=== PATIENT | male | born 1950 | race Two or more races ===

== ENCOUNTER 2021-02-03 07:42 | Outpatient (REF) | payer MEDICARE, SELFPAY ==
[2021-02-03 09:10] LABS: Prostate Specific Antigen 18.29 ng/mL (<0.05-4.0)
== END 2021-02-03 07:43 | disposition home or self-care (01) ==
LOC: HO.LAB 07:42
PROVIDERS: Visit Provider Urology
DX: Z12.5 Encounter for screening for malignant neoplasm of prostate (principal); N40.1 Benign prostatic hyperplasia with lower urinary tract symptoms; N13.8 Other obstructive and reflux uropathy
CPT/HCPCS: 36415; 84153

== ENCOUNTER → 2021-02-05 08:42 | Outpatient (BNVA) | payer MEDICARE, SELFPAY | PROVIDERS: Visit Provider Urology | DX: R97.20 Elevated prostate specific antigen [PSA] (principal); N40.0 Benign prostatic hyperplasia without lower urinary tract symptoms | CPT/HCPCS: 51798; 99212 ==

== ENCOUNTER → 2021-06-08 08:09 | Outpatient (BNVA) | payer MEDICARE, SELFPAY | PROVIDERS: Visit Provider Urology | CPT/HCPCS: Q3014 ==

== ENCOUNTER 2021-11-26 07:53 | Outpatient (REF) | payer MEDICARE, SELFPAY ==
[2021-11-26 09:25] LABS: PSA,Total (Free>4and<10) 5.31 ng/mL (0.00-4.00)
[2021-11-29 11:47] LABS: Free Prostate Spec Ag 1.1 ng/mL; Percent Free Prostate Spec Ag 19 % (calc) (>25); Prostate Specific Ag Total 5.9 ng/mL (< OR = 4.0)
== END 2021-11-26 07:54 | disposition home or self-care (01) ==
LOC: HO.LAB 07:53
PROVIDERS: PCP Internal Medicine; Visit Provider Urology
DX: Z12.5 Encounter for screening for malignant neoplasm of prostate (principal); N40.0 Benign prostatic hyperplasia without lower urinary tract symptoms; N40.1 Benign prostatic hyperplasia with lower urinary tract symptoms; N13.8 Other obstructive and reflux uropathy
CPT/HCPCS: 36415; 84153; 84154

== ENCOUNTER → 2021-12-14 08:19 | Outpatient (BNVA) | payer MEDICARE, SELFPAY | PROVIDERS: PCP Internal Medicine; Visit Provider Urology | DX: R97.20 Elevated prostate specific antigen [PSA] (principal); N40.1 Benign prostatic hyperplasia with lower urinary tract symptoms; R33.9 Retention of urine, unspecified | CPT/HCPCS: Q3014 ==

== ENCOUNTER 2022-06-13 07:54 | Outpatient (REF) | payer OTHER, SELFPAY ==
[2022-06-13 09:23] LABS: PSA,Total (Free>4and<10) 4.72 ng/mL (0.00-4.00)
[2022-06-14 12:07] LABS: Percent Free Prostate Spec Ag 20 % (calc) (>25); Prostate Specific Ag Total 4.9 ng/mL (< OR = 4.0)
== END 2022-06-13 07:55 | disposition home or self-care (01) ==
LOC: HO.LAB 07:54
PROVIDERS: PCP Internal Medicine; Visit Provider Urology
DX: Z12.5 Encounter for screening for malignant neoplasm of prostate (principal); N13.8 Other obstructive and reflux uropathy; N40.1 Benign prostatic hyperplasia with lower urinary tract symptoms
CPT/HCPCS: 36415; 84153; 84154

== ENCOUNTER → 2022-06-16 11:16 | Outpatient (BNVA) | payer OTHER, SELFPAY | PROVIDERS: PCP Internal Medicine; Visit Provider Urology | DX: R97.20 Elevated prostate specific antigen [PSA] (principal); N40.1 Benign prostatic hyperplasia with lower urinary tract symptoms; N13.8 Other obstructive and reflux uropathy; Z79.899 Other long term (current) drug therapy | CPT/HCPCS: 51798; 99212 ==

== ENCOUNTER 2022-12-12 08:29 | Outpatient (REF) | payer OTHER, SELFPAY ==
[2022-12-12 09:52] LABS: PSA,Total (Free>4and<10) 4.09 ng/mL (0.00-4.00)
[2022-12-13 10:43] LABS: Free Prostate Spec Ag 0.9 ng/mL; Percent Free Prostate Spec Ag 23 % (calc) (>25)
== END 2022-12-12 08:30 | disposition home or self-care (01) ==
LOC: HO.LAB 08:29
PROVIDERS: Visit Provider Urology
DX: Z12.5 Encounter for screening for malignant neoplasm of prostate (principal); N13.8 Other obstructive and reflux uropathy; N40.1 Benign prostatic hyperplasia with lower urinary tract symptoms; R97.20 Elevated prostate specific antigen [PSA]
CPT/HCPCS: 36415; 84153; 84154

== ENCOUNTER → 2022-12-16 15:30 | Outpatient (BNVA) | payer OTHER, SELFPAY | PROVIDERS: PCP Internal Medicine; Visit Provider Urology | DX: R97.20 Elevated prostate specific antigen [PSA] (principal); N40.0 Benign prostatic hyperplasia without lower urinary tract symptoms | CPT/HCPCS: Q3014 ==

== ENCOUNTER 2023-06-06 07:28 | Outpatient (REF) | payer OTHER, SELFPAY ==
[2023-06-06 09:57] LABS: Prostate Specific Antigen 5.02 ng/mL (<0.05-4.0)
== END 2023-06-06 07:29 | disposition home or self-care (01) ==
LOC: HO.LAB 07:28
PROVIDERS: Visit Provider Urology
DX: Z12.5 Encounter for screening for malignant neoplasm of prostate (principal); R97.20 Elevated prostate specific antigen [PSA]
CPT/HCPCS: 36415; 84153

== ENCOUNTER 2023-06-21 11:16 | Outpatient (AMB) | payer OTHER, SELFPAY ==
--- NOTE | 2023-06-21 11:43 | MHC.OFFVIS ---
Intake Intake Visit Reasons: 6m/PSA(set) Intake Note: Patient is present for Follow Up PSA Urology Med: Finasteride, Tamsulosin Antibiotic Allergy: None Blood Thinner: None [facility]acy: [facility] Allergies No Known Allergies Allergy (Verified 06/21/23 11:45) Medication List - Last Reconciled 06/21/23 by Newton Brewer MD acetaminophen-codeine 300-60 mg 1 tab PO Q8H PRN amlodipine 5 mg PO DAILY aspirin 1 tab PO DAILY atorvastatin 1 tab PO BEDTIME blood sugar diagnostic (FreeStyle Lite Strips) As directed cholecalciferol (vitamin D3) (Vitamin D3) 1 cap PO DAILY cyanocobalamin (vitamin B-12) 1 tab PO BEDTIME docusate sodium 100 mg PO BID duloxetine 1 cap PO DAILY famotidine 20 mg PO DAILY ferrous sulfate 325 mg PO DAILY finasteride 5 mg PO DAILY 90 days glipizide ER 10 mg PO DAILY lisinopril 1 tab PO DAILY loratadine 1 tab PO DAILY memantine 1 tab PO BID metformin 1 tab PO BID pregabalin 1 cap PO TID psyllium husk (Reguloid (psyllium husk)) 0.4 grams PO DAILY repaglinide 1 tab PO TID sennosides (senna) 2 tabs PO DAILY PRN sertraline 1 tab PO DAILY tamsulosin 0.4 mg PO DAILY triamcinolone acetonide 0.1% 0.1 appl topical BID HPI HPI Comments History of Present Illness Details oRd is a pleasant male. He is a patient of Dr. Chowdhury. 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 10/10 PSA - 05/11 10 - 02/10 18 - 05/12 6.6, 12/14 5.9 F 19%, 06/13 4.7 20%, 12/15 4.1, 06/14 5.0 PFSH Medical History BPH (benign prostatic hyperplasia) Depression Diabetes Diabetic nephropathy History of hepatitis as a child HTN (hypertension) Hypercholesteremia Normocytic anemia Obstructive sleep apnea Osteoarthritis Surgical History History of prostate biopsy Family History Father Diabetes Social History Household Members: Spouse and Significant Other Housing: House Are you a primary career services director to a significant other at home: No Do you presently have visiting nurse or other home services: No Alcohol intake: former Patient Tobacco Use Status: Never used Tobacco service: Yes Current occupational status: retired Review of Systems Const Denies chills and Denies fever(s) Card Reports no additional complaints and Denies syncope Resp Denies cough GI Denies abdominal pain and Denies heartburn Reports as per HPI and Denies change in libido Neuro Denies syncope Psych Denies change in libido Endo Denies change in libido Physical Exam Const General: cooperative, healthy appearing, comfortable and no acute distress Orientation/consciousness: patient oriented x3 HEENT Face and sinus: Yes normal facial exam Mouth: moist mucous membranes Neck Neck: Yes normal visual inspection, Yes full ROM and Yes trachea midline Chest Chest palpation & inspection: normal inspection of the chest Resp Effort & Inspection: normal respiratory effort, able to speak in complete sentences and no respiratory distress GI Inspection: Yes normal to inspection Back/Spine/Pelvis Cervical Spine: normal cervical lordosis Thoracic/Lumbar Spine: thoracic and lumbar spine normal to inspection Skin General skin exam: no rashes or lesions noted Neuro General: patient oriented x3, gait normal, tone normal and moves all extremities Extrem General: Yes normal to inspection and Yes capillary refill normal Assessment & Plan Assessment & Plan (1) Elevated PSA: Code(s): R97.20 - Elevated prostate specific antigen [PSA] (2) BPH (benign prostatic hyperplasia): Code(s): N40.0 - Benign prostatic hyperplasia without lower urinary tract symptoms Plan Six month follow-up PSA Orders: Orders PSA,Total (Free>4and<10) 6 Months R97.20 - Elevated prostate specific antigen [PSA] Patient Instructions: Imaging studies, laboratory and physical exam results were discussed and reviewed in detail. No major barriers to patient understanding were identified. An opportunity to ask questions regarding the treatment plan was provided. All questions were answered. The patient expressed understanding and agreement with the above treatment plan. The patient is aware they should contact our office by phone for worsening of their current condition or the appearance of new urologic symptoms. Compliance is encouraged with any medications and followup testing that is ordered. It is a privilege to participate in the urologic care of your patient. If you have any questions or concerns regarding treatment for the above conditions, or other urologic issues, please do not hesitate to contact me. The office telephone contact is [phone]. This note is constructed using voice recognition software. While every effort has been made to ensure accuracy automatic embroidery machine tender errors may have been included. Yours sincerely, Dr Newton Brewer MD, [facility] - Urology Providers of Expert, Compassionate Care for the Genitourinary System Coding Level of Care Code Est Pt Level 3 (45004) Diagnoses Elevated PSA R97.20 BPH (benign prostatic hyperplasia) N40.0
== END 2023-06-21 12:07 | disposition home or self-care (01) ==
PROVIDERS: PCP Internal Medicine; Visit Provider Urology
DX: R97.20 Elevated prostate specific antigen [PSA] (principal); N40.0 Benign prostatic hyperplasia without lower urinary tract symptoms
CPT/HCPCS: 99213

== ENCOUNTER → 2023-06-21 11:16 | Outpatient (BNVA) | payer OTHER, SELFPAY | PROVIDERS: PCP Internal Medicine; Visit Provider Urology | DX: R97.20 Elevated prostate specific antigen [PSA] (principal); N40.0 Benign prostatic hyperplasia without lower urinary tract symptoms; E11.21 Type 2 diabetes mellitus with diabetic nephropathy; Z79.84 Long term (current) use of oral hypoglycemic drugs; Z79.899 Other long term (current) drug therapy | CPT/HCPCS: 99212 ==

== ENCOUNTER 2023-11-28 16:14 | Outpatient (REF) | payer OTHER, SELFPAY ==
[2023-11-28 17:43] LABS: Appearance Urine Cloudy; Color Urine Yellow; Glucose Urine UA 250 mg/dL (Negative); Leukocyte Esterase Urine Large (3+) (Negative); Nitrite Urine Negative (Negative); PH 6.5 (5.0-9.0); UMIC TRIGGER UA YES; Urine Blood Trace (Negative); Urine Ketones Negative (Negative); Urine Protein 30 (1+) mg/dL (Neg-Trace)
[2023-11-28 17:48] LABS: Bacteria Urine Trace (None Seen); Hyaline Casts Urine 0-2 /LPF (0-2); RBC Urine 0-2 /HPF (0-2); Squamous Epithelial Cell Urine 0-2 /HPF (0-2); WBC Urine >50 /HPF (0-5)
== END 2023-11-28 16:15 | disposition home or self-care (01) ==
LOC: HO.LAB 16:14
PROVIDERS: Visit Provider Urology
DX: N40.0 Benign prostatic hyperplasia without lower urinary tract symptoms (principal)
CPT/HCPCS: 81001; 87086; 87088; 87186

== ENCOUNTER 2023-12-08 08:00 | Outpatient (REF) | payer OTHER, SELFPAY ==
[2023-12-08 09:51] LABS: PSA,Total (Free>4and<10) 3.95 ng/mL (0.00-4.00)
== END 2023-12-08 08:01 | disposition home or self-care (01) ==
LOC: HO.LAB 08:00
PROVIDERS: Visit Provider Urology
DX: R97.20 Elevated prostate specific antigen [PSA] (principal); Z12.5 Encounter for screening for malignant neoplasm of prostate
CPT/HCPCS: 36415; 84153

== ENCOUNTER 2023-12-19 11:35 | Outpatient (AMB) | payer OTHER, SELFPAY ==
--- NOTE | 2023-12-19 11:36 | MHC.OFFVIS ---
Intake Intake Visit Reasons: 6M PSA(set)VM to confirm Intake Note: Patient is Present for Telephone Follow Up PSA Urology Med: Finasteride, Tamsulosin Antibiotic Allergy: None Blood Thinner: Aspirin Allergies No Known Allergies Allergy (Verified 12/19/23 11:37) Medication List - Last Reconciled 12/19/23 by Newton Brewer MD acetaminophen-codeine 300-60 mg 1 tab PO Q8H PRN amlodipine 5 mg PO DAILY aspirin 1 tab PO DAILY atorvastatin 1 tab PO BEDTIME blood sugar diagnostic (FreeStyle Lite Strips) As directed cholecalciferol (vitamin D3) (Vitamin D3) 1 cap PO DAILY cyanocobalamin (vitamin B-12) 1 tab PO BEDTIME docusate sodium 100 mg PO BID duloxetine 1 cap PO DAILY famotidine 20 mg PO DAILY ferrous sulfate 325 mg PO DAILY finasteride 5 mg PO DAILY 90 days glipizide ER 10 mg PO DAILY lisinopril 1 tab PO DAILY loratadine 1 tab PO DAILY memantine 1 tab PO BID metformin 1 tab PO BID nitrofurantoin monohyd/m-cryst 100 mg (Macrobid) 100 mg PO BID 2 weeks pregabalin 1 cap PO TID psyllium husk (Reguloid (psyllium husk)) 0.4 grams PO DAILY repaglinide 1 tab PO TID sennosides (senna) 2 tabs PO DAILY PRN sertraline 1 tab PO DAILY tamsulosin 0.4 mg PO DAILY 90 days triamcinolone acetonide 0.1% 0.1 appl topical BID HPI HPI Comments History of Present Illness Details Rod is a pleasant male. He is a patient of Dr. Chowdhury. 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 10/10 PSA - 05/11 10 - 02/10 18 - 05/12 6.6, 12/14 5.9 F 19%, 06/13 4.7 20%, 12/15 4.1, 06/14 5.0, 12/16 3.9 PFSH Medical History BPH (benign prostatic hyperplasia) Depression Diabetes Diabetic nephropathy History of hepatitis as a child HTN (hypertension) Hypercholesteremia Normocytic anemia Obstructive sleep apnea Osteoarthritis Surgical History History of prostate biopsy Family History Father Diabetes Social History Household Members: Spouse and Significant Other Housing: House Are you a primary social worker palliative care to a significant other at home: No Do you presently have visiting nurse or other home services: No Alcohol intake: former Patient Tobacco Use Status: Never used Tobacco service: Yes Current occupational status: retired Review of Systems Const All systems reviewed & are unremarkable except as noted in HPI and below Reports no additional complaints Resp Reports no additional complaints GI Reports no additional complaints Reports as per HPI Musc Reports no additional complaints Physical Exam Telemedicine evaluation Appropriate responses Regular breathing rate and rhythm HEENT Head: Yes normal to inspection Ears: hearing grossly normal bilaterally Eyes General: appearance normal, both eyes and all related structures Neck Neck: Yes normal visual inspection Chest Chest palpation & inspection: normal inspection of the chest Resp Effort & Inspection: normal respiratory effort and able to speak in complete sentences Assessment & Plan Assessment & Plan (1) Elevated PSA: Code(s): R97.20 - Elevated prostate specific antigen [PSA] (2) BPH (benign prostatic hyperplasia): Code(s): N40.0 - Benign prostatic hyperplasia without lower urinary tract symptoms Plan Six-month follow-up repeat PSA Remain on finasteride Orders: Orders Prostate Specific Antigen 6 Months N40.0 - Benign prostatic hyperplasia without lower urinary tract symptoms Medications: Refilled finasteride 5 mg PO DAILY 90 tabs 1RF 90 days N40.0 - Benign prostatic hyperplasia without lower urinary tract symptoms, R97.20 - Elevated prostate specific antigen [PSA] Patient Instructions: Imaging studies, laboratory and physical exam results were discussed and reviewed in detail. No major barriers to patient understanding were identified. An opportunity to ask questions regarding the treatment plan was provided. All questions were answered. The patient expressed understanding and agreement with the above treatment plan. The patient is aware they should contact our office by phone for worsening of their current condition or the appearance of new urologic symptoms. Compliance is encouraged with any medications and followup testing that is ordered. It is a privilege to participate in the urologic care of your patient. If you have any questions or concerns regarding treatment for the above conditions, or other urologic issues, please do not hesitate to contact me. The office telephone contact is [phone]. This note is constructed using voice recognition software. While every effort has been made to ensure accuracy information technology professor errors may have been included. Yours sincerely, Dr Newton Brewre MD, [facility] - Urology Providers of Expert, Compassionate Care for the Genitourinary System Telehealth Telehealth Location of provider rendering services: practice address Location of patient: address on file Patient Identification confirmed using: Name, : Yes Telehealth method: video Patient verbally consented to treatment: Yes Patient verbally consented to billing insurance company: Yes Patient informed of any privacy concerns related to visit: Yes Coding Level of Care Code Tele Est Pt Level 3 (63370) Diagnoses Elevated PSA R97.20 BPH (benign prostatic hyperplasia) N40.0
== END 2023-12-19 12:12 | disposition home or self-care (01) ==
LOC: HO.HUSH 11:35
PROVIDERS: PCP Internal Medicine; Visit Provider Urology
DX: R97.20 Elevated prostate specific antigen [PSA] (principal); N40.0 Benign prostatic hyperplasia without lower urinary tract symptoms
CPT/HCPCS: 99213

== ENCOUNTER → 2023-12-19 11:35 | Outpatient (BNVA) | payer OTHER, SELFPAY | PROVIDERS: PCP Internal Medicine; Visit Provider Urology ==

== ENCOUNTER 2024-06-12 07:11 | Outpatient (REF) | payer OTHER, SELFPAY ==
[2024-06-12 07:32] LABS: MANUAL DIFF FLAG NO
[2024-06-12 07:46] LABS: Basophils Percent Auto 0.5 % (0-2); Eosinophils Absolute Auto 0.1 X10*3/uL (0.0-0.4); Eosinophils Percent Auto 2.3 % (0-4); Hematocrit 38.8 % (42.0-52.0); Hemoglobin 13.2 g/dl (14.0-18.0); Imm Gran Abs Auto 0.02 X10*3/uL (0.00-0.03); Imm Gran Pct Auto 0.3 % (0.0-0.4); Lymphocytes Absolute Auto 1.3 X10*3/uL (1.2-4.9); Lymphocytes Percent Auto 22.2 % (20-40); Mean Corpuscular Hemoglobin 29.2 pg (27.0-33.0); Mean Corpuscular Volume 85.8 fL (80.0-98.0); Mean Platelet Volume 10.1 fL (9.4-12.4); Monocytes Absolute Auto 0.5 X10*3/uL (0.1-1.2); Neutrophils Absolute Auto 3.9 x10*3/uL (2.0-8.3); Neutrophils Percent Auto 65.7 % (45-73); Platelet Count 236 X10*3/uL (160-400); Red Blood Count 4.52 X10*6/uL (4.60-5.80); Red Cell Distribution Width 16.3 % (11.0-16.0)
[2024-06-12 08:21] LABS: Alanine Aminotransferase 31 U/L (0-40); Albumin Level 4.3 g/dL (3.5-5.0); Alkaline Phosphatase 74 U/L (39-117); Anion Gap 13 (12-20); Aspartate Amino Transferase 20 U/L (5-37); Bilirubin Direct 0.1 mg/dL (0.0-0.5); Bilirubin Total 0.4 mg/dL (0.0-1.0); Blood Urea Nitrogen 20 mg/dL (9-16); Calcium 9.9 mg/dL (8.4-10.2); Carbon Dioxide 28 mmol/L (22-29); Chloride 102 mmol/L (96-108); Cholesterol 162 mg/dL (<200); Estimated Glomerular Filt Rate 47; Glucose Random 199 mg/dL (60-115); HDL Cholesterol 55 mg/dL (>40); LDL Cholesterol Calculated 81 mg/dL (<100); Potassium 4.3 mmol/L (3.3-5.1); Sodium 139 mmol/L (135-145); Total Protein 7.7 g/dL (6.5-8.0); Triglycerides 131 mg/dL (<150)
[2024-06-12 08:31] LABS: Prostate Specific Antigen 6.17 ng/mL (<0.05-4.0)
== END 2024-06-12 07:12 | disposition home or self-care (01) ==
LOC: HO.LAB 07:11
PROVIDERS: PCP Internal Medicine; Visit Provider Urology
DX: Z00.00 Encounter for general adult medical examination without abnormal findings (principal); Z13.6 Encounter for screening for cardiovascular disorders; Z12.5 Encounter for screening for malignant neoplasm of prostate; N40.0 Benign prostatic hyperplasia without lower urinary tract symptoms
CPT/HCPCS: 36415; 80048; 80061; 80076; 84153; 85025

== ENCOUNTER 2024-06-18 11:25 | Outpatient (AMB) | payer OTHER, SELFPAY ==
--- NOTE | 2024-06-18 11:27 | MHC.OFFVIS ---
Intake Visit Reasons: 6m/PSA(set) Intake Note: Patient presents today for follow up on: Elevated PSA and BPH PSA: 6.17 Urology Med: Finasteride, Tamsulosin Antibiotic Allergy: None Blood Thinner: Aspirin PVR: 21ml's Investment Recovery Technician Required: No Accompanied by: Self / Same As Patient Allergies No Known Allergies Allergy (Verified 06/18/24 21:05) Medication List - Last Reconciled 06/18/24 by ALBERTO Naik acetaminophen-codeine 300-60 mg 1 tab PO Q8H PRN amlodipine 5 mg PO DAILY aspirin 1 tab PO DAILY atorvastatin 1 tab PO BEDTIME blood sugar diagnostic (FreeStyle Lite Strips) As directed cholecalciferol (vitamin D3) (Vitamin D3) 1 cap PO DAILY cyanocobalamin (vitamin B-12) 1 tab PO BEDTIME docusate sodium 100 mg PO BID duloxetine 1 cap PO DAILY famotidine 20 mg PO DAILY ferrous sulfate 325 mg PO DAILY finasteride 5 mg PO DAILY 90 days glipizide ER 10 mg PO DAILY lisinopril 1 tab PO DAILY loratadine 1 tab PO DAILY memantine 1 tab PO BID metformin 1 tab PO BID pregabalin 1 cap PO TID psyllium husk (Reguloid (psyllium husk)) 0.4 grams PO DAILY repaglinide 1 tab PO TID sennosides (senna) 2 tabs PO DAILY PRN sertraline 1 tab PO DAILY sulfamethoxazole-trimethoprim 800-160 mg (Bactrim DS) 1 tab PO BID 14 days tamsulosin 0.4 mg PO DAILY 90 days triamcinolone acetonide 0.1% 0.1 appl topical BID HPI Comments Details: Rod is a pleasant 73-year-old male patient of Dr. Luis Carlos Lim. He has a past medical history of hepatitis as a child, diabetic neuropathy, osteoarthritis, obstructive sleep apnea, depression, BPH, diabetes, hypercholesteremia, and normocytic anemia. He presents to the office today for follow-up of his elevated PSA and BPH. In discussion with the patient today he reports to be doing and feeling well. He reports compliance with finasteride and Flomax as prescribed. Recent PSA results reviewed with the patient today. As noted and trended below. We discussed increase in PSA and potential causes of elevated PSA. Patient with a previous prostate biopsy with Dr. Osman Loera of 2019 that noted granulomatous prostatitis has since been on finasteride and undergoing surveillance monitoring of PSAs. RALPH offered however deferred. He does report intermittent episodes of dysuria at the end of urination. Discussed possible prostatitis however patient declines RALPH. Discussed redraw of PSA verses treatment of prostatitis verses prostate biopsy. Risks and benefits of these interventions were discussed. He denies incontinence, nocturia, hematuria, foul smelling urine, changes to urinary stream, flank pain, fever, and or chills. In office urinalysis results reviewed with the patient today. PVR 21 mL. He otherwise offers no other issues or concerns at this time. 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 10/10 PSA - 05/11 10 - 02/10 18 - 05/12 6.6, 12/14 5.9 F 19%, 06/13 4.7 20%, 12/15 4.1, 06/14 5.0, 12/16 3.9, 06/15 6.2 [facility] Medical History History of hepatitis as a child Diabetic nephropathy Osteoarthritis Obstructive sleep apnea BPH (benign prostatic hyperplasia) Depression Diabetes Hypercholesteremia HTN (hypertension) Normocytic anemia Surgical History History of prostate biopsy Family History Father Diabetes Social History Household Members: Spouse and Significant Other Housing: House Are you a primary resident care coordinator to a significant other at home: No Do you presently have visiting nurse or other home services: No Alcohol intake: former Patient Tobacco Use Status: Never used Tobacco service: Yes Current occupational status: retired Review of Systems Const All systems reviewed & are unremarkable except as noted in HPI and below Physical Exam Const General: cooperative, healthy appearing, comfortable, no acute distress, well developed, alert and awake Orientation/consciousness: patient oriented x3 Limitations: no limitations HEENT Head: Yes normal to inspection, Yes normocephalic and Yes atraumatic Ears: hearing grossly normal bilaterally Eyes General: appearance normal, both eyes and all related structures Neck Neck: Yes normal visual inspection and Yes trachea midline Chest Chest palpation & inspection: normal inspection of the chest Resp Effort & Inspection: normal respiratory effort and able to speak in complete sentences Cardio Rate: regular rate GI Inspection: Yes normal to inspection General: Yes no CVA tenderness Back/Spine/Pelvis Back: no CVA tenderness Skin General skin exam: no rashes or lesions noted Neuro General: patient oriented x3 Extrem General: Yes normal to inspection Psych Appearance: grossly normal and well kempt Mental Status: mental status grossly normal Speech and movement: Normal speech and movement present and Clear speech present Affect: normal affect Attitude: cooperative Thought process: Normal thought process present Thought content: Normal thought content present Insight: Fair insight present (Psych) Judgement: Fair judgement present (Psych) Office Procedures Post Void Residual Post Residual Void Post Void Residual (PVR): [id number] Void Residual by ultrasound Results AMB Urinalysis, Automated UA Leukoctes 0 Jose A/uL Last Edit by HangIt on 06/18/24 11:46 UA Nitrite Last Edit by HangIt on 06/18/24 11:46 UA Urobilinogen 0.2 mg/dL Last Edit by HangIt on 06/18/24 11:46 UA Protein 15 mg/dL Last Edit by HangIt on 06/18/24 11:46 UA pH 6.0 Last Edit by HangIt on 06/18/24 11:46 UA Blood 0 Ace/uL Last Edit by HangIt on 06/18/24 11:46 UA Specific [place] 1.010 Last Edit by HangIt on 06/18/24 11:46 UA Ketone Negative Last Edit by HangIt on 06/18/24 11:46 UA Bilirubin 0 mg/dL Last Edit by HangIt on 06/18/24 11:46 UA Glucose 500 mg/dL Last Edit by HangIt on 06/18/24 11:46 Results Reviewed Results Reviewed: Laboratory Last Values Urine pH (Auto) 6.0 06/18/24 11:44 Specific [place] (Auto) 1.010 06/18/24 11:44 Urine Protein (Auto) 15 mg/dL 06/18/24 11:44 Glucose (UA)(Auto) 500 mg/dL 06/18/24 11:44 Urine Ketones (Auto) Negative 06/18/24 11:44 Urine Blood (Auto) 0 Ace/uL 06/18/24 11:44 Urine Bilirubin (Auto) 0 mg/dL 06/18/24 11:44 Urine Urobilinogen (Auto) 0.2 mg/dL 06/18/24 11:44 Leukocyte Esterase (Auto) 0 Jose A/uL 06/18/24 11:44 Assessment & Plan Assessment & Plan (1) Elevated PSA: Code(s): R97.20 - Elevated prostate specific antigen [PSA] Category: Medical (2) BPH (benign prostatic hyperplasia): Code(s): N40.0 - Benign prostatic hyperplasia without lower urinary tract symptoms Category: Medical (3) Prostatitis: Code(s): N41.9 - Inflammatory disease of prostate, unspecified Category: Medical Plan In office urinalysis results reviewed with the patient today; as noted above. PVR 21 mL. Recent PSA results reviewed with the patient today; as noted above. RALPH offered however deferred. Discussed at length potential causes of elevated PSA; discussed further treatment options to include redraw of PSA/prostate MRI/prostate biopsy; risks and benefits of these interventions were discussed. Start Bactrim as discussed and prescribed. Continue finasteride and Flomax as prescribed. Discussed redraw of PSA in 6 weeks status post completion of antibiotic therapy. Will obtain PSA in 6 weeks Follow-up in 6 weeks with PSA to be completed prior; or sooner with any issues, concerns, and or questions. Orders: Orders AMB Urinalysis Automated Today Z13.9 - Encounter for screening, unspecified AMB Post Void Residual by ultrasound Today N40.0 - Benign prostatic hyperplasia without lower urinary tract symptoms PSA,Total (Free>4and<10) 6 Weeks R97.20 - Elevated prostate specific antigen [PSA] Medications: New sulfamethoxazole-trimethoprim 800-160 mg (Bactrim DS) 1 tab PO BID 28 tabs 0RF 14 days N39.0 - Urinary tract infection, site not specified Patient Instructions: The patient had an opportunity to ask questions regarding the treatment plan. All questions were answered. Physical exam, labs, and imaging were discussed and reviewed in detail. As well as risks, benefits, and discussion of treatment choices. No major barriers to understanding were identified. The patient expressed understanding and agreement with the above treatment plan. The patient was made aware they should contact our office by phone for worsening of their current condition, the appearance of new symptoms, or with any questions or concerns. Compliance is encouraged with any medications and follow up testing that is ordered. It is a privilege to be allowed the opportunity to participate in? your urological care.? Again, if you have any questions or concerns If you have any questions or concerns please do not hesitate to contact me. The office is [phone]. This note is constructed using voice recognition software. While every effort has been made to ensure accuracy filling layer up errors may have been included. Yours sincerely, ALBERTO Naik Coding Level of Care Code Est Pt Level 4 (83390) Complex EM visit Add On G2211 Diagnoses Elevated PSA R97.20 BPH (benign prostatic hyperplasia) N40.0 Prostatitis N41.9 CPT Codes Post Residual Void - PVR CPT Code: 30251-Dyti Void Residual by ultrasound ([id number])
== END 2024-06-18 11:57 | disposition home or self-care (01) ==
LOC: HO.HUSH 11:25
PROVIDERS: PCP Internal Medicine; Visit Provider Nurse Practitioner Family
DX: R97.20 Elevated prostate specific antigen [PSA] (principal); N40.0 Benign prostatic hyperplasia without lower urinary tract symptoms; N41.9 Inflammatory disease of prostate, unspecified; Z13.9 Encounter for screening, unspecified
CPT/HCPCS: 99214; G2211

== ENCOUNTER → 2024-06-18 11:25 | Outpatient (BNVA) | payer OTHER, SELFPAY | PROVIDERS: PCP Internal Medicine; Visit Provider Nurse Practitioner Family | DX: R97.20 Elevated prostate specific antigen [PSA] (principal); N40.0 Benign prostatic hyperplasia without lower urinary tract symptoms; N41.9 Inflammatory disease of prostate, unspecified | CPT/HCPCS: 51798; 81003; 99212 ==

== ENCOUNTER 2024-07-10 14:37 | Outpatient (AMB) | payer OTHER, SELFPAY ==
[2024-07-10 14:42] VITALS: BP 112/60; PULSE 88; O2SAT 97; BMI 23.9
--- NOTE | 2024-07-10 14:42 | HO.NEPHOV ---
Vital Signs 07/10/24 14:42 Height 5 ft 6 in Weight 148 lb BMI 23.9 BP 112/60 Blood Pressure Location Rt brachial Position Sitting Pulse 88 Pulse Source Pulse Oximeter Pulse Oximetry (%) 97 Oxygen Delivery Method Room Air Intake Visit Reasons: CKD STG3/ Conf Acid Conditioning Worker Required: No Accompanied by: Other Relationship Allergies No Known Allergies Allergy (Verified 07/10/24 14:44) Medication List - Last Reconciled 07/10/24 by Rinku Groves MD acetaminophen-codeine 300-60 mg 1 tab PO Q8H PRN amlodipine 5 mg PO DAILY aspirin 1 tab PO DAILY atorvastatin 1 tab PO BEDTIME blood sugar diagnostic (FreeStyle Lite Strips) As directed cholecalciferol (vitamin D3) (Vitamin D3) 1 cap PO DAILY cyanocobalamin (vitamin B-12) 1 tab PO BEDTIME docusate sodium 100 mg PO BID duloxetine 1 cap PO DAILY empagliflozin (Jardiance) 10 mg PO DAILY famotidine 20 mg PO DAILY ferrous sulfate 325 mg PO DAILY finasteride 5 mg PO DAILY 90 days glipizide ER 5 mg PO DAILY hydroxyzine HCl mg PO BID loratadine 1 tab PO DAILY memantine 1 tab PO BID metformin 1,000 mg PO BID pregabalin 150 mg PO BID repaglinide 0.5 mg PO TID sennosides (senna) 2 tabs PO DAILY PRN sertraline 1 tab PO DAILY sitagliptin phosphate (Januvia) 25 mg PO DAILY tamsulosin 0.4 mg PO DAILY 90 days triamcinolone acetonide 0.1% 0.1 appl topical BID HPI Comments Details: 73-year-old man with a history of longstanding diabetes mellitus for more than 30 years along with hypertension has been referred for chronic kidney disease. Recent serum creatinine was 1.4 mg/dL. He was accompanied by his family. Today he has no specific complaints today. Overall blood sugar has been suboptimal. Recent hemoglobin A1c was 10.4. Blood pressure has been well controlled. He is compliant with all his medications he is on RAAS inhibition as well as SGLT2 inhibitors. History of obstructive sleep apnea but he does not use CPAP [facility] Medical History History of hepatitis as a child Diabetic nephropathy Osteoarthritis Obstructive sleep apnea BPH (benign prostatic hyperplasia) Depression Diabetes Hypercholesteremia HTN (hypertension) Normocytic anemia Surgical History History of prostate biopsy Family History Father Diabetes Social History Household Members: Spouse and Significant Other Housing: House Are you a primary child caregiver private home to a significant other at home: No Do you presently have visiting nurse or other home services: No Alcohol intake: former Patient Tobacco Use Status: Never used Tobacco service: Yes Current occupational status: retired Physical Exam Vital Signs: Last Vital Signs Pulse 88 07/10/24 14:42 BP 112/60 07/10/24 14:42 Pulse Ox 97 07/10/24 14:42 Oxygen Delivery Method Room Air 07/10/24 14:42 BMI result Body Mass Index 23.9 Const General: comfortable; No acute distress Orientation/consciousness: patient oriented x3 Eyes General: appearance normal, both eyes and all related structures Visual Vicente: normal visual vicente by confrontation Neck Neck: Yes supple and Yes no JVD Resp Effort & Inspection: normal respiratory effort and respiratory effort not decreased Auscultation: rhonchi Cardio Palpation: no palpable S3 and no palpable S4 Heart sounds: no rubs GI Inspection: Yes normal to inspection Palpation (GI): Soft to palpation Percussion: Yes normal to percussion Auscultation: normal bowel sounds General: Yes no CVA tenderness Back/Spine/Pelvis Back: no CVA tenderness Skin General skin exam: no petechiae and no purpura Neuro General: patient oriented x3 and no focal motor deficits Extrem General: No clubbing and No edema Results Reviewed Nephrology Results: Hgb 13.2 g/dl (14.0-18.0) L 06/12/24 WBC 6.0 X10*3/uL (4.8-10.8) 06/12/24 Plt Count 236 X10*3/uL (160-400) 06/12/24 Sodium 139 mmol/L (135-145) 06/12/24 Potassium 4.3 mmol/L (3.3-5.1) 06/12/24 Chloride 102 mmol/L (96-108) 06/12/24 Carbon Dioxide 28 mmol/L (22-29) 06/12/24 BUN 20 mg/dL (9-16) H 06/12/24 Creatinine 1.48 mg/dL (0.5-1.4) H 06/12/24 Calcium 9.9 mg/dL (8.4-10.2) 06/12/24 Urine Protein 30 (1+) mg/dL (Neg-Trace) H 11/28/23 Assessment & Plan Assessment & Plan (1) CKD (chronic kidney disease): Code(s): N18.9 - Chronic kidney disease, unspecified Category: Medical Plan 73 man stage 3 chronic kidney disease most likely due to underlying diabetic hypertensive kidney disease. Obstructive uropathy is less likely but nevertheless she would be ruled out. No evidence of any active glomerular nephritis or interstitial disease at this time. Goal is to slow the portion disease. In Recommendations maintain blood pressure less than 130/80. Maintain A1c less than 7%. Continue to avoid nephrotoxic agents including NSAIDs. Agree with maximizing RAAS inhibition SGLT2 inhibitors. Encouraged him to increase p.o. fluid intake. Obtain renal ultrasonogram to assess echogenicity and rule out hydronephrosis. Further workup will be based on the outcome of the baseline investigations in now keep you updated. Orders: Orders Total Protein Urine Random Today N18.9 - Chronic kidney disease, unspecified US renal BI Today N18.9 - Chronic kidney disease, unspecified Basic Metabolic Panel Today N18.9 - Chronic kidney disease, unspecified Creatinine Urine Today N18.9 - Chronic kidney disease, unspecified Coding Level of Care Code New Pt Level 5 (73288) Diagnoses CKD (chronic kidney disease) N18.9
== END 2024-07-10 15:03 | disposition home or self-care (01) ==
PROVIDERS: PCP Student in an Organized Health Care Education/Training Program; Referring Provider Internal Medicine; Visit Provider Internal Medicine Hypertension Specialist
DX: I12.9 Hypertensive chronic kidney disease with stage 1 through stage 4 chronic kidney disease, or unspecified chronic kidney disease (principal); E11.22 Type 2 diabetes mellitus with diabetic chronic kidney disease; N18.30 Chronic kidney disease, stage 3 unspecified
CPT/HCPCS: 99204

== ENCOUNTER → 2024-07-10 14:37 | Outpatient (BNVA) | payer OTHER, SELFPAY | PROVIDERS: PCP Internal Medicine; Referring Provider Internal Medicine; Visit Provider Internal Medicine Hypertension Specialist | DX: E11.22 Type 2 diabetes mellitus with diabetic chronic kidney disease (principal); I12.9 Hypertensive chronic kidney disease with stage 1 through stage 4 chronic kidney disease, or unspecified chronic kidney disease; N18.30 Chronic kidney disease, stage 3 unspecified | CPT/HCPCS: 99202 ==

== ENCOUNTER 2024-07-17 15:56 | Outpatient (REF) | payer OTHER, SELFPAY ==
--- NOTE | ~2024-07-17 | US_ITS ---
EXAMINATION: US RETROPERITONEAL LIMITED (RENAL ONLY) CLINICAL INFORMATION: Chronic kidney disease, unspecified. COMPARISON: None available. TECHNIQUE: Real-time imaging of the kidneys. FINDINGS: RIGHT KIDNEY: 9.2 x 4.6 x 5.1 cm (SAG x AP x TRV). The kidney is normal in size, contour, and echogenicity. Renal cortical thickness is normal. No renal calculi or hydronephrosis. A benign mid renal lateral 1.8 cm Bosniak class I renal cyst is noted which requires no additional imaging or follow up. No solid renal masses are seen. LEFT KIDNEY: 9.8 x 4.6 x 4.9 cm (SAG x AP x TRV). The kidney is normal in size, contour, and echogenicity. Renal cortical thickness is normal. No calculi or focal parenchymal lesions. No hydronephrosis. There is a question of a duplicated collecting system. Incidental note made of an echogenic liver consistent with hepatic steatosis. US/US renal BI IMPRESSION: No significant abnormality is seen. Incidentally noted hepatic steatosis. Electronically signed by: Elbert River MD 07/26/2024 12:45 AM EDT
== END 2024-07-17 15:57 | disposition home or self-care (01) ==
LOC: HO.US 15:56
PROVIDERS: PCP Student in an Organized Health Care Education/Training Program; Visit Provider Internal Medicine Hypertension Specialist
DX: N18.9 Chronic kidney disease, unspecified (principal)
CPT/HCPCS: 76775

== ENCOUNTER 2024-08-13 07:26 | Outpatient (REF) | payer OTHER, SELFPAY ==
[2024-08-13 09:08] LABS: Creatinine Urine 37.05 mg/dL; Total Protein Urine Random 18 mg/dL (<12)
[2024-08-13 09:13] LABS: Anion Gap 13 (12-20); Blood Urea Nitrogen 17 mg/dL (9-16); Carbon Dioxide 29 mmol/L (22-29); Chloride 105 mmol/L (96-108); Estimated Glomerular Filt Rate 49; Glucose Random 219 mg/dL (60-115); Potassium 4.5 mmol/L (3.3-5.1); Sodium 142 mmol/L (135-145)
[2024-08-13 09:30] LABS: PSA,Total (Free>4and<10) 4.53 ng/mL (0.00-4.00)
[2024-08-15 10:23] LABS: Free Prostate Spec Ag 0.9 ng/mL; Percent Free Prostate Spec Ag 20 % (calc) (>25); Prostate Specific Ag Total 4.5 ng/mL (< OR = 4.0)
== END 2024-08-13 07:27 | disposition home or self-care (01) ==
LOC: HO.LAB 07:26
PROVIDERS: Internal Medicine Hypertension Specialist; PCP Student in an Organized Health Care Education/Training Program; Visit Provider Nurse Practitioner Family
DX: N18.9 Chronic kidney disease, unspecified (principal); R97.20 Elevated prostate specific antigen [PSA]; Z12.5 Encounter for screening for malignant neoplasm of prostate
CPT/HCPCS: 36415; 80048; 82570; 84153; 84154; 84156

== ENCOUNTER 2024-08-19 10:21 | Outpatient (AMB) | payer OTHER, SELFPAY ==
--- NOTE | 2024-08-19 10:33 | A.OFFVIS_ITS ---
Intake Visit Reasons: 2m/PSA(set) Intake Note: Patient presents today for follow up on: Elevated PSA and prostatitis PSA: 4.5 Urology Med: Finasteride, Tamsulosin Antibiotic Allergy: None Blood Thinner: Aspirin Automation Tender Required: No Accompanied by: Unknown Allergies No Known Allergies Allergy (Verified 08/19/24 10:50) Medication List - Last Reconciled 08/19/24 by ALBERTO Naik acetaminophen-codeine 300-60 mg 1 tab PO Q8H PRN amlodipine 5 mg PO DAILY aspirin 1 tab PO DAILY atorvastatin 1 tab PO BEDTIME blood sugar diagnostic (FreeStyle Lite Strips) As directed cholecalciferol (vitamin D3) (Vitamin D3) 1 cap PO DAILY cyanocobalamin (vitamin B-12) 1 tab PO BEDTIME docusate sodium 100 mg PO BID duloxetine 1 cap PO DAILY empagliflozin (Jardiance) 10 mg PO DAILY famotidine 20 mg PO DAILY ferrous sulfate 325 mg PO DAILY finasteride 5 mg PO DAILY 90 days glipizide ER 5 mg PO DAILY hydroxyzine HCl mg PO BID loratadine 1 tab PO DAILY memantine 1 tab PO BID metformin 1,000 mg PO BID pregabalin 150 mg PO BID repaglinide 0.5 mg PO TID sennosides (senna) 2 tabs PO DAILY PRN sertraline 1 tab PO DAILY sitagliptin phosphate (Januvia) 25 mg PO DAILY tamsulosin 0.4 mg PO DAILY 90 days triamcinolone acetonide 0.1% 0.1 appl topical BID HPI Comments Details: Rod is a pleasant 74-year-old male patient of Dr. Luis Carlos Lim was accompanied by his SOLAR PROCESS ENGINEER at today's office visit. He has a past medical history of hepatitis as a child, diabetic neuropathy, osteoarthritis, obstructive sleep apnea, depression, BPH, diabetes, hypercholesteremia, and normocytic anemia. He presents to the office today for follow-up of his elevated PSA, BPH, and prostatitis. Of note, patient was seen approximately 2 months ago at which time he was treated for prostatitis. In discussion with the patient today he reports having completed antibiotic therapy as prescribed. He reports lower urinary tract symptoms he had been experiencing of intermittent episodes of dysuria at the end of urination have subsided. Recent PSA results reviewed with the patient today as noted and trended below. We discussed decrease in PSA and potential for previous prostatitis given these results. When asked he reports compliance with finasteride and Flomax as prescribed. 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 He currently denies any bothersome urinary issues or concerns. He denies urinary urgency, urinary frequency, incontinence, nocturia, hematuria, dysuria, foul smelling urine, changes to urinary stream, flank pain, fever, and or chills. He is happy with his current voiding parameters on Flomax and finasteride. In office urinalysis results reviewed with the patient today. He otherwise offers no other issues or concerns at this time. 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 [facility] Medical History History of hepatitis as a child Diabetic nephropathy Osteoarthritis Obstructive sleep apnea BPH (benign prostatic hyperplasia) Depression Diabetes Hypercholesteremia HTN (hypertension) Normocytic anemia Surgical History History of prostate biopsy Family History Father Diabetes Social History Household Members: Spouse and Significant Other Housing: House Are you a primary intensive care unit registered nurse to a significant other at home: No Do you presently have visiting nurse or other home services: No Alcohol intake: former Patient Tobacco Use Status: Never used Tobacco service: Yes Current occupational status: retired Review of Systems Const All systems reviewed & are unremarkable except as noted in HPI and below Physical Exam Const General: cooperative, healthy appearing, comfortable, no acute distress, well developed, alert and awake Orientation/consciousness: patient oriented x3 Limitations: no limitations HEENT Head: Yes normal to inspection, Yes normocephalic and Yes atraumatic Ears: hearing grossly normal bilaterally Eyes General: appearance normal, both eyes and all related structures Neck Neck: Yes normal visual inspection and Yes trachea midline Chest Chest palpation & inspection: normal inspection of the chest Resp Effort & Inspection: normal respiratory effort and able to speak in complete sentences Cardio Rate: regular rate GI Inspection: Yes normal to inspection General: Yes no CVA tenderness Back/Spine/Pelvis Back: no CVA tenderness Skin General skin exam: no rashes or lesions noted Neuro General: patient oriented x3 Extrem General: Yes normal to inspection Psych Appearance: grossly normal and well kempt Mental Status: mental status grossly normal Speech and movement: Normal speech and movement present and Clear speech present Affect: normal affect Attitude: cooperative Thought process: Normal thought process present Thought content: Normal thought content present Insight: Fair insight present (Psych) Judgement: Fair judgement present (Psych) Results AMB Urinalysis, Automated UA Leukoctes 0 Jose A/uL Last Edit by [employer] on 08/19/24 10:45 UA Nitrite Last Edit by [employer] on 08/19/24 10:45 UA Urobilinogen 0.2 mg/dL Last Edit by [employer] on 08/19/24 10:45 UA Protein 0 mg/dL Last Edit by [employer] on 08/19/24 10:45 UA pH 6.0 Last Edit by [employer] on 08/19/24 10:45 UA Blood 0 Ace/uL Last Edit by [employer] on 08/19/24 10:45 UA Specific [place] 1.010 Last Edit by [employer] on 08/19/24 10:45 UA Ketone Negative Last Edit by [employer] on 08/19/24 10:45 UA Bilirubin 0.2 mg/dL Last Edit by [employer] on 08/19/24 10:45 UA Glucose 1000 mg/dL Last Edit by Bambi Madera on 08/19/24 10:45 Results Reviewed Results Reviewed: Laboratory Last Values Urine pH (Auto) 6.0 08/19/24 10:38 Specific [place] (Auto) 1.010 08/19/24 10:38 Urine Protein (Auto) 0 mg/dL 08/19/24 10:38 Glucose (UA)(Auto) 1000 mg/dL 08/19/24 10:38 Urine Ketones (Auto) Negative 08/19/24 10:38 Urine Blood (Auto) 0 Ace/uL 08/19/24 10:38 Urine Bilirubin (Auto) 0.2 mg/dL 08/19/24 10:38 Urine Urobilinogen (Auto) 0.2 mg/dL 08/19/24 10:38 Leukocyte Esterase (Auto) 0 Jose A/uL 08/19/24 10:38 Assessment & Plan Assessment & Plan (1) Elevated PSA: Code(s): R97.20 - Elevated prostate specific antigen [PSA] Category: Medical (2) Prostatitis: Code(s): N41.9 - Inflammatory disease of prostate, unspecified Category: Medical Plan In office urinalysis results reviewed with the patient today; as noted above. Recent PSA results reviewed with the patient today; as noted above. Continue finasteride and Flomax as discussed and prescribed. Discussed bladder triggers/irritants. Discussed at length potential causes for elevated PSA; discussed likelihood of prostatitis given decrease in PSA status post completion of antibiotic therapy. Will continue with surveillance monitoring of PSAs. Patient currently denies any bothersome urinary issues or concerns. Reports be happy with current voiding parameters. Will obtain PSA in 4 months. Follow-up in 4 months with PSA and PVR; or sooner with any issues, concerns, and or questions. Orders: Orders AMB Urinalysis Automated Today Z13.9 - Encounter for screening, unspecified PSA,Total (Free>4and<10) 4 Months N41.9 - Inflammatory disease of prostate, unspecified, R97.20 - Elevated prostate specific antigen [PSA] Patient Instructions: The patient had an opportunity to ask questions regarding the treatment plan. All questions were answered. Physical exam, labs, and imaging were discussed and reviewed in detail. As well as risks, benefits, and discussion of treatment choices. No major barriers to understanding were identified. The patient expressed understanding and agreement with the above treatment plan. The patient was made aware they should contact our office by phone for worsening of their current condition, the appearance of new symptoms, or with any questions or concerns. Compliance is encouraged with any medications and follow up testing that is ordered. It is a privilege to be allowed the opportunity to participate in? your urological care.? Again, if you have any questions or concerns If you have any questions or concerns please do not hesitate to contact me. The office is [phone]. This note is constructed using voice recognition software. While every effort has been made to ensure accuracy manufacturing worker errors may have been included. Yours sincerely, ALBERTO Naik Coding Level of Care Code Est Pt Level 3 (01953) Complex EM visit Add On G2211 Diagnoses Elevated PSA R97.20 Prostatitis N41.9
== END 2024-08-19 10:56 | disposition home or self-care (01) ==
PROVIDERS: PCP Internal Medicine; Visit Provider Nurse Practitioner Family
DX: R97.20 Elevated prostate specific antigen [PSA] (principal); N41.9 Inflammatory disease of prostate, unspecified; Z13.9 Encounter for screening, unspecified
CPT/HCPCS: 99213; G2211

== ENCOUNTER → 2024-08-19 10:21 | Outpatient (BNVA) | payer OTHER, SELFPAY | PROVIDERS: PCP Internal Medicine; Visit Provider Nurse Practitioner Family | DX: R97.20 Elevated prostate specific antigen [PSA] (principal); N41.9 Inflammatory disease of prostate, unspecified | CPT/HCPCS: 81003; 99212 ==

== ENCOUNTER 2024-09-04 07:59 | Outpatient (REF) | payer OTHER, SELFPAY ==
[2024-09-04 11:44] LABS: PSA,Total (Free>4and<10) 5.06 ng/mL (0.00-4.00)
[2024-09-05 10:53] LABS: Free Prostate Spec Ag 1.1 ng/mL; Percent Free Prostate Spec Ag 20 % (calc) (>25); Prostate Specific Ag Total 5.5 ng/mL (< OR = 4.0)
== END 2024-09-04 08:00 | disposition home or self-care (01) ==
LOC: HO.HHCL 07:59
PROVIDERS: Visit Provider Nurse Practitioner Family
DX: N41.9 Inflammatory disease of prostate, unspecified (principal); R97.20 Elevated prostate specific antigen [PSA]; Z12.5 Encounter for screening for malignant neoplasm of prostate
CPT/HCPCS: 36415; 84153; 84154

== ENCOUNTER 2024-09-11 15:12 | Outpatient (AMB) | payer OTHER, SELFPAY ==
--- NOTE | 2024-09-11 15:16 | HO.NEPHOV ---
Vital Signs 09/11/24 15:17 Height 5 ft 6 in Weight 159 lb BMI 25.7 BP 134/66 Blood Pressure Location Lt brachial Position Sitting Pulse 83 Pulse Source Pulse Oximeter Pulse Oximetry (%) 97 Oxygen Delivery Method Room Air Intake Visit Reasons: Nov follow up/ LVM [employer] Required: No [employer] Services: [employer] Offered & Declined [employer] Name: Mary Jo patients friend Accompanied by: Friend Allergies No Known Allergies Allergy (Verified 09/11/24 15:19) Medication List - Last Reconciled 09/11/24 by Rinku Groves MD acetaminophen-codeine 300-60 mg 1 tab PO Q8H PRN amlodipine 5 mg PO DAILY aspirin 1 tab PO DAILY atorvastatin 1 tab PO BEDTIME blood sugar diagnostic (FreeStyle Lite Strips) As directed cholecalciferol (vitamin D3) (Vitamin D3) 1 cap PO DAILY cyanocobalamin (vitamin B-12) 1 tab PO BEDTIME docusate sodium 100 mg PO BID duloxetine 1 cap PO DAILY empagliflozin (Jardiance) 10 mg PO DAILY famotidine 20 mg PO DAILY ferrous sulfate 325 mg PO DAILY finasteride 5 mg PO DAILY 90 days glipizide ER 5 mg PO DAILY hydroxyzine HCl mg PO BID loratadine 1 tab PO DAILY memantine 1 tab PO BID metformin 1,000 mg PO BID pregabalin 150 mg PO BID repaglinide 0.5 mg PO TID sennosides (senna) 2 tabs PO DAILY PRN sertraline 1 tab PO DAILY sitagliptin phosphate (Januvia) 25 mg PO DAILY tamsulosin 0.4 mg PO DAILY 90 days triamcinolone acetonide 0.1% 0.1 appl topical BID HPI Comments Details: 73-year-old man with a history of longstanding diabetes mellitus for more than 30 years along with hypertension has been referred for chronic kidney disease. Recent serum creatinine was 1.4 mg/dL. He was accompanied by his family. Today he has no specific complaints today. Overall blood sugar has been suboptimal. Recent hemoglobin A1c was 10.4. Blood pressure has been well controlled. He is compliant with all his medications he is on RAAS inhibition as well as SGLT2 inhibitors. History of obstructive sleep apnea but he does not use CPAP [facility] Medical History History of hepatitis as a child Diabetic nephropathy Osteoarthritis Obstructive sleep apnea BPH (benign prostatic hyperplasia) Depression Diabetes Hypercholesteremia HTN (hypertension) Normocytic anemia Surgical History History of prostate biopsy Family History Father Diabetes Social History Household Members: Spouse and Significant Other Housing: House Are you a primary career technology teacher to a significant other at home: No Do you presently have visiting nurse or other home services: No Alcohol intake: former Patient Tobacco Use Status: Never used Tobacco service: Yes Current occupational status: retired Physical Exam Vital Signs: Last Vital Signs Pulse 83 09/11/24 15:17 BP 134/66 09/11/24 15:17 Pulse Ox 97 09/11/24 15:17 Oxygen Delivery Method Room Air 09/11/24 15:17 BMI result Body Mass Index 25.7 Results Reviewed Results Reviewed: June 2024 US/US renal BI IMPRESSION: No significant abnormality is seen. Incidentally noted hepatic steatosis. Nephrology Results: Hgb 13.2 g/dl (14.0-18.0) L 06/12/24 WBC 6.0 X10*3/uL (4.8-10.8) 06/12/24 Plt Count 236 X10*3/uL (160-400) 06/12/24 Sodium 142 mmol/L (135-145) 08/13/24 Potassium 4.5 mmol/L (3.3-5.1) 08/13/24 Chloride 105 mmol/L (96-108) 08/13/24 Carbon Dioxide 29 mmol/L (22-29) 08/13/24 BUN 17 mg/dL (9-16) H 08/13/24 Creatinine 1.42 mg/dL (0.5-1.4) H 08/13/24 Calcium 10.0 mg/dL (8.4-10.2) 08/13/24 Urine Creatinine 37.05 mg/dL 08/13/24 Renal US 07/17/24 Assessment & Plan Assessment & Plan (1) CKD (chronic kidney disease): Code(s): N18.9 - Chronic kidney disease, unspecified Category: Medical Plan 74-year-old man with stage 3 chronic kidney disease most likely due to underlying diabetic hypertensive kidney disease. No evidence of obstruction based on renal ultrasonogram No evidence of any active glomerular nephritis or interstitial disease at this time. All serologies has been essentially negative. Marginal improvement in EGFR Goal is to slow the progression of renal disease. maintain blood pressure less than 130/80. Maintain A1c less than 7%. Continue to avoid nephrotoxic agents including NSAIDs. Agree with maximizing RAAS inhibition and SGLT2 inhibitors. Encouraged him to increase p.o. fluid intake. Orders: Orders Basic Metabolic Panel 4 Months N18.9 - Chronic kidney disease, unspecified Coding Level of Care Code Est Pt Level 4 (00291) Diagnoses CKD (chronic kidney disease) N18.9
[2024-09-11 15:17] VITALS: BP 134/66; PULSE 83; O2SAT 97; BMI 25.7
== END 2024-09-11 15:34 | disposition home or self-care (01) ==
LOC: HO.HKAM 15:12
PROVIDERS: PCP Internal Medicine; Visit Provider Internal Medicine Hypertension Specialist
DX: I12.9 Hypertensive chronic kidney disease with stage 1 through stage 4 chronic kidney disease, or unspecified chronic kidney disease (principal); E11.22 Type 2 diabetes mellitus with diabetic chronic kidney disease; N18.30 Chronic kidney disease, stage 3 unspecified
CPT/HCPCS: 99214

== ENCOUNTER → 2024-09-11 15:12 | Outpatient (BNVA) | payer OTHER, SELFPAY | PROVIDERS: PCP Internal Medicine; Visit Provider Internal Medicine Hypertension Specialist | DX: I12.9 Hypertensive chronic kidney disease with stage 1 through stage 4 chronic kidney disease, or unspecified chronic kidney disease (principal); E11.22 Type 2 diabetes mellitus with diabetic chronic kidney disease; N18.9 Chronic kidney disease, unspecified | CPT/HCPCS: 99212 ==

== ENCOUNTER 2024-10-09 07:58 | Outpatient (REF) | payer OTHER, SELFPAY ==
[2024-10-09 12:03] LABS: Hematocrit 38.7 % (42.0-52.0); Hemoglobin 13.1 g/dl (14.0-18.0); Mean Corpuscular HGB Conc 33.9 g/dl (31.0-36.0); Mean Corpuscular Volume 85.8 fL (80.0-98.0); Mean Platelet Volume 10.2 fL (9.4-12.4); Platelet Count 225 X10*3/uL (160-400); Red Blood Count 4.51 X10*6/uL (4.60-5.80); Red Cell Distribution Width 15.3 % (11.0-16.0); White Blood Count 5.9 X10*3/uL (4.8-10.8)
[2024-10-09 12:14] LABS: Estimated Average Glucose 206 mg/dL; Hemoglobin A1C 251.4919 umol/L; Hemoglobin A1c % 8.8 % (<6.0); Total Hemoglobin (HGBA1C) 3455.3643 umol/L
[2024-10-09 12:23] LABS: Alanine Aminotransferase 28 U/L (0-40); Albumin Level 4.5 g/dL (3.5-5.0); Alkaline Phosphatase 67 U/L (39-117); Anion Gap 12 (12-20); Aspartate Amino Transferase 29 U/L (5-37); Bilirubin Total 0.3 mg/dL (0.0-1.0); Blood Urea Nitrogen 17 mg/dL (9-16); Calcium 9.6 mg/dL (8.4-10.2); Carbon Dioxide 32 mmol/L (22-29); Chloride 103 mmol/L (96-108); Cholesterol 157 mg/dL (<200); Estimated Glomerular Filt Rate 58; Glucose Random 131 mg/dL (60-115); HDL Cholesterol 55 mg/dL (>40); LDL Cholesterol Calculated 79 mg/dL (<100); Potassium 4.3 mmol/L (3.3-5.1); Sodium 143 mmol/L (135-145); Total Protein 8.1 g/dL (6.5-8.0); Triglycerides 115 mg/dL (<150)
[2024-10-09 12:35] LABS: Syphilis Screen Nonreactive (Nonreactive); TSH reflex Free T4 2.33 uIU/mL (0.32-4.0); Vitamin D 25-OH Total 59.3 ng/mL (>30)
[2024-10-09 12:44] LABS: Creatinine Urine 52.33 mg/dL; Microalbum/Creatinine Ratio Ur 196.8 ug/mg cr (<30)
[2024-10-09 12:46] LABS: Folate 9.4 ng/mL (> or = 4.0); Vitamin B12 1270 pg/mL (200-900)
[2024-10-09 12:47] LABS: HBS Num1 0.23 mIU/mL (0-7.99); HBc Num1 0.14 S/CO (0.00-0.79); HBsAGNum1 0.45 S/CO (0.00-0.99); HIV AB/AG Nonreactive (Nonreactive); HIV Num 1 0.07 S/CO (0.00-0.99); Hepatitis B Core Antibody Nonreactive (Nonreactive); Hepatitis B Surface Antigen Negative (Negative); ~HepC Num1 0.12 S/CO (0.00-0.79); ~Hepatitis B Surface Antibody NONREACTIVE (Nonreactive); ~Hepatitis C Antibody Nonreactive (Nonreactive)
[2024-10-09 15:00] LABS: CT PCR NOT DETECTED (Not Detect.); NG PCR NOT DETECTED (Not Detect.)
== END 2024-10-09 07:59 | disposition home or self-care (01) ==
LOC: HO.HHCL 07:58
PROVIDERS: Internal Medicine Hypertension Specialist; Visit Provider Student in an Organized Health Care Education/Training Program
DX: Z00.00 Encounter for general adult medical examination without abnormal findings (principal); Z13.1 Encounter for screening for diabetes mellitus
CPT/HCPCS: 36415; 80053; 80061; 82043; 82306; 82570; 82607; 82746; 83036; 84443; 85027; 86704; 86706; 86780; 86803; 87340; 87389; 87491; 87591

== ENCOUNTER 2024-12-03 07:26 | Outpatient (REF) | payer OTHER, SELFPAY ==
--- OUTSIDE RECORDS SUMMARY | 2024-12-03 07:29 | XMS_ITS | Encounter Summary ---
Author Organization [employer] Address [address] [place] [address] [address] [place] [address] Care Team Providers Care Director Radio Name Role Phone Mary Jo Chau MD Primary Care Pro vider Adore Iraheta PharmD Unavailable [phone] Encounter Details Date Type Department Care Team (Late st Contact Info) Description 04/01/[address] [facility] MED[facility] [address] [place] [address] Mary Jo Chau MD [address] [place] [address] Social History Tobacco Use Types Packs/Day Years Used Date Smoking Tobacco: Never Passive Smoke Exposure: Never Smokeless Tobacco: Never Alcohol Use Standard Drinks/Week Comments Not Currently 0 (1 standard drink = 0.6 oz pur e alcohol) Quit years ago Depression Answer Date Recorded Patient Health Questionnaire-9 Score 9 01/08/2024 Patient Health Questionnaire-9 Score 9 01/08/2024 Last PHQ-9: Questionnaire Data Not on file 0 01/08/2024 Depression Answer Date Recorded Patient Health Questionnaire-2 Score 3 01/08/2024 Sex and Gender Information Value Date Recorded Sex Assigned at Male 08/22/2022 10:14 AM EDT Legal Sex Male 10:14 AM EDT Gender Identity Male 08/22/2022 10:14 AM EDT Sexual Orientation Straight 08/22/2022 10 :14 AM EDT documented as of this encounter Plan of Treatment Upcoming Encounters Date Type Department Care Team (Late st Contact Info) Description 12/10/2024 10:30 AM EST Clinical Support [facility] P[facility]S [address] [place] [address] Torie Mccormack, RN [address] [place], [place] [phone] 01/06/2025 3:30 PM EDT Medication Management [facility] [address] [place] [address] Adore Iraheta PharmD [address] [place] [phone] documented as of this encounter Visit Diagnoses Not on filedocumented in this encounter Additional Health Concerns Assessment Noted Time PHQ-9 Depression Total Score: 9 01/08/20 24 3:15 PM EDT documented as of this encounter Care Teams Director Radio Relationship Specialty Start Date End Date Mary Jo Chau MD [address] [place] [id number] PCP - General Internal Medicine 08/01/23 Adore Iraheta PharmD [address] [place] [address] [phone] Pharmacist Internal Medicine 11/04/24 documented as of this encounter
--- OUTSIDE RECORDS SUMMARY | 2024-12-03 07:29 | XMS_ITS | Encounter Summary ---
Author Organization [employer] Address [address] [facility] [address] [place] [address] Care Team Providers Care Rn Occupational Health Name Role Phone Mary Jo Chau MD Primary Care Pro vider Adore Iraheta PharmD Unavailable [phone] Encounter Details Date Type Department Care Team (Late st Contact Info) Description 06/12/2024 Orders Only [facility] [address] [place] [id number] Mary Jo Warren MD [address] [place] [address] Social History Tobacco Use Types Packs/Day Years [...] Description 12/10/2024 10:30 AM EST Clinical Support [facility] [address] [place] [address] Torie Mccormack, RN [address] [place] [address] 01/06/2025 3:30 PM EDT Medication Management [facility] MED[facility] [address] [place] [address] Adore Iraheta PharmD [address] [place] [phone] documented as of this encounter Visit Diagnoses Not on filedocumented in this encounter Additional Health Concerns Assessment Noted Time PHQ-9 Depression Total Score: 9 01/08/20 24 3:15 PM EDT documented as of this encounter Care Teams Rn Occupational Health Relationship Specialty Start Date End Date Mary Jo Chau MD [address] [place] [id number] PCP - General Internal Medicine 08/01/23 Adore Iraheta PharmD [address] [place] [phone] Pharmacist Internal Medicine 11/04/24 documented as of this encounter
--- OUTSIDE RECORDS SUMMARY | 2024-12-03 07:29 | XMS_ITS | Encounter Summary ---
Author Organization [employer] [facility] Address [address] [place] [address] [place] [address] Care Team Providers Care Scuba Instructor Name Role Phone Leah Alvarenga Primary Care Provider [phone] Mary Jo Chau MD Primary Care Pro vider Adore Iraheta PharmD Unavailable [phone] Reason for Visit * Reason Comments Med Refill Encounter Details Date Type Department Care Team (Late st Contact Info) Description 03/23/2023 Refill [facility] MEDICINE [address] [place] [address] Leah Alvarenga FNP [address] [place] [address] Dept [place] [address] Vitamin D deficiency; Peripheral neuropathic pain; Depression, unspecified depression type; Depressive disorder Social History Tobacco Use Types Packs/Day Years Used Date Smoking Tobacco: Never Smokeless Tobacco: Never Alcohol Use Standard Drinks/Week Comments Not Currently 0 (1 standard drink = 0.6 oz pur e alcohol) Quit years ago Depression Answer Date Recorded Patient Health Questionnaire-9 Score 14 12/02/2022 Depression Answer Date Recorded Patient Health Questionnaire-2 Score 3 12/02/2022 Sex and Gender Information Value Date Recorded Sex Assigned at Male 08/22/2022 10:14 AM EDT Legal Sex Male 10:14 AM EDT Gender Identity Male 08/22/2022 10:14 AM EDT Sexual Orientation Straight 08/22/2022 10 :14 AM EDT documented as of this encounter Plan of Treatment Upcoming Encounters Date Type Department Care Team (Late st Contact Info) Description 12/10/2024 10:30 AM EST Clinical Support [facility] MED & PEDS [address] [place] [address] Torie Mccormack, RN [address] [place] [address] 01/06/2025 3:30 PM EDT Medication Management [facility] MEDICINE [address] [place] [address] Adore Iraheta PharmD [address] [place] [address] documented as of this encounter Visit Diagnoses Diagnosis Vitamin D deficiency Peripheral neuropathic pain Depression, unspecified depression type documented in this encounter Additional Health Concerns Assessment Noted Time PHQ-9 Depression Total Score: 14 023 4:05 PM EST documented as of this encounter Care Teams Scuba Instructor Relationship Specialty Start Date End Date Leah Alvarenga FNP PCP - General Family Medicine 09/12/22 07/31/23 Mary Jo Chau MD [address] [place] [id number] PCP - General Internal Medicine 08/01/23 Adore Iraheta PharmD [address] [place] [phone] Pharmacist Internal Medicine 11/04/24 documented as of this encounter
--- OUTSIDE RECORDS SUMMARY | 2024-12-03 07:29 | XMS_ITS | Encounter Summary ---
Author Organization [facility] Address [address] [facility] 7 [place] [address] Care Team Providers Care Rn Family Practice Name Role Phone Leah Alvarenga Primary Care Provider [phone] Mary Jo Chau MD Primary Care Pro vider Adore Iraheta PharmD Unavailable [phone] Reason for Visit * Reason Comments Med Refill Encounter Details Date Type Department Care Team (Late st Contact Info) Description 07/04/2023 Refill [facility] MEDICINE [address] [place] [address] Leah Alvarenga FNP [address] [place] [address] Dept [place] [address] Depression, unspecified depression type Social History Tobacco Use Types Packs/Day Years [...] Support [facility] MED [facility] PEDS [address] [place] [address] Torie Mccormack, RN [address] [place], [place] [phone] 01/06/2025 3:30 PM EDT Medication Management [facility] MEDICINE [address] [place] [address] Adore Irhaeta PharmD [address] [place] [address] documented as of this encounter Visit Diagnoses Diagnosis Depression, unspecified depression type documented in this encounter Additional Health Concerns Assessment Noted Time PHQ-9 Depression Total Score: 14 023 4:05 PM EST documented as of this encounter Care Teams Rn Family Practice Relationship Specialty Start Date End Date Leah Alvarenga FNP PCP - General Family Medicine 09/12/22 07/31/23 Mary Jo Chau MD [address] [place] [id number] PCP - General Internal Medicine 08/01/23 Adore Iraheta PharmD [address] [place] [address] [phone] Pharmacist Internal Medicine 11/04/24 documented as of this encounter
--- OUTSIDE RECORDS SUMMARY | 2024-12-03 07:29 | XMS_ITS | Encounter Summary ---
Author Organization [employer] [facility] Address [address] [place] [address] 7 [place] [address] Care Team Providers Care Corporate Aircraft Mechanic Name Role Phone Leah Alvarenga Primary Care Provider [phone] Mary Jo Chau MD Primary Care Pro vider Adore Iraheta PharmD Unavailable [phone] Reason for Visit * Reason Onset Date Comments BPI score changes 03/24/2023 Encounter Details Date Type Department Care Team (Late st Contact Info) Description 03/24/2023 Refill [facility] MEDICINE [address] [place] [address] Leah Alvarenga FNP [address] [place] [address] Dept [place] [address] Constipation, unspecified constipation type Social History Tobacco Use Types Packs/Day [...] AM EDT documented as of this encounter Miscellaneous Notes * Telephone Encounter - Tyesha Vann RN - 03/31/2023 10:10 AM EDT FYI, 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 Pain severity score of 4.8, activity interference score of 8.6. Previous BPI completed 11/04/22 with pain severity score of 7.8, activity interference score of 5.3. documented in this encounter Plan of Treatment Upcoming Encounters Date Type Department Care Team (Late st Contact Info) Description 12/10/2024 10:30 AM EST Clinical Support [facility] MED & PEDS [address] [place] [address] Torie Mccormack RN [address] [place] [address] 01/06/2025 3:30 PM EDT Medication Management [facility] MEDICINE [address] [place] [address] Adore Iraheta PharmD [address] [place] [id number] documented as of this encounter Visit Diagnoses Diagnosis Constipation, unspecified constipation type documented in this encounter Additional Health Concerns Assessment Noted Time PHQ-9 Depression Total Score: 14 023 4:05 PM EST documented as of this encounter Care Teams Corporate Aircraft Mechanic Relationship Specialty Start Date End Date Leah Alvarenga FNP PCP - General Family Medicine 09/12/22 07/31/23 Mary Jo Chau MD [address] [place] [id number] PCP - General Internal Medicine 08/01/23 Adore Iraheta PharmD [address] [place] [address] [phone] Pharmacist Internal Medicine 11/04/24 documented as of this encounter
--- OUTSIDE RECORDS SUMMARY | 2024-12-03 07:29 | XMS_ITS | Encounter Summary ---
Author Organization [employer] Address [address] [facility] 7 [place] [address] Care Team Providers Care Software Engineer Developer Name Role Phone Mary Jo Chau MD Primary Care Pro vider Adore Iraheta PharmD Unavailable [phone] Reason for Visit * Reason Onset Date Comments new appointment 09/25/2024 Encounter Details Date Type Department Care Team ([facility] st Contact Info) Description 09/25/[address] [facility] MEDICINE [address] [place] [address] Mary Jo Chau MD [address] [place] [address] new appointment Social History Tobacco Use Types Packs/Day Years Used Date Smoking Tobacco: Never Passive Smoke Exposure: Never Smokeless Tobacco: Never Alcohol Use Standard Drinks/Week Comments Not Currently 0 (1 standard drink = 0.6 oz pure alcohol) Quit years ago,used to drink heavy for > 10 y ,heavy liquor ,stopped 2-3 y Depression Answer Date Recorded Patient Health Questionnaire-9 Score 10 09/11/2024 Patient Health Questionnaire-9 Score 10 09/11/2024 Last PHQ-9: Questionnaire Data Not on file 1 11/11/2023 Housing Stability Answer Date Recorded What is your housing situation today? I have rufus gillis 09/04/[address] you li ve. Do you have problems with any of the following? None of the above 09/04/2024 Food Insecurity Answer Date Recorded Within the past 12 months, y ou worried that your food would run out before you got money to buy more: Never True 09/04/2024 Within the past 12 months,th e food you bought just didn't last and you didn't have enough money to get more: Never True Transportation Answer Date Recorded In the past 12 months, has l ack of transportation kept you from medical appts, meetings, work or from getting things needed for daily living? No 09/04/2024 Utilities Answer Date Recorded In the past 12 months, has t he electric, gas, oil or water company threatened to shut off services in your home? No 09/04/2024 Depression Answer Date Recorded Patient Health Questionnaire-2 Score 2 09/11/2024 Internet Access Answer Date Recorded Internet Access Q1 Yes 09/04/2024 Internet Access Q2 Not on file 09/04/2024 Sex and Gender Information Value Date Recorded Sex Assigned at Male 08/22/2022 10:14 AM EDT Legal Sex Male 10:14 AM EDT Gender Identity Male 08/22/2022 10:14 AM EDT Sexual Orientation Straight 08/22/2022 10 :14 AM EDT documented as of this encounter Miscellaneous Notes * Telephone Encounter - Mark Larios - 09/25/2024 2:30 PM EST Tc from pt requesting a new appointment as her pass one was canceled. documented in this encounter Plan of Treatment Upcoming Encounters Date Type Department Care Team (Late st Contact Info) Description 12/10/2024 10:30 AM EST Clinical Support [facility] MED & PEDS [address] [place] [address] Torie Mccormack, RN [address] [place] [address] 01/06/2025 3:30 PM EDT Medication Management [facility] MEDICINE [address] [place] [address] Adore Iraheta, PharmD [address] [place] [address] documented as of this encounter Visit Diagnoses Not on filedocumented in this encounter Additional Health Concerns Assessment Noted Time PHQ-9 Depression Total Score: 10 024 2:12 PM EST documented as of this encounter Care Teams Software Engineer Developer Relationship Specialty Start Date End Date Mary Jo Chau MD [address] [place], [place] [phone] PCP - General Internal Medicine 08/01/23 Adore Iraheta PharmD [address] [place] [address] [phone] Pharmacist Internal Medicine 11/04/24 documented as of this encounter
--- OUTSIDE RECORDS SUMMARY | 2024-12-03 07:29 | XMS_ITS | Clinical Summary ---
Author Organization [employer] Address [address] [place] [address] 7 [place] [address] Care Team Providers Care Clinical Nursing Instructor Name Role Phone Mary Jo Chau MD Primary Care Pro vider Adore Iraheta PharmD Unavailable [phone] Allergies Active Allergy Reactions Criticality Noted Date Comments Lisinopril 06/08/2020 Other reaction(s): Hyperkalemia Medications pregabalin (Lyrica) 150 MG capsule TOME MARYA C PSULA DOS VECES AL D A FOR 30 DAYS 023 Active ferrous sulfate 325 (65 Fe) MG tablet TOME MARYA TABLETA TODO LOS D FOR ANEMIA 022 Active glucose blood (FREESTYLE LITE) test strip USE 1 STRIP TO SKIN ROUTE EVERY DAY 50 strip 11 024 Active hydrOXYzine HCl (Atarax) 10 MG tabletIndications :Depression, unspecified depression type TAKE 1 TO 2 TABLETS BY MOUTH EVERY 12 HOURS IF NEEDED FOR ANXIETY 60 tablet 2 024 Active DULoxetine (Cymbalta) [address] capsuleIndication s:Depression, unspecified depression type TAKE 1 CAPSULE BY MOUTH EVERY DAY 90 capsule 1 024 Active cholecalciferol VITAMIN D (Vitamin D-3) 50 MCG (1999) capsuleIndication s:Vitamin D deficiency TOME 1 CAPSULA POR VIA ORAL TODOS LOS [place]ITCH[place]OCK 90 capsule 024 Active aspirin (Aspirin Low Dose) 81 MG chewable tabletIndications :Type 2 diabetes mellitus with other specified complication, without long-term current use of insulin ([facility]) CHEW 1 TABLET BY MOUTH EVERY DAY 90 tablet 1 Active cyanocobalamin (Vitamin B-12) 1000 MCG tablet Take 1 tablet (1,000 mcg) by mouth Once per day. BUTCH MARYA TABLETA TODOS LOS D AL ACOSTARSE 90 tablet 024 2024 Active finasteride (Proscar) 5 MG tablet Take 1 tablet (5 mg) by mouth Once per day. Do not crush, chew, or split.BUTCH MARYA TABLETA POR V A ORAL TODOS LOS D FOR 90 DAYS 90 tablet 024 2024 Active glipiZIDE XL (Glucotrol XL) 5 MG 24 hr tabletIndications :Type 2 diabetes mellitus with other specified complication, without long-term current use of insulin ([facility]) TAKE 1 TABLET BY MOUTH EVERY DAY WITH BREAKFAST 90 tablet Active lidocaine (Lidoderm) 5 % patchIndications: Diabetic polyneuropathy associated with type 2 diabetes mellitus ([facility]) APPLY 1 PATCH EVERY MORNING REMOVE AND DISARD PATCH WITHIN 12 HOURS OR as INSTRUCTED BY MD 30 patch 2 Active loratadine (Claritin) 10 MG tablet Take 1 tablet (10 mg) by mouth Once per day. Take 1 tablet by mouth everyday 90 tablet 2024 Active memantine (Namenda) 10 MG tabletIndications :Depression, unspecified depression type TAKE 1 TABLET BY MOUTH TWICE A DAY 180 tablet Active polyethylene glycol, PEG, 3350 (MiraLax) 17 GM/SCOOP powder Take 17 g by mouth if needed each day (constipation). take (17G) by oral route every day mixed with 8 oz. water, juice, soda, coffee or tea 510 g 1 2024 Active Reguloid 0.52 g capsuleIndication s:Constipation, unspecified constipation type TAKE 2-3 C PSULA POR V A ORAL TODOS D CUANDO SEA NECESARIO 270 capsule 1 Active sertraline (Zoloft) 100 MG tabletIndications :Depressive disorder TAKE 1 TABLET BY MOUTH EVERY DAY 90 tablet Active tamsulosin (Flomax) 0.4 MG 24 hr capsule Take 1 capsule (0.4 mg) by mouth Once per day. TAKE 1 CAPSULE BY MOUTH EVERYDAY 90 capsule 024 2024 Active famotidine (Pepcid) 20 MG tablet TAKE 1 TABLET BY MOUTH EVERY DAY 90 tablet Active amLODIPine (Norvasc) 5 MG tablet TAKE 1 TABLET BY MOUTH BY MOUTH EVERYDAY 90 tablet Active atorvastatin (Lipitor) 80 MG tablet TAKE 1 TABLET BY MOUTH BY MOUTH AT BEDTIME 90 tablet Active empagliflozin-qiana aGLIPtin-metFORMI N ER (Trijardy XR) 12.5-2.5-1000 MG per 24 hr tablet Take 2 tablets by mouth in the morning 30 tablet 11 Active Blood Glucose Monitoring Suppl (FreeStyle Lite) w/Device kit 1 each Use as directed. 1 kit Active TRUEplus Lancets 33G misc Use to test blood sugar 1 time(s) daily 100 each 3 Active triamcinolone (Kenalog) 0.1 % ointmentIndicatio ns:Other atopic dermatitis APPLY A THIN LAYER TO THE AFFECTED AREA(S) TWICE A DAY 45 g Active senna-docusate (SB Docusate Sodium/Senna) 8.6-50 MG tabletIndications :Constipation, unspecified constipation type Take 1 tablet by mouth Once per day. (FOR MED BOX); discontinue individual Colace and Senna Rx. 30 tablet 11 025 2025 Active acetaminophen-cod eine (Tylenol w/ Codeine #4) 300-60 MG tabletIndications :Other chronic pain TAKE 1 TABLET BY MOUTH EVERY 8 HOURS NEEDED FOR MODERATE PAIN 56 tablet Active triamcinolone (Kenalog) 0.1 % ointmentIndicatio ns:Other atopic dermatitis APPLY A THIN LAYER TO THE AFFECTED AREA(S) TWICE A DAY 45 g 024 2024 Discontinued(R eorder (will not trigger notification to Pharmacy)) docusate sodium (Colace) 100 MG capsuleIndication s:Constipation, unspecified constipation type TAKE 1 CAPSULE BY MOUTH TWICE A DAY 180 capsule 024 2024 Discontinued repaglinide (Prandin) 0.5 MG tabletIndications :Type 2 diabetes mellitus with other specified complication, without long-term current use of insulin ([facility]) Take 1 tablet by mouth three times every day 15-30 minutes before a meal 270 tablet 024 2024 Discontinued(A lternate therapy) sennosides (Senna-Time) 8.6 MG tablet TOME DOS TABLETAS POR VIA ORAL TODOS LOS [place] CUANDO SEA NECESARIO FOR CONSTIPATION 180 tablet 1 024 2024 Discontinued acetaminophen-cod eine (Tylenol w/ Codeine #4) 300-60 MG tabletIndications :Other chronic pain TAKE 1 TABLET BY MOUTH EVERY 8 HOURS NEEDED FOR MODERATE PAIN 56 tablet 024 2024 Discontinued empagliflozin (Jardiance) 25 MGIndications:Typ e 2 diabetes mellitus with diabetic polyneuropathy, without long-term current use of insulin ([facility]),Stage 3a chronic kidney disease ([facility]) Take 1 tablet (25 mg) by mouth Once per day. 30 tablet 11 024 2024 Discontinued(M ed list cleanup (will not trigger notification to Pharmacy)) SITagliptin (Januvia) 25 MG tablet TOME 1 TABLETA POR VIA ORAL TODOS LOS [place] 90 tablet 025 2024 Discontinued(M ed list cleanup (will not trigger notification to Pharmacy)) metFORMIN (Glucophage) 1000 MG tabletIndications :Peripheral neuropathic pain TAKE 1 TABLET BY MOUTH BY MOUTH TWICE A DAY 180 tablet 025 2024 Discontinued Active Problems Problem Noted Date Diagnosed Date Urinary incontinence 09/11/2024 Stage 3 chronic kidney disease 06/12/2024 Encounter for preventive health examination 12/21 Assessment & Plan (01/08/2024 3:29 PM EDT): See HPI 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/05/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 05/05/2023 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 Mild cognitive impairment 12/02/2022 Overview (12/02/2022): Treating with Namenda 10mg Type 2 diabetes mellitus wit h diabetic polyneuropathy, without long-term current use of insulin 12/02/2022 Assessment & Plan (01/08/2024 3:28 PM EDT): Diabetes is: not controlled - Lab Results Component Value Date HGBA1C 10.6 (A) 12/27/2023 HGBA1C 8.9 (H) 05/24/2022 HGBA1C 8.9 (H) 05/03/2021 - Lab Results Component Value Date MICROALBUR 0.9 05/06/2020 MICROALBUR 0.9 05/06/2020 MICROALBUR 0.9 05/06/2020 -Changes: extensive counseling for diabetic diet done today, I added jardiance 10mg daily I advise to f/u with PCP - Diabetic eye exam:up to date - Diabetic foot exam:declines - Continue lifestyle modifications - Follow up: 3 months Blindness of left eye 12/02/2022 Overview (12/02/2022): 12/01/22: appt with OPH Hypertension 09/24/2012 Assessment & Plan (01/08/2024 3:29 PM EDT): Maintenance: BMP: ordered today Lipid Panel: ordered today ASCVD Risk: Calculate pending updated labs - Aerobic exercise to reduce BP. Initial goal of 30 min walk 3-5x/week. Increase as tolerated. - low-sodium diet (goal: <2g/day) and heart healthy diet such as DASH to reduce BP and prevent ASCVD. - Home BP monitoring 1-2 x day with goal of <140/90. - Seek immediate medical attention for chest pain, palpitations, SOB, syncope, or sudden changes in mental status. 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 12/02/2022 12/02/2022 Obstructive sleep apnea syndrome 07/26/2017 12/02/2022 Diabetes mellitus type 2, uncomplicated 05/01/2012 12/02/2022 Encounters Date Type Department Care Team Description 12/02/2024 Travel 12/02/2024 Telephone [facility] [address] [place] [address] Torie Mccormack RN 11/27/2024 Telephone [facility] [address] [place] [address] Torie Mccormack, WAYLON Appointment Request 11/12/2024 Refill [facility] [address] [place] [address] Tressa Hoskins MD Other chronic pain 11/06/2024 Telephone [facility] [address] [place] [address] Azael Diallo MD 11/06/2024 Telephone [facility] [address] [place] [address] Azael Diallo MD 11/06/2024 Refill [facility] [address] [place] [address] Mary Jo Chau MD Depressive disorder 11/05/2024 Refill [facility] [address] [place] [address] Mary Jo Chau MD Other atopic dermatitis 11/03/2024 Refill [facility] [address] [place] [address] Mary Jo Chau MD Diabetic polyneuropathy associated with type 2 diabetes mellitus ([facility]); Other atopic dermatitis 10/30/2024 Refill [facility] [address] [place] [address] Tressa Hoskins MD Peripheral neuropathic pain 10/18/2024 Telephone [facility] [address] [place] [address] Carole Mccann RN [employer] Changes 10/10/2024 Refill [facility] [address] [place] [address] Mary Jo Chau MD Other chronic pain 10/10/2024 Telephone [facility] [address] [place] [address] Reina Fritz, ANP Results 10/03/2024 Refill [facility] [address] [place] [address] Mary Jo Chau MD Type 2 diabetes mellitus with other specified complication, without long-term current use of insulin ([facility]); Constipation, unspecified constipation type; Diabetic polyneuropathy associated with type 2 diabetes mellitus ([facility]); Depression, unspecified depression type; Peripheral neuropathic pain; Depressive disorder; Type 2 diabetes mellitus with diabetic polyneuropathy, without long-term current use of insulin ([facility]) 10/02/2024 2:45 PM EST Telemedicine [facility] [address] [place] [address] Torie Mccormack RN Other chronic pain 10/02/2024 Travel 09/30/[address] [address] Sonal Quinn [place] Lab Orders 09/27/2024 Refill [facility] [address] [place] [address] Mary Jo Chau MD Depression, unspecified depression type; Type 2 diabetes mellitus with other specified complication, without long-term current use of insulin ([facility]) 09/25/[address] [address] Mary Jo Chau MD new appointment 09/18/2024 Refill [facility] [address] [place] [address] Mary Jo Chau MD Vitamin D deficiency 09/12/2024 Refill [facility] [address] [place] [address] Mary Jo Chau MD Depression, unspecified depression type 09/11/2024 2:15 PM EST Office Visit [address] [address] Mary Jo Chau MD Type 2 diabetes mellitus with diabetic polyneuropathy, without long-term current use of insulin ([facility]) (Primary Dx); Chronic alcoholism in remission ([facility]); Stage 3a chronic kidney disease ([facility]); Dietary counseling; Exercise counseling; Annual physical exam; Encounter for immunization; Urinary incontinence, unspecified type 09/11/2024 Travel 09/09/2024 Refill [facility] [address] [place] [address] Mary Jo Chau MD Other chronic pain 09/04/2024 Patient Outreach [facility] [address] [place] [address] Mary Jo Chau MD Pre-visit Planning (SDOH Screening negative and Tobacco screening negative) from Last 3 Months Immunizations Name Administration Dates Next Due Hep B, adult 11/04/2024 Influenza High-dose Quadriva lent Preservative Free 12/27/2023,08/20/2022,07/30/2021 Influenza Quadrivalent Adjuvanted 07/11/2020 Influenza injectable quadriv alent IIV4 with preservative 08/14/2015 Influenza injectable quadriv alent preservative free 12/11/2018,07/26/2017 Influenza, High Dose Seasona l, Preservative Free 09/11/2024,09/06/2016 Influenza, IIV3, injectable 07/23/2014,1 ,09/03/2010,07/19 Influenza, Split (incl. johnna fied surface antigen) 07/22/2013 Influenza, trivalent, adjuvanted 07/17/2019 Moderna Covid-19 Vaccine 6+ Bivalent 11/04/2022 Pfizer Covid-19 Vaccine 12+ 09/11/2024 Pneumococcal Conjugate PCV 13 05/07/2018 Pneumococcal Conjugate PCV 20 09/11/2024 Pneumococcal Polysaccharide PPSV23 07/30/2021,,07/12/2000 RSV Bivalent 09/20/2024 TD (adult), 2 Lf tetanus tox oid, preservative free, adsorbed 03/05/1996 Td (adult), 5 Lf tetanus tox oid, preservative free, adsorbed 03/26/2014 Tdap 10/02/2024,11/25/2010 Zoster, live 05/17/2018 Family History Medical History Relation Name Comments DM2 Father Relation Name Status Comments Father Social History Tobacco Use Types Packs/Day Years Used Date Smoking Tobacco: Never Passive Smoke Exposure: Never Smokeless Tobacco: Never Tobacco Cessation:Counseling Given: Not Answered Alcohol Use Standard Drinks/Week Comments Not Currently [...] your housing situation today? I have rufus carlin 09/04/[address] you li [...] Orientation Straight 08/22/2022 10 :14 AM EDT Last Filed Vital Signs Vital Sign Reading Time Taken Comments Blood Pressure 130/64 10/02/2024 11:00 AM EST Pulse 85 09/11/2024 2:16 PM EST Temperature 36.5 ??C (97.7 ??F) 09/11/2024 2:16 PM ES T Respiratory Rate 20 09/11/2024 2:16 PM EST Oxygen Saturation 99% 09/11/2024 2:16 PM EST Inhaled Oxygen Concentration - - Weight 72.1 kg (159 lb) 09/11/2024 2:16 PM EST Height 167.6 cm (5' 6 ) 09/11/2024 2:16 PM EST Body Mass Index 25.66 09/11/2024 2:16 PM EST Plan of Treatment Upcoming Encounters Date Type Department Care Team (Late st Contact Info) Description 12/10/2024 10:30 AM EST Clinical Support [facility] [address] [place] [address] Torie Mccormack, RN [address] [place] [address] 01/06/2025 3:30 PM EDT Medication Management [facility] [address] [place] [address] Adore Iraheta, PharmD [address] [place] [address] Health Maintenance Due Date Last Done Comments CT Colonography 1951 Colonoscopy 1951 FIT 1951 FOBT 1950 Sigmoidoscopy 1951 Diabetes: Foot Exam 1961 Eye Exam 1961 Dental Oral Exam 12/16/2021 06/14/2021, 03/2019, 02/19/2018, Additional history exists Dental Prophylaxis 12/16/2021 06/14/2021, 1 11/03/2018, 02/12/2019, Additional history exists Dental X-Ray: Bitewings 06/15/2022 06/14/2021, 11/25 Dental X-Ray: Full Mouth 06/15/2024 06/14/2021, 12/2016 Hepatitis B Vaccines (2 of 3 - 19+ 3-dose series) 12/02/2024 11/04/2024 Zoster Vaccines (3 of 3) 12/30/2024 11/04/2024, 04/23 Diabetes: Hemoglobin A1C 01/07/2025 024, 10/02/2024, 12/27/2023, Additional history exists Depression Monitoring (PHQ-9) 03/11/2025 09/11/2024, 09/11/2024 SDOH Screening 09/04/2025 09/04/2024 Alcohol/Substance Use Screening 09/11/2025 09/11/2024 Depression Screening 09/11/2025 09/11/2024, 09/11/20 24 Diabetes: Urine Protein Screening 10/09/2025 10/09/2024, 05/06/2020 Lipid Panel 10/09/2025 10/09/2024, 05/24, 05/24/2022, Additional history exists Tobacco Screening 10/17/2025 10/17/2024 Colorectal Cancer Screening 01/16/2027 FIT DNA/Cologuard 01/16/2027 01/17/2024 DTaP/Tdap/Td Vaccines (4 - Td or Tdap) 10/02/2034 10/02/2024, 03/26/2014, 11/25/2010, Additional history exists COVID-19 Vaccine Completed 09/11/2024, , 05/24/2022, Additional history exists Influenza Vaccine Completed 09/11/2024, , 08/20/2022, Additional history exists Pneumococcal Vaccine: 50+ Years Completed 09/11/2024, 07/30/2021, 05/07/2018, Additional history exists RSV Patients and Patients Aged 60 years or older Completed 09/20/2024 Hepatitis C Screening Completed 10/09/2024 HIB Vaccines Aged Out No longer eligi ble based on patient's age to complete this topic HPV Vaccines Aged Out No longer eligi ble based on patient's age to complete this topic Hepatitis A Vaccines Aged Out No long er eligible based on patient's age to complete this topic IPV Vaccines Aged Out No longer eligi ble based on patient's age to complete this topic Meningococcal Vaccine Aged Out No dameon randi eligible based on patient's age to complete this topic RSV under 20 months Aged Out No longe r eligible based on patient's age to complete this topic Rotavirus Vaccines Aged Out No longer eligible based on patient's age to complete this topic Procedures Procedure Name Priority Date/Time Associated Diagnosis Comments VITAMIN D,25-OH,TOTAL,IA Routine 10/09/2024 8:01 AM EST Annual physical exam VITAMIN B12/FOLATE, SERUM PANEL Routine 10/09/2024 8:01 AM EST Annual physical exam TSH W/REFLEX TO FT4 Routine 10/09/2024 8 :01 AM EST Annual physical exam SYPHILIS SCREEN Routine 10/09/2024 8:01 AM EST Annual physical exam LIPID PANEL, STANDARD Routine 10/09/2024 8:01 AM EST Annual physical exam HIV 1/2 ANTIGEN/ANTIBODY, FOURTH GENERATION W/RFL Routine 10/09/2024 8:01 AM EST Annual physical exam HEPATITIS C AB W/REFL TO HCV RNA, QN, PCR Routine 10/09/2024 8:01 AM EST Annual physical exam HEPATITIS B SURFACE ANTIGEN, EIA Routine 10/09/2024 8:01 AM EST Annual physical exam HEPATITIS B SURFACE ANTIBODY, QUALITATIVE Routine 10/09/2024 8:01 AM EST Annual physical exam HEPATITIS B CORE AB TOTAL Routine 10/09/2024 8:01 AM EST Annual physical exam HEMOGLOBIN A1C Routine 10/09/2024 8:01 AM EST Annual physical exam COMPREHENSIVE METABOLIC PANEL Routine 10/09/2024 8:01 AM EST Annual physical exam CBC Routine 10/09/2024 8:01 AM EST Annual physical exam ALBUMIN, RANDOM URINE W/CREATININE Routine 10/09/2024 8:01 AM EST Annual physical exam CHLAMYDIA/N. GONORRHOEAE RNA, TMA, UROGENITAL Routine 10/09/2024 8:01 AM EST Annual physical exam POCT GLYCATED HEMOGLOBIN, TOTAL Routine 10/02/2024 11:15 AM EST Type 2 diabetes mellitus with diabetic polyneuropathy, without long-term current use of insulin ([facility]) LAB COLOGUARD?? COLON CANCER SCREEN Routine 01/17/2024 6:32 AM EDT Colon cancer screening PROPHYLAXIS - ADULT Routine 06/14/2021 1 2:00 AM EDT DIAGNOSTIC - DIAGNOSTIC IMAGING - INTRAORAL - COMPREHENSIVE SERIES OF RADIOGRAPHIC IMAGES Routine 06/14/2021 12:00 AM EDT PERIODIC ORAL EVALUATION - ESTABLISHED PATIENT Routine 06/14/2021 12:00 AM EDT from Last 3 Months or Most Recently Relevant to Health Maintenance Results * Syphilis Screen (10/09/2024 8:01 AM EST) Syphilis Screen Nonreactive Nonreactive [facility] Blood 10/09/2024 8:01 AM EST 10/09/2024 11:51 AM EST us Mary Jo Richards MD LAB BLOOD ORDERAB LES Final Result [facility] [address] [place] [phone] * Vitamin D, 25-Hydroxy, Total, Immunoassay (10/09/2024 8:01 AM EST) Vitamin D 25-OH Total 59.3 >30 ng/mL [facility] Comment:Health Based Referen ce Values*< 20 ng/mL [id number] ng/mL Insufficient> 30 ng/mL Sufficient*Zulema KAM. N Engl J Med. 2007;357:266-280Care must be taken in interpreting Vitamin D results fromdifferent laboratories and methodologies. Published datademonstrated that results from patients undergoinghemodialysis may show a negative bias when tested withvarious automated 25-OH vitamin D assays when compared toLC-MS/MS.When testing samples from patients whose predominant form ofVitamin D is Vitamin D2, such as patients receiving VitaminD2 supplementation, results that are subtherapeutic shouldbe confirmed with another method such as LC-MS/MS. Blood Venous blood specimen / Unknown 10/09/2024 8:01 AM EST 10/09/2024 11:51 AM EST Mary Jo Richards MD LAB BLOOD ORDERAB LES Final Result Performing Organization Address [facility]/ZIP Co de Phone Number [facility] [address] [place] [phone] * (ABNORMAL) Vitamin B12 (Cobalamin) and Folate Panel, Serum (10/09/2024 8:01 AM EST) Vitamin B12 1,270(H) 200 - 900 pg/mL [facility] Comment:NORMAL 200-900 PG/ML INDETERMINATE 160-199 PG/ML DEFICIENT < 160 PG/ML Folate 9.4 > or = 4.0 ng/mL [facility] Comment:Reference Values:> o r = 4.0 ng/mL< 4.0 ng/mL suggests folate deficiency Methotrexate, aminopterin and folinic acid(leucovorin) are chemotherapeutic agents whose molecularstructures are similar to folate; therefore, the Architectfolate assay cannot be used for patients using these drugs. Blood 10/09/2024 8:01 AM EST 10/09/2024 11:51 AM EST us Mary Jo Richards MD LAB BLOOD ORDERAB LES Final Result Performing Organization Address City/[facility]/ZIP Co de Phone Number [facility] [address] [place] [phone] * TSH with Reflex to Free T4 (10/09/2024 8:01 AM EST) TSH reflex Free T4 2.33 0.32 - 4.0 uIU/mL [facility] Blood 10/09/2024 8:01 AM EST 10/09/2024 11:51 AM EST us Mary Jo Richards MD LAB BLOOD ORDERAB LES Final Result Performing Organization Address City/[facility]/ZIP Co de Phone Number [facility] [address] [place] [phone] * (ABNORMAL) Albumin, Random Urine W/Creatinine (10/09/2024 8:01 AM EST) Creatinine, Urine 52.33 mg/dL [facility] Microalbumin Urine 103.0 mg/L H [facility] Microalbum Creatinine Ratio Ur 196.8(H) <30 ug/mg cr [facility] Comment:Albumin/Creatinine R atio Reference Ranges: Normal: < 30 ug/mg creatinine Microalbuminuria: 30 - 300 ug/mg creatinineClinical Albuminuria: > 300 ug/mg creatinine Urine (Urine, Random) 10/09/2024 8:01 AM EST 10/09/2024 11:40 AM EST us Mary Jo Richards MD LAB URINE ORDERAB LES Final Result Performing Organization Address [facility] Co de Phone Number [facility] [address] [place] [phone] * Hepatitis C Antibody with Reflex to HCV, RNA, Quantitative, Real-Time PCR (10/09/2024 8:01 AM EST) Hepatitis C Antibody Nonreactive Nonreactive [facility] Comment:Antibodies to HCV no t detected; does not exclude early acuteHCV infection. Blood Venous blood specimen / Unknown 10/09/2024 8:01 AM EST 10/09/2024 11:51 AM EST Mary Jo Richards MD LAB BLOOD ORDERAB LES Final Result Performing Organization Address City/[facility]/ZIP Co de Phone Number [facility] [address] [place] [phone] * Chlamydia/N. Gonorrhoeae RNA, TMA, Urogenitial (10/09/2024 8:01 AM EST) CT PCR NOT DETECTED Not Detect. [facility] Comment:A not detected test result does not exclude the possibilityof infection because test results can be affected byimproper specimen collection, concurrent antibiotic therapy,or the number of organisms in the specimen which may bebelow the sensitivity of the test. As with many diagnostictests, results from the Xpert CT/NG assay should beinterpreted in conjunction with other laboratory andclinical data available to the clinician.Xpert CT/NG performance has not been evaluated in patientsless than 14 years of age. The assay should not be used forthe evaluationof suspected sexual abuse or for other medico-legalindications. Additional testing is recommended in anycircumstance when false positive or false negative resultscould lead to adverse medical, social or psychologicalconsequences. NG PCR NOT DETECTED Not Detect. [facility] Comment:A not detected test result does not exclude the possibilityof infection because test results can be affected byimproper specimen collection, concurrent antibiotic therapy,or the number of organisms in the specimen which may bebelow the sensitivity of the test. As with many diagnostictests, results from the Xpert CT/NG assay should beinterpreted in conjunction with other laboratory andclinical data available to the clinician.Xpert CT/NG performance has not been evaluated in patientsless than 14 years of age. The assay should not be used forthe evaluationof suspected sexual abuse or for other medico-legalindications. Additional testing is recommended in anycircumstance when false positive or false negative resultscould lead to adverse medical, social or psychologicalconsequences. Urine Urethral structure / Unknown 10/09/2024 8:01 AM EST 10/09/2024 11:40 AM EST Narrative [facility] - 10/09/2024 3:00 PM EST Urine us Mary Jo Richards MD LAB MICROBIOLOGY - GENERAL ORDERABLES Final Result [facility] [address] [place] [phone] * Hepatitis B surface antigen, EIA (10/09/2024 8:01 AM EST) Hepatitis B Surface Ag Negative Negative [facility] Blood Venous blood specimen / Unknown 10/09/2024 8:01 AM EST 10/09/2024 11:51 AM EST Mary Jo Richards MD LAB BLOOD ORDERAB LES Final Result Performing Organization Address City/[facility]/ZIP Co de Phone Number [facility] [address] [place] [phone] * Hepatitis B Core Antibody, Total (10/09/2024 8:01 AM EST) Pathologist [facility] Hepatitis B Core Antibody Nonreactive Nonreactive [facility] Blood Venous blood specimen / Unknown 10/09/2024 8:01 AM EST 10/09/2024 11:51 AM EST Mary Jo Richards MD LAB BLOOD ORDERAB LES Final Result Performing Organization Address City/[facility] Co de Phone Number [facility] [address] [place] [phone] * HIV-1/2 Antigen and Antibodies, Fourth Generation, with Reflexes (10/09/2024 8:01 AM EST) Pathologist [facility] HIV AB/AG Nonreactive Nonreactive [facility] Comment:HIV-1 p24 Ag and/or HIV-1/HIV-2 Ab not detected.A test result that is nonreactive does not exclude thepossibility of exposure to or infection with HIV-1 and/orHIV-2. Nonreactive results in this assay for individualswith prior exposure to HIV-1 and/or HIV-2 may be due toantigen and antibody levels that are below the limit ofdetection of this assay.The [employer] HIV Ag/Ab Combo assay result andsupplemental assay results should be interpreted inconjunction with the patient's clinical presentation,history and other laboratory results. If the results areinconsistent with clinical evidence, additional testing issuggested to confirm the result. Blood Venous blood specimen / Unknown 10/09/2024 8:01 AM EST 10/09/2024 11:51 AM EST Mary Jo Richards MD LAB BLOOD ORDERAB LES Final Result Performing Organization Address [facility]/ZIP Co de Phone Number [facility] [address] [place] [address] [phone] * Hepatitis B Surface Antibody, Qualitative (10/09/2024 8:01 AM EST) Pathologist [facility] ~Hepatitis B Surface Antibody NONREACTIVE Nonreactive [facility] Comment:Nonreactive: < 8.00 mIU/mL Blood Venous blood specimen / Unknown 10/09/2024 8:01 AM EST 10/09/2024 11:51 AM EST us Mary Jo Richards MD LAB BLOOD ORDERAB LES Final Result Performing Organization Address [facility] Co de Phone Number [facility] [address] [place] [address] [phone] * (ABNORMAL) CBC (10/09/2024 8:01 AM EST) Pathologist [facility] White Blood Count 5.9 4.8 - 10.8 X10*3/uL [facility] Red Blood Count 4.51(L) 4.60 - 5.80 X10*6/uL [facility] Hemoglobin 13.1(L) 14.0 - 18.0 g/dl [facility] Hematocrit 38.7(L) 42.0 - 52.0 % [facility] Mean Corpuscular Volume 85.8 80.0 - 98.0 fL [facility] Mean Corpuscular Hemoglobin 29.0 27.0 - 33.0 pg [facility] Mean Corpuscular HGB Conc 33.9 31.0 - 36.0 g/dl [facility] Red Cell Distribution Width 15.3 11.0 - 16.0 % [facility] Platelet Count 225 160 - 400 X10*3/uL [facility] Mean Platelet Volume 10.2 9.4 - 12.4 fL [facility] NRBC Pct Auto 0.0 0.0 - 0.2 /100WBC [facility] NRBC Abs Auto 0.000 0.0 - 0.012 X10*3/uL [facility] Blood Venous blood specimen / Unknown 10/09/2024 8:01 AM EST 10/09/2024 11:51 AM EST Mary Jo Richards MD LAB BLOOD ORDERAB LES Final Result Performing Organization Address City/[facility]/ZIP Co de Phone Number [facility] [address] [place] [phone] * (ABNORMAL) Hemoglobin A1c (10/09/2024 8:01 AM EST) Hemoglobin A1c 8.8(H) <6.0 % [facility] Comment:Hemoglobin A1C Refer ence Range Adults: 4.8 - 6.0 % Non diabetic: < 6.0 % Goal: < 7.0 %Additional Action Suggested: > 8.0 %Note: Hemoglobin A1c results are invalid for patients with abnormal amounts of HbF. Blood transfusions may impact the HbA1c concentration in the patient sample. Estimated Average Glucose 206 mg/dL [facility] Comment:eAG = Estimated ave rage glucose which is %A1C expressed asaverage glucose, using the formula of the A2H-MsiddinFhrwxli Glucose study (ADAG), Diabetes Care, Vol.31,#8,May. 2007 Blood Venous blood specimen / Unknown 10/09/2024 8:01 AM EST 10/09/2024 11:51 AM EST us Mary Jo Richards MD LAB BLOOD ORDERAB LES Final Result Performing Organization Address City/[facility]/ZIP Co de Phone Number [facility] [address] [place] [phone] Lipid Panel, Standard (10/09/2024 8:01 AM EST) Triglycerides 115 <150 mg/dL [facility] Comment:Desirable Triglyceri de: less than 150 mg/dLBorderline High Triglyceride 150-199 mg/dLHigh Triglyceride: 200-499 mg/dLVery High Triglyceride: greater than or equal to 5OO mg/dL Cholesterol 157 <200 mg/dL [facility] Comment:Desirable Cholestero l: less than 200 mg/dLBorderline High Cholesterol: 200-239 mg/dLHigh Cholesterol: greater than 239 mg/dL LDL Cholesterol Calculated 79 <100 mg/dL [facility] Comment:Desirable LDL: less than 100 mg/dLNear Optimal/Above Optimal LDL: 110- 129 mg/dLBorderline High LDL: 130-159 mg/dLHigh LDL: 160-189 mg/dLVery High LDL: greater than or equal to 190 mg/dL HDL Cholesterol 55 >40 mg/dL [facility] Comment:Desirable HDL: great er than 40 mg/dL Note: This HDL assay may give artificially low results in patients with liver disease. Blood Venous blood specimen / Unknown 10/09/2024 8:01 AM EST 10/09/2024 11:51 AM EST us Mary Jo Richards MD LAB BLOOD ORDERAB LES Final Result [facility] [address] [place], [place] [phone] * (ABNORMAL) Comprehensive Metabolic Panel (10/09/2024 8:01 AM EST) Sodium 143 135 - 145 mmol/L [facility] Potassium 4.3 3.3 - 5.1 mmol/L [facility] Chloride 103 96 - 108 mmol/L [facility] Carbon Dioxide 32(H) 22 - 29 mmol/L [facility] Anion Gap 12 12 - 20 [facility] Urea Nitrogen (BUN) 17(H) 9 - 16 mg/dL [facility] Creatinine, Serum 1.23 0.5 - 1.4 mg/dL [facility] Estimated Glomerular Filt Rate 58 [facility] Comment:Chronic Kidney Disea se: Estimated GFR < 60 mL/min/1.12i3Iqpmzg Kidney Disease: Estimated GFR < 15 mL/min/1.73m2 Glucose 131(H) 60 - 115 mg/dL [facility] Calcium 9.6 8.4 - 10.2 mg/dL [facility] Bilirubin, Total 0.3 0.0 - 1.0 mg/dL [facility] Aspartate Amino Transferase 29 5 - 37 U/L [facility] Alanine Aminotransferase 28 0 - 40 U/L [facility] Total Protein 8.1(H) 6.5 - 8.0 g/dL [facility] Albumin Level 4.5 3.5 - 5.0 g/dL [facility] Alkaline Phosphatase 67 39 - 117 U/L [facility] Blood Venous blood specimen / Unknown 10/09/2024 8:01 AM EST 10/09/2024 11:51 AM EST us Mary Jo Richards MD LAB BLOOD ORDERAB LES Final Result Performing Organization Address City/State/[facility] Co de Phone Number [facility] [address] [place] [phone] * (ABNORMAL) POCT HGB A1C (10/02/2024 11:15 AM EST) Hemoglobin A1C 8.9(A) 4.0 - 6.0 % Blood 10/02/2024 11:1 5 AM EST us Blanquita Stewart MD POINT OF CARE TEST ENTER/ED IT ORDERABLES Final Result * Cologuard?? colon cancer screening (01/17/2024 6:32 AM EDT) Cologuard Result Negative Negative 01/24/20 9:47 AM EDT [facility] (CLIA #:[id number]) Comment: NEGATIVE TEST RESULT. A negative Cologuard result indicates a low likelihood that a colorectal cancer (CRC) or advanced adenoma (adenomatous polyps with more advanced pre-malignant features) ??is present. The chance that a person with a negative Cologuard test has a colorectal cancer is less than 1 in 1500 (negative predictive value >99.9%) or has an ??advanced adenoma is less than ??5.3% (negative predictive value 94.7%). These data are based on a prospective cross-sectional study of 10,000 individuals at average risk for colorectal cancer who were screened with both Cologuard and colonoscopy. (Angie Dumont et al, N Engl J Med 2014;370(14):1286- 1297) The normal value (reference range) for this assay is negative. COLOGUARD RE-SCREENING RECOMMENDATION: Periodic colorectal cancer screening is an important part of preventive healthcare for asymptomatic individuals at average risk for colorectal cancer. ??Following a negative Cologuard result, the [place] Cancer Society and U.S. Multi-Society Task Force screening guidelines recommend a Cologuard re-screening interval of 3 years. References: [place] Cancer Society Guideline for Colorectal Cancer Screening: https://www.cancer.org/cancer/fglsl-xoqgka-fqwlfu/jixipnkei-rswssiwxe-igxcnph/ac s-rec ommendations.html.; Randy DK, Timothy SILVA, Stephon SadlerK, Colorectal Cancer Screening: Recommendations for Physicians and Patients from the U.S. Multi-Society Task Force on Colorectal Cancer Screening , Am J Gastroenterology 2017; 112:2014-1759. TEST DESCRIPTION: Composite algorithmic analysis of stool DNA-biomarkers with hemoglobin immunoassay. ?? Quantitative values of individual biomarkers are not reportable and are not associated with individual biomarker result reference ranges. Cologuard is intended for colorectal cancer screening of adults of either sex, 45 years or older, who are at average-risk for colorectal cancer (CRC). Cologuard has been approved for use by the U.S. FDA. The performance of Cologuard was established in a cross sectional study of average-risk adults aged 50-84. Cologuard performance in patients ages 45 to 49 years was estimated by sub-group analysis of near-age groups. Colonoscopies performed for a positive result may find as the most clinically significant lesion: colorectal cancer [4.0%], advanced adenoma (including sessile serrated polyps greater than or equal to 1cm diameter) [20%] or non- advanced adenoma [31%]; or no colorectal neoplasia [45%]. These estimates are derived from a prospective cross-sectional screening study of 10,000 individuals at average risk for colorectal cancer who were screened with both Cologuard and colonoscopy. (Angie Navarro al, N Engl J Med 2014;370(14):0521-1739.) Cologuard may produce a false negative or false positive result (no colorectal cancer or precancerous polyp present at colonoscopy follow up). A negative Cologuard test result does not guarantee the absence of CRC or advanced adenoma (pre-cancer). The current Cologuard screening interval is every 3 years. ([place] Cancer Society and U.S. Multi-Society Task Force). Cologuard performance data in a 10,000 patient pivotal study using colonoscopy as the reference method can be accessed at the following location: www.[employer]/results. Additional description of the Cologuard test process, warnings and precautions can be found at www.[employer].com. Stool specimen (specimen) 01/17/2024 6:32 AM EDT 01/19/2024 2:11 PM EDT Mary Jo Lim MD LAB MOLECULAR DIAGNOS TICS ORDERABLES Final Result [facility] (CLIA #:[id number]) [place] [address], from Last 3 Months or Most Recently Relevant to Health Maintenance Insurance [facility] Care Teams Clinical Nursing Instructor Relationship Specialty Start Date End Date Mary Jo Chau MD [address] [place] [address] PCP - General Internal Medicine 08/01/23 Adore Iraheta PharmD [address] [place], [place] Pharmacist Internal Medicine 11/04/24
--- OUTSIDE RECORDS SUMMARY | 2024-12-03 07:29 | XMS_ITS | Encounter Summary ---
Author Organization [employer] Address [address] [facility] 7t [place] [address] Care Team Providers Care Pharmacy Technician Inpatient Name Role Phone Mary Jo Chau MD Primary Care Pro vider Adore Iraheta PharmD Unavailable [phone] Encounter Details Date Type Department Care Team (Late st Contact Info) Description 11/06/[address] [facility] [address] [place] [address] Azael Diallo MD [address] [place] [address] Social History Tobacco Use Types Packs/Day Years [...] encounter Miscellaneous Notes * Telephone Encounter - Azael Diallo MD - 11/06/2024 9:11 AM EST Requested by the patient (and pharmacy team) to change Rx to include in the med box. Will change toDocusate-Senna combo to take once a day (per patient report). documented in this encounter Plan of Treatment Upcoming Encounters Date Type Department Care Team (Late st Contact Info) Description 12/10/2024 10:30 AM EST Clinical Support [facility] [address] [place] [address] Torie Mccormack, RN [address] [place] [address] 01/06/2025 3:30 PM EDT Medication Management [facility] [address] [place] [address] Adore Iraheta, NegritaD [address] [place] [address] documented as of this encounter Visit Diagnoses Diagnosis Constipation, unspecified constipation type- Primary documented in this encounter Additional Health Concerns Assessment Noted Time PHQ-9 Depression Total Score: 10 09/11/ 024 2:12 PM EST documented as of this encounter Care Teams Pharmacy Technician Inpatient Relationship Specialty Start Date End Date Mary Jo Chau MD [address] [place] [address] PCP - General Internal Medicine 08/01/23 Adore Iraheta PharmD [address] [place] [phone] Pharmacist Internal Medicine 11/04/24 documented as of this encounter
--- OUTSIDE RECORDS SUMMARY | 2024-12-03 07:29 | XMS_ITS | Encounter Summary ---
Author Organization [facility] Address [address] [place] [address] 7 [place] [address] Care Team Providers Care Lead Furnace Operator Name Role Phone Leah Alvarenga Primary Care Provider [phone] Mary Jo Chau MD Primary Care Pro vider Adore Iraheta PharmD Unavailable [phone] Reason for Visit * Reason Comments Med Refill Encounter Details Date Type Department Care Team (Late st Contact Info) Description 05/12/2023 Refill [facility] [address] [place] [address] Leah Alvarenga FNP [address] [place] [address] Dept [place] [address] Depression, unspecified depression type Social History Tobacco [...] Orientation Straight 08/22/2022 10 :14 AM EDT COVID-19 Exposure Response Date Recorded In the last 10 days, have yo u been in contact with someone who was confirmed or suspected to have Coronavirus/COVID-19? No / Unsure 04/27/2023 10:37 AM EDT documented as of this encounter Plan of Treatment Upcoming Encounters Date Type Department Care Team (Late st Contact Info) Description 12/10/2024 10:30 AM EST Clinical Support [facility] [address] [place] [address] Torie Mccormack, RN [address] [place] [address] 01/06/2025 3:30 PM EDT Medication Management [facility] [address] [place] [address] Adore Iraheta PharmD [address] [place] [address] documented as of this encounter Visit Diagnoses Diagnosis Depression, unspecified depression type documented in this encounter Additional Health Concerns Assessment Noted Time PHQ-9 Depression Total Score: 14 023 4:05 PM EST documented as of this encounter Care Teams Lead Furnace Operator Relationship Specialty Start Date End Date Leah Alvarenga FNP PCP - General Family Medicine 09/12/22 07/31/23 Mary Jo Cahu MD [address] [place] [address] PCP - General Internal Medicine 08/01/23 Adore Iraheta PharmD [address] [place] [phone] Pharmacist Internal Medicine 11/04/24 documented as of this encounter
--- OUTSIDE RECORDS SUMMARY | 2024-12-03 07:30 | XMS_ITS | Encounter Summary ---
Author Organization [employer] Address [address] [facility] 7t [place] [address] Care Team Providers Care Landscaper Helper Name Role Phone Mary Jo Chau MD Primary Care Pro vider Adore Iraheta PharmD Unavailable [phone] Encounter Details Date Type Department Care Team ([facility] Contact Info) Description 12/02/2024 Telephone [facility] [address] [place], [place] [phone] Torie Mccormack, WAYLON [address] [place] [address] Social History Tobacco Use Types Packs/Day Years [...] encounter Miscellaneous Notes * Telephone Encounter - Torie Mccormack RN - 12/02/2024 2:14 PM EST TC back to pt, MILLING MACHINE 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 documented in this encounter Plan of Treatment Upcoming Encounters Date Type Department Care Team (Late st Contact Info) Description 12/10/2024 10:30 AM EST Clinical Support [facility] [address] [place] [address] Torie Mccormack RN [address] [place] [address] 01/06/2025 3:30 PM EDT Medication Management [facility] [address] [place] [address] Adore Iraheta, PharmD [address] [place] [address] documented as of this encounter Visit Diagnoses Not on filedocumented in this encounter Additional Health Concerns Assessment Noted Time PHQ-9 Depression Total Score: 10 024 2:12 PM EST documented as of this encounter Care Teams Landscaper Helper Relationship Specialty Start Date End Date Mary Jo Chau MD [address] [place], [place] [phone] PCP - General Internal Medicine 08/01/23 Adore Iraheta PharmD [address] [place], [place] [phone] Pharmacist Internal Medicine 11/04/24 documented as of this encounter
--- OUTSIDE RECORDS SUMMARY | 2024-12-03 07:30 | XMS_ITS | Encounter Summary ---
Author Organization [employer] Address [address] [facility] 7t [place] [address] Care Team Providers Care Bore Miner Operator Name Role Phone Mary Jo Chau MD Primary Care Pro vider Adore Iraheta PharmD Unavailable [phone] Encounter Details Date Type Department Care Team (Late st Contact Info) Description 11/06/2024 Telephone [facility] [address] [place] [address] Azael Diallo MD [address] [place] [address] Social History Tobacco Use Types Packs/Day Years [...] Encounter - Azael Diallo MD - 11/06/2024 9:12 AM EST Rx Colace-Senna. documented in this encounter Plan of Treatment Upcoming Encounters Date Type Department Care Team (Late st Contact Info) Description 12/10/2024 10:30 AM EST Clinical Support [facility] [address] [place] [address] Torie Mccormack, RN [address] [place] [address] 01/06/2025 3:30 PM EDT Medication Management [facility] [address] [place] [address] Adore Iraheta, NegritaD [address] [place] [address] documented as of this encounter Visit Diagnoses Diagnosis Constipation, unspecified constipation type- Primary documented in this encounter Additional Health Concerns Assessment Noted Time PHQ-9 Depression Total Score: 10 024 2:12 PM EST documented as of this encounter Care Teams Bore Miner Operator Relationship Specialty Start Date End Date Mary Jo Chau MD [address] [place], [place] [phone] PCP - General Internal Medicine 08/01/23 Adore Iraheta PharmD [address] [place], [place] [phone] Pharmacist Internal Medicine 11/04/24 documented as of this encounter
--- OUTSIDE RECORDS SUMMARY | 2024-12-03 07:30 | XMS_ITS | Encounter Summary ---
Author Organization [employer] Address [address] [facility] 7 [place] [address] Care Team Providers Care Mirror Painter Name Role Phone Mary Jo Chau MD Primary Care Pro vider Adore Iraheta PharmD Unavailable [phone] Reason for Visit * Reason Comments Med Refill Encounter Details Date Type Department Care Team ([facility] st Contact Info) Description 11/03/2024 Refill [facility] [address] [place] [address] Mary Jo Chau MD [address] [place], [place] [phone] Diabetic polyneuropathy associated with type 2 diabetes mellitus (CMS/HCC); Other atopic dermatitis Social History Tobacco Use Types Packs/Day Years [...] Description 12/10/2024 10:30 AM EST Clinical Support [facility] [address] [place] [address] Torie Mccormack, RN [address] [place] [address] 01/06/2025 3:30 PM EDT Medication Management [facility] [address] [place] [address] Adore Iraheta, PharmD [address] [place] [address] documented as of this encounter Visit Diagnoses Diagnosis Diabetic polyneuropathy associated with type 2 diabetes mellitus (CMS/HCC) Other atopic dermatitis documented in this encounter Additional Health Concerns Assessment Noted Time PHQ-9 Depression Total Score: 10 024 2:12 PM EST documented as of this encounter Care Teams Mirror Painter Relationship Specialty Start Date End Date Mary Jo Chau MD [address] [place] [address] PCP - General Internal Medicine 08/01/23 Adore Iraheta, Lorenzo [address] [place] [address] [place] [address] Pharmacist Internal Medicine 11/04/24 documented as of this encounter
--- OUTSIDE RECORDS SUMMARY | 2024-12-03 07:30 | XMS_ITS | Encounter Summary ---
Author Organization [employer] Address [address] [place] [address] 7 [place] [address] Care Team Providers Care Elevator Repairer Helper Name Role Phone Mary Jo Chau MD Primary Care Pro vider Adore Iraheta PharmD Unavailable [phone] Reason for Visit * Reason Comments Med Refill Encounter Details Date Type Department Care Team (Late st Contact Info) Description 09/07/2023 Refill [facility] MEDICINE 230 [place] [address] [facility] 230 [place] [address] Other atopic dermatitis Social History Tobacco Use [...] Description 12/10/2024 10:30 AM EST Clinical Support [facility] MED & PEDS 505 [place] [address] Torie Mccormack WAYLON 505 [place] [address] 01/06/2025 3:30 PM EDT Medication Management [facility] MEDICINE [address] [place] [address] Adore Iraheta PharmD [address] [place] [address] documented as of this encounter Visit Diagnoses Diagnosis Other atopic dermatitis documented in this encounter Additional Health Concerns Assessment Noted Time PHQ-9 Depression Total Score: 14 023 4:05 PM EST documented as of this encounter Care Teams Elevator Repairer Helper Relationship Specialty Start Date End Date Mary Jo Chau MD [address] [place] [address] PCP - General Internal Medicine 08/01/23 Adore Iraheta PharmD [address] [place] [address] Pharmacist Internal Medicine 11/04/24 documented as of this encounter
--- OUTSIDE RECORDS SUMMARY | 2024-12-03 07:30 | XMS_ITS | Encounter Summary ---
Author Organization [employer] Address 75 [facility] 7 [place] [address] Care Team Providers Care Organisation And Methods Analyst Name Role Phone Mary Jo Chau MD Primary Care Pro vider Adore Iraheta PharmD Unavailable [phone] Reason for Visit * Reason Comments Med Refill Encounter Details Date Type Department Care Team ([facility] Contact Info) Description 11/09/2023 Refill [facility] MEDICINE 230 [place] [address] Mary Jo Chau MD 230 [place], [place] [phone] Seasonal allergic rhinitis, unspecified trigger; Other chronic pain Social History Tobacco Use Types Packs/Day Years [...] Encounters Date Type Department Care Team (Late Contact Info) Description 12/10/2024 10:30 AM EST Clinical Support [facility] CHC MED & PEDS 505 [place] [address] Torie Mccormack, RN 505 [place] [address] 01/06/2025 3:30 PM EDT Medication Management [facility] MEDICINE [address] [place] [address] Adore Iraheta PharmD [address] [place] [address] documented as of this encounter Visit Diagnoses Diagnosis Seasonal allergic rhinitis, unspecified trigger Other chronic pain documented in this encounter Additional Health Concerns Assessment Noted Time PHQ-9 Depression Total Score: 14 023 4:05 PM EST documented as of this encounter Care Teams Organisation And Methods Analyst Relationship Specialty Start Date End Date Mary Jo Chau MD [address] [place] [address] PCP - General Internal Medicine 08/01/23 Adore Iraheta PharmD [address] [place] [address] Pharmacist Internal Medicine 11/04/24 documented as of this encounter
--- OUTSIDE RECORDS SUMMARY | 2024-12-03 07:30 | XMS_ITS | Encounter Summary ---
Author Organization [employer] Address 75 [facility] 7t [place] [address] Care Team Providers Care Unix Developer Name Role Phone Mary Jo Chau MD Primary Care Pro vider Adore Iraheta PharmD Unavailable [phone] Encounter Details Date Type Department Care Team (Latest Contact Info) Description 12/02/2024 Travel Social History Tobacco Use Types Packs/Day Years [...] Description 12/10/2024 10:30 AM EST Clinical Support [facility] MED & PEDS 505 [place] [address] Torie Mccormack, RN 505 [place] [address] 01/06/2025 3:30 PM EDT Medication Management [facility] MEDICINE 230 [place] [address] Adore Iraheta PharmD [address] [place] [address] documented as of this encounter Visit Diagnoses Not on filedocumented in this encounter Additional Health Concerns Assessment Noted Time PHQ-9 Depression Total Score: 10 024 2:12 PM EST documented as of this encounter Care Teams Unix Developer Relationship Specialty Start Date End Date Mary Jo Chau MD [address] [place] [address] PCP - General Internal Medicine 08/01/23 Adore Iraheta PharmD [address] [place] [address] Pharmacist Internal Medicine 11/04/24 documented as of this encounter
--- OUTSIDE RECORDS SUMMARY | 2024-12-03 07:30 | XMS_ITS | Encounter Summary ---
Author Organization [facility] Address [address] [place] [address] 7t [place] [address] Care Team Providers Care Electrician Chief Name Role Phone Cristin Chaves MD Primary Care Provider Leah Macario SCREENING UNIT REGISTERED NURSE Primary Care Provider [phone] Mary Jo Chau MD Primary Care Pro vider Adore Iraheta PharmD Unavailable [phone] Encounter Details Date Type Department Care Team (Latest Contact Info) Description 02/12/2019 Abstract [facility] CONVERSIONS Dental, Provider, DDS Social History Tobacco Use Types Packs/Day Years Used Date Smoking Tobacco: Never Assessed Sex and Gender Information Value Date Recorded Sex Assigned at Male 08/22/2022 10:14 AM EDT Legal Sex Male 10:14 AM EDT Gender Identity Male 08/22/2022 10:14 AM EDT Sexual Orientation Straight 08/22/2022 10 :14 AM EDT documented as of this encounter Plan of Treatment Upcoming Encounters Date Type Department Care Team (Late st Contact Info) Description 12/10/2024 10:30 AM EST Clinical Support [facility] CHC MED & PEDS 505 [place] [address] Torie Mccormack, RN 505 [place] [address] 01/06/2025 3:30 PM EDT Medication Management [facility] MEDICINE 230 [place] [address] Adore Iraheta, PharmD 230 [place] [address] documented as of this encounter Visit Diagnoses Not on filedocumented in this encounter Care Teams Electrician Chief Relationship Specialty Start Date End Date Cristin Chaves MD PCP - General Family Medicine 04/13/20 09/11/22 Leah Alvarenga FNP PCP - General Family Medicine 09/12/22 07/31/23 Mary Jo Chau MD [address] [place] [address] [phone] PCP - General Internal Medicine 08/01/23 Adore Iraheta PharmD [address] [place] [address] [phone] Pharmacist Internal Medicine 11/04/24 documented as of this encounter
--- OUTSIDE RECORDS SUMMARY | 2024-12-03 07:30 | XMS_ITS | Encounter Summary ---
Author Organization [employer] [facility] Address [address] [place] [address] 7t [place] [address] Care Team Providers Care Mounting Machine Operator Name Role Phone Cristin Chaves MD Primary Care Provider Leah Macario MERINGUER Primary Care Provider [phone] Mary Jo Chua MD Primary Care Pro vider Adore Iraheta PharmD Unavailable [phone] Encounter Details Date Type Department Care Team (Latest Contact Info) Description 06/14/2021 Abstract [facility] CONVERSIONS Dental, Provider, DDS Social History Tobacco [...] Description 12/10/2024 10:30 AM EST Clinical Support [facility] CHC MED & PEDS 505 [place] [address] Torie Mccormack, RN 505 [place] [address] 01/06/2025 3:30 PM EDT Medication Management [facility] MEDICINE 230 [place] [address] Adore Iraheta, PharmD 230 [place], [place] [phone] documented as of this encounter Visit Diagnoses Not on filedocumented in this encounter Care Teams Mounting Machine Operator Relationship Specialty Start Date End Date Cristin Chaves MD PCP - General Family Medicine 04/13/20 09/11/22 Leah Alvarenga, DON PCP - General Family Medicine 09/12/22 07/31/23 Mary Jo Chau MD [address] [place] [address] [phone] PCP - General Internal Medicine 08/01/23 Adore Iraheta PharmD [address] [place] [address] [phone] Pharmacist Internal Medicine 11/04/24 documented as of this encounter
--- OUTSIDE RECORDS SUMMARY | 2024-12-03 07:30 | XMS_ITS | Encounter Summary ---
Author Organization [employer] Address [address] [place] [address] [place] [address] Care Team Providers Care Cast Associate Name Role Phone Mary Jo Chau MD Primary Care Pro vider Adore Iraheta PharmD Unavailable [phone] Reason for Visit * Reason Comments Med Refill Encounter Details Date Type Department Care Team (Late Contact Info) Description 11/21/2023 Refill [facility] MEDICINE 230 [place] [address] Mary Jo Chau MD 230 [place], [place] [phone] Depression, unspecified depression type Social History Tobacco [...] Description 12/10/2024 10:30 AM EST Clinical Support [facility] CHC MED & PEDS 505 [place], [place] [phone] Torie Mccormack, RN 505 [place] [address] 01/06/2025 3:30 PM EDT Medication Management [facility] MEDICINE [address] [place] [address] Adore Iraheta, Lorenzo [address] [place] [address] documented as of this encounter Visit Diagnoses Diagnosis Depression, unspecified depression type documented in this encounter Additional Health Concerns Assessment Noted Time PHQ-9 Depression Total Score: 14 023 4:05 PM EST documented as of this encounter Care Teams Cast Associate Relationship Specialty Start Date End Date Mary Jo Chau MD [address] [place] [address] PCP - General Internal Medicine 08/01/23 Adore Iraheta PharmD [address] [place] [address] Pharmacist Internal Medicine 11/04/24 documented as of this encounter
--- OUTSIDE RECORDS SUMMARY | 2024-12-03 07:30 | XMS_ITS | Encounter Summary ---
Author Organization [employer] Address 75 [facility] 7 [place] [address] Care Team Providers Care Wood Type Finisher Name Role Phone Mary Jo Chau MD Primary Care Pro vider Adore Iraheta PharmD Unavailable [phone] Reason for Visit * Reason Onset Date Comments Appointment Request 12/18/2023 Encounter Details Date Type Department Care Team (Late st Contact Info) Description 12/18/2023 Telephone [facility] MEDICINE 230 [place] [address] Mary Jo Chau MD 230 [place] [address] Appointment Request Social History Tobacco Use Types Packs/Day Years [...] encounter Miscellaneous Notes * Telephone Encounter - Jamey Guthrie - 12/18/2023 3:10 PM EST Tc from Mary Jo caregiver requesting TP appt per recall, writer editor attempted to schedule however zero availability. Please contact at [phone] Urdu documented in this encounter Plan of Treatment Upcoming Encounters Date Type Department Care Team ([facility] st Contact Info) Description 12/10/2024 10:30 AM EST Clinical Support [facility] CHC MED & PEDS 505 [place] [address] Torie Mccormack, RN 505 [place] [address] 01/06/2025 3:30 PM EDT Medication Management [facility] MEDICINE 230 [place] [address] Adore Iraheta, PharmD 230 [place] [address] documented as of this encounter Visit Diagnoses Not on filedocumented in this encounter Additional Health Concerns Assessment Noted Time PHQ-9 Depression Total Score: 14 023 4:05 PM EST documented as of this encounter Care Teams Wood Type Finisher Relationship Specialty Start Date End Date Mary Jo Chau MD 230 [place], [place] [phone] PCP - General Internal Medicine 08/01/23 Adore Iraheta PharmD [address] [place] [address] Pharmacist Internal Medicine 11/04/24 documented as of this encounter
--- OUTSIDE RECORDS SUMMARY | 2024-12-03 07:30 | XMS_ITS | Encounter Summary ---
Author Organization [facility] Address [address] [place] [address] [place], [place] [address] Care Team Providers Care Automotive Electrical Fitter Name Role Phone Mary Jo Chau MD Primary Care Pro vider Adore Iraheta PharmD Unavailable [phone] Reason for Visit * Reason Comments Med Change Request Encounter Details Date Type Department Care Team (Late st Contact Info) Description 04/27/2024 Refill [facility] MEDICINE 230 [place] [address] Mary Jo Chau MD 230 [place], [place] [phone] Depression, unspecified depression type Social History Tobacco [...] 12/10/2024 10:30 AM EST Clinical Support [facility] CHC MED & PEDS 505 [place] [address] Torie Mccormack, RN 505 [place] [address] 01/06/2025 3:30 PM EDT Medication Management [facility] MEDICINE 230 [place] [address] Adore Iraheta PharmD 230 [place] [address] documented as of this encounter Visit Diagnoses Diagnosis Depression, unspecified depression type documented in this encounter Additional Health Concerns Assessment Noted Time PHQ-9 Depression Total Score: 9 01/08/20 24 3:15 PM EDT documented as of this encounter Care Teams Automotive Electrical Fitter Relationship Specialty Start Date End Date Mary Jo Chau MD [address] [place] [address] PCP - General Internal Medicine 08/01/23 Adore Iraheta PharmD [address] [place] [address] Pharmacist Internal Medicine 11/04/24 documented as of this encounter
--- OUTSIDE RECORDS SUMMARY | 2024-12-03 07:30 | XMS_ITS | Encounter Summary ---
Author Organization [employer] Address 75 [facility] 7 [place] [address] Care Team Providers Care Chemical Librarian Name Role Phone Mary Jo Chau MD Primary Care Pro vider Adore Iraheta PharmD Unavailable [phone] Reason for Visit * Reason Onset Date Comments Med Refill 11/05/2024 Encounter Details Date Type Department Care Team (Late st Contact Info) Description 11/05/2024 Refill [facility] MED & PEDS 505 [place] [address] Mary Jo Chau MD 230 [place] [address] Other atopic dermatitis Social History Tobacco Use [...] 10:30 AM EST Clinical Support [facility] CHC MED & PEDS 505 [place] [address] Torie Mccormack, RN 505 [place] [address] 01/06/2025 3:30 PM EDT Medication Management [facility] MEDICINE 230 [place] [address] Adore Iraheta, PharmD 230 [place] [address] documented as of this encounter Visit Diagnoses Diagnosis Other atopic dermatitis documented in this encounter Additional Health Concerns Assessment Noted Time PHQ-9 Depression Total Score: 10 024 2:12 PM EST documented as of this encounter Care Teams Chemical Librarian Relationship Specialty Start Date End Date Mary Jo Chau MD [address] [place] [address] PCP - General Internal Medicine 08/01/23 Adore Iraheta, Lorenzo 230 [place] [address] Pharmacist Internal Medicine 11/04/24 documented as of this encounter
--- OUTSIDE RECORDS SUMMARY | 2024-12-03 07:30 | XMS_ITS | Encounter Summary ---
Author Organization [email or web address] Address [address] [place] [address] [place] [address] Care Team Providers Care Manager Forensic Name Role Phone Mary Jo Chau MD Primary Care Pro vider Adore Iraheta PharmD Unavailable [phone] Reason for Visit * Reason Comments Med Refill Encounter Details Date Type Department Care Team (Late st Contact Info) Description 11/14/2023 Refill [facility] MED & PEDS 505 [place] [address] Mary Jo Chau MD 230 [place], [place] [phone] Other chronic pain Social History Tobacco Use [...] Support [facility] MED & PEDS 505 [place] [address] Torie Mccormack, WAYLON 505 [place] [address] 01/06/2025 3:30 PM EDT Medication Management [facility] MEDICINE [address] [place] [address] Adore Iraheta PharmD [address] [place] [address] documented as of this encounter Visit Diagnoses Diagnosis Other chronic pain documented in this encounter Additional Health Concerns Assessment Noted Time PHQ-9 Depression Total Score: 14 023 4:05 PM EST documented as of this encounter Care Teams Manager Forensic Relationship Specialty Start Date End Date Mary Jo Chau MD [address] [place] [address] PCP - General Internal Medicine 08/01/23 Adore Iraheta PharmD [address] [place] [address] Pharmacist Internal Medicine 11/04/24 documented as of this encounter
--- OUTSIDE RECORDS SUMMARY | 2024-12-03 07:30 | XMS_ITS | Encounter Summary ---
Author Organization [employer] Address [address] [place] [address] [place] [address] Care Team Providers Care Multi Line Claims Adjuster Name Role Phone Mary Jo Chau MD Primary Care Pro vider Adore Iraheta PharmD Unavailable [phone] Reason for Visit * Reason Comments Med Change Request Encounter Details Date Type Department Care Team (Late Contact Info) Description 09/15/2023 Refill [facility] MEDICINE 230 [place] [address] Mary Jo Chau MD 230 [place], [place] [phone] Depression, unspecified depression type Social History Tobacco [...] [facility] 505 [place], [place] [phone] Torie Mccormack, RN 505 [place] [address] 01/06/2025 3:30 PM EDT Medication Management [facility] MEDICINE [address] [place] [address] Adore Iraheta, Lorenzo [address] [place] [address] documented as of this encounter Visit Diagnoses Diagnosis Depression, unspecified depression type documented in this encounter Additional Health Concerns Assessment Noted Time PHQ-9 Depression Total Score: 14 023 4:05 PM EST documented as of this encounter Care Teams Multi Line Claims Adjuster Relationship Specialty Start Date End Date Mary Jo Chau MD [address] [place] [address] PCP - General Internal Medicine 08/01/23 Adore Iraheta PharmD [address] [place] [address] Pharmacist Internal Medicine 11/04/24 documented as of this encounter
--- OUTSIDE RECORDS SUMMARY | 2024-12-03 07:30 | XMS_ITS | Encounter Summary ---
Author Organization [employer] Address [address] [place] [address] 7 [place] [address] Care Team Providers Care Cuprous Chloride Operator Name Role Phone Mary Jo Chau MD Primary Care Pro vider Adore Iraheta PharmD Unavailable [phone] Reason for Visit * Reason Comments Med Change Request Encounter Details Date Type Department Care Team ([facility] Contact Info) Description 08/15/2023 Refill [facility] MEDICINE 230 [place] [address] Leah Alvarenga FNP [address] [place] [address] Dept [place] [address] Depression, unspecified depression type Social History Tobacco [...] Description 12/10/2024 10:30 AM EST Clinical Support [facility] CHC MED & PEDS 505 [place] [address] Torie Mccormack, RN 505 [place] [address] 01/06/2025 3:30 PM EDT Medication Management [facility] MEDICINE [address] [place] [address] Adore Iraheta, Lorenzo [address] [place] [address] documented as of this encounter Visit Diagnoses Diagnosis Depression, unspecified depression type documented in this encounter Additional Health Concerns Assessment Noted Time PHQ-9 Depression Total Score: 14 023 4:05 PM EST documented as of this encounter Care Teams Cuprous Chloride Operator Relationship Specialty Start Date End Date Mary Jo Chau MD [address] [place] [address] PCP - General Internal Medicine 08/01/23 Adore Iraheta PharmD [address] [place] [address] Pharmacist Internal Medicine 11/04/24 documented as of this encounter
--- OUTSIDE RECORDS SUMMARY | 2024-12-03 07:30 | XMS_ITS | Encounter Summary ---
Author Organization [email or web address] Address 75 [facility] 7 [place] [address] Care Team Providers Care Flyer Builder Name Role Phone Mary Jo Chau MD Primary Care Pro vider Adore Iraheta PharmD Unavailable [phone] Reason for Visit * Reason Comments Med Refill Encounter Details Date Type Department Care Team ([facility] st Contact Info) Description 11/06/2024 Refill [facility] MEDICINE 230 [place] [address] Mary Jo Chau MD 230 [place], [place] [phone] Depressive disorder Social History Tobacco Use Types [...] 12/10/2024 10:30 AM EST Clinical Support [facility] CHC MED & PEDS 505 [place] [address] Torie Mccormack, WAYLON 505 [place] [address] 01/06/2025 3:30 PM EDT Medication Management [facility] MEDICINE 230 [place] [address] Adore Iraheta, PharmD 230 [place] [address] documented as of this encounter Visit Diagnoses Diagnosis Depressive disorder Depressive disorder, not elsewhere classified documented in this encounter Additional Health Concerns Assessment Noted Time PHQ-9 Depression Total Score: 10 024 2:12 PM EST documented as of this encounter Care Teams Flyer Builder Relationship Specialty Start Date End Date Mary Jo Chau MD 230 [place] [address] PCP - General Internal Medicine 08/01/23 Aodre Iraheta, Lorenzo 230 [place] [address] Pharmacist Internal Medicine 11/04/24 documented as of this encounter
--- OUTSIDE RECORDS SUMMARY | 2024-12-03 07:30 | XMS_ITS | Encounter Summary ---
Author Organization [employer] Address 75 [facility] 7t [place] [address] Care Team Providers Care Mail Processing Equipment Mechanic Name Role Phone Mary Jo Chau MD Primary Care Pro vider Adore Iraheta PharmD Unavailable [phone] Reason for Visit * Reason Comments Med Refill Encounter Details Date Type Department Care Team (Late st Contact Info) Description 11/12/2024 Refill [facility] MED & PEDS [address] [place] [address] Tressa Hoskins MD 230 [place] [address] Other chronic pain Social History Tobacco Use [...] encounter Miscellaneous Notes * Telephone Encounter - Lorie Vega RN - 11/12/2024 3:57 PM EST ANTHROPOLOGY PROFESSOR checked. Pt last picked up 19 day supply of tylenol with codeine 10/18/24. Earliest fill date was 11/06/24. Upcoming BENCH ASSEMBLER ELECTRICAL appt 11/28/24. Refill appropriate. Queued. documented in this encounter Plan of Treatment Upcoming Encounters Date Type Department Care Team (Late st Contact Info) Description 12/10/2024 10:30 AM EST Clinical Support [facility] CHC MED & PEDS 505 [place] [address] Torie Mccormack, RN 505 [place] [address] 01/06/2025 3:30 PM EDT Medication Management [facility] MEDICINE 230 [place] [address] Adore Iraheta, PharmD 230 [place], [place] [phone] documented as of this encounter Visit Diagnoses Diagnosis Other chronic pain documented in this encounter Additional Health Concerns Assessment Noted Time PHQ-9 Depression Total Score: 10 09/11/ 024 2:12 PM EST documented as of this encounter Care Teams Mail Processing Equipment Mechanic Relationship Specialty Start Date End Date Mary Jo Chau MD 230 [place] [address] PCP - General Internal Medicine 08/01/23 Adore Iraheta PharmD 230 [place] [address] Pharmacist Internal Medicine 11/04/24 documented as of this encounter
--- OUTSIDE RECORDS SUMMARY | 2024-12-03 07:30 | XMS_ITS | Encounter Summary ---
Author Organization [employer] Address [address] [facility] 7 [place] [address] Care Team Providers Care College Athlete Name Role Phone Mary Jo Chau MD Primary Care Pro vider Adore Iraheta PharmD Unavailable [phone] Reason for Visit * Reason Onset Date Comments Appointment Request 11/27/2024 Encounter Details Date Type Department Care Team ([facility] Contact Info) Description 11/27/2024 Telephone [facility] MED & PEDS [address] [place] [address] Torie Mccormack RN [address] [place] [address] Appointment Request Social History Tobacco Use Types [...] encounter Miscellaneous Notes * Telephone Encounter - Aysha Marcus - 11/29/2024 3:58 PM EST Tc from Mary Jo returning call. Contact Mary Jo at [phone] * Telephone Encounter - Torie Mccormack RN - 11/27/2024 3:06 PM EST TC to pt. RETAIL STORE CLERK [place] cancelled on 11/28/24 at 3pm d/t [facility] closing early on 11/28/24 d/t inclement weather. Lvm for pt documented in this encounter Plan of Treatment Upcoming Encounters Date Type Department Care Team (Late st Contact Info) Description 12/10/2024 10:30 AM EST Clinical Support [facility] MED & PEDS [address] [facility] [place] [id number] Torie Mccormack, WAYLON [address] [facility] [place] [id number] 01/06/2025 3:30 PM EDT Medication Management [facility] MEDICINE [address] [place] [address] Adore Iraheta PharmD [address] [place] [address] documented as of this encounter Visit Diagnoses Not on filedocumented in this encounter Additional Health Concerns Assessment Noted Time PHQ-9 Depression Total Score: 10 024 2:12 PM EST documented as of this encounter Care Teams College Athlete Relationship Specialty Start Date End Date Mary Jo Chau MD [address] [place] [phone] PCP - General Internal Medicine 08/01/23 Adore Iraheta PharmD [address] [place] [phone] Pharmacist Internal Medicine 11/04/24 documented as of this encounter
--- OUTSIDE RECORDS SUMMARY | 2024-12-03 07:30 | XMS_ITS | Encounter Summary ---
Author Organization [employer] Address [address] [facility] [address]t [place] [address] Care Team Providers Care Controls Design Engineer Name Role Phone Mary Jo Chau MD Primary Care Pro vider Adore Iraheta PharmD Unavailable [phone] Reason for Visit * Reason Onset Date Comments Medbox Changes 10/18/2024 Encounter Details Date Type Department Care Team (Late st Contact Info) Description 10/18/2024 Telephone [facility] MEDICINE [address] [place] [address] Carole Mccann RN Medbox Changes Social History Tobacco Use Types Packs/Day Years [...] Telephone Encounter - Lorie Vega RN - 11/04/2024 3:01 PM EST Informed Sheryl from pharmacy of below * Telephone Encounter - STEPHANIE Lopez - 11/04/2024 2:48 PM EST No change to januvia * Telephone Encounter - Lorie Vega RN - 11/04/2024 1:50 PM EST Pharmacy sent RN a message inquiring if Januvia should be discontinued as januvia and jardiance areboth currently active on medlist. And pt has been sent refills for both in the past month. * Telephone Encounter - Carole Mccann RN - 10/18/2024 11:02 AM EST Images from the original note were not included. TC placed to pt with BLS senior network security engineer Qiana #[id number] to inform of diabetic medication changes below. Pt agreeable to bringing in current Medbox at a convenient time for the med change to take place.Pt to call back STEPHANIE Syed P [facility] Team Nurses Please let pt know - pharmacy recommends a change in his diabetes medication. Per Dr. Nickerson's plan,I am sending a new dose of the Jardiance, to increase from 10mg to 25mg. I will let medbox know andif he can please bring boxes in to make change at his earliest convenience. Also, please caution ifhe gets any genitourinary sx to let us know. documented in this encounter Plan of Treatment Upcoming Encounters Date Type Department Care Team (Late st Contact Info) Description 12/10/2024 10:30 AM EST Clinical Support [facility] MED & PEDS [address] [place] [address] Torie Mccormack RN [address] [place] [address] 01/06/2025 3:30 PM EDT Medication Management [facility] MEDICINE [address] [place] [id number] Adore Iraheta PharmD [address] [place] [phone] documented as of this encounter Visit Diagnoses Not on filedocumented in this encounter Additional Health Concerns Assessment Noted Time PHQ-9 Depression Total Score: 10 09/11/ 024 2:12 PM EST documented as of this encounter Care Teams Controls Design Engineer Relationship Specialty Start Date End Date Mary Jo Chau MD [address] [place] [phone] PCP - General Internal Medicine 08/01/23 Adore Iraheta PharmD [address] [place] [address] Pharmacist Internal Medicine 11/04/24 documented as of this encounter
[2024-12-03 09:10] LABS: Anion Gap 15 (12-20); Blood Urea Nitrogen 19 mg/dL (9-16); Calcium 9.9 mg/dL (8.4-10.2); Carbon Dioxide 27 mmol/L (22-29); Chloride 105 mmol/L (96-108); Estimated Glomerular Filt Rate 49; Glucose Random 198 mg/dL (60-115); Potassium 4.4 mmol/L (3.3-5.1); Sodium 143 mmol/L (135-145)
== END 2024-12-03 07:27 | disposition home or self-care (01) ==
LOC: HO.LAB 07:26
PROVIDERS: PCP Student in an Organized Health Care Education/Training Program; Visit Provider Internal Medicine Hypertension Specialist
DX: N18.9 Chronic kidney disease, unspecified (principal)
CPT/HCPCS: 36415; 80048

== ENCOUNTER 2024-12-17 10:32 | Outpatient (AMB) | payer OTHER, SELFPAY ==
--- NOTE | 2024-12-17 10:36 | A.OFFVIS_ITS ---
Intake Visit Reasons: 4m/PSA/PVR(set) Intake Note: Patient presents today for follow up on: Elevated PSA and prostatitis PSA: 5.5 Urology Med: Finasteride, Tamsulosin Antibiotic Allergy: None Blood Thinner: Aspirin PVR: 137ml's [employer] Safety Engineer Required: No [employer] Safety Engineer Name: [id number] Accompanied by: Unknown Allergies No Known Allergies Allergy (Verified 12/17/24 11:15) Medication List - Last Reconciled 12/17/24 by ALBERTO Naik acetaminophen-codeine 300-60 mg 1 tab PO Q8H PRN amlodipine 5 mg PO DAILY aspirin 1 tab PO DAILY atorvastatin 1 tab PO BEDTIME blood sugar diagnostic (FreeStyle Lite Strips) As directed cholecalciferol (vitamin D3) (Vitamin D3) 1 cap PO DAILY cyanocobalamin (vitamin B-12) 1 tab PO BEDTIME docusate sodium 100 mg PO BID duloxetine 1 cap PO DAILY empagliflozin (Jardiance) 10 mg PO DAILY famotidine 20 mg PO DAILY ferrous sulfate 325 mg PO DAILY finasteride 5 mg PO DAILY 90 days glipizide ER 5 mg PO DAILY hydroxyzine HCl mg PO BID loratadine 1 tab PO DAILY memantine 1 tab PO BID metformin 1,000 mg PO BID pregabalin 150 mg PO BID repaglinide 0.5 mg PO TID sennosides (senna) 2 tabs PO DAILY PRN sertraline 1 tab PO DAILY sitagliptin phosphate (Januvia) 25 mg PO DAILY tamsulosin 0.4 mg PO DAILY 90 days triamcinolone acetonide 0.1% 0.1 appl topical BID HPI Comments Details: Rod is a pleasant 74-year-old [place]ian male patient of Dr. Luis Carlos Lim. He has a past medical history of hepatitis as a child, diabetic neuropathy, osteoarthritis, obstructive sleep apnea, depression, BPH, diabetes, hypercholesteremia, and normocytic anemia. He presents to the office today for follow-up of his elevated PSA, BPH, and prostatitis. In discussion with the patient today reports to be doing and feeling well. He denies having had any bothersome urinary issues or concerns since his last office visit here approximately 6 months ago. Of note, during last office visit recommendations were made for PSA to be obtained prior to today's office visit however this was not obtained. We discussed importance in doing so. He reports compliance with finasteride and Flomax as prescribed. Most recent PSA results reviewed with the patient today as noted and trended below. We discussed previous decrease in PSA and potential for previous prostatitis given these results. 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 He currently denies any bothersome urinary issues or concerns. He denies urinary urgency, urinary frequency, incontinence, nocturia, hematuria, dysuria, foul smelling urine, changes to urinary stream, flank pain, fever, and or chills. He is happy with his current voiding parameters on Flomax and finasteride. In office urinalysis results reviewed with the patient today. PVR 137ml's.He otherwise offers no other issues or concerns at this time. 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 10/10 PSA - 05/11 10 - 02/10 18 - 05/12 6.6, 12/14 5.9 F 19%, 06/13 4.7 20%, 12/15 4.1, 06/14 5.0, 12/16 3.9, 06/15 6.2, 08/15 4.5 % free PSA 20%, 09/15 5.1 % free PSA 20% [facility] Medical History History of hepatitis as a child Diabetic nephropathy Osteoarthritis Obstructive sleep apnea BPH (benign prostatic hyperplasia) Depression Diabetes Hypercholesteremia HTN (hypertension) Normocytic anemia Surgical History History of prostate biopsy Family History Father Diabetes Social History Household Members: Spouse and Significant Other Housing: House Are you a primary senior care specialist to a significant other at home: No Do you presently have visiting nurse or other home services: No Alcohol intake: former Patient Tobacco Use Status: Never used Tobacco service: Yes Current occupational status: retired Review of Systems Const All systems reviewed & are unremarkable except as noted in HPI and below Physical Exam Const General: cooperative, healthy appearing, comfortable, no acute distress, well developed, alert and awake Orientation/consciousness: patient oriented x3 Limitations: language barrier HEENT Head: Yes normal to inspection, Yes normocephalic and Yes atraumatic Ears: hearing grossly normal bilaterally Eyes General: appearance normal, both eyes and all related structures Neck Neck: Yes normal visual inspection and Yes trachea midline Chest Chest palpation & inspection: normal inspection of the chest Resp Effort & Inspection: normal respiratory effort and able to speak in complete sentences Cardio Rate: regular rate GI Inspection: Yes normal to inspection General: Yes no CVA tenderness Back/Spine/Pelvis Back: no CVA tenderness Skin General skin exam: no rashes or lesions noted Neuro General: patient oriented x3 Extrem General: Yes normal to inspection Psych Appearance: grossly normal and well kempt Mental Status: mental status grossly normal Speech and movement: Normal speech and movement present and Clear speech present Affect: normal affect Attitude: cooperative Thought process: Normal thought process present Thought content: Normal thought content present Insight: Fair insight present (Psych) Judgement: Fair judgement present (Psych) Office Procedures Post Void Residual Post Residual Void Post Void Residual (PVR): 137 [id number] Void Residual by ultrasound Results AMB Urinalysis, Automated UA Leukoctes 0 Jose A/uL Last Edit by [employer] [place] on 12/17/24 10:58 UA Nitrite Last Edit by SEE Forge Cassy on 12/17/24 10:58 UA Urobilinogen 0.2 mg/dL Last Edit by [employer] Cassy on 12/17/24 10:58 UA Protein 15 mg/dL Last Edit by [employer] [place] on 12/17/24 10:58 UA pH 6.0 Last Edit by [employer] [place] on 12/17/24 10:58 UA Blood 0 Ace/uL Last Edit by [employer] [place] on 12/17/24 10:58 UA Specific [place] 1.010 Last Edit by Bambi Callahandaly on 12/17/24 10:58 UA Ketone Last Edit by Ngh[employer]reet Callahandaly on 12/17/24 10:58 UA Bilirubin 0 mg/dL Last Edit by Nghiaz[employer]ypreet Callahandaly on 12/17/24 10:58 UA Glucose 1000 mg/dL Last Edit by Nghiafrank Sindydaly on 12/17/24 10:58 Results Reviewed Results Reviewed: Laboratory Last Values Urine pH (Auto) 6.0 12/17/24 10:56 Specific [place] (Auto) 1.010 12/17/24 10:56 Urine Protein (Auto) 15 mg/dL 12/17/24 10:56 Glucose (UA)(Auto) 1000 mg/dL 12/17/24 10:56 Urine Blood (Auto) 0 Ace/uL 12/17/24 10:56 Urine Bilirubin (Auto) 0 mg/dL 12/17/24 10:56 Urine Urobilinogen (Auto) 0.2 mg/dL 12/17/24 10:56 Leukocyte Esterase (Auto) 0 Jose A/uL 12/17/24 10:56 Assessment & Plan Assessment & Plan (1) Elevated PSA: Code(s): R97.20 - Elevated prostate specific antigen [PSA] Category: Medical Plan In office urinalysis results reviewed with the patient today; as noted above. PVR 137 mL Previous PSA results reviewed with the patient today; as noted above. Continue Flomax and finasteride as discussed and prescribed. Patient currently denies any bothersome urinary issues or concerns. He reports be happy with current voiding parameters. We discussed importance of obtaining PSA. We discussed attempting to double void to assist with mildly elevated PVR at today's office visit. We discussed potential for near future prostate MRI however will await PSA results for further assessment evaluation. RALPH offered however deferred. Follow-up in 1 month with PSA to be completed prior; or sooner with any issues, concerns, and or questions. Orders: Orders AMB Post Void Residual by ultrasound Today N40.0 - Benign prostatic hyperplasia without lower urinary tract symptoms AMB Urinalysis Automated Today Z13.9 - Encounter for screening, unspecified PSA,Total (Free>4and<10) Today R97.20 - Elevated prostate specific antigen [PSA] Patient Instructions: The patient had an opportunity to ask questions regarding the treatment plan. All questions were answered. Physical exam, labs, and imaging were discussed and reviewed in detail. As well as risks, benefits, and discussion of treatment choices. No major barriers to understanding were identified. The patient expressed understanding and agreement with the above treatment plan. The patient was made aware they should contact our office by phone for worsening of their current condition, the appearance of new symptoms, or with any questions or concerns. Compliance is encouraged with any medications and follow up testing that is ordered. It is a privilege to be allowed the opportunity to participate in? your urological care.? Again, if you have any questions or concerns If you have any questions or concerns please do not hesitate to contact me. The office is [phone]. This note is constructed using voice recognition software. While every effort smith s been made to ensure accuracy training and development professional errors may have been included. Yours sincerely, ALBERTO Naik Coding Level of Care Code Est Pt Level 3 (47482) Complex EM visit Add On G2211 Diagnoses Elevated PSA R97.20 CPT Codes Post Residual Void - PVR CPT Code: 55985-Jaek Void Residual by ultrasound ([id number])
--- OUTSIDE RECORDS SUMMARY | 2024-12-17 12:32 | XMS_ITS | Clinical Summary ---
Author Organization [employer] Address [address] [place] [address] 7 [place] [address] Care Team Providers Care Auto Dismantler Name Role Phone Mary Jo Chau MD Primary Care Pro vider Adore Iraheta PharmD Unavailable [phone] Allergies Active Allergy Reactions Criticality Noted Date Comments Lisinopril 06/08/2020 Other reaction(s): Hyperkalemia Medications pregabalin (Lyrica) 150 MG capsule TOME MARYA C PSULA DOS VECES AL D A FOR 30 DAYS 023 Active ferrous sulfate 325 (65 Fe) MG tablet TOME MARYA TABLETA TO LOS D FOR ANEMIA 022 Active glucose [...] complication, without long-term current use of insulin ([facility]) CHEW 1 TABLET BY MOUTH EVERY DAY [...] complication, without long-term current use of insulin ([facility]) TAKE 1 TABLET BY MOUTH EVERY DAY WITH BREAKFAST 90 tablet Active lidocaine (Lidoderm) 5 % patchIndications: Diabetic polyneuropathy associated with type 2 diabetes mellitus ([facility]) APPLY 1 PATCH EVERY MORNING REMOVE AND [...] g by mouth if needed each day (constipation) . take (17G) by oral route every day [...] TABLET BY MOUTH EVERY DAY 90 tablet 024 Active amLODIPine (Norvasc) 5 MG tablet TAKE [...] AFFECTED AREA(S) TWICE A DAY 45 g 025 Active senna-docusate (SB Docusate Sodium/Senna) 8.6-50 MG tabletIndications :Constipation, unspecified constipation type Take 1 tablet by mouth Once per day. (FOR MED BOX); discontinue individual Colace and Senna Rx. 30 tablet 11 025 2025 Active acetaminophen-cod eine (Tylenol w/ Codeine #4) 300-60 MG tabletIndications :Other chronic pain TAKE 1 TABLET BY MOUTH EVERY 8 HOURS NEEDED FOR MODERATE PAIN 56 tablet 025 Active acetaminophen-cod eine (Tylenol w/ Codeine #4) 300-60 MG tabletIndications :Other chronic pain TAKE 1 TABLET BY MOUTH EVERY 8 HOURS NEEDED FOR MODERATE PAIN 56 tablet 025 2024 Discontinued Active Problems Problem [...] Encounters Date Type Department Care Team Description 12/16/2024 Refill [facility] [address] [place] [address] Reina Fritz ANP Other chronic pain 12/12/2024 Telephone [facility] [address], [place] [phone] Mary Jo Chau MD May recall 12/10/2024 10:30 AM EST Clinical Support [facility] [address] [place] [address] Torie Mccormack, WAYLON Other chronic pain 12/10/2024 Travel 12/04/2024 Refill [facility] [address] [place] [address] Mary Jo Chau MD Type 2 diabetes mellitus with other specified complication, without long-term current use of insulin ([facility]) 12/03/2024 Orders Only GENERIC EXTERNAL DATA DEPARTMENT Provider, Generic External Data 12/02/2024 Travel 12/02/2024 Telephone [facility] [address] [place] [address] Torie Mccormack, WAYLON 11/27/2024 Telephone [facility] [address] [place] [address] Torie Mccormack, WAYLON Appointment Request 11/12/2024 Refill [facility] [address] [place] [address] Tressa Hoskins MD Other chronic pain 11/06/2024 Telephone [facility] [address], [place] [phone] Azael Diallo MD 11/06/2024 Telephone [facility] [address] [place] [address] Azael Diallo MD 11/06/2024 Refill [facility] [address] [place] [address] Mary Jo Chau MD Depressive disorder 11/05/2024 Refill [facility] [address] [place] [address] Mary Jo Chau MD Other atopic dermatitis 11/03/2024 Refill [facility] [address] [place] [address] Mary Jo Chau MD Diabetic polyneuropathy associated with type 2 diabetes mellitus (CMS/HCC); Other atopic dermatitis 10/30/2024 Refill [facility] [address] [place] [address] Tressa Hoskins MD Peripheral neuropathic pain 10/18/2024 Telephone [facility] [address] [place] [address] Carole Mccann RN [employer] Changes 10/10/2024 Refill [facility] [address] [place] [address] Mary Jo Chau MD Other chronic pain 10/10/2024 Telephone [facility] [address] [place] [address] Reina Fritz, ANP Results 10/03/2024 Refill [facility] [address] [place] [address] Mary Jo Chau MD Type 2 diabetes mellitus with other specified complication, without long-term current use of insulin (CMS/HCC); Constipation, unspecified constipation type; Diabetic polyneuropathy associated with type 2 diabetes mellitus (CMS/HCC); Depression, unspecified depression type; Peripheral neuropathic pain; Depressive disorder; Type 2 diabetes mellitus with diabetic polyneuropathy, without long-term current use of insulin (CMS/HCC) 10/02/2024 2:45 PM EST Telemedicine [facility] [address] [place] [address] Torie Mccormack RN Other chronic pain 10/02/2024 Travel 09/30/2024 Telephone [facility] [address] [place] [address] Sonal Quinn MA Lab Orders 09/27/2024 Refill [facility] [address] [place] [address] Mary Jo Chau MD Depression, unspecified depression type; Type 2 diabetes mellitus with other specified complication, without long-term current use of insulin ([facility]) 09/25/2024 Telephone [facility] [address] [place] [address] Mary Jo Chau MD new appointment 09/18/2024 Refill [facility] [address] [place] [address] Mary Jo Chau MD Vitamin D deficiency from Last 3 Months Immunizations Name Administration [...] Care Team (Late st Contact Info) Description 01/06/2025 3:30 PM EDT Medication Management [address] [address] Adore Iraheta, PharmD [address] [place] [phone] 02/21/2025 11:00 AM EDT Clinical Support [address] [address] Torie Mccormack, RN [address] [place] [address] Health Maintenance Due Date Last Done Comments CT Colonography 1951 Colonoscopy 1951 FIT 1951 FOBT 1950 Sigmoidoscopy 1951 Diabetes: Foot Exam 1961 Eye Exam 1961 Dental Oral Exam 12/16/2021 06/14/2021, 03/2019, 02/19/2018, Additional history exists Dental Prophylaxis 12/16/2021 06/14/2021, 1 11/03/2018, 02/12/2019, Additional history exists Dental X-Ray: Bitewings 06/15/2022 06/14/2021, 11/25 Dental X-Ray: Full Mouth 06/15/2024 06/14/2021, 02/12/2016 Hepatitis B Vaccines (2 of 3 - 19+ 3-dose series) 12/02/2024 11/04/2024 Zoster Vaccines (3 of 3) 12/30/2024 11/04/2024, 04/23 Diabetes: Hemoglobin A1C 01/07/2025 024, 10/02/2024, 12/27/2023, Additional history exists Depression Monitoring (PHQ-9) 03/11/2025 09/11/2024, 09/11/2024 SDOH Screening 09/04/2025 09/04/2024 Alcohol/Substance Use Screening 09/11/2025 09/11/2024 Depression Screening 09/11/2025 09/11/2024, 09/11/20 Diabetes: Urine Protein Screening 10/09/2025 10/09/2024, 05/06/2020 [...] Procedure Name Priority Date/Time Associated Diagnosis Comments POCT JOHNNY-14 URINE DRUG SCREEN Routine 12/10/2024 10:24 AM EST Other chronic pain BASIC METABOLIC PANEL Routine 12/03/2024 7:46 AM EST VITAMIN D,25-OH,TOTAL,IA Routine 10/09/2024 8:01 AM EST [...] polyneuropathy, without long-term current use of insulin ([facility]) LAB COLOGUARD?? COLON CANCER SCREEN Routine 01/17/2024 6:32 AM EDT Colon cancer screening PROPHYLAXIS - ADULT Routine 06/14/2021 1 2:00 AM EDT INTRAORAL - COMPLETE SERIES OF RADIOGRAPHIC IMAGES Routine 06/14/2021 12:00 AM EDT PERIODIC ORAL EVALUATION - ESTABLISHED PATIENT Routine 06/14/2021 12:00 AM EDT from Last 3 Months or Most Recently Relevant to Health Maintenance Results * POCT JOHNNY-14 Urine Drug Screen (12/10/2024 10:24 AM EST) Opiate Screen, Urine Positive Urine Urine specimen obtained by clean catch procedure / Unknown 12/10/2024 10:24 AM EST Narrative Torie Mccormack RN - 12/10/2024 10:24 AM EST Lot# [id number] Exp: 06-11-26 us Mary Jo Richards MD POINT OF CARE JULI T ENTER/EDIT ORDERABLES Final Result * (ABNORMAL) Basic Metabolic Panel (12/03/2024 7:46 AM EST) Sodium 143 135 - 145 mmol/L [facility] Potassium 4.4 3.3 - 5.1 mmol/L [facility] Chloride 105 96 - 108 mmol/L [facility] Carbon Dioxide 27 22 - 29 mmol/L [facility] Anion Gap 15 12 - 20 [facility] Urea Nitrogen (BUN) 19(H) 9 - 16 mg/dL [facility] Creatinine, Serum 1.41(H) 0.5 - 1.4 mg/dL [facility] Estimated Glomerular Filt Rate 49 [facility] Comment:Chronic Kidney Disea se: Estimated GFR < 60 mL/min/[id number] Kidney Disease: Estimated GFR < 15 mL/min/1.73m2 Glucose 198(H) 60 - 115 mg/dL [facility] Calcium 9.9 8.4 - 10.2 mg/dL [facility] 12/03/2024 7:46 AM EST 12/03/2024 7:46 AM EST us Generic External Data Provider LAB BLOOD ORDERAB LES Final Result Performing Organization Address [facility]/ZIP Co de Phone Number [facility] [address] [place] [phone] * Syphilis Screen (10/09/2024 8:01 AM EST) Syphilis Screen Nonreactive Nonreactive [facility] Blood 10/09/2024 8:01 AM EST 10/09/2024 11:51 AM EST Mary Jo Richards MD LAB BLOOD ORDERAB LES Final Result Performing Organization Address [facility] Co de Phone Number [facility] [address] [place] [phone] * Vitamin D, 25-Hydroxy, Total, Immunoassay (10/09/2024 8:01 AM EST) Vitamin D 25-OH Total 59.3 >30 ng/mL [facility] Comment:Health Based Referen ce Values*< 20 ng/mL Egjaecbub66-08 ng/mL Insufficient> 30 ng/mL Sufficient*Zulema KAM. N [...] Organization Address [facility] Co de Phone Number [facility] [address] [place] [address] [phone] * (ABNORMAL) Vitamin B12 (Cobalamin) and Folate Panel, Serum (10/09/2024 8:01 AM EST) Pathologist [facility] Vitamin B12 1,270(H) 200 - 900 pg/mL [facility] Comment:NORMAL 200-900 PG/ML INDETERMINATE 160-199 PG/ML DEFICIENT < 160 PG/ML Folate 9.4 > or = 4.0 ng/mL [facility] Comment:Reference Values:> o r = 4.0 ng/mL< 4.0 ng/mL suggests folate deficiency Methotrexate, aminopterin and folinic acid(leucovorin) are chemotherapeutic agents whose molecularstructures are similar to folate; therefore, the Architectfolate assay cannot be used for patients using these drugs. Blood 10/09/2024 8:01 AM EST 10/09/2024 11:51 AM EST us Mary Jo Richards MD LAB BLOOD ORDERAB LES Final Result Performing Organization Address [facility] de Phone Number [facility] [address] [place] [address] [phone] * TSH with Reflex to Free T4 (10/09/2024 8:01 AM EST) Pathologist [facility] TSH reflex Free T4 2.33 0.32 - 4.0 uIU/mL [facility] Blood 10/09/2024 8:01 AM EST 10/09/2024 11:51 AM EST us Mary Jo Richards MD LAB BLOOD ORDERAB LES Final Result Performing Organization Address [facility] Co de Phone Number [facility] [address] [place] [phone] * (ABNORMAL) Albumin, Random Urine W/Creatinine (10/09/2024 8:01 AM EST) Creatinine, Urine 52.33 mg/dL [facility] Microalbumin Urine 103.0 mg/L [facility] Microalbum Creatinine Ratio Ur 196.8(H) <30 ug/mg cr [facility] Comment:Albumin/Creatinine R atio Reference Ranges: Normal: < 30 ug/mg creatinine Microalbuminuria: 30 - 300 ug/mg creatinineClinical Albuminuria: > 300 ug/mg creatinine Urine (Urine, Random) 10/09/2024 8:01 AM EST 10/09/2024 11:40 AM EST us Mary Jo Richards MD LAB URINE ORDERAB LES Final Result Performing Organization Address [facility] Co de Phone Number [facility] [address] [place] [phone] * Hepatitis C Antibody with Reflex to HCV, RNA, Quantitative, Real-Time PCR (10/09/2024 8:01 AM EST) Hepatitis C Antibody Nonreactive Nonreactive [facility] Comment:Antibodies to HCV no t detected; does not exclude early acuteHCV infection. Blood Venous blood specimen / Unknown 10/09/2024 8:01 AM EST 10/09/2024 11:51 AM EST Mary Jo Richards MD LAB BLOOD ORDERAB LES Final Result [facility] [address] [place] [phone] * Chlamydia/N. Gonorrhoeae RNA, TMA, Urogenitial (10/09/2024 8:01 AM EST) CT PCR NOT DETECTED Not Detect. [facility] Comment:A not detected test result does [...] psychologicalconsequences. NG PCR NOT DETECTED Not Detect. [facility] Comment:A not detected test result does [...] AM EST 10/09/2024 11:40 AM EST Narrative [facility] - 10/09/2024 3:00 PM EST Urine Mary Jo Richards MD LAB MICROBIOLOGY - GENERAL ORDERABLES Final Result Performing Organization Address [facility]/ZIP Co de Phone Number [facility] [address] [place] [phone] * Hepatitis B surface antigen, EIA (10/09/2024 8:01 AM EST) Hepatitis B Surface Ag Negative Negative [facility] Blood Venous blood specimen / Unknown 10/09/2024 8:01 AM EST 10/09/2024 11:51 AM EST Mary Jo Richards MD LAB BLOOD ORDERAB LES Final Result Performing Organization Address [facility] Co de Phone Number [facility] [address] [place] [phone] * Hepatitis B Core Antibody, Total (10/09/2024 8:01 AM EST) Hepatitis B Core Antibody Nonreactive Nonreactive [facility] Blood Venous blood specimen / Unknown 10/09/2024 8:01 AM EST 10/09/2024 11:51 AM EST Mary Jo Richards MD LAB BLOOD ORDERAB LES Final Result Performing Organization Address [facility] Co de Phone Number [facility] [address] [place] [phone] * HIV-1/2 Antigen and Antibodies, Fourth Generation, with Reflexes (10/09/2024 8:01 AM EST) HIV AB/AG Nonreactive Nonreactive [facility] Comment:HIV-1 p24 Ag and/or HIV-1/HIV-2 Ab not detected.A test result that is nonreactive does not exclude thepossibility of exposure to or infection with HIV-1 and/orHIV-2. Nonreactive results in this assay for individualswith prior exposure to HIV-1 and/or HIV-2 may be due toantigen and antibody levels that are below the limit ofdetection of this assay.[employer] HIV Ag/Ab Combo assay result andsupplemental assay [...] Organization Address [facility]/ZIP Co de Phone Number [facility] [address] [place] [phone] * Hepatitis B Surface Antibody, Qualitative (10/09/2024 8:01 AM EST) Pathologist [facility] ~Hepatitis B Surface Antibody NONREACTIVE Nonreactive [facility] Comment:Nonreactive: < 8.00 mIU/mL Blood Venous blood specimen / Unknown 10/09/2024 8:01 AM EST 10/09/2024 11:51 AM EST us Mary Jo Richards MD LAB BLOOD ORDERAB LES Final Result Performing Organization Address [facility] Co de Phone Number [facility] [address] [place] [phone] * (ABNORMAL) CBC (10/09/2024 8:01 AM EST) [facility] White Blood Count 5.9 4.8 - 10.8 X10*3/uL [facility] Red Blood Count 4.51(L) 4.60 - 5.80 X10*6/uL [facility] Hemoglobin 13.1(L) 14.0 - 18.0 g/dl [facility] Hematocrit 38.7(L) 42.0 - 52.0 % [facility] Mean Corpuscular Volume 85.8 80.0 - 98.0 fL [facility] Mean Corpuscular Hemoglobin 29.0 27.0 - 33.0 pg [facility] Mean Corpuscular HGB Conc 33.9 31.0 - 36.0 g/dl [facility] Red Cell Distribution Width 15.3 11.0 - 16.0 % [facility] Platelet Count 225 160 - 400 X10*3/uL [facility] Mean Platelet Volume 10.2 9.4 - 12.4 fL [facility] NRBC Pct Auto 0.0 0.0 - 0.2 /100WBC [facility] NRBC Abs Auto 0.000 0.0 - 0.012 X10*3/uL [facility] Blood Venous blood specimen / Unknown 10/09/2024 8:01 AM EST 10/09/2024 11:51 AM EST us Mary Jo Richards MD LAB BLOOD ORDERAB LES Final Result [facility] [address] [place] [phone] * (ABNORMAL) Hemoglobin A1c (10/09/2024 8:01 AM EST) Hemoglobin A1c 8.8(H) <6.0 % [facility] Comment:Hemoglobin A1C Refer ence Range Adults: 4.8 - 6.0 % Non diabetic: < 6.0 % Goal: < 7.0 %Additional Action Suggested: > 8.0 %Note: Hemoglobin A1c results are invalid for patients with abnormal amounts of HbF. Blood transfusions may impact the HbA1c concentration in the patient sample. Estimated Average Glucose 206 mg/dL [facility] Comment:eAG = Estimated ave rage glucose which is %A1C expressed asaverage glucose, using the formula of the F6W-[id number] Glucose study (ADAG), Diabetes Care, Vol.31,#8,May. 2007 Blood Venous blood specimen / Unknown 10/09/2024 8:01 AM EST 10/09/2024 11:51 AM EST us Mary Jo Richards MD LAB BLOOD ORDERAB LES Final Result Performing Organization Address [facility] Co de Phone Number [facility] [address] [place] [phone] * Lipid Panel, Standard (10/09/2024 8:01 AM EST) Triglycerides 115 <150 mg/dL [facility] Comment:Desirable Triglyceri de: less than 150 mg/dLBorderline High Triglyceride 150-199 mg/dLHigh Triglyceride: 200-499 mg/dLVery High Triglyceride: greater than or equal to 5OO mg/dL Cholesterol 157 <200 mg/dL [facility] Comment:Desirable Cholestero l: less than 200 mg/dLBorderline High Cholesterol: 200-239 mg/dLHigh Cholesterol: greater than 239 mg/dL LDL Cholesterol Calculated 79 <100 mg/dL [facility] Comment:Desirable LDL: less than 100 mg/dLNear Optimal/Above Optimal LDL: 110- 129 mg/dLBorderline High LDL: 130-159 mg/dLHigh LDL: 160-189 mg/dLVery High LDL: greater than or equal to 190 mg/dL HDL Cholesterol 55 >40 mg/dL [facility] Comment:Desirable HDL: great er than 40 mg/dL Note: This HDL assay may give artificially low results in patients with liver disease. Blood Venous blood specimen / Unknown 10/09/2024 8:01 AM EST 10/09/2024 11:51 AM EST Mary Jo Richards MD LAB BLOOD ORDERAB LES Final Result Performing Organization Address City/[facility]/ZIP Co de Phone Number [facility] [address] [place] [phone] * (ABNORMAL) Comprehensive Metabolic Panel (10/09/2024 8:01 AM EST) Sodium 143 135 - 145 mmol/L [facility] Potassium 4.3 3.3 - 5.1 mmol/L [facility] Chloride 103 96 - 108 mmol/L [facility] Carbon Dioxide 32(H) 22 - 29 mmol/L [facility] Anion Gap 12 12 - 20 [facility] Urea Nitrogen (BUN) 17(H) 9 - 16 mg/dL [facility] Creatinine, Serum 1.23 0.5 - 1.4 mg/dL [facility] Estimated Glomerular Filt Rate 58 [facility] Comment:Chronic Kidney Disea se: Estimated GFR < 60 mL/min/1.03e9Yihkpa Kidney Disease: Estimated GFR < 15 mL/min/1.73m2 Glucose 131(H) 60 - 115 mg/dL [facility] Calcium 9.6 8.4 - 10.2 mg/dL [facility] Bilirubin, Total 0.3 0.0 - 1.0 mg/dL [facility] Aspartate Amino Transferase 29 5 - 37 U/L [facility] Alanine Aminotransferase 28 0 - 40 U/L [facility] Total Protein 8.1(H) 6.5 - 8.0 g/dL [facility] Albumin Level 4.5 3.5 - 5.0 g/dL [facility] Alkaline Phosphatase 67 39 - 117 U/L [facility] Blood Venous blood specimen / Unknown 10/09/2024 8:01 AM EST 10/09/2024 11:51 AM EST us Mary Jo Richards MD LAB BLOOD ORDERAB LES Final Result [facility] [address] [place] [address] [phone] * (ABNORMAL) POCT HGB A1C (10/02/2024 11:15 AM EST) Hemoglobin A1C 8.9(A) 4.0 - 6.0 % Blood 10/02/2024 11:1 5 AM EST us Blanquita Stewart MD POINT OF CARE TEST ENTER/ED IT ORDERABLES Final Result * Cologuard?? colon cancer screening (01/17/2024 6:32 AM EDT) Cologuard Result Negative Negative 01/24/20 24 9:47 AM EDT [facility] (CLIA #:[id number]) Comment: NEGATIVE TEST RESULT. A negative Cologuard [...] (Angie Navarro al, N Engl J Med 2014;370(14):1286- 1297) The normal value (reference range) for this assay is negative. COLOGUARD RE-SCREENING RECOMMENDATION: Periodic colorectal cancer screening is an important part of preventive healthcare for asymptomatic individuals at average risk for colorectal cancer. ??Following a negative Cologuard result, the [employer] and U.S. Multi-Society Task Force screening guidelines recommend a Cologuard re-screening interval of 3 years. References: [employer] Guideline for Colorectal Cancer Screening: https://www.cancer.org/cancer/icvep-wklytd-ruaqtk/rslkpayqa-qwjjepazh-ijeqfde/ac s-rec ommendations.html.; Randy DK, Timothy CR, Stephon SadlerK, Colorectal Cancer Screening: Recommendations for Physicians and Patients from the U.S. Multi-Society Task Force on Colorectal Cancer Screening , Am J Gastroenterology 2017; 112:2839-0869. TEST DESCRIPTION: Composite algorithmic analysis of stool [...] (Angie Navarro al, N Engl J Med 2014;370(14):3589-1994.) Cologuard may produce a false negative or false positive result (no colorectal cancer or precancerous polyp present at colonoscopy follow up). A negative Cologuard test result does not guarantee the absence of CRC or advanced adenoma (pre-cancer). The current Cologuard screening interval is every 3 years. ([employer] and U.S. Multi-Society Task Force). Cologuard performance data in a 10,000 patient pivotal study using colonoscopy as the reference method can be accessed at the following location: www.[employer]WeTOWNS/results. Additional description of the Cologuard test process, warnings and precautions can be found at www.cologuard.com. Stool specimen (specimen) 01/17/2024 6:32 AM EDT 01/19/2024 2:11 PM EDT Mary Jo Lim MD LAB MOLECULAR DIAGNOS TICS ORDERABLES Final Result [facility] (CLIA #:[id number]) [address] [address], from Last 3 Months or Most Recently Relevant to Health Maintenance Insurance [employer] Member Subscriber Plan / Payer (Ef fective 2017-Present) Name:Rod Mckeon Relation to Subscriber:Self Name:Rod Mckeon Payer ID:Not on file Group ID:[id number] Type:Not on file Address: [address] [place] [id number] [facility] Care Teams Auto Dismantler Relationship Specialty Start Date End Date Mary Jo Chau MD [address] [place] [address] PCP - General Internal Medicine 08/01/23 Adore Iraheta PharmD [address] [place] [address] Pharmacist Internal Medicine 11/04/24
--- OUTSIDE RECORDS SUMMARY | 2024-12-17 12:32 | XMS_ITS | Encounter Summary ---
Author Organization [employer] [facility] Address [address] [place] [address] [place] [address] Care Team Providers Care M1A1 Tank Crewman Name Role Phone Leah Alvarenga Primary Care Provider [phone] Mary Jo Chau MD Primary Care Pro vider Adore Iraheta PharmD Unavailable [phone] Reason for Visit * Reason Comments Med Refill Encounter Details Date Type Department Care Team (Late st Contact Info) Description 03/23/2023 Refill [facility] MED[facility]INE [address] [place] [address] Leah Alvarenga FNP [address] [place] [address] Dept [place] [address] Vitamin D deficiency; Peripheral neuropathic pain; Depression, [...] Description 01/06/2025 3:30 PM EDT Medication Management [address] [address] Adore Iraheta, Lorenzo [address] [place] [address] 02/21/2025 11:00 AM EDT Clinical Support [address] [address] Torie Mccormack, WAYLON 505 [place] [address] documented as of this encounter Visit Diagnoses Diagnosis Vitamin D deficiency Peripheral neuropathic pain Depression, unspecified depression type documented in this encounter Additional Health Concerns Assessment Noted Time PHQ-9 Depression Total Score: 14 023 4:05 PM EST documented as of this encounter Care Teams M1A1 Tank Crewman Relationship Specialty Start Date End Date Leah Alvarenga FNP PCP - General Family Medicine 09/12/22 07/31/23 Mary Jo Chau MD [address] [place] [address] PCP - General Internal Medicine 08/01/23 Adore Iraheta PharmD [address] [place] [address] Pharmacist Internal Medicine 11/04/24 documented as of this encounter
--- OUTSIDE RECORDS SUMMARY | 2024-12-17 12:33 | XMS_ITS | Encounter Summary ---
Author Organization [employer] [facility] Address [address] [place] [address] Care Team Providers Care Solid Waste Manager Name Role Phone Mary Jo Chau MD Primary Care Pro vider Adore Iraheta PharmD Unavailable [phone] Reason for Visit * Reason Comments Med Refill Encounter Details Date Type Department Care Team (Late st Contact Info) Description 11/09/2023 Refill [facility] MED[facility]INE 230 [place] [address] Mary Jo Chau MD 230 [place], [place] [phone] Seasonal allergic rhinitis, unspecified trigger; Other chronic [...] Description 01/06/2025 3:30 PM EDT Medication Management [facility]INE [address] [place] [address] Adore Iraheta PharmD [address] [place] [address] 02/21/2025 11:00 AM EDT Clinical Support [facility] [address] [place] [address] Torie Mccormack, RN 505 [place] [address] documented as of this encounter Visit Diagnoses Diagnosis Seasonal allergic rhinitis, unspecified trigger Other chronic pain documented in this encounter Additional Health Concerns Assessment Noted Time PHQ-9 Depression Total Score: 14 023 4:05 PM EST documented as of this encounter Care Teams Solid Waste Manager Relationship Specialty Start Date End Date Mary Jo Chau MD [address] [place] [address] PCP - General Internal Medicine 08/01/23 Adore Iraheta PharmD [address] [place] [address] Pharmacist Internal Medicine 11/04/24 documented as of this encounter
--- OUTSIDE RECORDS SUMMARY | 2024-12-17 12:33 | XMS_ITS | Encounter Summary ---
Author Organization [employer] [facility] Address [address] [place] [address] 7 [place] [address] Care Team Providers Care Bailer Operators Supervisor Name Role Phone Mary Jo Chau MD Primary Care Pro vider Adore Iraheta PharmD Unavailable [phone] Reason for Visit * Reason Comments Med Refill Encounter Details Date Type Department Care Team (Late st Contact Info) Description 09/07/2023 Refill [facility] MEDICINE 230 [place] [address] [facility] 230 [place], [place] [phone] Other atopic dermatitis Social History Tobacco Use [...] Description 01/06/2025 3:30 PM EDT Medication Management [facility] MEDICINE 230 [place], [place] [phone] Adore Iraheta, PharmD [address] [place] [address] 02/21/2025 11:00 AM EDT Clinical Support [facility] MEDICINE [address] [place] [address] Torie Mccormack, RN 505 [place] [address] documented as of this encounter Visit Diagnoses Diagnosis Other atopic dermatitis documented in this encounter Additional Health Concerns Assessment Noted Time PHQ-9 Depression Total Score: 14 023 4:05 PM EST documented as of this encounter Care Teams Bailer Operators Supervisor Relationship Specialty Start Date End Date Mary Jo Chau MD [address] [place] [address] PCP - General Internal Medicine 08/01/23 Adore Iraheta PharmD [address] [place] [address] Pharmacist Internal Medicine 11/04/24 documented as of this encounter
--- OUTSIDE RECORDS SUMMARY | 2024-12-17 12:33 | XMS_ITS | Encounter Summary ---
Author Organization [employer] Address [address] [facility] 7 [place] [address] Care Team Providers Care Java Swing Developer Name Role Phone Mary Jo Chau MD Primary Care Pro vider Adore Iraheta PharmD Unavailable [phone] Reason for Visit * Reason Comments Med Refill Encounter Details Date Type Department Care Team ([facility] st Contact Info) Description 11/06/2024 Refill [facility] MED[facility]INE 230 [place] [address] Mary Jo Chau MD 230 [place], [place] [phone] Depressive disorder Social History Tobacco Use Types [...] Description 01/06/2025 3:30 PM EDT Medication Management [facility] [address] [place] [address] Adore Iraheta, PharmD [address] [place] [address] 02/21/2025 11:00 AM EDT Clinical Support [facility] [address] [place] [address] Torie Mccormack RN 505 [place] [address] documented as of this encounter Visit Diagnoses Diagnosis Depressive disorder Depressive disorder, not elsewhere classified documented in this encounter Additional Health Concerns Assessment Noted Time PHQ-9 Depression Total Score: 10 024 2:12 PM EST documented as of this encounter Care Teams Java Swing Developer Relationship Specialty Start Date End Date Mary Jo Chau MD [address] [place] [address] PCP - General Internal Medicine 08/01/23 Adore Iraheta, Lorenzo [address] [place] [address] Pharmacist Internal Medicine 11/04/24 documented as of this encounter
--- OUTSIDE RECORDS SUMMARY | 2024-12-17 12:33 | XMS_ITS | Encounter Summary ---
Author Organization [employer] [facility] Address [address] [place] [address] [place] [address] Care Team Providers Care Logging Equipment Operator Name Role Phone Leah Alvarenga Primary Care Provider [phone] Mary Jo Chau MD Primary Care Pro vider Adore Iraheta PharmD Unavailable [phone] Reason for Visit * Reason Comments Med Refill Encounter Details Date Type Department Care Team (Late st Contact Info) Description 07/04/[address] [facility] MEDICINE [address] [place] [address] Leah Alvarenga FNP [address] [place] [address] Dept [place] [address] Depression, unspecified depression type Social History Tobacco [...] Description 01/06/2025 3:30 PM EDT Medication Management [address] [address] Adore Iraheta, NegritaD [address] [place] [address] 02/21/2025 11:00 AM EDT Clinical Support [address] [address] Torie Mccormack, WAYLON 505 [place] [address] documented as of this encounter Visit Diagnoses Diagnosis Depression, unspecified depression type documented in this encounter Additional Health Concerns Assessment Noted Time PHQ-9 Depression Total Score: 14 023 4:05 PM EST documented as of this encounter Care Teams Logging Equipment Operator Relationship Specialty Start Date End Date Leah Alvarenga FNP PCP - General Family Medicine 09/12/22 07/31/23 Mary Jo Chau MD [address] [place] [address] PCP - General Internal Medicine 08/01/23 Adore Iraheta PharmD [address] [place] [address] Pharmacist Internal Medicine 11/04/24 documented as of this encounter
--- OUTSIDE RECORDS SUMMARY | 2024-12-17 12:33 | XMS_ITS | Encounter Summary ---
Author Organization [employer] [facility] Address [address] [place] [address] 7 [place] [address] Care Team Providers Care Gifted Teacher Name Role Phone Leah Alvarenga Primary Care Provider [phone] Mary Jo Chau MD Primary Care Pro vider Adore Iraheta PharmD Unavailable [phone] Reason for Visit * Reason Comments Med Refill Encounter Details Date Type Department Care Team (Late st Contact Info) Description 05/12/2023 Refill [facility] MEDICINE 230 [place] [address] Leah Alvarenga FNP [address] [place] [address] Dept [place] [address] Depression, unspecified depression type Social History Tobacco [...] Description 01/06/2025 3:30 PM EDT Medication Management [address] [address] Adore Iraheta PharmD [address] [place] [address] 02/21/2025 11:00 AM EDT Clinical Support [address] [address] Torie Mccormack, WAYLON 505 [place], [place] [phone] documented as of this encounter Visit Diagnoses Diagnosis Depression, unspecified depression type documented in this encounter Additional Health Concerns Assessment Noted Time PHQ-9 Depression Total Score: 14 023 4:05 PM EST documented as of this encounter Care Teams Gifted Teacher Relationship Specialty Start Date End Date Leah Alvarenga FNP PCP - General Family Medicine 09/12/22 07/31/23 Mary Jo Chau MD [address] [place] [address] PCP - General Internal Medicine 08/01/23 Adore Iraheta PharmD [address] [place] [address] Pharmacist Internal Medicine 11/04/24 documented as of this encounter
--- OUTSIDE RECORDS SUMMARY | 2024-12-17 12:33 | XMS_ITS | Encounter Summary ---
Author Organization [employer] [facility] Address [address] [place] [address] Care Team Providers Care Patternmaker Apprentice Wood Name Role Phone Mary Jo Chau MD Primary Care Pro vider Adore Iraheta PharmD Unavailable [phone] Reason for Visit * Reason Comments Med Change Request Encounter Details Date Type Department Care Team (Late Contact Info) Description 09/15/2023 Refill [facility] MEDICINE [address] [place] [address] Mary Jo Chau MD 230 [place], [place] [phone] Depression, unspecified depression type Social History Tobacco [...] Department Care Team (Late Contact Info) Description 01/06/2025 3:30 PM EDT Medication Management [facility] [address] [place] [address] [phone] Adore Iraheta, Lorenzo [address] [place] [address] 02/21/2025 11:00 AM EDT Clinical Support [facility] [address] [place] [address] Torie Mccormack, RN 505 [place] [address] documented as of this encounter Visit Diagnoses Diagnosis Depression, unspecified depression type documented in this encounter Additional Health Concerns Assessment Noted Time PHQ-9 Depression Total Score: 14 023 4:05 PM EST documented as of this encounter Care Teams Patternmaker Apprentice Wood Relationship Specialty Start Date End Date Mary Jo Chau MD [address] [place] [address] PCP - General Internal Medicine 08/01/23 Adore Iraheta PharmD [address] [place] [address] Pharmacist Internal Medicine 11/04/24 documented as of this encounter
--- OUTSIDE RECORDS SUMMARY | 2024-12-17 12:33 | XMS_ITS | Encounter Summary ---
Author Organization [employer] [facility] Address [address] [place] [address] 7 [place] [address] Care Team Providers Care Power Generating Plant Operator Name Role Phone Leah Alvarenga Primary Care Provider [phone] Mary Jo Chau MD Primary Care Pro vider Adore Iraheta PharmD Unavailable [phone] Reason for Visit * Reason Onset Date Comments BPI score changes 03/24/2023 Encounter Details Date Type Department Care Team (Late st Contact Info) Description 03/24/2023 Refill [facility] 230 [place] [address] Leah Alvarenga FNP [address] [place] [address] Dept [place] [address] Constipation, unspecified constipation type Social History Tobacco [...] 10:10 AM EDT FYI, pt had Tele SAND SCREENER OPERATOR 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 Pain severity score of 4.8, activity interference score of 8.6. Previous BPI completed 11/04/22 with pain severity score of 7.8, activity interference score of 5.3. documented in this encounter Plan of Treatment Upcoming Encounters Date Type Department Care Team (Late st Contact Info) Description 01/06/2025 3:30 PM EDT Medication Management [address] [address] Adore Iraheta PharmD [address] [place] [address] 02/21/2025 11:00 AM EDT Clinical Support [address] [address] Torie Mccormack RN 505 [place], [place] [phone] documented as of this encounter Visit Diagnoses Diagnosis Constipation, unspecified constipation type documented in this encounter Additional Health Concerns Assessment Noted Time PHQ-9 Depression Total Score: 14 023 4:05 PM EST documented as of this encounter Care Teams Power Generating Plant Operator Relationship Specialty Start Date End Date Leah Alvarenga FNP PCP - General Family Medicine 09/12/22 07/31/23 Mary Jo Chau MD [address] [place] [address] PCP - General Internal Medicine 08/01/23 Adore Iraheta PharmD [address] [place] [address] [phone] Pharmacist Internal Medicine 11/04/24 documented as of this encounter
--- OUTSIDE RECORDS SUMMARY | 2024-12-17 12:33 | XMS_ITS | Encounter Summary ---
Author Organization [employer] Address [address] [facility] 7 [place] [address] Care Team Providers Care Emery Grinder Name Role Phone Mary Jo Chau MD Primary Care Pro vider Adore Iraheta PharmD Unavailable [phone] Reason for Visit * Reason Comments Med Refill Encounter Details Date Type Department Care Team ([facility] st Contact Info) Description 11/03/2024 Refill [facility]INE 230 [place] [address] Mary Jo Chau MD 230 [place], [place] [phone] Diabetic polyneuropathy associated with type 2 diabetes [...] Description 01/06/2025 3:30 PM EDT Medication Management [facility] [address] [place] [address] Adore Iraheta PharmD [address] [place] [address] 02/21/2025 11:00 AM EDT Clinical Support [facility] [address] [place] [address] Torie cMcormack, WAYLON 505 [place] [address] documented as of this encounter Visit Diagnoses Diagnosis Diabetic polyneuropathy associated with type 2 diabetes mellitus (CMS/HCC) Other atopic dermatitis documented in this encounter Additional Health Concerns Assessment Noted Time PHQ-9 Depression Total Score: 10 024 2:12 PM EST documented as of this encounter Care Teams Emery Grinder Relationship Specialty Start Date End Date Mary Jo Chau MD [address] [place] [address] PCP - General Internal Medicine 08/01/23 Adore Iraheta, Lorenzo [address] [place] [address] [place] [phone] Pharmacist Internal Medicine 11/04/24 documented as of this encounter
--- OUTSIDE RECORDS SUMMARY | 2024-12-17 12:33 | XMS_ITS | Encounter Summary ---
Author Organization [employer] Address [address] [facility] 7 [place] [address] Care Team Providers Care Final Canoe Inspector Name Role Phone Mary Jo Chau MD Primary Care Pro vider Adore Iraheta PharmD Unavailable [phone] Reason for Visit * Reason Comments Med Refill Encounter Details Date Type Department Care Team (Late st Contact Info) Description 12/04/2024 Refill [facility] 505 [place] [address] Mary Jo Chau MD 230 [place] [address] Type 2 diabetes mellitus with other specified complication, without long-term current use of insulin ([facility]) Social History Tobacco Use Types Packs/Day Years [...] Description 01/06/2025 3:30 PM EDT Medication Management [address] [address] Adore Iraheta PharmD [address] [place] [address] 02/21/2025 11:00 AM EDT Clinical Support [facility] MEDICINE [address] [place] [address] Torie Mccormack RN 505 [place] [address] documented as of this encounter Visit Diagnoses Diagnosis Type 2 diabetes mellitus with other specified complication, without long-term current use of insulin ([facility]) documented in this encounter Additional Health Concerns Assessment Noted Time PHQ-9 Depression Total Score: 10 024 2:12 PM EST documented as of this encounter Care Teams Final Canoe Inspector Relationship Specialty Start Date End Date Mary Jo Chau MD 230 [place] [address] PCP - General Internal Medicine 08/01/23 Adore Iraheta PharmD [address] [place] [address] Pharmacist Internal Medicine 11/04/24 documented as of this encounter
--- OUTSIDE RECORDS SUMMARY | 2024-12-17 12:33 | XMS_ITS | Encounter Summary ---
Author Organization [employer] [facility] Address [address] [place] [address] 7t [place] [address] Care Team Providers Care International Relations Professor Name Role Phone Cristin Chaves MD Primary Care Provider Leah Macario PERSONAL SUPPORT WORKER Primary Care Provider [phone] Mary Jo Chau MD Primary Care Pro vider Adore Iraheta PharmD Unavailable [phone] Encounter Details Date Type Department Care Team (Latest Contact Info) Description 06/14/2021 Abstract [facility] CONVERSIONS Dental, Provider, DDS Social History Tobacco [...] Description 01/06/2025 3:30 PM EDT Medication Management [facility] MEDICINE [address] [place] [address] Adore Iraheta, PharmD 230 [place], [place] [phone] 02/21/2025 11:00 AM EDT Clinical Support [facility] MEDICINE [address] [place] [address] Torie Mccormack RN 505 [place], [place] [phone] documented as of this encounter Visit Diagnoses Not on filedocumented in this encounter Care Teams International Relations Professor Relationship Specialty Start Date End Date Cristin Chaves MD PCP - General Family Medicine 04/13/20 09/11/22 Leah Alvarenga FNP PCP - General Family Medicine 09/12/22 07/31/23 Mary Jo Chau MD [address] [place] [address] PCP - General Internal Medicine 08/01/23 Adore Iraheta PharmD [address] [place] [address] Pharmacist Internal Medicine 11/04/24 documented as of this encounter
--- OUTSIDE RECORDS SUMMARY | 2024-12-17 12:33 | XMS_ITS | Encounter Summary ---
Author Organization [employer] [facility] Address [address] [place] [address] 7t [place] [address] Care Team Providers Care Fast Food Supervisor Name Role Phone Cristin Chaves MD Primary Care Provider Leah Macario PUNCHER Primary Care Provider [phone] Mary Jo Chau MD Primary Care Pro vider Adore Iraheta PharmD Unavailable [phone] Encounter Details Date Type Department Care Team (Latest Contact Info) Description 02/12/2019 Abstract [facility] CONVERSIONS Dental, Provider, DDS Social History [...] Description 01/06/2025 3:30 PM EDT Medication Management [facility] MEDICINE [address] [place] [address] Adore Iraheta, PharmD 230 [place] [address] 02/21/2025 11:00 AM EDT Clinical Support [facility] MEDICINE [address] [place] [address] Torie Mccormack RN [address] [place] [address] [phone] documented as of this encounter Visit Diagnoses Not on filedocumented in this encounter Care Teams Fast Food Supervisor Relationship Specialty Start Date End Date Cristin Chaves MD PCP - General Family Medicine 04/13/20 09/11/22 Leah Alvarenga FNP PCP - General Family Medicine 09/12/22 07/31/23 Mary Jo Chau MD [address] [place] [address] [phone] PCP - General Internal Medicine 08/01/23 Adore Iraheta PharmD [address] [place] [address] Pharmacist Internal Medicine 11/04/24 documented as of this encounter
--- OUTSIDE RECORDS SUMMARY | 2024-12-17 12:33 | XMS_ITS | Encounter Summary ---
Author Organization [employer] [facility] Address [address] [place] [address] Care Team Providers Care Crust Sorter Name Role Phone Mary Jo Chau MD Primary Care Pro vider Adore Iraheta PharmD Unavailable [phone] Reason for Visit * Reason Comments Med Refill Encounter Details Date Type Department Care Team (Late st Contact Info) Description 11/21/2023 Refill [facility] MEDICINE [address] [place] [address] Mary Jo Chau MD 230 [place], [place] [phone] Depression, unspecified depression type Social History Tobacco [...] Description 01/06/2025 3:30 PM EDT Medication Management [facility] MEDICINE [address] [place] [address] [phone] Adore Iraheta, Lorenzo [address] [place] [address] 02/21/2025 11:00 AM EDT Clinical Support [facility] MED[facility]INE [address] [place] [address] Torie Mccormack, RN 505 [place] [address] documented as of this encounter Visit Diagnoses Diagnosis Depression, unspecified depression type documented in this encounter Additional Health Concerns Assessment Noted Time PHQ-9 Depression Total Score: 14 023 4:05 PM EST documented as of this encounter Care Teams Crust Sorter Relationship Specialty Start Date End Date Mary Jo Chau MD [address] [place] [address] PCP - General Internal Medicine 08/01/23 Adore Iraheta PharmD [address] [place] [address] Pharmacist Internal Medicine 11/04/24 documented as of this encounter
--- OUTSIDE RECORDS SUMMARY | 2024-12-17 12:33 | XMS_ITS | Encounter Summary ---
Author Organization [employer] Address [address] [facility] 7 [place] [address] Care Team Providers Care Irrigator Name Role Phone Mary Jo Chau MD Primary Care Pro vider Adore Iraheta PharmD Unavailable [phone] Reason for Visit * Reason Onset Date Comments May recall 12/12/2024 Encounter Details Date Type Department Care Team (Late st Contact Info) Description 12/12/2024 Telephone [facility] MEDICINE 230 [place] [address] Mary Jo Chau MD 230 [place], [place] [phone] May recall Social History Tobacco Use Types Packs/Day Years [...] encounter Miscellaneous Notes * Telephone Encounter - Sonal Quinn MA - 12/12/2024 1:10 PM EST Telephone call to patient to schedule a recall appointment. No answer, Left voicemail to return call to clinic.. Recall letter sent. Visit type: Office visit Appointment notes: Chronic conditions Month due: May With: [place] Please schedule appointment above if patient returns call documented in this encounter Plan of Treatment Upcoming Encounters Date Type Department Care Team ([facility] st Contact Info) Description 01/06/2025 3:30 PM EDT Medication Management [facility] MEDICINE [address] [place] [address] Adore Iraheta, Lorenzo 230 [place] [address] 02/21/2025 11:00 AM EDT Clinical Support [facility] MEDICINE 230 [place] [address] Torie Mccormack RN [address] [place] [address] [place] [address] documented as of this encounter Visit Diagnoses Not on filedocumented in this encounter Additional Health Concerns Assessment Noted Time PHQ-9 Depression Total Score: 10 024 2:12 PM EST documented as of this encounter Care Teams Irrigator Relationship Specialty Start Date End Date Mary Jo Chau MD [address] [place] [address] PCP - General Internal Medicine 08/01/23 Adore Iraheta PharmD [address] [place] [address] Pharmacist Internal Medicine 11/04/24 documented as of this encounter
--- OUTSIDE RECORDS SUMMARY | 2024-12-17 12:33 | XMS_ITS | Encounter Summary ---
Author Organization [employer] Address 75 [facility] 7 [place] [address] Care Team Providers Care Lens Grinder And Polisher Name Role Phone Mary Jo Chau MD Primary Care Pro vider Adore Iraheta PharmD Unavailable [phone] Reason for Visit * Reason Onset Date Comments new appointment 09/25/2024 Encounter Details Date Type Department Care Team ([facility] st Contact Info) Description 09/25/2024 Telephone [facility] [address] [place] [address] Mary Jo Chau MD 230 [place] [address] new appointment Social History Tobacco Use Types [...] is your housing situation today? I have rufsu gillis 09/04/[address] you [...] Description 01/06/2025 3:30 PM EDT Medication Management [facility] [address] [place] [address] Adore Iraheta, NegritaD 230 [place] [address] 02/21/2025 11:00 AM EDT Clinical Support [facility] [address] [place] [address] Torie Mccormack, WAYLON 505 [place] [address] documented as of this encounter Visit Diagnoses Not on filedocumented in this encounter Additional Health Concerns Assessment Noted Time PHQ-9 Depression Total Score: 10 024 2:12 PM EST documented as of this encounter Care Teams Lens Grinder And Polisher Relationship Specialty Start Date End Date Mary Jo Chau MD [address] [place] [address] [phone] PCP - General Internal Medicine 08/01/23 Adore Iraheta PharmD [address] [place] [address] [phone] Pharmacist Internal Medicine 11/04/24 documented as of this encounter
--- OUTSIDE RECORDS SUMMARY | 2024-12-17 12:33 | XMS_ITS | Encounter Summary ---
Author Organization [employer] [facility] Address [address] [place] [address] 7 [place] [address] Care Team Providers Care Night Filler Name Role Phone Mary Jo Chau MD Primary Care Pro vider Adore Iraheta PharmD Unavailable [phone] Encounter Details Date Type Department Care Team (Late st Contact Info) Description 04/01/2024 Telephone [facility] MEDICINE [address] [place] [address] Mary Jo Chau MD [address] [place] [address] Social History Tobacco Use Types Packs/Day Years [...] Description 01/06/2025 3:30 PM EDT Medication Management [address] [address] Adore Iraheta PharmD [address] [place] [address] 02/21/2025 11:00 AM EDT Clinical Support [address] [address] Torie Mccormack, WAYLON [address] [place] [address] documented as of this encounter Visit Diagnoses Not on filedocumented in this encounter Additional Health Concerns Assessment Noted Time PHQ-9 Depression Total Score: 9 01/08/20 24 3:15 PM EDT documented as of this encounter Care Teams Night Filler Relationship Specialty Start Date End Date Mary Jo Chau MD [address] [place] [address] PCP - General Internal Medicine 08/01/23 Adore Iraheta, Lorenzo [address] [place] [address] Pharmacist Internal Medicine 11/04/24 documented as of this encounter
--- OUTSIDE RECORDS SUMMARY | 2024-12-17 12:33 | XMS_ITS | Encounter Summary ---
Author Organization [employer] Address 75 [facility] 7 [place] [address] Care Team Providers Care Forging Engineer Name Role Phone Mary Jo Chau MD Primary Care Pro vider Adore Iraheta PharmD Unavailable [phone] Reason for Visit * Reason Onset Date Comments Appointment Request 11/27/2024 Encounter Details Date Type Department Care Team ([facility] Contact Info) Description 11/27/2024 Telephone [facility] MED & PEDS 505 [place] [address] Torie Mccormack RN 505 [place] [address] Appointment Request Social History Tobacco Use Types [...] Jo returning call. Contact Mary Jo at [phone] * Telephone Encounter - Torie Mccormack RN - 11/27/2024 3:06 PM EST TC to pt. SERVICE COUNTER CASHIER NV cancelled on 11/28/24 at 3pm d/t [facility] closing early on 11/28/24 d/t inclement weather. Lvm for pt documented in this encounter Plan of Treatment Upcoming Encounters Date Type Department Care Team (Late st Contact Info) Description 01/06/2025 3:30 PM EDT Medication Management [facility] MEDICINE 230 [place] [address] Adore Iraheta, PharmD 230 [place], [place] [phone] 02/21/2025 11:00 AM EDT Clinical Support [facility] MEDICINE 230 [place] [address] Torei Mccormack, RN 505 [place] [address] documented as of this encounter Visit Diagnoses Not on filedocumented in this encounter Additional Health Concerns Assessment Noted Time PHQ-9 Depression Total Score: 10 024 2:12 PM EST documented as of this encounter Care Teams Forging Engineer Relationship Specialty Start Date End Date Mary Jo Chau MD [address] [place] [address] PCP - General Internal Medicine 08/01/23 Adore Iraheta PharmD [address] [place] [address] Pharmacist Internal Medicine 11/04/24 documented as of this encounter
--- OUTSIDE RECORDS SUMMARY | 2024-12-17 12:33 | XMS_ITS | Encounter Summary ---
Author Organization [employer] [facility] Address [address] [place] [address] [place], [place] [address] Care Team Providers Care Canteen Manager Name Role Phone Mary Jo Chau MD Primary Care Pro vider Adore Iraheta PharmD Unavailable [phone] Reason for Visit * Reason Comments Med Change Request Encounter Details Date Type Department Care Team (Late st Contact Info) Description 04/27/2024 Refill [facility] MEDICINE 230 [place] [address] Mary Jo Chau MD 230 [place], [place] [phone] Depression, unspecified depression type Social History Tobacco [...] Description 01/06/2025 3:30 PM EDT Medication Management [facility] MEDICINE [address] [place] [address] Adore Iraheta PharmD [address] [place] [address] 02/21/2025 11:00 AM EDT Clinical Support [address] [address] Torie Mccormack, WAYLON 505 [place] [address] documented as of this encounter Visit Diagnoses Diagnosis Depression, unspecified depression type documented in this encounter Additional Health Concerns Assessment Noted Time PHQ-9 Depression Total Score: 9 01/08/20 24 3:15 PM EDT documented as of this encounter Care Teams Canteen Manager Relationship Specialty Start Date End Date Mary Jo Chau MD [address] [place] [address] PCP - General Internal Medicine 08/01/23 Adore Iraheta PharmD [address] [place] [address] Pharmacist Internal Medicine 11/04/24 documented as of this encounter
--- OUTSIDE RECORDS SUMMARY | 2024-12-17 12:33 | XMS_ITS | Encounter Summary ---
Author Organization [email or web address] Address 75 [facility] 7t [place] [address] Care Team Providers Care Fur Vault Attendant Name Role Phone Mary Jo Chau MD Primary Care Pro vider Adore Iraheta PharmD Unavailable [phone] Encounter Details Date Type Department Care Team [...] 01/06/2025 3:30 PM EDT Medication Management [address] [address] Adore Iraheta PharmD [address] [place] [address] 02/21/2025 11:00 AM EDT Clinical Support [address] [address] Torie Mccormack RN 505 [place] [address] documented as of this encounter Visit Diagnoses Not on filedocumented in this encounter Additional Health Concerns Assessment Noted Time PHQ-9 Depression Total Score: 10 024 2:12 PM EST documented as of this encounter Care Teams Fur Vault Attendant Relationship Specialty Start Date End Date Mary Jo Chau MD [address] [place] [address] PCP - General Internal Medicine 08/01/23 Adore Iraheta PharmD [address] [place] [address] Pharmacist Internal Medicine 11/04/24 documented as of this encounter
--- OUTSIDE RECORDS SUMMARY | 2024-12-17 12:33 | XMS_ITS | Encounter Summary ---
Author Organization [employer] Address 75 [facility] 7t [place] [address] Care Team Providers Care Machine Maintenance Servicer Name Role Phone Mary Jo Chau MD Primary Care Pro vider Adore Iraheta PharmD Unavailable [phone] Reason for Visit * Reason Comments controlled substance treatment Encounter Details Date Type Department Care Team (Latest Contact Info) Description 12/10/2024 10:30 AM EST Clinical Support [facility] CHC MED & PEDS 505 [place] [address] Torie Mccormack, RN 505 [place] [address] Other chronic pain Social History Tobacco Use [...] AM EDT documented as of this encounter Progress Notes * Torie Mccormack RN - 12/10/2024 10:30 AM EST S: PAINTER AIRBRUSH NV. Mary Jo HDEZ assisted with translation. Patient prescribed Acetaminophen/Codeine 300mg/60mg #4 Q8hr PRN. MANAGER MAC states he has been taking med either bid or tid. He last took pill today. Pt continues to deny smoking, ETOH use, Illicit drug use and Marijuana use. No other questions/ concerns atthis time. PAINTER AIRBRUSH Agreement renewed today. O: Pt currently prescribed Acetaminophen/Codeine 300mg/60mg Q8hr PRN. CONSULTING SERVICES MANAGER verified today. Rx last filled on 11/18/24. Mary Jo states patient has 8 pills left at home,states she forgot to bring it with her, 0 expected. Medication is not overused by patient. utox performed, positive for MOP only, as expected. .BPI updated today. Pain severity score of (4), activity interference score of (7.5). Previous BPI completed (11/01/23) with pain severity score of (5), activity interference score of (7). 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 P: Pt to continue taking medication only as prescribed; Next PAINTER AIRBRUSH RV appointment scheduled for 02/21/25 @ 11am [facility]. F/U sooner PRN. Pt verbalized understanding and agreed to plan. documented in this encounter Plan of Treatment Upcoming Encounters Date Type Department Care Team ([facility] st Contact Info) Description 01/06/2025 3:30 PM EDT Medication Management [address] [address] Adore Iraheta, PharmD 230 [place] [address] 02/21/2025 11:00 AM EDT Clinical Support [address] [address] Torie Mccormack RN 505 [place], [place] [phone] documented as of this encounter Procedures Procedure Name Priority Date/Time Associated Diagnosis Comments POCT JOHNNY-14 URINE DRUG SCREEN Routine 12/10/2024 10:24 AM EST Other chronic pain documented in this encounter Results * POCT JOHNNY-14 Urine Drug Screen (12/10/2024 10:24 AM EST) Opiate Screen, Urine Positive Urine Urine specimen obtained by clean catch procedure / Unknown 12/10/2024 10:24 AM EST Narrative Torie Mccormack RN - 12/10/2024 10:24 AM EST Lot# [id number] Exp: 06-11-26 us Mary Jo Richards MD POINT OF CARE JULI T ENTER/EDIT ORDERABLES Final Result documented in this encounter Visit Diagnoses Diagnosis Other chronic pain documented in this encounter Additional Health Concerns Assessment Noted Time PHQ-9 Depression Total Score: 10 024 2:12 PM EST documented as of this encounter Care Teams Machine Maintenance Servicer Relationship Specialty Start Date End Date Mary Jo Chau MD [address] [place] [address] [phone] PCP - General Internal Medicine 08/01/23 Adore Iraheta PharmD [address] [place] [address] Pharmacist Internal Medicine 11/04/24 documented as of this encounter
--- OUTSIDE RECORDS SUMMARY | 2024-12-17 12:33 | XMS_ITS | Encounter Summary ---
Author Organization [employer] Address 75 [facility] 7t [place] [address] Care Team Providers Care Research Pharmacist Name Role Phone Mary Jo Chau MD Primary Care Pro vider Adore Iraheta PharmD Unavailable [phone] Encounter Details Date Type Department Care Team (Latest Contact Info) Description 12/10/2024 Travel Social History Tobacco Use Types Packs/Day [...] Description 01/06/2025 3:30 PM EDT Medication Management [address] [address] Adore Iraheta PharmD [address] [place] [address] 02/21/2025 11:00 AM EDT Clinical Support [address] [address] Torie cMcormack RN 505 [place] [address] documented as of this encounter Visit Diagnoses Not on filedocumented in this encounter Additional Health Concerns Assessment Noted Time PHQ-9 Depression Total Score: 10 024 2:12 PM EST documented as of this encounter Care Teams Research Pharmacist Relationship Specialty Start Date End Date Mary Jo Chua MD [address] [place] [address] PCP - General Internal Medicine 08/01/23 Adore Iraheta PharmD [address] [place] [address] Pharmacist Internal Medicine 11/04/24 documented as of this encounter
--- OUTSIDE RECORDS SUMMARY | 2024-12-17 12:33 | XMS_ITS | Encounter Summary ---
Author Organization [employer] Address 75 [facility] 7t [place] [address] Care Team Providers Care Manufacturing Technology Professor Name Role Phone Mary Jo Chau MD Primary Care Pro vider Adore Iraheta PharmD Unavailable [phone] Encounter Details Date Type Department Care Team (Late st Contact Info) Description 12/03/2024 Orders Only GENERIC EXTERNAL DATA DEPARTMENT Provider, Generic External Data Social History Tobacco Use Types Packs/Day Years [...] Description 01/06/2025 3:30 PM EDT Medication Management [address] [address] Adore Iraheta, NegritaD [address] [place] [address] 02/21/2025 11:00 AM EDT Clinical Support [address] [address] Torie Mccormack, RN 505 [place] [address] documented as of this encounter Procedures Procedure Name Priority Date/Time Associated Diagnosis Comments BASIC METABOLIC PANEL Routine 12/03/2024 7:46 AM EST documented in this encounter Results * (ABNORMAL) Basic Metabolic Panel (12/03/2024 7:46 AM EST) Sodium 143 135 - 145 mmol/L [facility] Potassium 4.4 3.3 - 5.1 mmol/L [facility] Chloride 105 96 - 108 mmol/L [facility] Carbon Dioxide 27 22 - 29 mmol/L [facility] Anion Gap 15 12 - 20 [facility] Urea Nitrogen (BUN) 19(H) 9 - 16 mg/dL [facility] Creatinine, Serum 1.41(H) 0.5 - 1.4 mg/dL [facility] Estimated Glomerular Filt Rate 49 [facility] Comment:Chronic Kidney Disea se: Estimated GFR < 60 mL/min/1.35p8Tdpocv Kidney Disease: Estimated GFR < 15 mL/min/1.73m2 Glucose 198(H) 60 - 115 mg/dL [facility] Calcium 9.9 8.4 - 10.2 mg/dL [facility] 12/03/2024 7:46 AM EST 12/03/2024 7:46 AM EST us Generic External Data Provider LAB BLOOD ORDERAB LES Final Result [facility] [address] [place] [address] [phone] documented in this encounter Visit Diagnoses Not on filedocumented in this encounter Additional Health Concerns Assessment Noted Time PHQ-9 Depression Total Score: 10 024 2:12 PM EST documented as of this encounter Care Teams Manufacturing Technology Professor Relationship Specialty Start Date End Date Mary Jo Chau MD 230 [place] [address] PCP - General Internal Medicine 08/01/23 Adore Iraheta PharmD 230 [place] [address] Pharmacist Internal Medicine 11/04/24 documented as of this encounter
--- OUTSIDE RECORDS SUMMARY | 2024-12-17 12:33 | XMS_ITS | Encounter Summary ---
Author Organization [employer] Address 75 [facility] 7t [place] [address] Care Team Providers Care School Crossing Guard Supervisor Name Role Phone Mary Jo Chau MD Primary Care Pro vider Adore Iraheta PharmD Unavailable [phone] Encounter Details Date Type Department Care Team ([facility] Contact Info) Description 12/02/2024 Telephone [facility] MED & PEDS 505 [place], [place] [phone] Torie Mccormack, WAYLON 505 [place] [address] Social History Tobacco Use Types Packs/Day Years [...] 2:14 PM EST TC back to pt, REIMBURSEMENT REP NV scheduled for 12/10/24 10:30am at [facility]. documented in this encounter Plan of Treatment Upcoming Encounters Date Type Department Care Team (Late st Contact Info) Description 01/06/2025 3:30 PM EDT Medication Management [facility] MEDICINE [address] [place] [address] Adore Iraheta, PharmD 230 [place] [address] 02/21/2025 11:00 AM EDT Clinical Support [facility] MEDICINE [address] [place] [address] Torie Mccormack RN [address] [place] [address] documented as of this encounter Visit Diagnoses Not on filedocumented in this encounter Additional Health Concerns Assessment Noted Time PHQ-9 Depression Total Score: 10 024 2:12 PM EST documented as of this encounter Care Teams School Crossing Guard Supervisor Relationship Specialty Start Date End Date Mary Jo Chau MD 230 [place], [place] [phone] PCP - General Internal Medicine 08/01/23 Adore Iraheta PharmD 230 [place], [place] [phone] Pharmacist Internal Medicine 11/04/24 documented as of this encounter
--- OUTSIDE RECORDS SUMMARY | 2024-12-17 12:33 | XMS_ITS | Encounter Summary ---
Author Organization [employer] Address 75 [facility] 7t [place] [address] Care Team Providers Care Human Service Technician Name Role Phone Mary Jo Chau MD Primary Care Pro vider Adore Iraheta PharmD Unavailable [phone] Encounter Details Date Type Department Care Team (Late st Contact Info) Description 06/12/2024 Orders Only [facility] [address] [place] [address] Mary Jo [place] MD 230 [place] [address] Social History Tobacco Use Types Packs/Day Years [...] Description 01/06/2025 3:30 PM EDT Medication Management [address] [address] Adore Iraheta PharmD [address] [place] [address] 02/21/2025 11:00 AM EDT Clinical Support [address] [address] Torie Mccormack, WAYLON 505 [place] [address] documented as of this encounter Visit Diagnoses Not on filedocumented in this encounter Additional Health Concerns Assessment Noted Time PHQ-9 Depression Total Score: 9 01/08/20 24 3:15 PM EDT documented as of this encounter Care Teams Human Service Technician Relationship Specialty Start Date End Date Mary Jo Chau MD [address] [place] [address] PCP - General Internal Medicine 08/01/23 Adore Iraheta PharmD [address] [place] [address] Pharmacist Internal Medicine 11/04/24 documented as of this encounter
--- OUTSIDE RECORDS SUMMARY | 2024-12-17 12:33 | XMS_ITS | Encounter Summary ---
Author Organization [employer] [facility] Address [address] [place] [address] [place], [place] [address] Care Team Providers Care Director Of User Experience Name Role Phone Mary Jo Chau MD Primary Care Pro vider Adore Iraheta PharmD Unavailable [phone] Reason for Visit * Reason Comments Med Refill Encounter Details Date Type Department Care Team ([facility] Contact Info) Description 11/14/2023 Refill [facility] CHC MED & PEDS 505 [place] [address] Mary Jo Chau MD [address] [place], [place] [phone] Other chronic pain Social History Tobacco Use [...] Upcoming Encounters Date Type Department Care Team ([facility] Contact Info) Description 01/06/2025 3:30 PM EDT Medication Management [facility] MEDICINE 230 [place], [place] [phone] Adore Iraheta, Lorenzo [address] [place] [address] 02/21/2025 11:00 AM EDT Clinical Support [facility] MEDICINE [address] [place] [address] Torie Mccormack, RN 505 [place] [address] documented as of this encounter Visit Diagnoses Diagnosis Other chronic pain documented in this encounter Additional Health Concerns Assessment Noted Time PHQ-9 Depression Total Score: 14 023 4:05 PM EST documented as of this encounter Care Teams Director Of User Experience Relationship Specialty Start Date End Date Mary Jo Chau MD [address] [place] [address] PCP - General Internal Medicine 08/01/23 Adore Iraheta PharmD [address] [place] [address] Pharmacist Internal Medicine 11/04/24 documented as of this encounter
--- OUTSIDE RECORDS SUMMARY | 2024-12-17 12:33 | XMS_ITS | Encounter Summary ---
Author Organization [facility] Address [address] [place] [address] [place] [address] Care Team Providers Care Wireless Store Manager Name Role Phone Mary Jo Chau MD Primary Care Pro vider Adore Iraheta PharmD Unavailable [phone] Reason for Visit * Reason Comments Med Change Request Encounter Details Date Type Department Care Team (Late Contact Info) Description 08/15/2023 Refill [facility] MEDICINE [address] [place] [address] Leah Alvarenga FNP [address] [place] [address] [place] [address] Depression, unspecified depression type Social History Tobacco [...] Description 01/06/2025 3:30 PM EDT Medication Management [facility] MEDICINE 230 [place], [place] [phone] IrahetaAdore PharmD [address] [place] [address] 02/21/2025 11:00 AM EDT Clinical Support [facility] MEDICINE [address] [place] [address] Torie Mccormack, WAYLON 505 [place] [address] documented as of this encounter Visit Diagnoses Diagnosis Depression, unspecified depression type documented in this encounter Additional Health Concerns Assessment Noted Time PHQ-9 Depression Total Score: 14 023 4:05 PM EST documented as of this encounter Care Teams Wireless Store Manager Relationship Specialty Start Date End Date Mary Jo Chau MD [address] [place] [address] PCP - General Internal Medicine 08/01/23 Adore Iraheta PharmD [address] [place] [address] Pharmacist Internal Medicine 11/04/24 documented as of this encounter
--- OUTSIDE RECORDS SUMMARY | 2024-12-17 12:33 | XMS_ITS | Encounter Summary ---
Author Organization [employer] Address 75 [facility] 7t [place] [address] Care Team Providers Care Road Oiler Name Role Phone Mary Jo Chau MD Primary Care Pro vider Adore Iraheta PharmD Unavailable [phone] Reason for Visit * Reason Comments Med Refill Encounter Details Date Type Department Care Team ([facility] st Contact Info) Description 12/16/2024 Refill [facility]EDS [address] [place] [address] Reina Fritz, ANP 230 [place] [address] Other chronic pain Social History Tobacco Use [...] Description 01/06/2025 3:30 PM EDT Medication Management [address] [address] Adore Iraheta PharmD [address] [place] [address] 02/21/2025 11:00 AM EDT Clinical Support [address] [address] Torie Mccormack RN 505 [place] [address] documented as of this encounter Visit Diagnoses Diagnosis Other chronic pain documented in this encounter Additional Health Concerns Assessment Noted Time PHQ-9 Depression Total Score: 10 024 2:12 PM EST documented as of this encounter Care Teams Road Oiler Relationship Specialty Start Date End Date Mary Jo Chau MD [address] [place] [address] PCP - General Internal Medicine 08/01/23 Adore Iraheta, PharmD 230 [place] [address] Pharmacist Internal Medicine 11/04/24 documented as of this encounter
== END 2024-12-17 11:13 | disposition home or self-care (01) ==
PROVIDERS: PCP Internal Medicine; Visit Provider Nurse Practitioner Family
DX: R97.20 Elevated prostate specific antigen [PSA] (principal); Z13.9 Encounter for screening, unspecified
CPT/HCPCS: 99213; G2211

== ENCOUNTER → 2024-12-17 10:32 | Outpatient (BNVA) | payer OTHER, SELFPAY | PROVIDERS: PCP Internal Medicine; Visit Provider Nurse Practitioner Family | DX: R97.20 Elevated prostate specific antigen [PSA] (principal); N40.0 Benign prostatic hyperplasia without lower urinary tract symptoms | CPT/HCPCS: 51798; 81003; 99212 ==

== ENCOUNTER 2024-12-25 13:54 | Outpatient (AMB) | payer OTHER, SELFPAY ==
[2024-12-25 14:01] VITALS: BP 124/62; PULSE 79; O2SAT 97; BMI 25.0
--- NOTE | 2024-12-25 14:01 | HO.NEPHOV ---
Vital Signs 12/25/24 14:01 Height 5 ft 6 in Weight 155 lb BMI 25.0 BP 124/62 Blood Pressure Location Lt brachial Position Sitting Pulse 79 Pulse Source Pulse Oximeter Pulse Oximetry (%) 97 Oxygen Delivery Method Room Air Intake Visit Reasons: Follow up/ LVM Preschool Assistant Principal Required: No Accompanied by: DIRECTOR EMPLOYMENT Allergies No Known Allergies Allergy (Verified 12/25/24 14:07) Medication List - Last Reconciled 12/25/24 by Rinku Groves MD acetaminophen-codeine 300-60 mg 1 tab PO Q8H PRN amlodipine 5 mg PO DAILY aspirin 1 tab PO DAILY atorvastatin 1 tab PO BEDTIME blood sugar diagnostic (FreeStyle Lite Strips) As directed cholecalciferol (vitamin D3) (Vitamin D3) 1 cap PO DAILY cyanocobalamin (vitamin B-12) 1 tab PO BEDTIME docusate sodium 100 mg PO BID duloxetine 1 cap PO DAILY empagliflozin (Jardiance) 10 mg PO DAILY famotidine 20 mg PO DAILY ferrous sulfate 325 mg PO DAILY finasteride 5 mg PO DAILY 90 days glipizide ER 5 mg PO DAILY hydroxyzine HCl mg PO BID loratadine 1 tab PO DAILY memantine 1 tab PO BID metformin 1,000 mg PO BID pregabalin 150 mg PO BID repaglinide 0.5 mg PO TID sennosides (senna) 2 tabs PO DAILY PRN sertraline 1 tab PO DAILY sitagliptin phosphate (Januvia) 25 mg PO DAILY tamsulosin 0.4 mg PO DAILY 90 days triamcinolone acetonide 0.1% 0.1 appl topical BID HPI Comments Details: 73-year-old man with a history of longstanding diabetes mellitus for more than 30 years along with hypertension has been referred for chronic kidney disease. Recent serum creatinine was 1.4 mg/dL. He was accompanied by his family. Today he has no specific complaints today. Overall blood sugar has been suboptimal. Recent hemoglobin A1c was 10.4. Blood pressure has been well controlled. He is compliant with all his medications he is on RAAS inhibition as well as SGLT2 inhibitors. History of obstructive sleep apnea but he does not use CPAP 12/25/24 Overall doing ok No urinary complaints Post prandial glucose is high- was 311 yesterday. Admits to eating rice and Pasta [facility] Medical History History of hepatitis as a child Diabetic nephropathy Osteoarthritis Obstructive sleep apnea BPH (benign prostatic hyperplasia) Depression Diabetes Hypercholesteremia HTN (hypertension) Normocytic anemia Surgical History History of prostate biopsy Family History Father Diabetes Social History Household Members: Spouse and Significant Other Housing: House Are you a primary family day care worker to a significant other at home: No Do you presently have visiting nurse or other home services: No Alcohol intake: former Patient Tobacco Use Status: Never used Tobacco service: Yes Current occupational status: retired Physical Exam Vital Signs: Last Vital Signs Pulse 79 12/25/24 14:01 BP 124/62 12/25/24 14:01 Pulse Ox 97 12/25/24 14:01 Oxygen Delivery Method Room Air 12/25/24 14:01 BMI result Body Mass Index 25.0 Results Reviewed Nephrology Results: Hgb 13.1 g/dl (14.0-18.0) L 10/09/24 WBC 5.9 X10*3/uL (4.8-10.8) 10/09/24 Plt Count 225 X10*3/uL (160-400) 10/09/24 Sodium 143 mmol/L (135-145) 12/03/24 Potassium 4.4 mmol/L (3.3-5.1) 12/03/24 Chloride 105 mmol/L (96-108) 12/03/24 Carbon Dioxide 27 mmol/L (22-29) 12/03/24 BUN 19 mg/dL (9-16) H 12/03/24 Creatinine 1.41 mg/dL (0.5-1.4) H 12/03/24 Calcium 9.9 mg/dL (8.4-10.2) 12/03/24 Urine Creatinine 52.33 mg/dL 10/09/24 Renal US 07/17/24 Assessment & Plan Assessment & Plan (1) CKD (chronic kidney disease): Code(s): N18.9 - Chronic kidney disease, unspecified Category: Medical Plan 74-year-old man with stage 3 chronic kidney disease most likely due to underlying diabetic hypertensive kidney disease. No evidence of obstruction based on renal ultrasonogram No evidence of any active glomerular nephritis or interstitial disease at this time. All serologies has been essentially negative. Marginal improvement in EGFR At present creatinein is at 1.4 and this is his baseline Goal is to slow the progression of renal disease. maintain blood pressure less than 130/80. Maintain A1c less than 7%. Should cut back on carbs Continue to avoid nephrotoxic agents including NSAIDs. Agree with maximizing RAAS inhibition and SGLT2 inhibitors. Encouraged him to increase p.o. fluid intake. Orders: Orders Complete Blood Count no Diff 4 Months N18.9 - Chronic kidney disease, unspecified Basic Metabolic Panel 4 Months N18.9 - Chronic kidney disease, unspecified Coding Level of Care Code Est Pt Level 4 (74727) Diagnoses CKD (chronic kidney disease) N18.9
--- OUTSIDE RECORDS SUMMARY | 2024-12-25 16:39 | XMS_ITS | Encounter Summary ---
Author Organization [employer] Address 75 [facility] 7 [place] [address] Care Team Providers Care Atomic Fuel Assembler Name Role Phone Mary Jo Chau MD Primary Care Pro vider Adore Iraheta PharmD Unavailable [phone] Reason for Visit * Reason Onset Date Comments Appointment Request 11/27/2024 Encounter Details Date Type Department Care Team ([facility] Contact Info) Description 11/27/2024 Telephone [facility]S [address] [place] [address] Torie Mccormack RN 505 [place] [address] Appointment Request Social History Tobacco Use Types [...] Jo returning call. Contact Mary Jo at [phone] * Telephone Encounter - Torie Mccormack RN - 11/27/2024 3:06 PM EST TC to pt. [employer] [place] cancelled on 11/28/24 at 3pm d/t [facility] closing early on 11/28/24 d/t inclement weather. Lvm for pt documented in this encounter Plan of Treatment Upcoming Encounters Date Type Department Care Team (Late st Contact Info) Description 01/06/2025 3:30 PM EDT Medication Management [facility] MEDICINE [address] [place] [address] Adore Iraheta, PharmD 230 [place], [place] [phone] 02/21/2025 11:00 AM EDT Clinical Support [facility] [address] [place] [address] Torie Mccormack, RN 505 [place] [address] 02/25/2025 2:15 PM EDT Office Visit [facility] [address] [place] [address] Mary Jo Chau MD [address] [place] [address] documented as of this encounter Visit Diagnoses Not on filedocumented in this encounter Additional Health Concerns Assessment Noted Time PHQ-9 Depression Total Score: 10 024 2:12 PM EST documented as of this encounter Care Teams Atomic Fuel Assembler Relationship Specialty Start Date End Date Mary Jo Chau MD [address] [place] [address] PCP - General Internal Medicine 08/01/23 Adore Iraheta PharmD [address] [place] [address] Pharmacist Internal Medicine 11/04/24 documented as of this encounter
--- OUTSIDE RECORDS SUMMARY | 2024-12-25 16:39 | XMS_ITS | Encounter Summary ---
Author Organization [employer] Address 75 [facility] 7t [place] [address] Care Team Providers Care Lead Press Operator Name Role Phone Mary Jo Chau MD Primary Care Pro vider Adore Iraheta PharmD Unavailable [phone] Reason for Visit * Reason Comments Med Refill Encounter Details Date Type Department Care Team ([facility] st Contact Info) Description 12/16/2024 Refill [facility] PEDS [address] [place] [address] Reina Fritz, ANP 230 [place] [address] Other chronic pain Social History Tobacco Use [...] Description 01/06/2025 3:30 PM EDT Medication Management [facility] MEDICINE [address] [place] [address] Adore Iraheta, NegritaD [address] [place] [address] 02/21/2025 11:00 AM EDT Clinical Support [address] [address] Torie Mccormack RN 505 [place] [address] 02/25/2025 2:15 PM EDT Office Visit [facility] [address] [place] [address] Mary Jo Chau MD [address] [place] [address] documented as of this encounter Visit Diagnoses Diagnosis Other chronic pain documented in this encounter Additional Health Concerns Assessment Noted Time PHQ-9 Depression Total Score: 10 024 2:12 PM EST documented as of this encounter Care Teams Lead Press Operator Relationship Specialty Start Date End Date Mary Jo Chau MD 230 [place], [place] [phone] PCP - General Internal Medicine 08/01/23 Adore Iraheta PharmD 230 [place] [address] Pharmacist Internal Medicine 11/04/24 documented as of this encounter
--- OUTSIDE RECORDS SUMMARY | 2024-12-25 16:39 | XMS_ITS | Encounter Summary ---
Author Organization [employer] [facility] Address [address] [place] [address] 7 [place] [address] Care Team Providers Care Learning And Development Analyst Name Role Phone Mary Jo Chau MD Primary Care Pro vider Adore Iraheta PharmD Unavailable [phone] Reason for Visit * Reason Comments Med Refill Encounter Details Date Type Department Care Team (Late st Contact Info) Description 09/07/2023 Refill [facility] 230 [place] [address] [facility] 230 [place], [place] [phone] Other atopic dermatitis Social History Tobacco Use [...] PM EDT Medication Management [facility] [address] [place], [place] [phone] Adore Iraheta PharmD [address] [place] [address] 02/21/2025 11:00 AM EDT Clinical Support [address] [address] Torie Mccormack, RN 505 [place] [address] 02/25/2025 2:15 PM EDT Office Visit [address] [address] Mary Jo Chau MD [address] [place] [address] documented as of this encounter Visit Diagnoses Diagnosis Other atopic dermatitis documented in this encounter Additional Health Concerns Assessment Noted Time PHQ-9 Depression Total Score: 14 023 4:05 PM EST documented as of this encounter Care Teams Learning And Development Analyst Relationship Specialty Start Date End Date Mary Jo Chau MD [address] [place] [address] PCP - General Internal Medicine 08/01/23 Adore Iraheta PharmD [address] [place] [address] Pharmacist Internal Medicine 11/04/24 documented as of this encounter
--- OUTSIDE RECORDS SUMMARY | 2024-12-25 16:39 | XMS_ITS | Encounter Summary ---
Author Organization [employer] [facility] Address [address] [place] [address] Care Team Providers Care Structural Analyst Name Role Phone Mary Jo Chau MD Primary Care Pro vider Adore Iraheta PharmD Unavailable [phone] Reason for Visit * Reason Comments Med Refill Encounter Details Date Type Department Care Team (Late st Contact Info) Description 11/09/2023 Refill [facility] 230 [place] [address] Mary Jo Chau MD 230 [place], [place] [phone] Seasonal allergic rhinitis, unspecified trigger; Other chronic [...] Description 01/06/2025 3:30 PM EDT Medication Management [facility] [address] [place] [address] Adore Iraheta PharmD [address] [place] [address] 02/21/2025 11:00 AM EDT Clinical Support [address] [address] Torie Mccormack, RN 505 [place] [address] 02/25/2025 2:15 PM EDT Office Visit [address] [address] Mary Jo Chau MD [address] [place] [address] documented as of this encounter Visit Diagnoses Diagnosis Seasonal allergic rhinitis, unspecified trigger Other chronic pain documented in this encounter Additional Health Concerns Assessment Noted Time PHQ-9 Depression Total Score: 14 023 4:05 PM EST documented as of this encounter Care Teams Structural Analyst Relationship Specialty Start Date End Date Mary Jo Chau MD [address] [place] [address] PCP - General Internal Medicine 08/01/23 Adore Iraheta PharmD [address] [place] [address] Pharmacist Internal Medicine 11/04/24 documented as of this encounter
--- OUTSIDE RECORDS SUMMARY | 2024-12-25 16:39 | XMS_ITS | Encounter Summary ---
Author Organization [employer] Address 75 [facility] 7 [place] [address] Care Team Providers Care Heating Element Repairer Name Role Phone Mary Jo Chau MD Primary Care Pro vider Adore Iraheta PharmD Unavailable [phone] Reason for Visit * Reason Onset Date Comments new appointment 09/25/2024 Encounter Details Date Type Department Care Team ([facility] st Contact Info) Description 09/25/2024 Telephone [facility] 230 [place] [address] Mary Jo Chau MD 230 [place] [address] new appointment Social History Tobacco Use Types [...] Description 01/06/2025 3:30 PM EDT Medication Management [facility] [address] [place] [address] Adore Iraheta, PharmD [address] [place] [address] 02/21/2025 11:00 AM EDT Clinical Support [address] [address] Torie Mccormack, WAYLON 505 [place] [address] 02/25/2025 2:15 PM EDT Office Visit [address] [address] Mary Jo Chau MD 230 [place] [address] documented as of this encounter Visit Diagnoses Not on filedocumented in this encounter Additional Health Concerns Assessment Noted Time PHQ-9 Depression Total Score: 10 09/11/ 024 2:12 PM EST documented as of this encounter Care Teams Heating Element Repairer Relationship Specialty Start Date End Date Mary Jo Chau MD [address] [place] [address] PCP - General Internal Medicine 08/01/23 Adore Iraheta PharmD [address] [place] [address] Pharmacist Internal Medicine 11/04/24 documented as of this encounter
--- OUTSIDE RECORDS SUMMARY | 2024-12-25 16:39 | XMS_ITS | Encounter Summary ---
Author Organization [employer] Address [address] [facility] 7 [place] [address] Care Team Providers Care Glass Bender Name Role Phone Mary Jo Chau MD Primary Care Pro vider Adore Iraheta PharmD Unavailable [phone] Reason for Visit * Reason Comments Med Refill Encounter Details Date Type Department Care Team ([facility] st Contact Info) Description 11/06/2024 Refill [facility] 230 [place] [address] Mary Jo Chau MD 230 [place], [place] [phone] Depressive disorder Social History Tobacco Use Types [...] Description 01/06/2025 3:30 PM EDT Medication Management [facility] [address] [place] [address] Adore Iraheta, NegritaD [address] [place] [address] 02/21/2025 11:00 AM EDT Clinical Support [address] [address] Torie Mccormack RN 505 [place] [address] 02/25/2025 2:15 PM EDT Office Visit [facility] [address] [place] [address] Mary Jo Chua MD [address] [place] [address] documented as of this encounter Visit Diagnoses Diagnosis Depressive disorder Depressive disorder, not elsewhere classified documented in this encounter Additional Health Concerns Assessment Noted Time PHQ-9 Depression Total Score: 10 024 2:12 PM EST documented as of this encounter Care Teams Glass Bender Relationship Specialty Start Date End Date Mary Jo Chau MD 230 [place], [place] [phone] PCP - General Internal Medicine 08/01/23 Adore Iraheta PharmD 230 [place] [address] Pharmacist Internal Medicine 11/04/24 documented as of this encounter
--- OUTSIDE RECORDS SUMMARY | 2024-12-25 16:39 | XMS_ITS | Encounter Summary ---
Author Organization [employer] [facility] Address [address] [place] [address] 7 [place] [address] Care Team Providers Care Spinner Hydraulic Name Role Phone Mary Jo Chau MD Primary Care Pro vider Adore Iraheta PharmD Unavailable [phone] Encounter Details Date Type Department Care Team (Late st Contact Info) Description 04/01/2024 Telephone [facility] MED[facility]INE [address] [place] [address] Mary Jo Chau MD [address] [place] [address] Social History Tobacco Use Types Packs/Day Years [...] Description 01/06/2025 3:30 PM EDT Medication Management [address] [address] Adore Iraheta PharmD [address] [place] [address] 02/21/2025 11:00 AM EDT Clinical Support [address] [address] Torie Mccormack, RN [address] [place] [address] 02/25/2025 2:15 PM EDT Office Visit [address] [address] Mary Jo Chau MD [address] [place] [address] documented as of this encounter Visit Diagnoses Not on filedocumented in this encounter Additional Health Concerns Assessment Noted Time PHQ-9 Depression Total Score: 9 01/08/20 24 3:15 PM EDT documented as of this encounter Care Teams Spinner Hydraulic Relationship Specialty Start Date End Date Mary Jo Chau MD [address] [place] [address] PCP - General Internal Medicine 08/01/23 Adore Iraheta PharmD [address] [place] [address] Pharmacist Internal Medicine 11/04/24 documented as of this encounter
--- OUTSIDE RECORDS SUMMARY | 2024-12-25 16:39 | XMS_ITS | Encounter Summary ---
Author Organization [employer] Address 75 [facility] 7 [place] [address] Care Team Providers Care Cutter First Name Role Phone Mary Jo Chau MD Primary Care Pro vider Adore Iraheta PharmD Unavailable [phone] Reason for Visit * Reason Onset Date Comments May recall 12/12/2024 Encounter Details Date Type Department Care Team (Late st Contact Info) Description 12/12/2024 Telephone [facility] MED[facility]INE 230 [place] [address] Mary Jo Chau MD 230 [place], [place] [phone] May recall Social History Tobacco Use Types [...] Upcoming Encounters Date Type Department Care Team ([facility] st Contact Info) Description 01/06/2025 3:30 PM EDT Medication Management [facility] MEDICINE [address] [place] [address] Adore Iraheta, Lorenzo 230 [place] [address] 02/21/2025 11:00 AM EDT Clinical Support [facility]INE 230 [place] [address] Torie Mccormack RN [address] [place] [address] [place] [address] 02/25/2025 2:15 PM EDT Office Visit [facility] MED[facility]INE [address] [place] [address] [phone] Mary Jo Chau MD [address] [place] [address] documented as of this encounter Visit Diagnoses Not on filedocumented in this encounter Additional Health Concerns Assessment Noted Time PHQ-9 Depression Total Score: 10 024 2:12 PM EST documented as of this encounter Care Teams Cutter First Relationship Specialty Start Date End Date Mary Jo Chau MD [address] [place] [address] PCP - General Internal Medicine 08/01/23 Adore Iraheta PharmD [address] [place] [address] [phone] Pharmacist Internal Medicine 11/04/24 documented as of this encounter
--- OUTSIDE RECORDS SUMMARY | 2024-12-25 16:39 | XMS_ITS | Encounter Summary ---
Author Organization [employer] Address [address] [facility] 7 [place] [address] Care Team Providers Care Distribution Supervisor Name Role Phone Mary Jo Chau MD Primary Care Pro vider Adore Iraheta PharmD Unavailable [phone] Reason for Visit * Reason Comments Med Refill Encounter Details Date Type Department Care Team (Late st Contact Info) Description 12/25/2024 Refill [facility] & PEDS 505 [place] [address] Mary Jo Chau MD 230 [place] [address] Depression, unspecified depression type; Type 2 diabetes mellitus with other specified complication, without long-term current use of insulin ([facility]) Social History Tobacco Use Types [...] the past 12 months, has t he [employer], gas, oil or water company threatened to [...] Description 01/06/2025 3:30 PM EDT Medication Management [address] [address] Adore Iraheta, NegritaD [address] [place] [address] 02/21/2025 11:00 AM EDT Clinical Support [address] [address] Torei Mccormack, WAYLON 505 [place] [address] 02/25/2025 2:15 PM EDT Office Visit [address] [address] Mary Jo Chau MD [address] [place] [address] documented as of this encounter Visit Diagnoses Diagnosis Depression, unspecified depression type Type 2 diabetes mellitus with other specified complication, without long-term current use of insulin ([facility]) documented in this encounter Additional Health Concerns Assessment Noted Time PHQ-9 Depression Total Score: 10 024 2:12 PM EST documented as of this encounter Care Teams Distribution Supervisor Relationship Specialty Start Date End Date Mary Jo Chau MD [address] [place] [address] [phone] PCP - General Internal Medicine 08/01/23 Adore Iraheta PharmD [address] [place] [address] [phone] Pharmacist Internal Medicine 11/04/24 documented as of this encounter
--- OUTSIDE RECORDS SUMMARY | 2024-12-25 16:39 | XMS_ITS | Encounter Summary ---
Author Organization [employer] Address [address] [facility] 7t [place] [address] Care Team Providers Care Main Line Station Engineer Name Role Phone Mary Jo Chau MD Primary Care Pro vider Adore Iraheta PharmD Unavailable [phone] Reason for Visit * Reason Comments controlled substance treatment Encounter Details Date Type Department Care Team (Latest Contact Info) Description 12/10/2024 10:30 AM EST Clinical Support [facility] MED & PEDS 505 [place] [address] Torie Mccormack, RN 505 [place] [address] Other chronic pain Social History Tobacco Use [...] RN - 12/10/2024 10:30 AM EST S: BLACK ASH WORKER [place]. Mary Jo HDEZ assisted with translation. Patient prescribed Acetaminophen/Codeine 300mg/60mg #4 Q8hr PRN. STITCH RUBBER states he has been taking med either bid or tid. He last took pill today. Pt continues to deny smoking, ETOH use, Illicit drug use and Marijuana use. No other questions/ concerns atthis time. BLACK ASH WORKER Agreement renewed today. O: Pt currently prescribed Acetaminophen/Codeine 300mg/60mg Q8hr PRN. MAINTENANCE TRUCK DRIVER verified today. Rx last filled on 11/18/24. [...] (5), activity interference score of (7). 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 P: Pt to continue taking medication only as prescribed; Next BLACK ASH WORKER RV appointment scheduled for 02/21/25 @ 11am [facility]. F/U sooner PRN. Pt verbalized understanding and agreed to plan. documented in this encounter Plan of Treatment Upcoming Encounters Date Type Department Care Team (Late st Contact Info) Description 01/06/2025 3:30 PM EDT Medication Management [address] [address] Adore Iraheta, PharmD [address] [place] [address] 02/21/2025 11:00 AM EDT Clinical Support [address] [address] Torie Mccormack RN 505 [place], [place] [phone] 02/25/2025 2:15 PM EDT Office Visit [address] [address] Mary Jo Chau MD [address] [place] [address] documented as of this encounter Procedures Procedure [...] RN - 12/10/2024 10:24 AM EST Lot# [id number] Exp: 06-11-26 Mary Jo Richards MD POINT OF CARE JULI T ENTER/EDIT ORDERABLES Final Result documented in this encounter Visit Diagnoses Diagnosis Other chronic pain documented in this encounter Additional Health Concerns Assessment Noted Time PHQ-9 Depression Total Score: 10 09/11/ 024 2:12 PM EST documented as of this encounter Care Teams Main Line Station Engineer Relationship Specialty Start Date End Date Mary Jo Chau MD [address] [place] [address] PCP - General Internal Medicine 08/01/23 Adore Iraheta PharmD [address] [place] [address] Pharmacist Internal Medicine 11/04/24 documented as of this encounter
--- OUTSIDE RECORDS SUMMARY | 2024-12-25 16:39 | XMS_ITS | Encounter Summary ---
Author Organization [facility] Address [address] [place] [address] [place] [address] Care Team Providers Care Segmental Paving Supervisor Name Role Phone Leah Alvarenga Primary Care Provider [phone] Mary Jo Chau MD Primary Care Pro vider Adore Iraheta PharmD Unavailable [phone] Reason for Visit * Reason Comments Med Refill Encounter Details Date Type Department Care Team (Late st Contact Info) Description 03/23/2023 Refill [facility] MEDICINE 230 [place] [address] Leah Alvarenga FNP [address] [place] [address] Dept [place] [address] Vitamin D deficiency; Peripheral neuropathic pain; Depression, [...] Description 01/06/2025 3:30 PM EDT Medication Management [address] [address] Adore Iraheta PharmD [address] [place] [address] 02/21/2025 11:00 AM EDT Clinical Support [address] [address] Torie Mccormack, WAYLON 505 [place] [address] 02/25/2025 2:15 PM EDT Office Visit [address] [address] Mary Jo Chau MD [address] [place] [address] documented as of this encounter Visit Diagnoses Diagnosis Vitamin D deficiency Peripheral neuropathic pain Depression, unspecified depression type documented in this encounter Additional Health Concerns Assessment Noted Time PHQ-9 Depression Total Score: 14 023 4:05 PM EST documented as of this encounter Care Teams Segmental Paving Supervisor Relationship Specialty Start Date End Date Leah Alvarenga FNP PCP - General Family Medicine 09/12/22 07/31/23 Mary Jo Chau MD [address] [place] [address] PCP - General Internal Medicine 08/01/23 Adore Iraheta PharmD [address] [place] [address] Pharmacist Internal Medicine 11/04/24 documented as of this encounter
--- OUTSIDE RECORDS SUMMARY | 2024-12-25 16:39 | XMS_ITS | Encounter Summary ---
Author Organization [employer] [facility] Address [address] [place] [address] [place] [address] Care Team Providers Care Carding Machine Operator Name Role Phone Mary Jo Chau MD Primary Care Pro vider Adore Iraheta PharmD Unavailable [phone] Reason for Visit * Reason Comments Med Change Request Encounter Details Date Type Department Care Team (Late st Contact Info) Description 04/27/2024 Refill [facility] MEDICINE 230 [place] [address] Mary Jo Chau MD 230 [place], [place] [phone] Depression, unspecified depression type Social History Tobacco [...] Description 01/06/2025 3:30 PM EDT Medication Management [address] [address] Adore Iraheta PharmD [address] [place] [address] 02/21/2025 11:00 AM EDT Clinical Support [address] [address] Torie Mccormack, WAYLON 505 [place] [address] 02/25/2025 2:15 PM EDT Office Visit [address] [address] Mary Jo Chau MD [address] [place] [address] documented as of this encounter Visit Diagnoses Diagnosis Depression, unspecified depression type documented in this encounter Additional Health Concerns Assessment Noted Time PHQ-9 Depression Total Score: 9 01/08/20 24 3:15 PM EDT documented as of this encounter Care Teams Carding Machine Operator Relationship Specialty Start Date End Date Mary Jo Chau MD [address] [place] [address] PCP - General Internal Medicine 08/01/23 Adore Iraheta PharmD [address] [place] [address] Pharmacist Internal Medicine 11/04/24 documented as of this encounter
--- OUTSIDE RECORDS SUMMARY | 2024-12-25 16:39 | XMS_ITS | Encounter Summary ---
Author Organization [employer] Address 75 [facility] 7t [place] [address] Care Team Providers Care Lens Blank Gauger Name Role Phone Mary Jo Chau MD Primary Care Pro vider Adore Iraheta PharmD Unavailable [phone] Encounter Details Date Type Department Care Team ([facility] Contact Info) Description 12/02/2024 Telephone [facility] MED & PEDS 505 [place], [place] [phone] Torie Mccormack, WAYLON 505 [place] [address] Social History Tobacco Use Types Packs/Day Years [...] 2:14 PM EST TC back to pt, [employer] ASS[employer]ANCE SUPERVISOR [place] scheduled for 12/10/24 10:30am at [facility]. documented in this encounter Plan of Treatment Upcoming Encounters Date Type Department Care Team (Late st Contact Info) Description 01/06/2025 3:30 PM EDT Medication Management [facility] MEDICINE [address] [place] [address] Adore Iraheta, PharmD [address] [place] [address] 02/21/2025 11:00 AM EDT Clinical Support [facility] MEDICINE [address] [place] [address] Torie Mccormack RN [address] [place] [address] 02/25/2025 2:15 PM EDT Office Visit [address] [address] Mary Jo Chau MD [address] [place] [address] [place] [address] documented as of this encounter Visit Diagnoses Not on filedocumented in this encounter Additional Health Concerns Assessment Noted Time PHQ-9 Depression Total Score: 10 09/11/ 024 2:12 PM EST documented as of this encounter Care Teams Lens Blank Gauger Relationship Specialty Start Date End Date Mary Jo Chau MD [address] [place] [address] [phone] PCP - General Internal Medicine 08/01/23 Adore Iraheta PharmD [address] [place] [address] [phone] Pharmacist Internal Medicine 11/04/24 documented as of this encounter
--- OUTSIDE RECORDS SUMMARY | 2024-12-25 16:39 | XMS_ITS | Encounter Summary ---
Author Organization [employer] [facility] Address [address] [place] [address] 7 [place] [address] Care Team Providers Care Radiology Supervisor Name Role Phone Leah Alvarenga Primary Care Provider [phone] Mary Jo Chau MD Primary Care Pro vider Adore Iraheta PharmD Unavailable [phone] Reason for Visit * Reason Onset Date Comments BPI score changes 03/24/2023 Encounter Details Date Type Department Care Team (Late st Contact Info) Description 03/24/2023 Refill [facility] MEDICINE 230 [place] [address] Leah Alvarenga FNP [address] [place] [address] Dept [place] [address] Constipation, unspecified constipation type Social History Tobacco [...] 10:10 AM EDT FYI, pt had Tele COUNTY SUPERVISOR 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 Pain severity score of 4.8, activity interference score of 8.6. Previous BPI completed 11/04/22 with pain severity score of 7.8, activity interference score of 5.3. documented in this encounter Plan of Treatment Upcoming Encounters Date Type Department Care Team (Late st Contact Info) Description 01/06/2025 3:30 PM EDT Medication Management [address] [address] Adore Iraheta PharmD [address] [place] [address] 02/21/2025 11:00 AM EDT Clinical Support [address] [address] Torie Mccormack RN [address] [place] [address] 02/25/2025 2:15 PM EDT Office Visit [address] [address] Mary Jo Chau MD [address] [place] [address] documented as of this encounter Visit Diagnoses Diagnosis Constipation, unspecified constipation type documented in this encounter Additional Health Concerns Assessment Noted Time PHQ-9 Depression Total Score: 14 023 4:05 PM EST documented as of this encounter Care Teams Radiology Supervisor Relationship Specialty Start Date End Date Leah Alvarenga FNP PCP - General Family Medicine 09/12/22 07/31/23 Mary Jo Chau MD [address] [place] [address] PCP - General Internal Medicine 08/01/23 Adore Iraheta PharmD [address] [place] [address], [place] [address] Pharmacist Internal Medicine 11/04/24 documented as of this encounter
--- OUTSIDE RECORDS SUMMARY | 2024-12-25 16:39 | XMS_ITS | Encounter Summary ---
Author Organization [employer] Address 75 [facility] 7t [place] [address] Care Team Providers Care Grass Farm Laborer Name Role Phone Mary Jo Chau MD Primary Care Pro vider Adore Iraheta PharmD Unavailable [phone] Encounter Details Date Type Department Care Team [...] Description 01/06/2025 3:30 PM EDT Medication Management [facility] MEDICINE [address] [place] [address] Adore Iraheta PharmD [address] [place] [address] 02/21/2025 11:00 AM EDT Clinical Support [address] [address] Torie Mccormack RN 505 [place] [address] 02/25/2025 2:15 PM EDT Office Visit [address] [address] Mary Jo Chau MD [address] [place] [address] documented as of this encounter Visit Diagnoses Not on filedocumented in this encounter Additional Health Concerns Assessment Noted Time PHQ-9 Depression Total Score: 10 024 2:12 PM EST documented as of this encounter Care Teams Grass Farm Laborer Relationship Specialty Start Date End Date Mary Jo Chau MD [address] [place] [address] PCP - General Internal Medicine 08/01/23 Adore Iraheta, PharmD [address] [place] [address] Pharmacist Internal Medicine 11/04/24 documented as of this encounter
--- OUTSIDE RECORDS SUMMARY | 2024-12-25 16:39 | XMS_ITS | Encounter Summary ---
Author Organization [employer] Address 75 [facility] 7 [place] [address] Care Team Providers Care Aurist Name Role Phone Mary Jo Chau MD Primary Care Pro vider Adore Iraheta PharmD Unavailable [phone] Reason for Visit * Reason Comments Med Refill Encounter Details Date Type Department Care Team ([facility] st Contact Info) Description 11/03/2024 Refill [facility] MEDICINE 230 [place] [address] Mary Jo Chau MD 230 [place], [place] [phone] Diabetic polyneuropathy associated with type 2 diabetes [...] Description 01/06/2025 3:30 PM EDT Medication Management [address] [address] Adore Iraheta, NegritaD [address] [place] [address] 02/21/2025 11:00 AM EDT Clinical Support [address] [address] Torie Mccormack RN 505 [place] [address] 02/25/2025 2:15 PM EDT Office Visit [address] [address] Mary Jo Chau MD [address] [place] [address] documented as of this encounter Visit Diagnoses Diagnosis Diabetic polyneuropathy associated with type 2 diabetes mellitus (CMS/HCC) Other atopic dermatitis documented in this encounter Additional Health Concerns Assessment Noted Time PHQ-9 Depression Total Score: 10 09/11/ 024 2:12 PM EST documented as of this encounter Care Teams Aurist Relationship Specialty Start Date End Date Mary Jo Chau MD [address] [place] [address] PCP - General Internal Medicine 08/01/23 Adore Iraheta PharmD [address] [place] [address] Pharmacist Internal Medicine 11/04/24 documented as of this encounter
--- OUTSIDE RECORDS SUMMARY | 2024-12-25 16:39 | XMS_ITS | Encounter Summary ---
Author Organization [email or web address] [facility] Address [address] [place] [address] Care Team Providers Care Automobile Service Writer Name Role Phone Mary Jo Chau MD Primary Care Pro vider Adore Iraheta PharmD Unavailable [phone] Reason for Visit * Reason Comments Med Change Request Encounter Details Date Type Department Care Team (Late Contact Info) Description 09/15/2023 Refill [facility] MEDICINE [address] [place] [address] Mary Jo Chau MD 230 [place], [place] [phone] Depression, unspecified depression type Social History Tobacco [...] 01/06/2025 3:30 PM EDT Medication Management [facility] MEDICINE [address] [place] [phone] Adore Iraheta PharmD [address] [place] [address] 02/21/2025 11:00 AM EDT Clinical Support [address] [address] Torie Mccormack, RN 505 [place] [address] 02/25/2025 2:15 PM EDT Office Visit [address] [address] Mary Jo Chau MD [address] [place] [address] documented as of this encounter Visit Diagnoses Diagnosis Depression, unspecified depression type documented in this encounter Additional Health Concerns Assessment Noted Time PHQ-9 Depression Total Score: 14 023 4:05 PM EST documented as of this encounter Care Teams Automobile Service Writer Relationship Specialty Start Date End Date Mary Jo Chau MD [address] [place] [address] PCP - General Internal Medicine 08/01/23 Adore Iraheta PharmD [address] [place] [address] Pharmacist Internal Medicine 11/04/24 documented as of this encounter
--- OUTSIDE RECORDS SUMMARY | 2024-12-25 16:39 | XMS_ITS | Encounter Summary ---
Author Organization [employer] Address 75 [facility] 7 [place] [address] Care Team Providers Care Retaining Room Cutter Name Role Phone Mary Jo Chau MD Primary Care Pro vider Adore Iraheta PharmD Unavailable Reason for Visit * Reason Comments Med Refill Encounter Details Date Type Department Care Team (Late st Contact Info) Description 12/04/[address] [facility] MED & PEDS 505 [place] [address] Mary Jo Chau MD 230 [place] [address] Type 2 diabetes mellitus with other specified complication, without long-term current use of insulin ([facility]) Social History Tobacco Use Types Packs/Day Years [...] the past 12 months, has t he Sanitors, gas, oil or water [employer] threatened to shut off services in your [...] 01/06/2025 3:30 PM EDT Medication Management [address] [address] Adore Iraheta, NegritaD [address] [place] [address] 02/21/2025 11:00 AM EDT Clinical Support [address] [address] Torie Mccormack, WAYLON 505 [place] [address] 02/25/2025 2:15 PM EDT Office Visit [address] [address] Mary Jo Chau MD [address] [place] [address] documented as of this encounter Visit Diagnoses Diagnosis Type 2 diabetes mellitus with other specified complication, without long-term current use of insulin (CMS/HCC) documented in this encounter Additional Health Concerns Assessment Noted Time PHQ-9 Depression Total Score: 10 024 2:12 PM EST documented as of this encounter Care Teams Retaining Room Cutter Relationship Specialty Start Date End Date Mary Jo Chau MD 230 [place] [address] PCP - General Internal Medicine 08/01/23 Adore Iraheta PharmD 230 [place] [address] Pharmacist Internal Medicine 11/04/24 documented as of this encounter
--- OUTSIDE RECORDS SUMMARY | 2024-12-25 16:39 | XMS_ITS | Encounter Summary ---
Author Organization [employer] [facility] Address [address] [place] [address] Care Team Providers Care Concrete Paving Machine Operator Name Role Phone Mary Jo Chau MD Primary Care Pro vider Adore Iraheta PharmD Unavailable [phone] Reason for Visit * Reason Comments Med Refill Encounter Details Date Type Department Care Team (Late st Contact Info) Description 11/21/2023 Refill [facility] MEDICINE [address] [place] [address] Mary Jo Chau MD 230 [place], [place] [phone] Depression, unspecified depression type Social History Tobacco [...] Description 01/06/2025 3:30 PM EDT Medication Management [facility] MEDICINE [address] [place] [address] [phone] Adore Iraheta PharmD [address] [place] [address] 02/21/2025 11:00 AM EDT Clinical Support [address] [address] Torie Mccormack, RN 505 [place] [address] 02/25/2025 2:15 PM EDT Office Visit [address] [address] Mary Jo Chau MD [address] [place] [address] documented as of this encounter Visit Diagnoses Diagnosis Depression, unspecified depression type documented in this encounter Additional Health Concerns Assessment Noted Time PHQ-9 Depression Total Score: 14 023 4:05 PM EST documented as of this encounter Care Teams Concrete Paving Machine Operator Relationship Specialty Start Date End Date Mary Jo Chau MD [address] [place] [address] PCP - General Internal Medicine 08/01/23 Adore Iraheta PharmD [address] [place] [address] Pharmacist Internal Medicine 11/04/24 documented as of this encounter
--- OUTSIDE RECORDS SUMMARY | 2024-12-25 16:39 | XMS_ITS | Encounter Summary ---
Author Organization [employer] [facility] Address [address] [place] [address] 7 [place] [address] Care Team Providers Care Metal Stamper Name Role Phone Laeh Alvarenga Primary Care Provider [phone] Mary Jo Chau MD Primary Care Pro vider Adore Iraheta PharmD Unavailable [phone] Reason for Visit * Reason Comments Med Refill Encounter Details Date Type Department Care Team (Late st Contact Info) Description 05/12/2023 Refill [facility] MEDICINE 230 [place] [address] Leah Alvarenga FNP [address] [place] [address] Dept [place] [address] Depression, unspecified depression type Social History Tobacco [...] Description 01/06/2025 3:30 PM EDT Medication Management [address] [address] Adore Iraheta PharmD [address] [place] [address] 02/21/2025 11:00 AM EDT Clinical Support [address] [address] Torie Mccormack, WAYLON 505 [place], [place] [phone] 02/25/2025 2:15 PM EDT Office Visit [address] [address] Mary Jo Chau MD [address] [place] [address] documented as of this encounter Visit Diagnoses Diagnosis Depression, unspecified depression type documented in this encounter Additional Health Concerns Assessment Noted Time PHQ-9 Depression Total Score: 14 023 4:05 PM EST documented as of this encounter Care Teams Metal Stamper Relationship Specialty Start Date End Date Leah Alvarenga FNP PCP - General Family Medicine 09/12/22 07/31/23 Mary Jo Chau MD [address] [place] [address] PCP - General Internal Medicine 08/01/23 Adore Iraheta PharmD [address] [place] [address] [phone] Pharmacist Internal Medicine 11/04/24 documented as of this encounter
--- OUTSIDE RECORDS SUMMARY | 2024-12-25 16:39 | XMS_ITS | Encounter Summary ---
Author Organization [employer] Address 75 [facility] 7t [place] [address] Care Team Providers Care Barrer And Tacker Name Role Phone Mary Jo Chau MD Primary Care Pro vider Adore Iraheta PharmD Unavailable [phone] Encounter Details Date Type Department Care Team (Late st Contact Info) Description 06/12/2024 Orders Only [facility] [address] [place] [address] Mary Jo Warren MD 230 [place] [address] Social History Tobacco Use Types Packs/Day Years [...] 3:30 PM EDT Medication Management [facility] MEDICINE [address] [place] [address] Adore Iraheta PharmD [address] [place] [address] 02/21/2025 11:00 AM EDT Clinical Support [address] [address] Torie Mccormack, WAYLON 505 [place] [address] 02/25/2025 2:15 PM EDT Office Visit [address] [address] Mary Jo Chau MD [address] [place] [address] documented as of this encounter Visit Diagnoses Not on filedocumented in this encounter Additional Health Concerns Assessment Noted Time PHQ-9 Depression Total Score: 9 01/08/20 24 3:15 PM EDT documented as of this encounter Care Teams Barrer And Tacker Relationship Specialty Start Date End Date Mary Jo Chau MD [address] [place] [address] PCP - General Internal Medicine 08/01/23 Adore Iraheta PharmD [address] [place] [address] Pharmacist Internal Medicine 11/04/24 documented as of this encounter
--- OUTSIDE RECORDS SUMMARY | 2024-12-25 16:39 | XMS_ITS | Encounter Summary ---
Author Organization [facility] Address [address] [place] [address] [place] [address] Care Team Providers Care Supervisor Matrix Name Role Phone Mary Jo Chau MD Primary Care Pro vider Adore Iraheta PharmD Unavailable [phone] Reason for Visit * Reason Comments Med Change Request Encounter Details Date Type Department Care Team (Late Contact Info) Description 08/15/2023 Refill [facility] MEDICINE [address] [place] [address] Leah Alvarenga FNP [address] [place] [address] Dept [place] [address] Depression, unspecified depression type Social History Tobacco [...] Description 01/06/2025 3:30 PM EDT Medication Management [facility] MEDICINE 230 [place], [place] [phone] IrahetaAdore PharmD [address] [place] [address] 02/21/2025 11:00 AM EDT Clinical Support [address] [address] Torie Mccormack, RN 505 [place] [address] 02/25/2025 2:15 PM EDT Office Visit [address] [address] Mary Jo Chau MD [address] [place] [address] documented as of this encounter Visit Diagnoses Diagnosis Depression, unspecified depression type documented in this encounter Additional Health Concerns Assessment Noted Time PHQ-9 Depression Total Score: 14 023 4:05 PM EST documented as of this encounter Care Teams Supervisor Matrix Relationship Specialty Start Date End Date Mary Jo Chau MD [address] [place] [address] PCP - General Internal Medicine 08/01/23 Adore Iraheta PharmD [address] [place] [address] Pharmacist Internal Medicine 11/04/24 documented as of this encounter
--- OUTSIDE RECORDS SUMMARY | 2024-12-25 16:39 | XMS_ITS | Encounter Summary ---
Author Organization [employer] Address [address] [place] [address] 7t [place] [address] Care Team Providers Care Industrial Technician Name Role Phone Cristin Chaves MD Primary Care Provider Leah Macario METAL PLATER Primary Care Provider [phone] Mary Jo Chau MD Primary Care Pro vider Adore Iraheta PharmD Unavailable [phone] Encounter Details Date Type Department Care Team (Latest Contact Info) Description 06/14/2021 Abstract [facility] CONVERSIONS Dental, Provider, DDS Social History [...] 01/06/2025 3:30 PM EDT Medication Management [facility] MEDICINE [address] [place] [address] Adore Iraheta, PharmD 230 [place], [place] [phone] 02/21/2025 11:00 AM EDT Clinical Support [facility] MEDICINE [address] [place] [address] Torie Mccormack RN 505 [place], [place] [phone] 02/25/2025 2:15 PM EDT Office Visit [facility] MEDICINE 230 [place] [address] Mary Jo Chau MD 230 [place] [address] documented as of this encounter Visit Diagnoses Not on filedocumented in this encounter Care Teams Industrial Technician Relationship Specialty Start Date End Date Cristin Chaves MD PCP - General Family Medicine 04/13/20 09/11/22 Leah Alvarenga FNP PCP - General Family Medicine 09/12/22 07/31/23 Mary Jo Chau MD [address] [place] [address] PCP - General Internal Medicine 08/01/23 Adore Iraheta PharmD [address] [place] [address] Pharmacist Internal Medicine 11/04/24 documented as of this encounter
--- OUTSIDE RECORDS SUMMARY | 2024-12-25 16:39 | XMS_ITS | Encounter Summary ---
Author Organization [facility] Address [address] [place] [address] [place] [address] Care Team Providers Care Real Estate Attorney Name Role Phone Leah Alvarenga Primary Care Provider [phone] Mary Jo Chau MD Primary Care Pro vider Adore Iraheta PharmD Unavailable [phone] Reason for Visit * Reason Comments Med Refill Encounter Details Date Type Department Care Team (Late st Contact Info) Description 07/04/2023 Refill [facility] MED[facility] [address] [place] [id number] Leah Alvarenga FNP [address] [place] [address] Dept [place] [address] Depression, unspecified depression type Social History Tobacco [...] Description 01/06/2025 3:30 PM EDT Medication Management [address] [address] Adore Iraheta, Lorenzo [address] [place] [phone] 02/21/2025 11:00 AM EDT Clinical Support [address] [address] Torie Mccormack, WAYLON [address] [place] [address] 02/25/2025 2:15 PM EDT Office Visit [address] [address] Mary Jo Chau MD [address] [place] [phone] documented as of this encounter Visit Diagnoses Diagnosis Depression, unspecified depression type documented in this encounter Additional Health Concerns Assessment Noted Time PHQ-9 Depression Total Score: 14 023 4:05 PM EST documented as of this encounter Care Teams Real Estate Attorney Relationship Specialty Start Date End Date Leah Alvarenga FNP PCP - General Family Medicine 09/12/22 07/31/23 Mary Jo Chau MD [address] [place] [id number] PCP - General Internal Medicine 08/01/23 Adore Iraheta PharmD [address] [place] [id number] Pharmacist Internal Medicine 11/04/24 documented as of this encounter
--- OUTSIDE RECORDS SUMMARY | 2024-12-25 16:39 | XMS_ITS | Encounter Summary ---
Author Organization [employer] Address [address] [facility] 7t [place] [address] Care Team Providers Care Director Rehabilitation Program Name Role Phone Mary Jo Chau MD Primary Care Pro vider Adore Iraheta PharmD Unavailable [phone] Encounter Details Date Type Department Care Team [...] Description 01/06/2025 3:30 PM EDT Medication Management [facility] [address] [place] [phone] Adore Iraheta PharmD [address] [place] [phone] 02/21/2025 11:00 AM EDT Clinical Support [address] [address] Torie Mccormack RN [address] [place] [address] 02/25/2025 2:15 PM EDT Office Visit [address] [address] Mary Jo Chau MD [address] [place] [phone] documented as of this encounter Visit Diagnoses Not on filedocumented in this encounter Additional Health Concerns Assessment Noted Time PHQ-9 Depression Total Score: 10 024 2:12 PM EST documented as of this encounter Care Teams Director Rehabilitation Program Relationship Specialty Start Date End Date Mary Jo Chau MD [address] [place] [id number] PCP - General Internal Medicine 08/01/23 Adore Iraheta, PharmD [address] [place] [phone] Pharmacist Internal Medicine 11/04/24 documented as of this encounter
--- OUTSIDE RECORDS SUMMARY | 2024-12-25 16:39 | XMS_ITS | Encounter Summary ---
Author Organization [facility] Address [address] [place] [address] 7t [place] [address] Care Team Providers Care Industrial Sales Manager Name Role Phone Cristin Chaves MD Primary Care Provider Leah Macario CHEF ASSISTANT Primary Care Provider [phone] Mary Jo Chau MD Primary Care Pro vider Adore Iraheta PharmD Unavailable [phone] Encounter Details Date Type Department Care Team (Latest Contact Info) Description 02/12/2019 Abstract [facility] CONVERSIONS Dental, Provider, DDS Social History [...] Description 01/06/2025 3:30 PM EDT Medication Management [facility] MEDICINE [address] [place] [phone] Adore Iraheta, PharmD [address] [place] [address] 02/21/2025 11:00 AM EDT Clinical Support [facility] MEDICINE [address] [place] [phone] Torie Mccormack RN [address] [place] [phone] 02/25/2025 2:15 PM EDT Office Visit [facility] [address] [place], [place] [phone] Mary Jo Chau MD [address] [place] [phone] documented as of this encounter Visit Diagnoses Not on filedocumented in this encounter Care Teams Industrial Sales Manager Relationship Specialty Start Date End Date Cristin Chaves MD PCP - General Family Medicine 04/13/20 09/11/22 Leah Alvarenga FNP PCP - General Family Medicine 09/12/22 07/31/23 Mary Jo Chau MD [address] [place] [address] [phone] PCP - General Internal Medicine 08/01/23 Adore Iraheta PharmD [address] [place] [phone] Pharmacist Internal Medicine 11/04/24 documented as of this encounter
--- OUTSIDE RECORDS SUMMARY | 2024-12-25 16:39 | XMS_ITS | Clinical Summary ---
Author Organization [employer] Address [address] [place] [address] 7 [place] [address] Care Team Providers Care Social Worker Clinical Name Role Phone Mary Jo Chau MD Primary Care Pro vider Adore Iraheta PharmD Unavailable [phone] Allergies Active Allergy Reactions Criticality Noted Date [...] without long-term current use of insulin (CMS/HCC) CHEW 1 TABLET BY MOUTH EVERY DAY 90 tablet 1 Active cyanocobalamin (Vitamin B-12) 1000 MCG tablet Take 1 tablet (1,000 mcg) by mouth Once per day. BUTCH MALHOTRA TABLETA TODOS LOS D AL ACOSTARSE 90 tablet 024 2024 Active finasteride (Proscar) 5 MG tablet Take 1 tablet (5 mg) by mouth Once per day. Do not crush, chew, or split.BUTCH MARYA TABLETA POR V A ORAL TODOS LOS D FOR 90 DAYS 90 tablet 024 2024 Active lidocaine (Lidoderm) 5 % patchIndications: Diabetic polyneuropathy associated with type 2 diabetes mellitus (CMS/HCC) APPLY 1 PATCH EVERY MORNING REMOVE AND DISARD PATCH WITHIN 12 HOURS OR as INSTRUCTED BY MD 30 patch 2 Active loratadine (Claritin) 10 MG tablet Take 1 tablet (10 mg) by mouth Once per day. Take 1 tablet by mouth everyday 90 tablet 2024 Active polyethylene glycol, PEG, 3350 (MiraLax) 17 GM/SCOOP powder Take 17 g by mouth if needed each day (constipation) . take (17G) by oral route every day mixed with 8 oz. water, juice, soda, coffee or tea 510 g 1 024 2024 Active Reguloid 0.52 g capsuleIndication s:Constipation, unspecified constipation type TAKE 2-3 C PSULA POR V A ORAL TO CUANDO SEA NECESARIO 270 capsule 1 Active [...] BY MOUTH BY MOUTH EVERYDAY 90 tablet 01/08/2 025 Active atorvastatin (Lipitor) 80 MG tablet TAKE 1 TABLET BY MOUTH BY MOUTH AT BEDTIME 90 tablet 025 Active empagliflozin-qiana aGLIPtin-metFORMI N ER (Trijardy XR) 12.5-2.5-1000 MG per 24 hr tablet Take 2 tablets by mouth in the morning 30 tablet 11 025 Active Blood Glucose Monitoring Suppl (FreeStyle Lite) w/Device kit 1 each Use as directed. 1 kit Active TRUEplus Lancets 33G misc Use to test blood sugar 1 time(s) daily 100 each 3 025 Active triamcinolone (Kenalog) 0.1 % ointmentIndicatio ns:Other [...] FOR MODERATE PAIN 56 tablet 025 Active memantine (Namenda) 10 MG tabletIndications :Depression, unspecified depression type TAKE 1 TABLET BY MOUTH TWICE A DAY 180 tablet 025 Active glipiZIDE XL (Glucotrol XL) 5 MG 24 hr tabletIndications :Type 2 diabetes mellitus with other specified complication, without long-term current use of insulin (CMS/[facility]) TAKE 1 TABLET BY MOUTH EVERY DAY WITH BREAKFAST 90 tablet 025 Active glipiZIDE XL (Glucotrol XL) 5 MG 24 hr tabletIndications :Type 2 diabetes mellitus with other specified complication, without long-term current use of insulin (CMS/HCC) TAKE 1 TABLET BY MOUTH EVERY DAY WITH BREAKFAST 90 tablet 024 2024 Discontinued memantine (Namenda) 10 MG tabletIndications :Depression, unspecified depression type TAKE 1 TABLET BY MOUTH TWICE A DAY 180 tablet 024 2024 Discontinued acetaminophen-jennifer carrasquillo (Tylenol w/ Codeine #4) 300-60 MG tabletIndications [...] Encounters Date Type Department Care Team Description 12/25/2024 Refill [facility] [address] [place] [address] Mary Jo Chau MD Depression, unspecified depression type; Type 2 diabetes mellitus with other specified complication, without long-term current use of insulin ([facility]) 12/16/2024 Refill [facility] [address] [place] [address] Reina Fritz ANP Other chronic pain 12/12/2024 Telephone [facility] [address] [place], [place] [phone] Mary Jo Chau MD May recall 12/10/2024 10:30 AM EST Clinical Support [facility] [address] [place] [address] Torie Mccormack, WAYLON Other chronic pain 12/10/2024 Travel 12/04/2024 Refill [facility] [address] [place] [address] Mary Jo Chau MD Type 2 diabetes mellitus with other specified complication, without long-term current use of insulin (CMS/HCC) 12/03/2024 Orders Only GENERIC EXTERNAL DATA DEPARTMENT Provider, Generic External Data 12/02/2024 Travel 12/02/2024 Telephone [facility] [address] [place] [address] Torie Mccormack, WAYLON 11/27/2024 Telephone [facility] [address] [place] [address] Torie Mccormack, WAYLON Appointment Request 11/12/2024 Refill [facility] [address] [place] [address] Tressa Hoskins MD Other chronic pain 11/06/2024 Telephone [facility] [address] [place] [address] Azael Diallo MD 11/06/2024 Telephone [facility] [address] [place] [phone] Azael Diallo MD 11/06/2024 Refill [facility] [address] [place] [address] Mary Jo Chau MD Depressive disorder 11/05/2024 Refill [facility] [address] [place] [address] Mary Jo Chau MD Other atopic dermatitis 11/03/2024 Refill [facility] [address] [place] [address] Mary Jo Chau MD Diabetic polyneuropathy associated with type 2 diabetes mellitus ([facility]); Other atopic dermatitis 10/30/2024 Refill [facility] [address] [place] [address] Tressa Hoskins MD Peripheral neuropathic pain 10/18/2024 Telephone [facility] [address] [place] [address] Carole Mccann, WAYLON [employer] Changes 10/10/2024 Refill [facility] [address] [place] [address] Mary Jo Chau MD Other chronic pain 10/10/2024 Telephone [facility] [address] [place] [address] Reina Fritz, ANP Results 10/03/2024 Refill [facility] [address] [place] [address] Mary Jo Chau MD Type 2 diabetes mellitus with other specified complication, without long-term current use of insulin ([facility]); Constipation, unspecified constipation type; Diabetic polyneuropathy associated with type 2 diabetes mellitus ([facility]/HCC); Depression, unspecified depression type; Peripheral neuropathic pain; Depressive disorder; Type 2 diabetes mellitus with diabetic polyneuropathy, without long-term current use of insulin ([facility]) 10/02/2024 2:45 PM EST Telemedicine [facility] [address] [place] [address] Torie Mccormack RN Other chronic pain 10/02/2024 Travel 09/30/2024 Telephone [facility] [address] [place] [address] Sonal Quinn MA Lab Orders 09/27/2024 Refill [facility] [address] [place] [address] Mary Jo Chau MD Depression, unspecified depression type; Type 2 diabetes mellitus with other specified complication, without long-term current use of insulin ([facility]) from Last 3 Months Immunizations Name Administration [...] Description 01/06/2025 3:30 PM EDT Medication Management [address] [address] Adore Iraheta, PharmD [address] [place] [phone] 02/21/2025 11:00 AM EDT Clinical Support [address] [address] Torie Mccormack RN [address] [place] [phone] 02/25/2025 2:15 PM EDT Office Visit [address] [address] Mary Jo Chau MD [address] [place] [phone] Health Maintenance Due Date Last Done Comments [...] without long-term current use of insulin (CMS/HCC) LAB COLOGUARD?? COLON CANCER SCREEN Routine 01/17/2024 [...] / Unknown 12/10/2024 10:24 AM EST Narrative Ksenia Torie, RN - 12/10/2024 10:24 AM EST Lot# [id number] Exp: 06-11-26 Mary Jo Richards MD POINT OF CARE JULI T ENTER/EDIT ORDERABLES Final Result * (ABNORMAL) Basic Metabolic Panel (12/03/2024 7:46 AM EST) Sodium 143 135 - 145 mmol/L [facility] Potassium 4.4 3.3 - 5.1 mmol/L [facility] Chloride 105 96 - 108 mmol/L [facility] Carbon Dioxide 27 22 - 29 mmol/L [facility] Anion Gap 15 12 - 20 [facility] Urea Nitrogen (BUN) 19(H) 9 - 16 mg/dL [facility] Creatinine, Serum 1.41(H) 0.5 - 1.4 mg/dL [facility] Estimated Glomerular Filt Rate 49 [facility] Comment:Chronic Kidney Disea se: Estimated GFR < 60 mL/min/1.84f4Rekwlm Kidney Disease: Estimated GFR < 15 mL/min/1.73m2 Glucose 198(H) 60 - 115 mg/dL [facility] Calcium 9.9 8.4 - 10.2 mg/dL [facility] 12/03/2024 7:46 AM EST 12/03/2024 7:46 AM EST Generic External Data Provider LAB BLOOD ORDERAB LES Final Result [facility] [address] [place] [address] [phone] * Syphilis Screen (10/09/2024 8:01 AM EST) Syphilis Screen Nonreactive Nonreactive [facility] Blood 10/09/2024 8:01 AM EST 10/09/2024 11:51 AM EST Mary Jo Richards MD LAB BLOOD ORDERAB LES Final Result [facility] [address] [place] [address] [phone] * Vitamin D, 25-Hydroxy, Total, Immunoassay (10/09/2024 8:01 AM EST) Vitamin D 25-OH Total 59.3 >30 ng/mL [facility] Comment:Health Based Referen ce Values*< 20 ng/mL Gqkbvytyn10-93 ng/mL Insufficient> 30 ng/mL Sufficient*Zulema KAM. N [...] MD LAB BLOOD ORDERAB LES Final Result [facility] [address] [place] [address] [phone] * (ABNORMAL) Vitamin B12 (Cobalamin) and Folate Panel, Serum (10/09/2024 8:01 AM EST) Vitamin B12 1,270(H) 200 - 900 pg/mL [facility] Comment:NORMAL 200-900 PG/ML INDETERMINATE 160-199 PG/ML DEFICIENT < 160 PG/ML Folate 9.4 > or = 4.0 ng/mL [facility] Comment:Reference Values:> o r = 4.0 ng/mL< 4.0 ng/mL suggests folate deficiency Methotrexate, aminopterin and folinic acid(leucovorin) are chemotherapeutic agents whose molecularstructures are similar to folate; therefore, the Architectfolate assay cannot be used for patients using these drugs. Blood 10/09/2024 8:01 AM EST 10/09/2024 11:51 AM EST us Mary Jo Richards MD LAB BLOOD ORDERAB LES Final Result Performing Organization Address City/[facility] Co de Phone Number [facility] [address] [place] [phone] * TSH with Reflex to Free T4 (10/09/2024 8:01 AM EST) TSH reflex Free T4 2.33 0.32 - 4.0 uIU/mL [facility] Blood 10/09/2024 8:01 AM EST 10/09/2024 11:51 AM EST us Mary Jo Richards MD LAB BLOOD ORDERAB LES Final Result Performing Organization Address [facility] de Phone Number [facility] [address] [place] [phone] * (ABNORMAL) Albumin, Random Urine W/Creatinine (10/09/2024 8:01 AM EST) Creatinine, Urine 52.33 mg/dL [facility] Microalbumin Urine 103.0 mg/L H [facility] Microalbum Creatinine Ratio Ur 196.8(H) <30 ug/mg cr [facility] Comment:Albumin/Creatinine R atio Reference Ranges: Normal: < 30 ug/mg creatinine Microalbuminuria: 30 - 300 ug/mg creatinineClinical Albuminuria: > 300 ug/mg creatinine Urine (Urine, Random) 10/09/2024 8:01 AM EST 10/09/2024 11:40 AM EST us Mary Jo Richards MD LAB URINE ORDERAB LES Final Result Performing Organization Address City/[facility] Co de Phone Number [facility] [address] [place] [address] [phone] * Hepatitis C Antibody with Reflex to HCV, RNA, Quantitative, Real-Time PCR (10/09/2024 8:01 AM EST) Pathologist [facility] Hepatitis C Antibody Nonreactive Nonreactive [facility] Comment:Antibodies to HCV no t detected; does not exclude early acuteHCV infection. Blood Venous blood specimen / Unknown 10/09/2024 8:01 AM EST 10/09/2024 11:51 AM EST Mary Jo Richards MD LAB BLOOD ORDERAB LES Final Result Performing Organization Address [facility] Co de Phone Number [facility] [address] [place] [phone] * Chlamydia/N. Gonorrhoeae RNA, TMA, Urogenitial (10/09/2024 8:01 AM EST) [facility] CT PCR NOT DETECTED Not Detect. [facility] Comment:A not detected test result does [...] psychologicalconsequences. NG PCR NOT DETECTED Not Detect. [facility] Comment:A not detected test result does [...] AM EST 10/09/2024 11:40 AM EST Narrative [facility] - 10/09/2024 3:00 PM EST Urine Mary Jo Richards MD LAB MICROBIOLOGY - GENERAL ORDERABLES Final Result Performing Organization Address [facility] Co tx Phone Number [facility] [address] [place] [phone] * Hepatitis B surface antigen, EIA (10/09/2024 8:01 AM EST) Hepatitis B Surface Ag Negative Negative [facility] Blood Venous blood specimen / Unknown 10/09/2024 8:01 AM EST 10/09/2024 11:51 AM EST Mary Jo Richards MD LAB BLOOD ORDERAB LES Final Result Performing Organization Address [facility] Co de Phone Number [facility] [address] [place] [phone] * Hepatitis B Core Antibody, Total (10/09/2024 8:01 AM EST) Hepatitis B Core Antibody Nonreactive Nonreactive [facility] Blood Venous blood specimen / Unknown 10/09/2024 8:01 AM EST 10/09/2024 11:51 AM EST Mary Jo Richards MD LAB BLOOD ORDERAB LES Final Result Performing Organization Address [facility]/State/ZIP Co de Phone Number [facility] [address] [place] [address] [phone] * HIV-1/2 Antigen and Antibodies, Fourth Generation, with Reflexes (10/09/2024 8:01 AM EST) HIV AB/AG Nonreactive Nonreactive [facility] Comment:HIV-1 p24 Ag and/or HIV-1/HIV-2 Ab not detected.A test result that is nonreactive does not exclude thepossibility of exposure to or infection with HIV-1 and/orHIV-2. Nonreactive results in this assay for individualswith prior exposure to HIV-1 and/or HIV-2 may be due toantigen and antibody levels that are below the limit ofdetection of this assay.The [employer] HIV Ag/Ab Combo assay result andsupplemental assay results should be interpreted inconjunction with the patient's clinical presentation,history and other laboratory results. If the results areinconsistent with clinical evidence, additional testing issuggested to confirm the result. Blood Venous blood specimen / Unknown 10/09/2024 8:01 AM EST 10/09/2024 11:51 AM EST us Mary Jo Richards MD LAB BLOOD ORDERAB LES Final Result Performing Organization Address City/[facility]/ZIP Co de Phone Number [facility] [address] [place] [address] [phone] * Hepatitis B Surface Antibody, Qualitative (10/09/2024 8:01 AM EST) ~Hepatitis B Surface Antibody NONREACTIVE Nonreactive [facility] Comment:Nonreactive: < 8.00 mIU/mL Blood Venous blood specimen / Unknown 10/09/2024 8:01 AM EST 10/09/2024 11:51 AM EST us Mary Jo Richards MD LAB BLOOD ORDERAB LES Final Result Performing Organization Address City/[facility]/ZIP Co de Phone Number [facility] [address] [place] [phone] * (ABNORMAL) CBC (10/09/2024 8:01 AM EST) White Blood Count 5.9 4.8 - 10.8 X10*3/uL [facility] Red Blood Count 4.51(L) 4.60 - 5.80 X10*6/uL [facility] Hemoglobin 13.1(L) 14.0 - 18.0 g/dl [facility] Hematocrit 38.7(L) 42.0 - 52.0 % [facility] Mean Corpuscular Volume 85.8 80.0 - 98.0 fL [facility] Mean Corpuscular Hemoglobin 29.0 27.0 - 33.0 pg [facility] Mean Corpuscular HGB Conc 33.9 31.0 - 36.0 g/dl [facility] Red Cell Distribution Width 15.3 11.0 - 16.0 % [facility] Platelet Count 225 160 - 400 X10*3/uL [facility] Mean Platelet Volume 10.2 9.4 - 12.4 fL [facility] NRBC Pct Auto 0.0 0.0 - 0.2 /100WBC [facility] NRBC Abs Auto 0.000 0.0 - 0.012 X10*3/uL [facility] Blood Venous blood specimen / Unknown 10/09/2024 8:01 AM EST 10/09/2024 11:51 AM EST us Mary Jo Richards MD LAB BLOOD ORDERAB LES Final Result [facility] [address] [place] [phone] * (ABNORMAL) Hemoglobin A1c (10/09/2024 8:01 AM EST) Hemoglobin A1c 8.8(H) <6.0 % [facility] Comment:Hemoglobin A1C Refer ence Range Adults: 4.8 - 6.0 % Non diabetic: < 6.0 % Goal: < 7.0 %Additional Action Suggested: > 8.0 %Note: Hemoglobin A1c results are invalid for patients with abnormal amounts of HbF. Blood transfusions may impact the HbA1c concentration in the patient sample. Estimated Average Glucose 206 mg/dL [facility] Comment:eAG = Estimated ave rage glucose which is %A1C expressed asaverage glucose, using the formula of the G5J-BpvpawsOkxxmxe Glucose study (ADAG), Diabetes Care, Vol.31,#8,May. 2007 Blood Venous blood specimen / Unknown 10/09/2024 8:01 AM EST 10/09/2024 11:51 AM EST Mary Jo Richards MD LAB BLOOD ORDERAB LES Final Result [facility] [address] [place] [phone] * Lipid Panel, Standard (10/09/2024 8:01 AM EST) Triglycerides 115 <150 mg/dL [facility] Comment:Desirable Triglyceri de: less than 150 mg/dLBorderline High Triglyceride 150-199 mg/dLHigh Triglyceride: 200-499 mg/dLVery High Triglyceride: greater than or equal to 5OO mg/dL Cholesterol 157 <200 mg/dL [facility] Comment:Desirable Cholestero l: less than 200 mg/dLBorderline High Cholesterol: 200-239 mg/dLHigh Cholesterol: greater than 239 mg/dL LDL Cholesterol Calculated 79 <100 mg/dL [facility] Comment:Desirable LDL: less than 100 mg/dLNear Optimal/Above Optimal LDL: 110- 129 mg/dLBorderline High LDL: 130-159 mg/dLHigh LDL: 160-189 mg/dLVery High LDL: greater than or equal to 190 mg/dL HDL Cholesterol 55 >40 mg/dL [facility] Comment:Desirable HDL: great er than 40 mg/dL Note: This HDL assay may give artificially low results in patients with liver disease. Blood Venous blood specimen / Unknown 10/09/2024 8:01 AM EST 10/09/2024 11:51 AM EST us Mary Jo Richards MD LAB BLOOD ORDERAB LES Final Result [facility] [address] [place] [address] [phone] * (ABNORMAL) Comprehensive Metabolic Panel (10/09/2024 8:01 AM EST) Sodium 143 135 - 145 mmol/L [facility] Potassium 4.3 3.3 - 5.1 mmol/L [facility] Chloride 103 96 - 108 mmol/L [facility] Carbon Dioxide 32(H) 22 - 29 mmol/L [facility] Anion Gap 12 12 - 20 [facility] Urea Nitrogen (BUN) 17(H) 9 - 16 mg/dL [facility] Creatinine, Serum 1.23 0.5 - 1.4 mg/dL [facility] Estimated Glomerular Filt Rate 58 [facility] Comment:Chronic Kidney Disea se: Estimated GFR < 60 mL/min/1.77w3Abqgjt Kidney Disease: Estimated GFR < 15 mL/min/1.73m2 Glucose 131(H) 60 - 115 mg/dL [facility] Calcium 9.6 8.4 - 10.2 mg/dL [facility] Bilirubin, Total 0.3 0.0 - 1.0 mg/dL [facility] Aspartate Amino Transferase 29 5 - 37 U/L [facility] Alanine Aminotransferase 28 0 - 40 U/L [facility] Total Protein 8.1(H) 6.5 - 8.0 g/dL [facility] Albumin Level 4.5 3.5 - 5.0 g/dL [facility] Alkaline Phosphatase 67 39 - 117 U/L [facility] Blood Venous blood specimen / Unknown 10/09/2024 8:01 AM EST 10/09/2024 11:51 AM EST us Mary Jo Richards MD LAB BLOOD ORDERAB LES Final Result [facility] [address] [place] [address] [phone] * (ABNORMAL) POCT HGB A1C (10/02/2024 11:15 AM EST) Hemoglobin A1C 8.9(A) 4.0 - 6.0 % Blood 10/02/2024 11:1 5 AM EST Blanquita Stewart MD POINT OF CARE TEST ENTER/ED IT ORDERABLES Final Result * Cologuard?? colon cancer screening (01/17/2024 6:32 AM EDT) Cologuard Result Negative Negative 01/24/20 9:47 AM EDT [facility] (CLIA #:[id number]) Comment: NEGATIVE TEST RESULT. A negative Cologuard [...] cancer. ??Following a negative Cologuard result, the [employer] Cancer Society and U.S. Multi-Society Task Force screening guidelines recommend a Cologuard re-screening interval of 3 years. References: [employer] Society Guideline for Colorectal Cancer Screening: https://www.cancer.org/cancer/zucvb-nfsuga-ygosae/txuuqohkt-elpjxeizz-vrvpbyt/ac s-rec ommendations.html.; Randy DK, Timothy CR, Stephon SadlerK, Colorectal Cancer Screening: Recommendations for Physicians and Patients from the U.S. Multi-Society Task Force on Colorectal Cancer Screening , Am J Gastroenterology 2017; 112:3491-2334. TEST DESCRIPTION: Composite algorithmic analysis of stool [...] (Angie Navarro al, N Engl J Med 2014;370(14):7072-1106.) Cologuard may produce a false negative or false positive result (no colorectal cancer or precancerous polyp present at colonoscopy follow up). A negative Cologuard test result does not guarantee the absence of CRC or advanced adenoma (pre-cancer). The current Cologuard screening interval is every 3 years. ([employer] Cancer Society and U.S. Multi-Society Task Force). Cologuard performance data in a 10,000 patient pivotal study using colonoscopy as the reference method can be accessed at the following location: [email or web address][email or web address]/results. Additional description of the Cologuard test process, warnings and precautions can be found at www.[email or web address].[email or web address]. Stool specimen (specimen) 01/17/2024 6:32 AM EDT 01/19/2024 2:11 PM EDT Mary Jo Lim MD LAB MOLECULAR DIAGNOS TICS ORDERABLES Final Result [facility] (CLIA #:[id number]) [place] [address], [place] [phone] from Last 3 Months or Most Recently Relevant to Health Maintenance Insurance [facility] - SCO DENTAL - [facility] Care Teams Social Worker Clinical Relationship Specialty Start Date End Date Mary Jo Chau MD [address] [place] [address] PCP - General Internal Medicine 08/01/23 Adore Iraheta PharmD [address] [place] [address] Pharmacist Internal Medicine 11/04/24
--- OUTSIDE RECORDS SUMMARY | 2024-12-25 16:39 | XMS_ITS | Encounter Summary ---
Author Organization [employer] Address [address] [facility] 7t [place] [address] Care Team Providers Care Differential Specialist Name Role Phone Mary Jo Chau MD Primary Care Pro vider Adore Iraheta PharmD Unavailable [phone] Encounter Details Date Type Department Care Team [...] 01/06/2025 3:30 PM EDT Medication Management [address] [address] Adore Iraheta, NegritaD [address] [place] [address] 02/21/2025 11:00 AM EDT Clinical Support [address] [address] Torie Mccormack, WAYLON [address] [place] [address] 02/25/2025 2:15 PM EDT Office Visit [address] [address] Mary Jo Chau MD [address] [place] [address] documented as of this encounter Procedures Procedure Name Priority Date/Time Associated Diagnosis Comments BASIC METABOLIC PANEL Routine 12/03/2024 7:46 AM EST documented in this encounter Results * (ABNORMAL) Basic Metabolic Panel (12/03/2024 7:46 AM EST) Sodium 143 135 - 145 mmol/L [facility] Potassium 4.4 3.3 - 5.1 mmol/L [facility] Chloride 105 96 - 108 mmol/L [facility] Carbon Dioxide 27 22 - 29 mmol/L [facility] Anion Gap 15 12 - 20 [facility] Urea Nitrogen (BUN) 19(H) 9 - 16 mg/dL [facility] Creatinine, Serum 1.41(H) 0.5 - 1.4 mg/dL [facility] Estimated Glomerular Filt Rate 49 [facility] Comment:Chronic Kidney Disea se: Estimated GFR < 60 mL/min/1.63i8Sqehrr Kidney Disease: Estimated GFR < 15 mL/min/1.73m2 Glucose 198(H) 60 - 115 mg/dL [facility] Calcium 9.9 8.4 - 10.2 mg/dL [facility] 12/03/2024 7:46 AM EST 12/03/2024 7:46 AM EST us Generic External Data Provider LAB BLOOD ORDERAB LES Final Result [facility] [address] [place] [address] [phone] documented in this encounter Visit Diagnoses Not on filedocumented in this encounter Additional Health Concerns Assessment Noted Time PHQ-9 Depression Total Score: 10 024 2:12 PM EST documented as of this encounter Care Teams Differential Specialist Relationship Specialty Start Date End Date Mary Jo Chau MD [address] [place] [address] PCP - General Internal Medicine 08/01/23 Adore Iraheta PharmD [address] [place] [address] Pharmacist Internal Medicine 11/04/24 documented as of this encounter
--- OUTSIDE RECORDS SUMMARY | 2024-12-25 16:39 | XMS_ITS | Encounter Summary ---
Author Organization [facility] Address [address] [place] [address] [place], [place] [address] Care Team Providers Care Newspaper Distributor Supervisor Name Role Phone Mary Jo Chau MD Primary Care Pro vider Adore Iraheta PharmD Unavailable [phone] Reason for Visit * Reason Comments Med Refill Encounter Details Date Type Department Care Team ([facility] Contact Info) Description 11/14/2023 Refill [facility] CHC MED & PEDS [address] [place] [address] Mary Jo Cahu MD [address] [place], [place] [phone] Other chronic pain Social History Tobacco Use [...] Upcoming Encounters Date Type Department Care Team ([facility] Contact Info) Description 01/06/2025 3:30 PM EDT Medication Management [facility] MEDICINE [address] [place], [place] [phone] Adore Iraheta PharmD [address] [place] [address] 02/21/2025 11:00 AM EDT Clinical Support [address] [address] Torie Mccormack, RN [address] [place] [address] 02/25/2025 2:15 PM EDT Office Visit [address] [address] Mary Jo Chau MD [address] [place] [phone] documented as of this encounter Visit Diagnoses Diagnosis Other chronic pain documented in this encounter Additional Health Concerns Assessment Noted Time PHQ-9 Depression Total Score: 14 023 4:05 PM EST documented as of this encounter Care Teams Newspaper Distributor Supervisor Relationship Specialty Start Date End Date Mary Jo Chau MD [address] [place] [address] PCP - General Internal Medicine 08/01/23 Adore Iraheta PharmD [address] [place] [address] Pharmacist Internal Medicine 11/04/24 documented as of this encounter
== END 2024-12-25 14:18 | disposition home or self-care (01) ==
LOC: HO.HKAM 13:54
PROVIDERS: PCP Internal Medicine; Visit Provider Internal Medicine Hypertension Specialist
DX: N18.9 Chronic kidney disease, unspecified (principal)
CPT/HCPCS: 99214

== ENCOUNTER → 2024-12-25 13:54 | Outpatient (BNVA) | payer OTHER, SELFPAY | PROVIDERS: PCP Internal Medicine; Visit Provider Internal Medicine Hypertension Specialist | DX: E11.22 Type 2 diabetes mellitus with diabetic chronic kidney disease (principal); N18.9 Chronic kidney disease, unspecified | CPT/HCPCS: 99212 ==

== ENCOUNTER 2025-01-09 07:27 | Outpatient (REF) | payer OTHER, SELFPAY ==
[2025-01-09 09:32] LABS: PSA,Total (Free>4and<10) 4.41 ng/mL (0.00-4.00)
[2025-01-10 13:47] LABS: Free Prostate Spec Ag 0.9 ng/mL; Percent Free Prostate Spec Ag 19 % (calc) (>25); Prostate Specific Ag Total 4.7 ng/mL (< OR = 4.0)
== END 2025-01-09 07:28 | disposition home or self-care (01) ==
LOC: HO.LAB 07:27
PROVIDERS: PCP Student in an Organized Health Care Education/Training Program; Visit Provider Nurse Practitioner Family
DX: R97.20 Elevated prostate specific antigen [PSA] (principal); Z12.5 Encounter for screening for malignant neoplasm of prostate
CPT/HCPCS: 36415; 84153; 84154

== ENCOUNTER 2025-01-13 11:58 | Outpatient (AMB) | payer OTHER, SELFPAY ==
--- NOTE | 2025-01-13 12:01 | A.OFFVIS_ITS ---
Intake Visit Reasons: 1m/PSA Intake Note: Patient presents today for tele visit follow up on: Elevated PSA and pr ostatitis PSA: 4.7 Urology Med: Finasteride, Tamsulosin Antibiotic Allergy: None Blood Thinner: Aspirin [employer] Team Member Required: Yes [employer] Team Member Services: [employer] Team Member Present [employer] Member Name: [id number] Allergies No Known Allergies Allergy (Verified 01/13/25 12:21) Medication List - Last Reconciled 01/13/25 by ALBERTO Naik acetaminophen-codeine 300-60 mg 1 tab PO Q8H PRN amlodipine 5 mg PO DAILY aspirin 1 tab PO DAILY atorvastatin 1 tab PO BEDTIME blood sugar diagnostic (FreeStyle Lite Strips) As directed cholecalciferol (vitamin D3) (Vitamin D3) 1 cap PO DAILY cyanocobalamin (vitamin B-12) 1 tab PO BEDTIME docusate sodium 100 mg PO BID duloxetine 1 cap PO DAILY empagliflozin (Jardiance) 10 mg PO DAILY famotidine 20 mg PO DAILY ferrous sulfate 325 mg PO DAILY finasteride 5 mg PO DAILY 90 days glipizide ER 5 mg PO DAILY hydroxyzine HCl mg PO BID loratadine 1 tab PO DAILY memantine 1 tab PO BID metformin 1,000 mg PO BID pregabalin 150 mg PO BID repaglinide 0.5 mg PO TID sennosides (senna) 2 tabs PO DAILY PRN sertraline 1 tab PO DAILY sitagliptin phosphate (Januvia) 25 mg PO DAILY tamsulosin 0.4 mg PO DAILY 90 days triamcinolone acetonide 0.1% 0.1 appl topical BID HPI Comments Details: Rod is a pleasant 74-year-old Polish male patient of Dr. Luis Carlos Lim was accompanied by his PATTERN LAYOUT WORKER Mary Jo during today's telehealth appointment. He has a past medical history of hepatitis as a child, diabetic neuropathy, osteoarthritis, obstructive sleep apnea, depression, BPH, diabetes, hypercholesteremia, and normocytic anemia. He is being followed up on today via telehealth for his elevated PSA, BPH, and prostatitis. In discussion with the patient today reports to be doing and feeling well. He denies having had any bothersome urinary issues or concerns since his last office visit here. He reports compliance with finasteride and Flomax as prescribed. 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 He denies urinary urgency, urinary frequency, incontinence, nocturia, hematuria, dysuria, foul smelling urine, changes to urinary stream, flank pain, fever, and or chills. He is happy with his current voiding parameters on Flomax and finasteride. Recent PSA results reviewed with the patient today as noted and trended below. He otherwise offers no other issues or concerns at this time. 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 10/10 PSA: 05/11 10, 02/10 18, 05/12 6.6, 12/14 5.9 F 19%, 06/13 4.7 20%, 12/15 4.1, 06/14 5.0, 12/16 3.9, 06/15 6.2, 08/15 4.5 % free PSA 20%, 09/15 5.1 % free PSA 20%, 01/14 4.4 %free PSA 19 [facility] Medical History History of hepatitis as a child Diabetic nephropathy Osteoarthritis Obstructive sleep apnea BPH (benign prostatic hyperplasia) Depression Diabetes Hypercholesteremia HTN (hypertension) Normocytic anemia Surgical History History of prostate biopsy Family History Father Diabetes Social History Household Members: Spouse and Significant Other Housing: House Are you a primary insurance healthcare consultant to a significant other at home: No Do you presently have visiting nurse or other home services: No Alcohol intake: former Patient Tobacco Use Status: Never used Tobacco service: Yes Current occupational status: retired Review of Systems Const All systems reviewed & are unremarkable except as noted in HPI and below Physical Exam Const General: cooperative Orientation/consciousness: patient oriented x3 Resp Effort & Inspection: able to speak in complete sentences Neuro General: patient oriented x3 Psych Speech and movement: Clear speech present Attitude: cooperative Insight: Fair insight present (Psych) Judgement: Fair judgement present (Psych) Telehealth Telehealth Telehealth Platform: Bablic Location of provider rendering services: practice address Location of patient: address on file Patient Identification confirmed using: Name, : Yes Telehealth method: voice only Patient verbally consented to treatment: Yes Patient verbally consented to billing insurance company: Yes Patient informed of any privacy concerns related to visit: Yes Minutes spent on Phone/Video with Pt.: 15 Assessment & Plan Assessment & Plan (1) BPH (benign prostatic hyperplasia): Code(s): N40.0 - Benign prostatic hyperplasia without lower urinary tract symptoms Category: Medical (2) Elevated PSA: Code(s): R97.20 - Elevated prostate specific antigen [PSA] Category: Medical (3) Prostatitis: Code(s): N41.9 - Inflammatory disease of prostate, unspecified Category: Medical Plan Recent PSA results reviewed with the patient today; as noted above. Continue Flomax and finasteride; refill provided. Patient currently denies any bothersome urinary issues or concerns. He reports be happy with current voiding parameters. We discussed importance of surveillance monitoring given labile PSA. Will obtain PSA in 4 months. Follow-up in 4 months with lab and PVR; or sooner with any issues, concerns, and or questions. Orders: Orders PSA,Total (Free>4and<10) 4 Months N40.0 - Benign prostatic hyperplasia without lower urinary tract symptoms, N41.9 - Inflammatory disease of prostate, unspecified, R97.20 - Elevated prostate specific antigen [PSA] Medications: Refilled finasteride 5 mg PO DAILY 90 days 90 tabs 2RF N40.0 - Benign prostatic hyperplasia without lower urinary tract symptoms, R97.20 - Elevated prostate specific antigen [PSA] tamsulosin 0.4 mg PO DAILY 90 days 90 caps 1RF Patient Instructions: The patient had an opportunity to ask questions regarding the treatment plan. All questions were answered. Physical exam, labs, and imaging were discussed and reviewed in detail. As well as risks, benefits, and discussion of treatment choices. No major barriers to understanding were identified. The patient expressed understanding and agreement with the above treatment plan. The patient was made aware they should contact our office by phone for worsening of their current condition, the appearance of new symptoms, or with any questions or concerns. Compliance is encouraged with any medications and follow up testing that is ordered. It is a privilege to be allowed the opportunity to participate in? your urological care.? Again, if you have any questions or concerns If you have any questions or concerns please do not hesitate to contact me. The office is [phone]. This note is constructed using voice recognition software. While every effort has been made to ensure accuracy coke drawer errors may have been included. Yours sincerely, ALBERTO Naik Coding Level of Care Code Tele Est Pt Level 3 (52439) Diagnoses BPH (benign prostatic hyperplasia) N40.0 Elevated PSA R97.20 Prostatitis N41.9
== END 2025-01-13 12:38 | disposition home or self-care (01) ==
LOC: HO.HUSH 11:58
PROVIDERS: PCP Student in an Organized Health Care Education/Training Program; Visit Provider Nurse Practitioner Family
DX: N40.0 Benign prostatic hyperplasia without lower urinary tract symptoms (principal); R97.20 Elevated prostate specific antigen [PSA]; N41.9 Inflammatory disease of prostate, unspecified
CPT/HCPCS: 99213

== ENCOUNTER → 2025-03-03 13:05 | Outpatient (BNV) | payer OTHER, SELFPAY | PROVIDERS: Visit Provider Internal Medicine | DX: D64.9 Anemia, unspecified (principal) | CPT/HCPCS: 99213; G2211 ==

== ENCOUNTER 2025-03-06 08:26 | Outpatient (REF) | payer OTHER, SELFPAY ==
--- OUTSIDE RECORDS SUMMARY | 2025-03-06 08:45 | XMS_ITS | Encounter Summary ---
Author Organization [employer] Address [address] [place] [address] 7 [place] [address] Care Team Providers Care Slip Cover Maker Name Role Phone Cristin Chaves MD Primary Care Provider Leah Macario FLIGHT PHYSICIAN Primary Care Provider [phone] Mary Jo Chau MD Primary Care Pro vider Adore Iraheta PharmD Unavailable [phone] Encounter Details Date Type Department Care Team (Latest Contact Info) Description 02/12/2019 Abstract [facility] CONVERSIONS Dental, Provider, DDS Social History Tobacco [...] Care Team (Late st Contact Info) Description 03/19/2025 3:00 PM EDT Medication Management [facility] MEDICINE [address] [place] [address] 03/28/2025 3:00 PM EDT Clinical Support [facility] MEDICINE [address] [place] [address] [phone] 04/30/2025 2:00 PM EDT Office Visit [facility] MEDICINE [address] [place] [address] Mary Jo Chau MD [address] [place] [address] 05/23/2025 11:00 AM EDT Clinical Support [facility] MEDICINE [address] [place] [address] Torie Mccormack, WAYLON [address] [place] [address] documented as of this encounter Visit Diagnoses Not on filedocumented in this encounter Care Teams Slip Cover Maker Relationship Specialty Start Date End Date Cristin Chaves MD PCP - General Family Medicine 04/13/20 09/11/22 Leah Alvarenga FNP PCP - General Family Medicine 09/12/22 07/31/23 Mary Jo Chau MD [address] [place] [address] PCP - General Internal Medicine 08/01/23 Adore Iraheta PharmD [address] [place] [address] Pharmacist Internal Medicine 11/04/24 documented as of this encounter
--- OUTSIDE RECORDS SUMMARY | 2025-03-06 08:45 | XMS_ITS | Encounter Summary ---
Author Organization [employer] Address [address] [place] [address] [place] [address] Care Team Providers Care Manager Social Name Role Phone Leah Alvarenga Primary Care Provider [phone] Mary Jo Chau MD Primary Care Pro vider Adore Iraheta PharmD Unavailable [phone] Reason for Visit * Reason Comments Med Refill Encounter Details Date Type Department Care Team (Late Contact Info) Description 03/23/2023 Refill [facility] MEDICINE [address] [place] [address] Leah Alvarenga FNP [address] [place] [address] [place] [address] Vitamin D deficiency; Peripheral neuropathic pain; Depression, [...] Department Care Team (Late Contact Info) Description 03/19/2025 3:00 PM EDT Medication Management [address] [address] 03/28/2025 3:00 PM EDT Clinical Support [address] [address] 04/30/2025 2:00 PM EDT Office Visit [address] [address] Mary Jo Chau MD [address] [place] [address] 05/23/2025 11:00 AM EDT Clinical Support [address] [address] Torie Mccormack, WAYLON [address] [place] [address] documented as of this encounter Visit Diagnoses Diagnosis Vitamin D deficiency Peripheral neuropathic pain Depression, unspecified depression type documented in this encounter Additional Health Concerns Assessment Noted Time PHQ-9 Depression Total Score: 14 023 4:05 PM EST documented as of this encounter Care Teams Manager Social Relationship Specialty Start Date End Date Leah Alvarenga FNP PCP - General Family Medicine 09/12/22 07/31/23 Mary Jo Chau MD [address] [place] [address] PCP - General Internal Medicine 08/01/23 Adore Iraheta PharmD [address] [place] [address] Pharmacist Internal Medicine 11/04/24 documented as of this encounter
--- OUTSIDE RECORDS SUMMARY | 2025-03-06 08:45 | XMS_ITS | Encounter Summary ---
Author Organization [employer] Address [address] [place] [address] Care Team Providers Care Private Branch Exchange Repairer Name Role Phone Mary Jo Chau MD Primary Care Pro vider Adore Iraheta PharmD Unavailable [phone] Reason for Visit * Reason Comments Med Refill Encounter Details Date Type Department Care Team ([facility] st Contact Info) Description 11/09/2023 Refill [facility] MEDICINE [address] [place] [address] Mary Jo Chau MD 230 [place], [place] [phone] Seasonal allergic rhinitis, unspecified trigger; Other chronic [...] Description 03/19/2025 3:00 PM EDT Medication Management [facility] MEDICINE [address] [place] [address] [phone] 03/28/2025 3:00 PM EDT Clinical Support [address] [address] 04/30/2025 2:00 PM EDT Office Visit [address] [address] Mary Jo Chau MD [address] [place] [address] 05/23/2025 11:00 AM EDT Clinical Support [address] [address] Torie Mccormack, RN 505 [place] [address] documented as of this encounter Visit Diagnoses Diagnosis Seasonal allergic rhinitis, unspecified trigger Other chronic pain documented in this encounter Additional Health Concerns Assessment Noted Time PHQ-9 Depression Total Score: 14 023 4:05 PM EST documented as of this encounter Care Teams Private Branch Exchange Repairer Relationship Specialty Start Date End Date Mary Jo Chau MD [address] [place] [address] PCP - General Internal Medicine 08/01/23 Adore Iraheta PharmD [address] [place] [address] Pharmacist Internal Medicine 11/04/24 documented as of this encounter
--- OUTSIDE RECORDS SUMMARY | 2025-03-06 08:45 | XMS_ITS | Encounter Summary ---
Author Organization [email or web address] Address [address] [facility] 7 [place] [address] Care Team Providers Care Photography Sales Associate Name Role Phone Mary Jo Chau MD Primary Care Pro vider Adore Iraheta PharmD Unavailable [phone] Reason for Visit * Reason Comments Med Refill Encounter Details Date Type Department Care Team (Late st Contact Info) Description 12/04/2024 Refill [facility] CHC MED & PEDS [address] [place] [address] Mary Jo Chau MD 230 [place] [address] Type 2 diabetes mellitus with other specified complication, without long-term current use of insulin ([facility]) Social History Tobacco Use [...] Description 03/19/2025 3:00 PM EDT Medication Management [address] [address] 03/28/2025 3:00 PM EDT Clinical Support [address] [address] 04/30/2025 2:00 PM EDT Office Visit [address] [address] Mary Jo Chau MD [address] [place] [address] 05/23/2025 11:00 AM EDT Clinical Support [address] [address] Torie Mccormack RN [address] [place] [address] documented as of this encounter Visit Diagnoses Diagnosis Type 2 diabetes mellitus with other specified complication, without long-term current use of insulin ([facility]) documented in this encounter Additional Health Concerns Assessment Noted Time PHQ-9 Depression Total Score: 10 09/11/ 024 2:12 PM EST documented as of this encounter Care Teams Photography Sales Associate Relationship Specialty Start Date End Date Mary Jo Chau MD [address] [place] [address] PCP - General Internal Medicine 08/01/23 Adore Iraheta PharmD [address] [place] [address] Pharmacist Internal Medicine 11/04/24 documented as of this encounter
--- OUTSIDE RECORDS SUMMARY | 2025-03-06 08:45 | XMS_ITS | Encounter Summary ---
Author Organization [employer] Address [address] [place] [address] 7 [place] [address] Care Team Providers Care Glass Inspector Name Role Phone Mary Jo Chau MD Primary Care Pro vider Adore Iraheta PharmD Unavailable [phone] Reason for Visit * Reason Comments Med Refill Encounter Details Date Type Department Care Team ([facility] Contact Info) Description 11/14/2023 Refill [facility] CHC MED & PEDS [address] [place] [address] Mary Jo Chau MD [address] [place] [address] Other chronic pain Social History Tobacco Use [...] Department Care Team ([facility] Contact Info) Description 03/19/2025 3:00 PM EDT Medication Management [facility] MEDICINE [address] [place] [phone] 03/28/2025 3:00 PM EDT Clinical Support [address] [address] 04/30/2025 2:00 PM EDT Office Visit [address] [address] Mary Jo Chau MD [address] [place] [address] 05/23/2025 11:00 AM EDT Clinical Support [address] [address] Torie Mccormack, RN 505 [place] [address] documented as of this encounter Visit Diagnoses Diagnosis Other chronic pain documented in this encounter Additional Health Concerns Assessment Noted Time PHQ-9 Depression Total Score: 14 023 4:05 PM EST documented as of this encounter Care Teams Glass Inspector Relationship Specialty Start Date End Date Mary Jo Chau MD [address] [place] [address] PCP - General Internal Medicine 08/01/23 Adore Iraheta PharmD [address] [place] [address] Pharmacist Internal Medicine 11/04/24 documented as of this encounter
--- OUTSIDE RECORDS SUMMARY | 2025-03-06 08:45 | XMS_ITS | Encounter Summary ---
Author Organization [employer] Address [address] [place] [address] Care Team Providers Care Property Field Adjuster Name Role Phone Mary Jo Chau MD Primary Care Pro vider Adore Iraheta PharmD Unavailable [phone] Reason for Visit * Reason Comments Med Refill Encounter Details Date Type Department Care Team (Late st Contact Info) Description 11/21/2023 Refill [facility] MEDICINE [address] [place] [address] Mary Jo Chau MD 230 [place] [address] Depression, unspecified depression type Social History Tobacco [...] Description 03/19/2025 3:00 PM EDT Medication Management [facility] MEDICINE [address] [place], [place] [phone] 03/28/2025 3:00 PM EDT Clinical Support [address] [address] 04/30/2025 2:00 PM EDT Office Visit [address] [address] Mary Jo Chau MD [address] [place] [address] 05/23/2025 11:00 AM EDT Clinical Support [address] [address] Torie Mccormack, RN 505 [place] [address] documented as of this encounter Visit Diagnoses Diagnosis Depression, unspecified depression type documented in this encounter Additional Health Concerns Assessment Noted Time PHQ-9 Depression Total Score: 14 023 4:05 PM EST documented as of this encounter Care Teams Property Field Adjuster Relationship Specialty Start Date End Date Mary Jo Chau MD [address] [place] [address] PCP - General Internal Medicine 08/01/23 Adore Iraheta PharmD [address] [place] [address] Pharmacist Internal Medicine 11/04/24 documented as of this encounter
--- OUTSIDE RECORDS SUMMARY | 2025-03-06 08:45 | XMS_ITS | Encounter Summary ---
Author Organization [employer] Address [address] [place] [address] [place] [address] Care Team Providers Care Card Runner Name Role Phone Leah Alvarenga Primary Care Provider [phone] Mary Jo Chau MD Primary Care Pro vider Adore Iraheta PharmD Unavailable [phone] Reason for Visit * Reason Comments Med Refill Encounter Details Date Type Department Care Team (Late Contact Info) Description 07/04/2023 Refill [facility] MEDICINE [address] [place] [address] Leah Alvarenga FNP [address] [place] [address] Dept [place] [address] Depression, unspecified depression type Social History Tobacco [...] Description 03/19/2025 3:00 PM EDT Medication Management [facility] MEDICINE [address] [place] [address] 03/28/2025 3:00 PM EDT Clinical Support [address] [address] 04/30/2025 2:00 PM EDT Office Visit [address] [address] Mary Jo Chau MD [address] [place] [address] 05/23/2025 11:00 AM EDT Clinical Support [address] [address] Torie Mccormack, WAYLON [address] [place] [address] documented as of this encounter Visit Diagnoses Diagnosis Depression, unspecified depression type documented in this encounter Additional Health Concerns Assessment Noted Time PHQ-9 Depression Total Score: 14 023 4:05 PM EST documented as of this encounter Care Teams Card Runner Relationship Specialty Start Date End Date Leah Alvarenga FNP PCP - General Family Medicine 09/12/22 07/31/23 Mary Jo Chau MD [address] [place] [address] PCP - General Internal Medicine 08/01/23 Adore Iraheta PharmD [address] [place] [address] Pharmacist Internal Medicine 11/04/24 documented as of this encounter
--- OUTSIDE RECORDS SUMMARY | 2025-03-06 08:45 | XMS_ITS | Encounter Summary ---
Author Organization [employer] Address [address] [place] [address] 7 [place] [address] Care Team Providers Care Marble Carver Name Role Phone Mary Jo Chau MD Primary Care Pro vider Adore Iraheta PharmD Unavailable [phone] Reason for Visit * Reason Comments Med Refill Encounter Details Date Type Department Care Team (Late st Contact Info) Description 11/03/2024 Refill [facility] 230 [place] [address] Mary Jo Chau MD 230 [place] [address] Diabetic polyneuropathy associated with type 2 diabetes [...] Description 03/19/2025 3:00 PM EDT Medication Management [address] [address] 03/28/2025 3:00 PM EDT Clinical Support [address] [address] 04/30/2025 2:00 PM EDT Office Visit [address] [address] Mary Jo Chau MD [address] [place] [address] 05/23/2025 11:00 AM EDT Clinical Support [address] [address] Torie Mccormack RN [address] [place] [address] documented as of this encounter Visit Diagnoses Diagnosis Diabetic polyneuropathy associated with type 2 diabetes mellitus (CMS/HCC) Other atopic dermatitis documented in this encounter Additional Health Concerns Assessment Noted Time PHQ-9 Depression Total Score: 10 024 2:12 PM EST documented as of this encounter Care Teams Marble Carver Relationship Specialty Start Date End Date Mary Jo Chau MD 230 [place], [place] [phone] PCP - General Internal Medicine 08/01/23 Adore Iraheta PharmD [address] [place] [address] [phone] Pharmacist Internal Medicine 11/04/24 documented as of this encounter
--- OUTSIDE RECORDS SUMMARY | 2025-03-06 08:45 | XMS_ITS | Encounter Summary ---
Author Organization [employer] Address [address] [place] [address] 7 [place] [address] Care Team Providers Care Lamp Inspector Name Role Phone Mary Jo Chau MD Primary Care Pro vider Adore Iraheta PharmD Unavailable [phone] Encounter Details Date Type Department Care Team (Late Contact Info) Description 04/01/2024 Telephone [facility] [address] [place] [address] [phone] Mary Jo Chau MD [address] [place] [address] Social History Tobacco Use Types Packs/Day Years [...] Upcoming Encounters Date Type Department Care Team ([facility] Contact Info) Description 03/19/2025 3:00 PM EDT Medication Management [facility] [address] [place] [address] 03/28/2025 3:00 PM EDT Clinical Support [address] [address] 04/30/2025 2:00 PM EDT Office Visit [address] [address] Mary Jo Chau MD [address] [place] [address] 05/23/2025 11:00 AM EDT Clinical Support [address] [address] Torie Mccormack, WAYLON 505 [place] [address] documented as of this encounter Visit Diagnoses Not on filedocumented in this encounter Additional Health Concerns Assessment Noted Time PHQ-9 Depression Total Score: 9 01/08/20 24 3:15 PM EDT documented as of this encounter Care Teams Lamp Inspector Relationship Specialty Start Date End Date Mary Jo Chau MD [address] [place] [address] PCP - General Internal Medicine 08/01/23 Adore Iraheta, Lorenzo [address] [place] [address] Pharmacist Internal Medicine 11/04/24 documented as of this encounter
--- OUTSIDE RECORDS SUMMARY | 2025-03-06 08:45 | XMS_ITS | Encounter Summary ---
Author Organization [employer] Address [address] [place] [address] 7 [place] [address] Care Team Providers Care Forensic Ballistics Expert Name Role Phone Cristin Chaves MD Primary Care Provider Leah Macario PERFORMANCE TEST CONSULTANT Primary Care Provider [phone] Mary Jo Chau MD Primary Care Pro vider Adore Iraheta PharmD Unavailable [phone] Encounter Details Date Type Department Care Team (Latest Contact Info) Description 06/14/2021 Abstract [facility], Provider, DDS Social History Tobacco [...] Description 03/19/2025 3:00 PM EDT Medication Management [facility] [address] [place] [address] 03/28/2025 3:00 PM EDT Clinical Support [facility] [address] [place] [address] [phone] 04/30/2025 2:00 PM EDT Office Visit [facility] [address] [place] [address] Mary Jo Chau MD [address] [place] [address] 05/23/2025 11:00 AM EDT Clinical Support [facility] [address] [place] [address] Torie Mccormack, WAYLON 505 [place] [address] documented as of this encounter Visit Diagnoses Not on filedocumented in this encounter Care Teams Forensic Ballistics Expert Relationship Specialty Start Date End Date Cristin Chaves MD PCP - General Family Medicine 04/13/20 09/11/22 Leah Alvarenga FNP PCP - General Family Medicine 09/12/22 07/31/23 Mary Jo Chau MD [address] [place] [address] PCP - General Internal Medicine 08/01/23 Adore Iraheta PharmD [address] [place] [address] Pharmacist Internal Medicine 11/04/24 documented as of this encounter
--- OUTSIDE RECORDS SUMMARY | 2025-03-06 08:45 | XMS_ITS | Encounter Summary ---
Author Organization [employer] Address [address] [facility] 7t [place] [address] Care Team Providers Care Maintenance Of Way Clerk Name Role Phone Mary Jo Chau MD Primary Care Pro vider Adore Iraheta PharmD Unavailable [phone] Encounter Details Date Type Department Care Team (Late st Contact Info) Description 06/12/2024 Orders Only [facility] [address] [place] [address] Mary Jo Warren MD 230 [place] [address] Social History Tobacco Use Types Packs/Day Years [...] Description 03/19/2025 3:00 PM EDT Medication Management [facility] [address] [place] [address] 03/28/2025 3:00 PM EDT Clinical Support [address] [address] 04/30/2025 2:00 PM EDT Office Visit [address] [address] Mary Jo Chau MD [address] [place] [address] 05/23/2025 11:00 AM EDT Clinical Support [address] [address] Torie Mccormack, WAYLON [address] [place] [address] documented as of this encounter Visit Diagnoses Not on filedocumented in this encounter Additional Health Concerns Assessment Noted Time PHQ-9 Depression Total Score: 9 01/08/20 24 3:15 PM EDT documented as of this encounter Care Teams Maintenance Of Way Clerk Relationship Specialty Start Date End Date Mary Jo Chau MD [address] [place] [address] PCP - General Internal Medicine 08/01/23 Adore Iraheta PharmD [address] [place] [address] Pharmacist Internal Medicine 11/04/24 documented as of this encounter
--- OUTSIDE RECORDS SUMMARY | 2025-03-06 08:45 | XMS_ITS | Encounter Summary ---
Author Organization [employer] Address [address] [place] [address] [place] [address] Care Team Providers Care Rod Tape Operator Name Role Phone Leah Alvarenga Primary Care Provider [phone] Mary Jo Chau MD Primary Care Pro vider Adore Iraheta PharmD Unavailable [phone] Reason for Visit * Reason Comments Med Refill Encounter Details Date Type Department Care Team (Late st Contact Info) Description 05/12/2023 Refill [facility] 230 [place] [address] Leah Alvarenga, DON [address] [place] [address] Dept [place] [address] Depression, unspecified depression type Social History Tobacco [...] Description 03/19/2025 3:00 PM EDT Medication Management [address] [address] 03/28/2025 3:00 PM EDT Clinical Support [address] [address] 04/30/2025 2:00 PM EDT Office Visit [address] [address] Mary Jo Chau MD [address] [place] [address] 05/23/2025 11:00 AM EDT Clinical Support [address] [address] Torie Mccormack, WAYLON 505 [place] [address] documented as of this encounter Visit Diagnoses Diagnosis Depression, unspecified depression type documented in this encounter Additional Health Concerns Assessment Noted Time PHQ-9 Depression Total Score: 14 023 4:05 PM EST documented as of this encounter Care Teams Rod Tape Operator Relationship Specialty Start Date End Date Leah Alvarenga FNP PCP - General Family Medicine 09/12/22 07/31/23 Mary Jo Chau MD [address] [place] [address] PCP - General Internal Medicine 08/01/23 Adore Iraheta PharmD [address] [place] [address] Pharmacist Internal Medicine 11/04/24 documented as of this encounter
--- OUTSIDE RECORDS SUMMARY | 2025-03-06 08:45 | XMS_ITS | Encounter Summary ---
Author Organization [employer] Address [address] [place] [address] [place] [address] Care Team Providers Care Display Designer Outside Name Role Phone Leah Alvarenga Primary Care Provider [phone] Mary Jo Chau MD Primary Care Pro vider Adore Iraheta PharmD Unavailable [phone] Reason for Visit * Reason Onset Date Comments BPI score changes 03/24/2023 Encounter Details Date Type Department Care Team (Late st Contact Info) Description 03/24/2023 Refill [facility] 230 [place] [address] Leah Alvarenga FNP [address] [place] [address] Dept [place] [address] Constipation, unspecified constipation type Social History Tobacco [...] 10:10 AM EDT FYI, pt had Tele TILE PRESSER 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 Pain severity score of 4.8, activity interference score of 8.6. Previous BPI completed 11/04/22 with pain severity score of 7.8, activity interference score of 5.3. documented in this encounter Plan of Treatment Upcoming Encounters Date Type Department Care Team (Late st Contact Info) Description 03/19/2025 3:00 PM EDT Medication Management [address] [address] 03/28/2025 3:00 PM EDT Clinical Support [address] [address] 04/30/2025 2:00 PM EDT Office Visit [address] [address] Mary Jo Chau MD [address] [place] [address] 05/23/2025 11:00 AM EDT Clinical Support [address] [address] Torie Mccormack RN [address] [place] [address] documented as of this encounter Visit Diagnoses Diagnosis Constipation, unspecified constipation type documented in this encounter Additional Health Concerns Assessment Noted Time PHQ-9 Depression Total Score: 14 023 4:05 PM EST documented as of this encounter Care Teams Display Designer Outside Relationship Specialty Start Date End Date Leah Alvarenga FNP PCP - General Family Medicine 09/12/22 07/31/23 Mary Jo Chau MD [address] [place] [address] PCP - General Internal Medicine 08/01/23 Adore Iraheta PharmD [address] [place] [address] Pharmacist Internal Medicine 11/04/24 documented as of this encounter
--- OUTSIDE RECORDS SUMMARY | 2025-03-06 08:45 | XMS_ITS | Encounter Summary ---
Author Organization [employer] Address [address] [place] [address] 7 [place] [address] Care Team Providers Care Commutator Undercutter Name Role Phone Mary Jo Chau MD Primary Care Pro vider Adore Irahtea PharmD Unavailable [phone] Reason for Visit * Reason Comments Med Refill Encounter Details Date Type Department Care Team ([facility] st Contact Info) Description 11/06/2024 Refill [facility] 230 [place] [address] Mary Jo Chau MD 230 [place] [address] Depressive disorder Social History Tobacco Use Types [...] Description 03/19/2025 3:00 PM EDT Medication Management [address] [address] 03/28/2025 3:00 PM EDT Clinical Support [address] [address] 04/30/2025 2:00 PM EDT Office Visit [address] [address] Mary Jo Chau MD [address] [place] [address] 05/23/2025 11:00 AM EDT Clinical Support [address] [address] Torie Mccormack RN [address] [place] [address] documented as of this encounter Visit Diagnoses Diagnosis Depressive disorder Depressive disorder, not elsewhere classified documented in this encounter Additional Health Concerns Assessment Noted Time PHQ-9 Depression Total Score: 10 024 2:12 PM EST documented as of this encounter Care Teams Commutator Undercutter Relationship Specialty Start Date End Date Mary Jo Chau MD 230 [place], [place] [phone] PCP - General Internal Medicine 08/01/23 Adore Iraheta PharmD 230 [place], [place] [phone] Pharmacist Internal Medicine 11/04/24 documented as of this encounter
--- OUTSIDE RECORDS SUMMARY | 2025-03-06 08:45 | XMS_ITS | Encounter Summary ---
Author Organization [employer] Address [address] [place] [address] Care Team Providers Care Dietary Cook Name Role Phone Mary Jo Chau MD Primary Care Pro vider Adore Iraheta PharmD Unavailable [phone] Reason for Visit * Reason Comments Med Change Request Encounter Details Date Type Department Care Team ([facility] Contact Info) Description 09/15/2023 Refill [facility] [address] [place] [address] Mary Jo Chau MD 230 [place] [address] Depression, unspecified depression type Social History Tobacco [...] Description 03/19/2025 3:00 PM EDT Medication Management [facility] 230 [place], [place] [phone] 03/28/2025 3:00 PM EDT Clinical Support [address] [address] 04/30/2025 2:00 PM EDT Office Visit [address] [address] Mary Jo Chau MD [address] [place] [address] 05/23/2025 11:00 AM EDT Clinical Support [address] [address] Torie Mccormack, RN 505 [place] [address] documented as of this encounter Visit Diagnoses Diagnosis Depression, unspecified depression type documented in this encounter Additional Health Concerns Assessment Noted Time PHQ-9 Depression Total Score: 14 023 4:05 PM EST documented as of this encounter Care Teams Dietary Cook Relationship Specialty Start Date End Date Mary Jo Chau MD [address] [place] [address] PCP - General Internal Medicine 08/01/23 Adore Iraheta PharmD [address] [place] [address] Pharmacist Internal Medicine 11/04/24 documented as of this encounter
--- OUTSIDE RECORDS SUMMARY | 2025-03-06 08:45 | XMS_ITS | Encounter Summary ---
Author Organization [employer] Address [address] [place] [address] [place] [address] Care Team Providers Care Bowling Or Skating Front Desk Clerk Name Role Phone Mary Jo Chau MD Primary Care Pro vider Adore Iraheta PharmD Unavailable [phone] Reason for Visit * Reason Comments Med Change Request Encounter Details Date Type Department Care Team (Late Contact Info) Description 08/15/2023 Refill [facility] [address] [place] [address] Leah Alvarenga FNP [address] [place] [address] [place] [address] Depression, unspecified depression type Social History Tobacco [...] Description 03/19/2025 3:00 PM EDT Medication Management [address] [address] 03/28/2025 3:00 PM EDT Clinical Support [address] [place] [address] 04/30/2025 2:00 PM EDT Office Visit [address] [address] Mary Jo Chau MD [address] [place] [address] 05/23/2025 11:00 AM EDT Clinical Support [address] [address] Torie Mccormack, WAYLON 505 [place] [address] documented as of this encounter Visit Diagnoses Diagnosis Depression, unspecified depression type documented in this encounter Additional Health Concerns Assessment Noted Time PHQ-9 Depression Total Score: 14 023 4:05 PM EST documented as of this encounter Care Teams Bowling Or Skating Front Desk Clerk Relationship Specialty Start Date End Date Mary Jo Chau MD [address] [place] [address] PCP - General Internal Medicine 08/01/23 Adore Iraheta PharmD [address] [place] [address] Pharmacist Internal Medicine 11/04/24 documented as of this encounter
--- OUTSIDE RECORDS SUMMARY | 2025-03-06 08:45 | XMS_ITS | Encounter Summary ---
Author Organization [employer] Address [address] [place] [address] 7 [place] [address] Care Team Providers Care Lip Cutter And Scorer Name Role Phone Mary Jo Chau MD Primary Care Pro vider Adore Iraheta PharmD Unavailable [phone] Reason for Visit * Reason Onset Date Comments new appointment 09/25/2024 Encounter Details Date Type Department Care Team ([facility] st Contact Info) Description 09/25/2024 Telephone [facility] 230 [place] [address] Mary Jo Chau MD 230 [place] [address] new appointment Social History Tobacco Use Types [...] Description 03/19/2025 3:00 PM EDT Medication Management [address] [address] 03/28/2025 3:00 PM EDT Clinical Support [address] [address] 04/30/2025 2:00 PM EDT Office Visit [address] [address] Mary Jo Chau MD [address] [place] [address] 05/23/2025 11:00 AM EDT Clinical Support [address] [address] Torie Mccormack, RN 505 [place] [address] documented as of this encounter Visit Diagnoses Not on filedocumented in this encounter Additional Health Concerns Assessment Noted Time PHQ-9 Depression Total Score: 10 09/11/ 024 2:12 PM EST documented as of this encounter Care Teams Lip Cutter And Scorer Relationship Specialty Start Date End Date Mary Jo Chau MD [address] [place] [address] PCP - General Internal Medicine 08/01/23 Adore Iraheta PharmD [address] [place] [address] Pharmacist Internal Medicine 11/04/24 documented as of this encounter
--- OUTSIDE RECORDS SUMMARY | 2025-03-06 08:45 | XMS_ITS | Encounter Summary ---
Author Organization [employer] Address [address] [place] [address] 7 [place] [address] Care Team Providers Care Driving School Instructor Name Role Phone Mary Jo Chau MD Primary Care Pro vider Adore Iraheta PharmD Unavailable [phone] Reason for Visit * Reason Comments Med Refill Encounter Details Date Type Department Care Team ([facility] Contact Info) Description 09/07/2023 Refill [facility] [address] [place] [address] [place] [facility] 230 [place] [address] Other atopic dermatitis Social History Tobacco Use [...] Description 03/19/2025 3:00 PM EDT Medication Management [facility] [address] [place] [address] [phone] 03/28/2025 3:00 PM EDT Clinical Support [address] [address] 04/30/2025 2:00 PM EDT Office Visit [address] [address] Mary Jo Chau MD [address] [place] [address] 05/23/2025 11:00 AM EDT Clinical Support [address] [address] Torie Mccormack, WAYLON 505 [place] [address] documented as of this encounter Visit Diagnoses Diagnosis Other atopic dermatitis documented in this encounter Additional Health Concerns Assessment Noted Time PHQ-9 Depression Total Score: 14 023 4:05 PM EST documented as of this encounter Care Teams Driving School Instructor Relationship Specialty Start Date End Date Mary Jo Chau MD [address] [place] [address] PCP - General Internal Medicine 08/01/23 Adore Iraheta PharmD [address] [place] [address] Pharmacist Internal Medicine 11/04/24 documented as of this encounter
--- OUTSIDE RECORDS SUMMARY | 2025-03-06 08:45 | XMS_ITS | Clinical Summary ---
Author Organization [employer] Address [address] [place] [address] 7 [place] [address] Care Team Providers Care Clerical Associate Name Role Phone Mary Jo Chau MD Primary Care Pro vider Adore Iraheta PharmD Unavailable [phone] Allergies Active Allergy Reactions Criticality Noted Date Comments Lisinopril 06/08/2020 Other reaction(s): Hyperkalemia Medications pregabalin (Lyrica) 150 MG capsule TOME MARYA C PSULA DOS VECES AL D A FOR 30 DAYS 023 Active ferrous sulfate 325 (65 Fe) MG tablet TOME MARYA TABLETA TODOS LOS D FOR ANEMIA 022 Active glucose blood (FREESTYLE LITE) test strip USE 1 STRIP TO SKIN ROUTE EVERY DAY 50 strip 11 024 Active DULoxetine (Cymbalta) [address] [...] complication, without long-term current use of insulin ([facility]) CHEW 1 TABLET BY MOUTH EVERY DAY 90 tablet 1 024 Active lidocaine (Lidoderm) 5 % patchIndications: Diabetic polyneuropathy associated with type 2 diabetes mellitus (CMS/HCC) APPLY 1 PATCH EVERY MORNING REMOVE AND DISARD PATCH WITHIN 12 HOURS OR as INSTRUCTED BY 30 patch 2 024 Active Reguloid 0.52 g capsuleIndication s:Constipation, unspecified constipation type TAKE 2-3 C PSULA POR V A ORAL TODOS LOS D CUANDO SEA NECESARIO 270 capsule 1 024 Active sertraline (Zoloft) 100 MG tabletIndications :Depressive disorder TAKE 1 TABLET BY MOUTH EVERY DAY 90 tablet 024 Active Blood Glucose Monitoring Suppl (FreeStyle Lite) w/Device kit 1 each Use as directed. 1 kit 025 Active TRUEplus Lancets 33G [facility] Use to test blood sugar 1 time(s) [...] Rx. 30 tablet 11 025 2025 Active memantine (Namenda) 10 MG tabletIndications :Depression, unspecified depression type TAKE 1 TABLET BY MOUTH TWICE A DAY 180 tablet 025 Active glipiZIDE XL (Glucotrol XL) 5 MG 24 hr tabletIndications :Type 2 diabetes mellitus with other specified complication, without long-term current use of insulin ([facility]) TAKE 1 TABLET BY MOUTH EVERY DAY WITH BREAKFAST 90 tablet 025 Active loratadine (Claritin) 10 MG tablet TAKE 1 TABLET BY MOUTH EVERY MORNING 90 tablet 025 Active famotidine (Pepcid) 20 MG tablet TAKE 1 TABLET BY MOUTH EVERY DAY 90 tablet 025 Active hydrOXYzine HCl (Atarax) 10 MG tabletIndications :Depression, unspecified depression type TAKE 1 TO 2 TABLETS BY MOUTH EVERY TWELVE HOURS NEEDED FOR ANXIETY 30 tablet 025 Active amLODIPine (Norvasc) 5 MG tablet TAKE 1 TABLET BY MOUTH EVERY DAY 90 tablet 1 025 Active atorvastatin (Lipitor) 80 MG tablet TAKE 1 TABLET BY MOUTH BY MOUTH AT BEDTIME 90 tablet 1 Active acetaminophen-cod eine (Tylenol w/ Codeine #4) 300-60 MG tabletIndications :Other chronic pain TAKE 1 TABLET BY MOUTH EVERY 8 HOURS NEEDED FOR MODERATE PAIN 56 tablet Active Tirzepatide (Mounjaro) 2.5 MG/0.5ML solution auto-injectorIndi cations:Type 2 diabetes mellitus with diabetic polyneuropathy, without long-term current use of insulin ([facility]) Inject 2.5 mg under the skin 1 (one) time per week. 2 mL Active empagliflozin-met FORMIN (Synjardy) 12.5-1000 MGIndications:Typ e 2 diabetes mellitus with diabetic polyneuropathy, without long-term current use of insulin ([facility]) Take 1 tablet by mouth 2 times daily. 60 tablet 11 025 2025 Active Tirzepatide (Mounjaro) 5 MG/0.5ML solution auto-injectorIndi cations:Type 2 diabetes mellitus with diabetic polyneuropathy, without long-term current use of insulin ([facility]) Inject 5 mg under the skin 1 (one) time per week. 2 mL 3 Active lisinopril 2.5 MG tablet Take 1 tablet (2.5 mg) by mouth Once per day. 30 tablet 025 2025 Active cyanocobalamin (Vitamin B-12) 500 MCG tablet Take 1 tablet (500 mcg) by mouth Once per day. 90 tablet 025 2025 Active empagliflozin-qiana aGLIPtin-metFORMI N ER (Trijardy XR) 12.5-2.5-1000 MG per 24 hr tablet Take 2 tablets by mouth in the morning 30 tablet 11 025 2024 Discontinued(A lternate therapy) acetaminophen-cod eine (Tylenol w/ Codeine #4) 300-60 MG tabletIndications :Other chronic pain TAKE 1 TABLET BY MOUTH EVERY 8 HOURS NEEDED FOR MODERATE PAIN 56 tablet 025 2024 Discontinued Active Problems Problem Noted Date Diagnosed Date Long-term current use of opiate analgesic 2024 Urinary incontinence 09/11/2024 Stage 3 chronic kidney [...] Encounters Date Type Department Care Team Description 02/25/2025 2:15 PM EDT Office Visit [facility] [address] [place] [phone] Mary Jo Chau MD Type 2 diabetes mellitus with diabetic polyneuropathy, without long-term current use of insulin ([facility]) (Primary Dx); Encounter for immunization; Chronic alcoholism in remission ([facility]); Stage 3a chronic kidney disease ([facility]); Primary hypertension; Raised prostate specific antigen; Encounter for preventive health examination 02/25/2025 Telephone [facility] [address] [place] [address] Mary Jo Chau MD Notes 02/25/2025 Travel 02/24/2025 Telephone [facility] [address] [place] [address] Mary Jo Chau MD Carlos A. recall 02/21/2025 11:00 AM EDT Clinical Support [facility] [address] [place] [address] Torie Mccormack, WAYLON Other chronic pain (Primary Dx); Long-term current use of opiate analgesic 02/21/2025 Telephone [facility] [address] [place] [address] Torie Mccormack, WAYLON 02/21/2025 Travel 02/21/2025 Telephone [facility] [address] [place] [address] Mary Jo Chau MD chartprep 02/17/2025 Travel 02/17/2025 Refill [facility] [address] [place] [address] Tressa Hosikns MD Other chronic pain 02/12/2025 Patient Outreach [facility] [address] [place] [address] Mary Jo Chau MD Pre-visit Planning ([facility] unable to reach [facility]) 01/28/2025 Refill [facility] [address] [place] [address] Azael Diallo MD 01/26/2025 Refill [facility] [address] [place] [address] Tressa Hoskins MD 01/23/2025 Refill [facility] [address] [place] [address] Mary Jo Chau MD Depression, unspecified depression type 01/22/2025 Refill [facility] [address] [place] [address] Azael Diallo MD 01/15/2025 Refill [facility] [address] [place] [address] Karlie Dasilva MD Other chronic pain 01/09/2025 Orders Only GENERIC EXTERNAL DATA DEPARTMENT Provider, Generic External Data 01/07/2025 Orders Only [facility] [address] [place] [address] Osmar Berrios MD Type 2 diabetes mellitus with diabetic polyneuropathy, without long-term current use of insulin ([facility]) (Primary Dx) 01/06/2025 Telephone [facility] [address] [place] [address] Mary Jo Chau MD 01/06/2025 Telephone [facility] [address] [place] [address] Mary Jo Chau MD 12/30/2024 Refill [facility] [address] [place], [place] [phone] Azael Diallo MD 12/25/2024 Refill [facility] [address] [place] [address] Mary Jo Chau MD Depression, unspecified depression type; Type 2 diabetes mellitus with other specified complication, without long-term current use of insulin ([facility]) 12/16/2024 Refill [facility] [address] [place], [place] [phone] Reina Fritz, STEPHANIE Other chronic pain 12/12/2024 Telephone [facility] [address] [place] [address] Mary Jo Chau MD May recall 12/10/2024 10:30 AM EST Clinical Support [facility] [address] [place], [place] [phone] Torie Mccormack RN Other chronic pain 12/10/2024 Travel from Last 3 Months Immunizations Immunization Administration Dates Next Due Hep B, adult 02/25/2025,02/17/2025,11/04/2024 Influenza High-dose Quadriva lent Preservative Free 12/27/2023,08/20/2022,07/30/2021 [...] preservative free, adsorbed 03/26/2014 Tdap 10/02/2024,11/25/2010 Zoster, Recombinant 02/17/2025,11/04/2024 Zoster, live 05/17/2018 Family History Medical History [...] Sign Reading Time Taken Comments Blood Pressure 131/71 02/25/2025 1:51 PM EDT Pulse 83 02/25/2025 1:51 PM EDT Temperature 36.3 ??C (97.3 ??F) 02/25/2025 1:51 PM ED T Respiratory Rate 20 02/25/2025 1:51 PM EDT Oxygen Saturation 97% 02/25/2025 1:51 PM EDT Inhaled Oxygen Concentration - - Weight 69.2 kg (152 lb 9.6 oz) 02/25/2025 1:51 P M EDT Height 167.6 cm (5' 6 ) 02/25/2025 1:51 PM EDT Body Mass Index 24.63 02/25/2025 1:51 PM EDT Plan of Treatment Upcoming Encounters Date Type Department Care Team (Late st Contact Info) Description 03/19/2025 3:00 PM EDT Medication Management [address] [address] 03/28/2025 3:00 PM EDT Clinical Support [address] [address] 04/30/2025 2:00 PM EDT Office Visit [address] [address] Mary Jo Chau MD [address] [place] [address] 05/23/2025 11:00 AM EDT Clinical Support [address] [address] Torie Mccormack, WAYLON [address] [place] [address] Health Maintenance Due Date Last Done Comments CT Colonography 1951 Colonoscopy 1951 FIT 1951 FOBT 1951 Sigmoidoscopy 1951 Diabetes: Foot Exam 1961 Eye Exam 1961 Dental Oral Exam 12/16/2021 06/14/2021, 03/2019, 02/19/2018, Additional history exists Dental Prophylaxis 12/16/2021 06/14/2021, 1 11/03/2018, 02/12/2019, Additional history exists Dental X-Ray: Bitewings 06/15/2022 06/14/2021, 11/25 Dental X-Ray: Full Mouth 06/15/2024 06/14/2021, 02/12/2016 COVID-19 Vaccine ( season) 2025 09/11/2024, 11/04/2022, 05/24/2022, Additional history exists Hepatitis B Vaccines (3 of 3 - 19+ 3-dose series) 05/04/2025 02/25/2025, 02/17/2025, 11/04/2024 Diabetes: Hemoglobin A1C 05/19/2025 025, 10/09/2024, 10/02/2024, Additional history exists SDOH Screening 09/04/2025 09/04/2024 Alcohol/Substance Use Screening 09/11/2025 09/11/2024 Depression Screening 09/11/2025 09/11/2024, 09/11/20 Diabetes: Urine Protein Screening 10/09/2025 10/09/2024, 05/06/2020 Lipid Panel 10/09/2025 10/09/2024, 0810/2023, 05/24/2022, Additional history exists Tobacco Screening 02/25/2026 02/25/2025 Colorectal Cancer Screening 01/16/2027 FIT DNA/Cologuard 01/16/2027 01/17/2024 DTaP/Tdap/Td Vaccines (4 - Td or Tdap) 10/02/2034 10/02/2024, 03/26/2014, 11/25/2010, Additional history exists Influenza Vaccine Completed 09/11/2024, , 08/20/2022, Additional history exists Pneumococcal Vaccine: 50+ Years Completed 09/11/2024, 07/30/2021, 05/07/2018, Additional history exists RSV Patients and Patients Aged 60 years or older Completed 09/20/2024 Hepatitis C Screening Completed 10/09/2024 Zoster Vaccines Completed 02/17/2025, 10/23, 05/17/2018 HIB Vaccines Aged Out No longer eligi [...] patient's age to complete this topic Meningococcal B Vaccine Aged Out No l onger eligible based on patient's age to complete [...] Comments POCT JOHNNY-14 URINE DRUG SCREEN Routine 02/21/2025 11:02 AM EDT Long-term current use of opiate analgesic Other chronic pain POCT GLYCATED HEMOGLOBIN, TOTAL Routine 02/17/2025 3:06 PM EDT Type 2 diabetes mellitus with diabetic polyneuropathy, without long-term current use of insulin ([facility]) PSA, FREE AND TOTAL Routine 01/09/2025 9 :32 AM EDT PSA, TOTAL WITH REFLEX TO PSA, FREE Routine 01/09/2025 7:44 AM EDT POCT JOHNNY-14 URINE DRUG SCREEN Routine 12/10/2024 10:24 AM EST Other chronic pain HEPATITIS C AB W/REFL TO HCV RNA, QN, PCR Routine 10/09/2024 8:01 AM EST Annual physical exam ALBUMIN, RANDOM URINE W/CREATININE Routine 10/09/2024 8:01 AM EST Annual physical exam LIPID PANEL, STANDARD Routine 10/09/2024 8:01 AM EST Annual physical exam LAB COLOGUARD?? COLON CANCER SCREEN Routine 01/17/2024 6:32 AM EDT Colon cancer screening PROPHYLAXIS - ADULT Routine 06/14/2021 1 2:00 AM EDT INTRAORAL - COMPLETE SERIES OF RADIOGRAPHIC IMAGES Routine 06/14/2021 12:00 AM EDT PERIODIC ORAL EVALUATION - ESTABLISHED PATIENT Routine 06/14/2021 12:00 AM EDT from Last 3 Months or Most Recently Relevant to Health Maintenance Results * POCT JOHNNY-14 Urine Drug Screen (02/21/2025 11:02 AM EDT) Only the most recent of2 resultswithin the time period is included. Opiate Screen, Urine Positive Urine Urine specimen obtained by clean catch procedure / Unknown 02/21/2025 11:02 AM EDT Narrative Torie Mccormack RN - 02/21/2025 11:02 AM EDT .UTOX cup Lot#[id number] Exp. 06/11/26 Internal Pass Control Mary Jo Richards MD POINT OF CARE JULI T ENTER/EDIT ORDERABLES Final Result * (ABNORMAL) POCT A1C (02/17/2025 3:06 PM EDT) Hemoglobin A1C 9.5(A) 4.0 - 6.0 % QC Media Lot # [id number] Lot# Expiration Date Blood 02/17/2025 3:06 PM EDT Blanquita Stewart MD POINT OF CARE TEST ENTER/ED IT ORDERABLES Final Result * (ABNORMAL) PSA, Free and Total (01/09/2025 9:32 AM EDT) PSA, Total 4.7(A) < OR = 4.0 ng/mL [facility] PSA % Free 19(A) >25 % (calc) [facility] Comment: PSA(ng/mL) ?Free PSA(%) ? Estimated(x) Probability ? of Cancer(as%)0-2.5 ?(*) ? Approx. 12.6-4.0(1) ? 0-27(2) ? 24(3)4.1-10(4) ?0-10 ?56 ? 11-15 ? 28 ? 16-20 ? 20 ? 21-25 ? 16 ? >or =26 ? 8>10(+) ? N/A ?>50References:(1)Danica et al.:Urology 60: 469-474 (2002) ? (2)Danica et al.:J.Urol 168: 922-925 (2002) ?Free PSA(%) ?? Sensitivity(%) ??Specificity(%) ?< or = 25 ?85 ?19 ?< or = 30 ?93 ? 9 ? (3)Danica et al.:YARELI 277: 3998-9786 (1996) ? (4)Danica et al.:YARELI 279: 6332-0176 (1997)(x)These estimates vary with age, ethnicity, family ?? history and RALPH results.(*)The diagnostic usefulness of % Free PSA has not been ?? established in patients with total PSA below 2.6 ng/mL(+)In men with PSA above 10 ng/mL, prostate cancer risk is ?? determined by total PSA alone.The Total PSA value from this assay system isstandardized against the equimolar PSA standard.The test result will be approximately 20% higherwhen compared to the WHO-standardized Total PSA(Siemens assay). Comparison of serial PSA resultsshould be interpreted with this fact in mind.PSA was performed using the Sandra CoulterImmunoassay method. Values obtained from differentassay methods cannot be used interchangeably. PSAlevels, regardless of value, should not be interpretedas absolute evidence of the presence or absence ofdisease.THIS TEST WAS PERFORMED AT:[employer] [place] [address] ??[id number] PERRY MD PSA, Free 0.9 ng/mL [facility] 01/09/2025 9:32 AM EDT 01/09/2025 9:32 AM EDT us Generic External Data Provider LAB BLOOD ORDERAB LES Final Result [facility] [address] [place] [address] [phone] * (ABNORMAL) PSA, Total With Reflex to PSA, Free (01/09/2025 7:44 AM EDT) PSA,Total (Free>4and<10) 4.41(H) 0.00 - 4.00 ng/mL [facility] Comment:PSA methodology: Abb loco Alicornellty i ChemiluminescentMicroparticle Immunoassay (CMIA) 01/09/2025 7:44 AM EDT 01/09/2025 7:44 AM EDT Generic External Data Provider LAB BLOOD ORDERAB LES Final Result Performing Organization Address [facility] Co de Phone Number [facility] [address] [place] [phone] * (ABNORMAL) Albumin, Random Urine W/Creatinine (10/09/2024 8:01 AM EST) Creatinine, Urine 52.33 mg/dL [facility] Microalbumin Urine 103.0 mg/L [facility] Microalbum Creatinine Ratio Ur 196.8(H) <30 ug/mg cr [facility] Comment:Albumin/Creatinine R atio Reference Ranges: Normal: < 30 ug/mg creatinine Microalbuminuria: 30 - 300 ug/mg creatinineClinical Albuminuria: > 300 ug/mg creatinine Urine (Urine, Random) 10/09/2024 8:01 AM EST 10/09/2024 11:40 AM EST us Mary Jo Richards MD LAB URINE ORDERAB LES Final Result Performing Organization Address [facility] Co de Phone Number [facility] [address] [place] [phone] * Hepatitis C Antibody with Reflex to HCV, RNA, Quantitative, Real-Time PCR (10/09/2024 8:01 AM EST) Hepatitis C Antibody Nonreactive Nonreactive [facility] Comment:Antibodies to HCV no t detected; does not exclude early acuteHCV infection. Blood Venous blood specimen / Unknown 10/09/2024 8:01 AM EST 10/09/2024 11:51 AM EST us Mary Jo Richards MD LAB BLOOD ORDERAB LES Final Result Performing Organization Address [facility] Co de Phone Number [facility] [address] [place] [address] [phone] * Lipid Panel, Standard (10/09/2024 8:01 AM EST) Triglycerides 115 <150 mg/dL [facility] Comment:Desirable Triglyceri de: less than 150 mg/dLBorderline High Triglyceride 150-199 mg/dLHigh Triglyceride: 200-499 mg/dLVery High Triglyceride: greater than or equal to 5OO mg/dL Cholesterol 157 <200 mg/dL [facility] Comment:Desirable Cholestero l: less than 200 mg/dLBorderline High Cholesterol: 200-239 mg/dLHigh Cholesterol: greater than 239 mg/dL LDL Cholesterol Calculated 79 <100 mg/dL [facility] Comment:Desirable LDL: less than 100 mg/dLNear Optimal/Above Optimal LDL: 110- 129 mg/dLBorderline High LDL: 130-159 mg/dLHigh LDL: 160-189 mg/dLVery High LDL: greater than or equal to 190 mg/dL HDL Cholesterol 55 >40 mg/dL [facility] Comment:Desirable HDL: great er than 40 mg/dL Note: This HDL assay may give artificially low results in patients with liver disease. Blood Venous blood specimen / Unknown 10/09/2024 8:01 AM EST 10/09/2024 11:51 AM EST Mary Jo Richards MD LAB BLOOD ORDERAB LES Final Result Performing Organization Address City/[facility]/ZIP Co de Phone Number [facility] [address] [place] [address] [phone] * Cologuard?? colon cancer screening (01/17/2024 6:32 AM EDT) Cologuard Result Negative Negative 01/24/20 9:47 AM EDT [facility] (CLIA #:[id number]) Comment: NEGATIVE TEST RESULT. A negative Cologuard [...] cancer. ??Following a negative Cologuard result, the [place] [employer] and U.S. Multi-Society Task Force screening guidelines recommend a Cologuard re-screening interval of 3 years. References: [employer] Guideline for Colorectal Cancer Screening: https://www.cancer.org/cancer/tivho-grmudy-fhbglw/erucbuvdz-nqwocxuyp-spgweoz/ac s-rec ommendations.html.; Randy DK, Timothy CR, Stephon SadlerK, Colorectal Cancer Screening: Recommendations for Physicians and Patients from the U.S. Multi-Society Task Force on Colorectal Cancer Screening , Am J Gastroenterology 2017; 112:1194-4234. TEST DESCRIPTION: Composite algorithmic analysis of stool [...] (Angie Navarro al, N Engl J Med 2014;370(14):9985-7219.) Cologuard may produce a false negative or false positive result (no colorectal cancer or precancerous polyp present at colonoscopy follow up). A negative Cologuard test result does not guarantee the absence of CRC or advanced adenoma (pre-cancer). The current Cologuard screening interval is every 3 years. ([employer] and U.S. Multi-Society Task Force). Cologuard performance data in a 10,000 patient pivotal study using colonoscopy as the reference method can be accessed at the following location: www.Totsy.Check/results. Additional description of the Cologuard test process, warnings and precautions can be found at www.Blykoguard.com. Stool specimen (specimen) 01/17/2024 6:32 AM EDT 01/19/2024 2:11 PM EDT Mary Jo Lim MD LAB MOLECULAR DIAGNOS TICS ORDERABLES Final Result [facility] (CLIA #:[id number]) [place] [address], from Last 3 Months or Most Recently Relevant to Health Maintenance Insurance [facility] OPT[employer] (O D-SNP) [facility] Care Teams Clerical Associate Relationship Specialty Start Date End Date Mary Jo Chau MD [address] [place] [address] PCP - General Internal Medicine 08/01/23 Adore Iraheta PharmD [address] [place], [place] Pharmacist Internal Medicine 11/04/24
--- OUTSIDE RECORDS SUMMARY | 2025-03-06 08:46 | XMS_ITS | Encounter Summary ---
Author Organization [employer] Address [address] [facility] [address] [place] [address] Care Team Providers Care Grief Counsellor Name Role Phone Mary Jo Chau MD Primary Care Pro vider Adore Iraheta PharmD Unavailable [phone] Reason for Visit * Reason Comments Med Refill Encounter Details Date Type Department Care Team ([facility] st Contact Info) Description 01/28/2025 Refill [facility] [address] [place] [address] Azael Dilalo MD [address] [place] [address] Social History Tobacco Use Types Packs/Day Years [...] Description 03/19/2025 3:00 PM EDT Medication Management [address] [address] 03/28/2025 3:00 PM EDT Clinical Support [address] [address] 04/30/2025 2:00 PM EDT Office Visit [address] [address] Mary Jo Chau MD [address] [place] [phone] 05/23/2025 11:00 AM EDT Clinical Support [address] [address] Torie Mccormack RN [address] [place] [phone] documented as of this encounter Visit Diagnoses Not on filedocumented in this encounter Additional Health Concerns Assessment Noted Time PHQ-9 Depression Total Score: 10 024 2:12 PM EST documented as of this encounter Care Teams Grief Counsellor Relationship Specialty Start Date End Date Mary Jo Chau MD [address] [place], [place] [phone] PCP - General Internal Medicine 08/01/23 Adore Iraheta PharmD [address] [place], [place] [phone] Pharmacist Internal Medicine 11/04/24 documented as of this encounter
--- OUTSIDE RECORDS SUMMARY | 2025-03-06 08:46 | XMS_ITS | Encounter Summary ---
Author Organization [employer] Address [address] [place] [phone] Care Team Providers Care Fermenter Operator Name Role Phone Mary Jo Chau MD Primary Care Pro vider Adore Iraheta PharmD Unavailable [phone] Reason for Visit * Reason Comments Med Change Request Encounter Details Date Type Department Care Team (Late st Contact Info) Description 04/27/2024 Refill [facility] [address] [place] [address] Mary Jo Chau MD [address] [place] [address] Depression, unspecified depression type Social History Tobacco [...] Description 03/19/2025 3:00 PM EDT Medication Management [address] [address] 03/28/2025 3:00 PM EDT Clinical Support [address] [address] 04/30/2025 2:00 PM EDT Office Visit [address] [address] Mary Jo Chau MD [address] [place] [address] 05/23/2025 11:00 AM EDT Clinical Support [address] [address] Torie Mccormack RN [address] [place] [address] documented as of this encounter Visit Diagnoses Diagnosis Depression, unspecified depression type documented in this encounter Additional Health Concerns Assessment Noted Time PHQ-9 Depression Total Score: 9 01/08/20 24 3:15 PM EDT documented as of this encounter Care Teams Fermenter Operator Relationship Specialty Start Date End Date Mary Jo Chau MD [address] [place] [phone] PCP - General Internal Medicine 08/01/23 Adore Iraheta PharmD [address] [place] [phone] Pharmacist Internal Medicine 11/04/24 documented as of this encounter
[2025-03-06 11:58] LABS: Anion Gap 16 (12-20); Blood Urea Nitrogen 19 mg/dL (9-16); Calcium 9.7 mg/dL (8.4-10.2); Carbon Dioxide 26 mmol/L (22-29); Chloride 102 mmol/L (96-108); Estimated Glomerular Filt Rate 51; Glucose Random 181 mg/dL (60-115); Potassium 4.4 mmol/L (3.3-5.1); Sodium 140 mmol/L (135-145)
== END 2025-03-06 08:27 | disposition home or self-care (01) ==
LOC: HO.HHCL 08:26
PROVIDERS: Visit Provider Student in an Organized Health Care Education/Training Program
DX: E11.42 Type 2 diabetes mellitus with diabetic polyneuropathy (principal)
CPT/HCPCS: 36415; 80048

== ENCOUNTER 2025-04-22 08:02 | Outpatient (REF) | payer OTHER, SELFPAY ==
[2025-04-22 11:53] LABS: Hematocrit 37.9 % (42.0-52.0); Hemoglobin 13.1 g/dl (14.0-18.0); Mean Corpuscular HGB Conc 34.6 g/dl (31.0-36.0); Mean Corpuscular Hemoglobin 29.6 pg (27.0-33.0); Mean Corpuscular Volume 85.6 fL (80.0-98.0); NRBC Abs Auto 0.000 X10*3/uL (0.0-0.012); NRBC Pct Auto 0.0 /100WBC (0.0-0.2); Platelet Count 237 X10*3/uL (160-400); Red Blood Count 4.43 X10*6/uL (4.60-5.80); White Blood Count 5.9 X10*3/uL (4.8-10.8)
[2025-04-22 12:22] LABS: Anion Gap 15 (12-20); Blood Urea Nitrogen 21 mg/dL (9-16); Calcium 9.8 mg/dL (8.4-10.2); Carbon Dioxide 27 mmol/L (22-29); Chloride 103 mmol/L (96-108); Estimated Glomerular Filt Rate 56; Potassium 4.8 mmol/L (3.3-5.1); Sodium 140 mmol/L (135-145)
[2025-04-22 12:24] LABS: Anion Gap 14 (12-20); Blood Urea Nitrogen 21 mg/dL (9-16); Calcium 9.7 mg/dL (8.4-10.2); Carbon Dioxide 26 mmol/L (22-29); Chloride 104 mmol/L (96-108); Estimated Glomerular Filt Rate 56; Potassium 4.8 mmol/L (3.3-5.1); Sodium 139 mmol/L (135-145)
[2025-04-22 12:42] LABS: PSA,Total (Free>4and<10) 5.50 ng/mL (0.00-4.00)
[2025-04-23 18:09] LABS: Free Prostate Spec Ag 1.0 ng/mL; Percent Free Prostate Spec Ag 20 % (calc) (>25)
== END 2025-04-22 08:03 | disposition home or self-care (01) ==
LOC: HO.HHCL 08:02
PROVIDERS: Nurse Practitioner Family; Student in an Organized Health Care Education/Training Program; Visit Provider Internal Medicine Hypertension Specialist
DX: N18.9 Chronic kidney disease, unspecified (principal); N18.31 Chronic kidney disease, stage 3a; N41.9 Inflammatory disease of prostate, unspecified; R97.20 Elevated prostate specific antigen [PSA]; N40.0 Benign prostatic hyperplasia without lower urinary tract symptoms
CPT/HCPCS: 36415; 80048; 84153; 84154; 85027

== ENCOUNTER 2025-04-23 13:27 | Outpatient (AMB) | payer OTHER, SELFPAY ==
[2025-04-23 13:30] VITALS: BP 92/52; PULSE 78; O2SAT 95; BMI 22.4
--- NOTE | 2025-04-23 13:30 | HO.NEPHOV ---
Vital Signs 04/23/25 13:30 Height 5 ft 6 in Weight 139 lb BMI 22.4 BP 92/52 L Blood Pressure Location Lt brachial Position Sitting Pulse 78 Pulse Source Pulse Oximeter Pulse Oximetry (%) 95 Oxygen Delivery Method Room Air Intake Visit Reasons: 4mon follow-up w-labs-LVM Loadmaster Required: No Loadmaster Services: Loadmaster Offered & Declined (ENGINEERING PRODUCTION LIAISON will translate) Accompanied by: ENGINEERING PRODUCTION LIAISON Allergies No Known Allergies Allergy (Verified 04/23/25 13:32) Medication List - Last Reconciled 04/23/25 by Rinku Groves MD acetaminophen-codeine 300-60 mg 1 tab PO Q8H PRN amlodipine 5 mg PO DAILY aspirin 1 tab PO DAILY atorvastatin 1 tab PO BEDTIME blood sugar diagnostic (FreeStyle Lite Strips) As directed cholecalciferol (vitamin D3) (Vitamin D3) 1 cap PO DAILY cyanocobalamin (vitamin B-12) 1 tab PO BEDTIME docusate sodium 100 mg PO BID duloxetine 1 cap PO DAILY empagliflozin (Jardiance) 10 mg PO DAILY famotidine 20 mg PO DAILY ferrous sulfate 325 mg PO DAILY finasteride 5 mg PO DAILY 90 days glipizide ER 5 mg PO DAILY hydroxyzine HCl mg PO BID lisinopril 2.5 mg PO QAM loratadine 1 tab PO DAILY memantine 1 tab PO BID pregabalin 150 mg PO BID repaglinide 0.5 mg PO TID sennosides (senna) 2 tabs PO DAILY PRN sertraline 1 tab PO DAILY sitagliptin phosphate (Januvia) 25 mg PO DAILY tamsulosin 0.4 mg PO DAILY 90 days tirzepatide (Mounjaro) mg subcut QWEEK triamcinolone acetonide 0.1% 0.1 appl topical BID HPI Comments Details: 73-year-old man with a history of longstanding diabetes mellitus for more than 30 years along with hypertension has been referred for chronic kidney disease. Recent serum creatinine was 1.4 mg/dL. He was accompanied by his family. Today he has no specific complaints today. Overall blood sugar has been suboptimal. Recent hemoglobin A1c was 10.4. Blood pressure has been well controlled. He is compliant with all his medications he is on RAAS inhibition as well as SGLT2 inhibitors. History of obstructive sleep apnea but he does not use CPAP 12/25/24 Overall doing ok No urinary complaints Post prandial glucose is high- was 311 yesterday. Admits to eating rice and Pasta 04/23/25 The patient is a 74-year-old male presenting with CKD , hypertension management and medication review. The patient has been on lisinopril 2.5 mg, which was recently added to his regimen. The blood pressure was noted to be low, prompting consideration to stop amlodipine. The patient is scheduled to see a urologist on the , and a follow-up with the primary care physician is planned for later in the month. The current medication regimen includes Jardiance and metformin, with recent changes involving the addition of Mounjaro. [facility] Medical History History of hepatitis as a child Diabetic nephropathy Osteoarthritis Obstructive sleep apnea BPH (benign prostatic hyperplasia) Depression Diabetes Hypercholesteremia HTN (hypertension) Normocytic anemia Surgical History History of prostate biopsy Family History Father Diabetes Social History Household Members: Spouse and Significant Other Housing: House Are you a primary care analyst to a significant other at home: No Do you presently have visiting nurse or other home services: No Alcohol intake: former Patient Tobacco Use Status: Never used Tobacco service: Yes Current occupational status: retired Physical Exam Vital Signs: BMI result Body Mass Index 22.4 Const General: comfortable; No acute distress Orientation/consciousness: patient oriented x3 Eyes General: appearance normal, both eyes and all related structures Visual Vicente: normal visual vicente by confrontation Neck Neck: Yes supple and Yes no JVD Resp Effort & Inspection: normal respiratory effort and respiratory effort not decreased Cardio Palpation: no palpable S3 and no palpable S4 Heart sounds: no rubs GI Inspection: Yes normal to inspection Palpation (GI): Soft to palpation Percussion: Yes normal to percussion Auscultation: normal bowel sounds General: Yes no CVA tenderness Back/Spine/Pelvis Back: no CVA tenderness Skin General skin exam: no petechiae and no purpura Neuro General: patient oriented x3 and no focal motor deficits Extrem General: No clubbing and No edema Results Reviewed Nephrology Results: Hgb, (14.0-18.0) 13.1 g/dl L 04/22/25 WBC, (4.8-10.8) 5.9 X10*3/uL 04/22/25 Plt Count, (160-400) 237 X10*3/uL 04/22/25 Sodium, (135-145) 139 mmol/L 04/22/25 Potassium, (3.3-5.1) 4.8 mmol/L 04/22/25 Chloride, (96-108) 104 mmol/L 04/22/25 Carbon Dioxide, (22-29) 26 mmol/L 04/22/25 BUN, (9-16) 21 mg/dL H 04/22/25 Creatinine, (0.5-1.4) 1.27 mg/dL 04/22/25 Calcium, (8.4-10.2) 9.7 mg/dL 04/22/25 Urine Creatinine 52.33 mg/dL 10/09/24 Renal US 07/17/24 Assessment & Plan Assessment & Plan (1) CKD (chronic kidney disease): Code(s): N18.9 - Chronic kidney disease, unspecified Category: Medical Plan 74-year-old man with stage 3 chronic kidney disease most likely due to underlying diabetic hypertensive kidney disease. No evidence of obstruction based on renal ultrasonogram No evidence of any active glomerular nephritis or interstitial disease at this time. All serologies has been essentially negative. Marginal improvement in EGFR At present creatinein is at 1.4 and this is his baseline Goal is to slow the progression of renal disease. maintain blood pressure less than 130/80. Maintain A1c less than 7%. Should cut back on carbs Continue to avoid nephrotoxic agents including NSAIDs. Agree with maximizing RAAS inhibition and SGLT2 inhibitors. Encouraged him to increase p.o. fluid intake. 04/23/25 BP is LOW stop Amlodipine Watch BP and if needed ,can increase Lisinopril Orders: Orders Complete Blood Count no Diff 5 Months N18.9 - Chronic kidney disease, unspecified Basic Metabolic Panel 5 Months N18.9 - Chronic kidney disease, unspecified Coding Level of Care Code Est Pt Level 4 (91166) Diagnoses CKD (chronic kidney disease) N18.9
== END 2025-04-23 13:41 | disposition home or self-care (01) ==
LOC: HO.HKAM 13:27
PROVIDERS: Visit Provider Internal Medicine Hypertension Specialist
DX: N18.9 Chronic kidney disease, unspecified (principal)
CPT/HCPCS: 99214

== ENCOUNTER → 2025-04-23 13:27 | Outpatient (BNVA) | payer OTHER, SELFPAY | PROVIDERS: Visit Provider Internal Medicine Hypertension Specialist | DX: E11.9 Type 2 diabetes mellitus without complications (principal); I10 Essential (primary) hypertension; N18.9 Chronic kidney disease, unspecified | CPT/HCPCS: 99212 ==

== ENCOUNTER 2025-05-05 08:53 | Outpatient (REF) | payer OTHER, SELFPAY ==
--- OUTSIDE RECORDS SUMMARY | 2025-05-05 09:04 | XMS_ITS | Clinical Summary ---
Author Organization [employer] Address [address] [place] [address] 7[address] [place] [address] Care Team Providers Care Fruit Preserver Name Role Phone Mary Jo Chau MD Primary Care Pro vider Adore Iraheta PharmD Unavailable [phone] Allergies Active Allergy Reactions Criticality Noted Date Comments Lisinopril 06/08/2020 Other reaction(s): Hyperkalemia Medications cholecalciferol VITAMIN D (Vitamin D-3) 50 MCG (1999) capsuleIndication s:Vitamin D deficiency TOME 1 CAPSULA POR VIA ORAL TODOS LOS [place] 90 capsule 024 Active aspirin (Aspirin Low Dose) 81 MG chewable tabletIndications :Type 2 diabetes mellitus with other specified complication, without long-term current use of insulin ([facility]) CHEW 1 TABLET BY MOUTH EVERY DAY 90 tablet 1 024 Active Reguloid 0.52 g capsuleIndication s:Constipation, unspecified constipation type TAKE 2-3 C PSULA POR V A ORAL TODOS LOS D CUANDO SEA NECESARIO 270 capsule 1 024 Active Blood Glucose Monitoring Suppl (FreeStyle Lite) w/Device kit 1 each Use as directed. 1 kit 025 Active TRUEplus Lancets 33G misc Use to [...] Rx. 30 tablet 11 025 2025 Active glipiZIDE XL (Glucotrol XL) 5 MG 24 hr tabletIndications :Type 2 diabetes mellitus with other specified complication, without long-term current use of insulin ([facility]) TAKE 1 TABLET BY MOUTH EVERY DAY WITH BREAKFAST 90 tablet Active atorvastatin (Lipitor) 80 MG tablet TAKE 1 TABLET BY MOUTH BY MOUTH AT BEDTIME 90 tablet 1 Active empagliflozin-met FORMIN (Synjardy) 12.5-1000 MGIndications:Typ e 2 diabetes mellitus with diabetic polyneuropathy, without long-term current use of insulin ([facility]) Take 1 tablet by mouth 2 times daily. 60 tablet 11 025 2025 Active Tirzepatide (Mounjaro) 5 MG/0.5ML solution auto-injectorIndi cations:Type 2 diabetes mellitus with diabetic polyneuropathy, without long-term current use of insulin ([facility]) Inject 5 mg under the skin 1 (one) time per week. 2 mL 3 Active cyanocobalamin (Vitamin B-12) 500 MCG tablet Take 1 tablet (500 mcg) by mouth Once per day. 90 tablet 025 2025 Active loratadine (Claritin) 10 MG tablet TAKE 1 TABLET BY MOUTH EVERY MORNING 90 tablet Active memantine (Namenda) 10 MG tabletIndications :Depression, unspecified depression type TAKE 1 TABLET BY MOUTH TWICE A DAY 180 tablet Active pregabalin (Lyrica) 150 MG capsuleIndication s:Neuropathy Take 1 capsule (150 mg) by mouth 2 times daily. 60 capsule 2 025 2025 Active finasteride (Proscar) 5 MG tablet Take 1 tablet by mouth Once per day. 025 Active acetaminophen-cod eine (Tylenol w/ Codeine #4) 300-60 MG tabletIndications :Other chronic pain TAKE 1 TABLET BY MOUTH EVERY 8 HOURS NEEDED FOR MODERATE PAIN 56 tablet 025 Active famotidine (Pepcid) 20 MG tablet TAKE 1 TABLET BY MOUTH EVERY DAY 90 tablet 025 Active glucose blood (FREESTYLE LITE) test strip USE TO TEST BLOOD SUGAR DAILY 50 strip 025 Active DULoxetine (Cymbalta) [address] capsuleIndication s:Depression, unspecified depression type TAKE 1 CAPSULE BY MOUTH AT BEDTIME 90 capsule 025 Active sertraline (Zoloft) 100 MG tabletIndications :Depressive disorder TAKE 1 TABLET BY MOUTH EVERY DAY 90 tablet 025 Active lisinopril 2.5 MG tablet Take 1 tablet (2.5 mg) by mouth Once per day. 30 tablet 2 025 Active lidocaine (Lidoderm) 5 % patchIndications: Knee pain, unspecified chronicity, unspecified laterality APPLY 1 PATCH EVERY MORNING REMOVE AND DISARD PATCH WITHIN 12 HOURS OR as INSTRUCTED BY 30 patch 2 025 Active melatonin 5 MG tablet Take 1 tablet (5 mg) by mouth at bedtime. 90 tablet 1 025 Active pregabalin (Lyrica) 150 MG capsule TOME MARYA C PSULA DOS VECES AL D A FOR 30 DAYS 023 2024 Discontinued(R eorder (will not trigger notification to Pharmacy)) ferrous sulfate 325 (65 Fe) MG tablet TOME MARYA TABLETA TODOS LOS D FOR ANEMIA 022 2024 Discontinued(O ther) glucose blood (FREESTYLE LITE) test strip USE 1 STRIP TO SKIN ROUTE EVERY DAY 50 strip 11 024 2024 Discontinued DULoxetine (Cymbalta) [address] capsuleIndication s:Depression, unspecified depression type TAKE 1 CAPSULE BY MOUTH EVERY DAY 90 capsule 1 024 2024 Discontinued lidocaine (Lidoderm) 5 % patchIndications: Diabetic polyneuropathy associated with type 2 diabetes mellitus (CMS/HCC) APPLY 1 PATCH EVERY MORNING REMOVE AND DISARD PATCH WITHIN 12 HOURS OR as INSTRUCTED BY 30 patch 2 024 2024 Discontinued(R eorder (will not trigger notification to Pharmacy)) sertraline (Zoloft) 100 MG tabletIndications :Depressive disorder TAKE 1 TABLET BY MOUTH EVERY DAY 90 tablet 024 2024 Discontinued(R eorder (will not trigger notification to Pharmacy)) famotidine (Pepcid) 20 MG tablet TAKE 1 TABLET BY MOUTH EVERY DAY 90 tablet 025 2024 Discontinued hydrOXYzine HCl (Atarax) 10 MG tabletIndications :Depression, unspecified depression type TAKE 1 TO 2 TABLETS BY MOUTH EVERY TWELVE HOURS NEEDED FOR ANXIETY 30 tablet 025 2024 Discontinued(O ther) amLODIPine (Norvasc) 5 MG tablet TAKE 1 TABLET BY MOUTH EVERY DAY 90 tablet 1 025 2024 Discontinued(O ther) Tirzepatide (Mounjaro) 2.5 MG/0.5ML solution auto-injectorIndi cations:Type 2 diabetes mellitus with diabetic polyneuropathy, without long-term current use of insulin ([facility]) Inject 2.5 mg under the skin 1 (one) time per week. 2 mL 025 2024 Discontinued(M ed list cleanup (will not trigger notification to Pharmacy)) acetaminophen-cod eine (Tylenol w/ Codeine #4) 300-60 MG tabletIndications :Other chronic pain TAKE 1 TABLET BY MOUTH EVERY 8 HOURS NEEDED FOR MODERATE PAIN 56 tablet 025 2024 Discontinued lisinopril 2.5 MG tablet TAKE 1 TABLET BY MOUTH ONCE DAILY 30 tablet 025 2024 Discontinued(R eorder (will not trigger notification to Pharmacy)) Active Problems Problem Noted Date Diagnosed Date [...] Encounters Date Type Department Care Team Description 04/30/2025 2:00 PM EDT Office Visit [facility] [address] [place] [id number] Mary Jo Chau MD Knee pain, unspecified chronicity, unspecified laterality (Primary Dx); Diabetic polyneuropathy associated with type 2 diabetes mellitus ([facility]); Hyperlipidemia, unspecified hyperlipidemia type; Primary hypertension; Type 2 diabetes mellitus with diabetic polyneuropathy, without long-term current use of insulin ([facility]) 04/30/2025 Travel 04/29/2025 Telephone [facility] [address] [place] [address] Mary Jo Chau MD CHART PREP 04/28/2025 Refill [facility] [address] [place] [address] Mary Jo Chau MD Depressive disorder 04/21/2025 Refill [facility] [address] [place] [address] Adore Iraheta, Lorenzo 04/21/2025 Refill [facility] [address] [place] [address] Mary Jo Chau MD Other chronic pain; Depression, unspecified depression type 04/09/2025 Travel 04/08/2025 Orders Only [facility] [address] [place] [id number] Mary Jo Chau MD Neuropathy (Primary Dx) 04/08/2025 Refill [facility] [address] [place] [address] Mary Jo Chau MD Type 2 diabetes mellitus with diabetic polyneuropathy ([facility]) 03/31/2025 Refill [facility] [address] [place] [address] Azael Diallo MD Depression, unspecified depression type; Depressive disorder; Type 2 diabetes mellitus with other specified complication, without long-term current use of insulin ([facility]) 03/31/2025 Refill [facility] [address] [place] [address] Tressa Hoskins MD Depression, unspecified depression type 03/31/2025 Refill [facility] [place] [address] Mary Jo Chau MD 03/28/2025 3:00 PM EDT Clinical Support [facility] [place] [address] Carole Mccann RN Encounter for immunization 03/28/2025 Travel 03/20/2025 Refill [facility] [address] [place] [address] Karlie Dasilva MD Other chronic pain 03/19/2025 Travel 03/06/2025 Orders Only [address] [place] [address] Mary Jo Chau MD Stage 3a chronic kidney disease (CMS/HCC) (Primary Dx) 03/06/2025 Results Follow-Up [facility] [place] [address] Mary Jo Chau MD Basic Metabolic Panel 02/25/2025 2:15 PM EDT Office Visit [facility] [place] [address] Mary Jo Chau MD Type 2 diabetes mellitus with diabetic polyneuropathy, without long-term current use of insulin ([facility]) (Primary Dx); Encounter for immunization; Chronic alcoholism in remission (CMS/HCC); Stage 3a chronic kidney disease (CMS/HCC); Primary hypertension; Raised prostate specific antigen; Encounter for preventive health examination 02/25/2025 Telephone [facility] [place] [address] Mary Jo Chau MD Notes 02/25/2025 Travel 02/24/2025 Telephone [facility] [place] [address] Mary Jo Chau MD Carlos A. recall 02/21/2025 11:00 AM EDT Clinical Support [facility] [place] [address] Torie Mccormack RN Other chronic pain (Primary Dx); Long-term current use of opiate analgesic 02/21/2025 Telephone [facility] [address] [place] [address] Torie Mccormack RN 02/21/2025 Travel 02/21/2025 Telephone [facility] [address] [place] [address] Mary Jo Chau MD chartprep 02/17/2025 Travel 02/17/2025 Refill [facility] [address] [place] [address] Tressa Hoskins MD Other chronic pain 02/12/2025 Patient Outreach [facility] [address] [place] [address] Mary Jo Chau MD Pre-visit Planning ([facility] unable to reach [facility]) from Last 3 Months Immunizations Immunization Administration Dates Next Due Hep B, adult 03/28/2025,,02/17/2025,11/04 Influenza High-dose Quadriva lent Preservative Free 12/27/2023,08/20/2022,07/30/2021 [...] Answer Date Recorded Patient Health Questionnaire-9 Score 0 04/30/2025 Patient Health Questionnaire-9 Score 0 04/30/2025 Last PHQ-9: Questionnaire Data Not on file 0 04/30/2025 Housing Stability Answer Date Recorded What is [...] Answer Date Recorded Patient Health Questionnaire-2 Score 0 04/30/2025 Internet Access Answer Date Recorded Internet Access [...] Sign Reading Time Taken Comments Blood Pressure 100/46 04/30/2025 2:07 PM EDT Pulse 80 04/30/2025 2:07 PM EDT Temperature 36.2 C (97.1 F) 04/30/2025 2:07 PM EDT Respiratory Rate 18 04/30/2025 2:07 PM EDT Oxygen Saturation 98% 04/30/2025 2:07 PM EDT Inhaled Oxygen Concentration - - Weight 66.5 kg (146 lb 9.6 oz) 04/30/2025 2:07 P M EDT Height 167.6 cm (5' 6 ) 04/30/2025 2:07 PM EDT Body Mass Index 23.66 04/30/2025 2:07 PM EDT Plan of Treatment Upcoming Encounters Date Type Department Care Team (Late st Contact Info) Description 05/05/2025 2:30 PM EDT Medication Management [facility] [address] [place] [phone] Adore Iraheta, PharmD [address] [place] [phone] 05/23/2025 11:00 AM EDT Clinical Support [address] [address] Torie Mccormack, RN [address] [place] [address] 08/28/2025 3:00 PM EST Immunization [facility] [address] [place] [phone] Health Maintenance Due Date Last Done Comments [...] 2025 09/11/2024, 11/04/2022, 05/24/2022, Additional history exists Diabetes: Hemoglobin A1C 05/19/2025 025, 10/09/2024, 10/02/2024, Additional history exists Hepatitis B Vaccines (3 of 3 - 19+ 3-dose series) 05/23/2025 03/28/2025, 02/25/2025, 02/17/2025, Additional history exists Influenza Vaccine (#1) 2025 , 12/27/2023, 08/20/2022, Additional history exists SDOH Screening 09/04/2025 09/04/2024 Alcohol/Substance Use Screening 09/11/2025 09/11/2024 Diabetes: Urine Protein Screening 10/09/2025 10/09/2024, 05/06/2020 Lipid Panel 10/09/2025 10/09/2024, 05/24, 05/24/2022, Additional history exists Depression Screening 04/30/2026 04/30/2025, 04/30/20 Tobacco Screening 04/30/2026 04/30/2025 Colorectal Cancer Screening 01/16/2027 FIT DNA/Cologuard 01/16/2027 01/17/2024 DTaP/Tdap/Td Vaccines (4 - Td or Tdap) 10/02/2034 10/02/2024, 03/26/2014, 11/25/2010, Additional history exists Pneumococcal Vaccine: 50+ Years [...] Associated Diagnosis Comments BASIC METABOLIC PANEL Routine 04/22/2025 8:09 AM EDT Stage 3a chronic kidney disease (CMS/HCC) BASIC METABOLIC PANEL Routine 03/06/2025 8:28 AM EDT Type 2 diabetes mellitus with diabetic polyneuropathy, without long-term current use of insulin (CMS/HCC) POCT JOHNNY-14 URINE DRUG SCREEN Routine 02/21/2025 11:02 AM EDT Long-term current use of opiate analgesic Other chronic pain POCT GLYCATED HEMOGLOBIN, TOTAL Routine 02/17/2025 3:06 PM EDT Type 2 diabetes mellitus with diabetic polyneuropathy, without long-term current use of insulin (CMS/HCC) HEPATITIS C AB W/REFL TO HCV RNA, QN, PCR Routine 10/09/2024 8:01 AM EST Annual physical exam ALBUMIN, RANDOM URINE W/CREATININE Routine 10/09/2024 8:01 AM EST Annual physical exam LIPID PANEL, STANDARD Routine 10/09/2024 8:01 AM EST Annual physical exam LAB COLOGUARD COLON CANCER SCREEN Routine 01/17/2024 6:32 AM EDT Colon cancer screening PROPHYLAXIS - ADULT Routine 06/14/2021 1 2:00 AM EDT INTRAORAL - COMPLETE SERIES OF RADIOGRAPHIC IMAGES Routine 06/14/2021 12:00 AM EDT PERIODIC ORAL EVALUATION - ESTABLISHED PATIENT Routine 06/14/2021 12:00 AM EDT from Last 3 Months or Most Recently Relevant to Health Maintenance Results * (ABNORMAL) Basic Metabolic Panel (04/22/2025 8:09 AM EDT) Only the most recent of2 resultswithin the time period is included. Sodium 140 135 - 145 mmol/L [facility] Potassium 4.8 3.3 - 5.1 mmol/L [facility] Chloride 103 96 - 108 mmol/L [facility] Carbon Dioxide 27 22 - 29 mmol/L [facility] Anion Gap 15 12 - 20 [facility] Urea Nitrogen (BUN) 21(H) 9 - 16 mg/dL [facility] Creatinine, Serum 1.26 0.5 - 1.4 mg/dL [facility] Estimated Glomerular Filt Rate 56 [facility] Comment:Chronic Kidney Disea se: Estimated GFR < 60 mL/min/1.16h7Iuyrum Kidney Disease: Estimated GFR < 15 mL/min/1.73m2 Glucose 109 60 - 115 mg/dL [facility] Calcium 9.8 8.4 - 10.2 mg/dL [facility] Blood Venous blood specimen / Unknown 04/22/2025 8:09 AM EDT 04/22/2025 11:38 AM EDT us Mary Jo Richards MD LAB BLOOD ORDERAB LES Final Result [facility] [address] [place] [address] [phone] * POCT JOHNNY-14 Urine Drug Screen (02/21/2025 11:02 AM EDT) Opiate Screen, Urine Positive Urine Urine specimen obtained by clean catch procedure / Unknown 02/21/2025 11:02 AM EDT Narrative Torie Mccormack RN - 02/21/2025 11:02 AM EDT .UTOX cup Lot#[id number] Exp. 06/11/26 Internal Pass Control Mary Jo Richards MD POINT OF CARE JULI T ENTER/EDIT ORDERABLES Final Result * (ABNORMAL) POCT A1C (02/17/2025 3:06 PM EDT) Pathologist [facility] Hemoglobin A1C 9.5(A) 4.0 - 6.0 % QC Media Lot # [id number] Lot# Expiration Date Blood 02/17/2025 3:06 PM EDT Blanquita Stewart MD POINT OF CARE TEST ENTER/ED IT ORDERABLES Final Result * (ABNORMAL) Albumin, Random Urine W/Creatinine (10/09/2024 8:01 AM EST) Pathologist [facility] Creatinine, Urine 52.33 mg/dL [facility] Microalbumin Urine 103.0 mg/L [facility] Microalbum Creatinine Ratio Ur 196.8(H) <30 ug/mg cr [facility] Comment:Albumin/Creatinine R atio Reference Ranges: Normal: < 30 ug/mg creatinine Microalbuminuria: 30 - 300 ug/mg creatinineClinical Albuminuria: > 300 ug/mg creatinine Urine (Urine, Random) 10/09/2024 8:01 AM EST 10/09/2024 11:40 AM EST Mary Jo Richards MD LAB URINE ORDERAB LES Final Result [facility] [address] [place] [address] [phone] * Hepatitis C Antibody with Reflex to HCV, RNA, Quantitative, Real-Time PCR (10/09/2024 8:01 AM EST) Pathologist [facility] Hepatitis C Antibody Nonreactive Nonreactive [facility] Comment:Antibodies to HCV no t detected; does not exclude early acuteHCV infection. Blood Venous blood specimen / Unknown 10/09/2024 8:01 AM EST 10/09/2024 11:51 AM EST Mary Jo Richards MD LAB BLOOD ORDERAB LES Final Result Performing Organization Address City/[facility]/ZIP Co de Phone Number [facility] [address] [place] [address] [phone] * Lipid Panel, Standard (10/09/2024 8:01 AM EST) Triglycerides 115 <150 mg/dL [facility] Comment:Desirable Triglyceri de: less than 150 mg/dLBorderline High Triglyceride 150-199 mg/dLHigh Triglyceride: 200-499 mg/dLVery High Triglyceride: greater than or equal to 5OO mg/dL Cholesterol 157 <200 mg/dL [facility] Comment:Desirable Cholestero l: less than 200 mg/dLBorderline High Cholesterol: 200-239 mg/dLHigh Cholesterol: greater than 239 mg/dL LDL Cholesterol Calculated 79 <100 mg/dL [facility] Comment:Desirable LDL: less than 100 mg/dLNear Optimal/Above Optimal LDL: 110- 129 mg/dLBorderline High LDL: 130-159 mg/dLHigh LDL: 160-189 mg/dLVery High LDL: greater than or equal to 190 mg/dL HDL Cholesterol 55 >40 mg/dL [facility] Comment:Desirable HDL: great er than 40 mg/dL Note: This HDL assay may give artificially low results in patients with liver disease. Blood Venous blood specimen / Unknown 10/09/2024 8:01 AM EST 10/09/2024 11:51 AM EST Mary Jo Richards MD LAB BLOOD ORDERAB LES Final Result Performing Organization Address City/[facility]/ZIP Co de Phone Number [facility] [address] [place] [address] [phone] * Cologuard?? colon cancer screening (01/17/2024 6:32 AM EDT) Cologuard Result Negative Negative 01/24/20 9:47 AM EDT [facility] (CLIA #:[id number]) Comment: NEGATIVE TEST RESULT. A negative Cologuard result indicates a low likelihood that a colorectal cancer (CRC) or advanced adenoma (adenomatous polyps with more advanced pre-malignant features) is present. The chance that a person with a negative Cologuard test has a colorectal cancer is less than 1 in 1500 (negative predictive value >99.9%) or has an advanced adenoma is less than 5.3% (negative predictive value 94.7%). These data are based on a prospective cross-sectional study of 10,000 individuals at average risk for colorectal cancer who were screened with both Cologuard and colonoscopy. (Angie Navarro al, N Engl J Med 2014;370(14):6988-4118) The normal value (reference range) for this assay is negative. COLOGUARD RE-SCREENING RECOMMENDATION: Periodic colorectal cancer screening is an important part of preventive healthcare for asymptomatic individuals at average risk for colorectal cancer. Following a negative Cologuard result, the [place] [employer] and U.S. Multi-Society Task Force screening guidelines recommend a Cologuard re-screening interval of 3 years. References: [place] [employer] Guideline for Colorectal Cancer Screening: https://www.cancer.org/cancer/adrwu-xapydg-riezcl/yzbpmrkkl-ltkjnlqaa-vndfvja/ac s-rec ommendations.html.; Randy DK, Timothy SILVA, Stephon SadlerK, Colorectal Cancer Screening: Recommendations for Physicians and Patients from the U.S. Multi-Society Task Force on Colorectal Cancer Screening , Am J Gastroenterology 2017; 112:2426-8976. TEST DESCRIPTION: Composite algorithmic analysis of stool DNA-biomarkers with hemoglobin immunoassay. Quantitative values of individual biomarkers are not [...] Dumont et al, N Engl J Med 2014;370(14):3221-4851.) Cologuard may produce a false negative or false positive result (no colorectal cancer or precancerous polyp present at colonoscopy follow up). A negative Cologuard test result does not guarantee the absence of CRC or advanced adenoma (pre-cancer). The current Cologuard screening interval is every 3 years. ([place] [employer] and U.S. Multi-Society Task Force). Cologuard performance data in a 10,000 patient pivotal study using colonoscopy as the reference method can be accessed at the following location: www.Toppr/results. Additional description of the Cologuard test process, warnings and precautions can be found at [email or web address] [email or web address].[email or web address]. Stool specimen (specimen) 01/17/2024 6:32 AM EDT 01/19/2024 2:11 PM EDT Mary Jo Lim MD LAB MOLECULAR DIAGNOS TICS ORDERABLES Final Result [facility] (CLIA #:[id number]) [place] [address], from Last 3 Months or Most Recently Relevant to Health Maintenance Insurance [facility] RETIREMENT OPTIONS (HMO D-SNP) DENTAL [facility] Care Teams Fruit Preserver Relationship Specialty Start Date End Date Mary Jo Chau MD [address] [place] [address] PCP - General Internal Medicine 08/01/23 Adore Iraheta PharmD [address] [place], [place] Pharmacist Internal Medicine 11/04/24
[2025-05-05 09:15] LABS: Hemoglobin A1C 189.8063 umol/L; Total Hemoglobin (HGBA1C) 3342.8006 umol/L
[2025-05-05 09:35] LABS: Alanine Aminotransferase 32 U/L (0-40); Albumin Level 4.3 g/dL (3.5-5.0); Alkaline Phosphatase 81 U/L (39-117); Anion Gap 14 (12-20); Aspartate Amino Transferase 39 U/L (5-37); Blood Urea Nitrogen 15 mg/dL (9-16); Calcium 9.6 mg/dL (8.4-10.2); Carbon Dioxide 27 mmol/L (22-29); Chloride 107 mmol/L (96-108); Cholesterol 131 mg/dL (<200); Estimated Glomerular Filt Rate 49; HDL Cholesterol 44 mg/dL (>40); Potassium 5.5 mmol/L (3.3-5.1); Sodium 142 mmol/L (135-145); Total Protein 7.2 g/dL (6.5-8.0); Triglycerides 85 mg/dL (<150)
[2025-05-05 10:19] LABS: Folate 13.9 ng/mL (> or = 4.0); Vitamin B12 1153 pg/mL (200-900)
[2025-05-05 11:25] LABS: Microalbum/Creatinine Ratio Ur 47.3 ug/mg cr (<30)
== END 2025-05-05 08:54 | disposition home or self-care (01) ==
LOC: HO.LAB 08:53
PROVIDERS: PCP Student in an Organized Health Care Education/Training Program; Visit Provider Student in an Organized Health Care Education/Training Program
DX: E11.42 Type 2 diabetes mellitus with diabetic polyneuropathy (principal)
CPT/HCPCS: 36415; 80053; 80061; 82043; 82570; 82607; 82746; 83036

== ENCOUNTER 2025-05-09 15:10 | Outpatient (REF) | payer OTHER, SELFPAY ==
--- OUTSIDE RECORDS SUMMARY | 2025-05-09 15:13 | XMS_ITS | Clinical Summary ---
Author Organization [employer] Address [address] [place] [address] [address] [place] [address] Care Team Providers Care Buffet Runner Name Role Phone Mary Jo Chau MD Primary Care Pro vider Adore Iraheta PharmD Unavailable [phone] Allergies Active Allergy Reactions Criticality Noted Date Comments Lisinopril 06/08/2020 Other reaction(s): Hyperkalemia Medications cholecalciferol VITAMIN D (Vitamin D-3) 50 MCG (1999) capsuleIndication s:Vitamin D deficiency TOME 1 CAPSULA POR VIA ORAL [place] 90 capsule 024 Active aspirin (Aspirin Low Dose) 81 MG chewable tabletIndications :Type 2 diabetes mellitus with other specified complication, without long-term current use of insulin ([facility]) CHEW 1 TABLET BY MOUTH EVERY [...] Rx. 30 tablet 11 025 2025 Active atorvastatin (Lipitor) 80 MG tablet TAKE 1 TABLET BY MOUTH BY MOUTH AT BEDTIME 90 tablet 1 Active empagliflozin-met FORMIN (Synjardy) 12.5-1000 MGIndications:Typ e 2 diabetes mellitus with diabetic polyneuropathy, without long-term current use of insulin ([facility]) Take 1 tablet by mouth 2 times daily. 60 tablet 11 025 2025 Active Tirzepatide (Mounjaro) 5 MG/0.5ML solution auto-injectorIndi cations:Type 2 diabetes mellitus with diabetic polyneuropathy, without long-term current use of insulin ([facility]) Inject 5 mg under the skin [...] 1 tablet by mouth Once per day. Active acetaminophen-cod eine (Tylenol w/ Codeine #4) 300-60 MG tabletIndications :Other chronic pain TAKE 1 TABLET BY MOUTH EVERY 8 HOURS NEEDED FOR MODERATE PAIN 56 tablet Active famotidine (Pepcid) 20 MG tablet TAKE 1 TABLET BY MOUTH EVERY DAY 90 tablet Active glucose blood (FREESTYLE LITE) test strip USE TO TEST BLOOD SUGAR DAILY 50 strip 06/30/2 025 Active DULoxetine (Cymbalta) [address] capsuleIndication s:Depression, unspecified depression type TAKE 1 CAPSULE BY MOUTH AT BEDTIME 90 capsule 025 Active sertraline (Zoloft) 100 MG tabletIndications :Depressive disorder TAKE 1 TABLET BY MOUTH EVERY DAY 90 tablet Active lidocaine (Lidoderm) 5 % patchIndications: Knee pain, unspecified chronicity, unspecified laterality APPLY 1 PATCH EVERY MORNING REMOVE AND DISARD PATCH WITHIN 12 HOURS OR as INSTRUCTED BY 30 patch 2 Active melatonin 5 MG tablet Take 1 tablet (5 mg) by mouth at bedtime. 90 tablet 1 Active tamsulosin (Flomax) 0.4 MG 24 hr capsule Take 0.4 mg by mouth in the morning. Active amLODIPine (Norvasc) 2.5 MG tablet Take 1 tablet (2.5 mg) by mouth Once per day. 90 tablet 025 2025 Active ferrous sulfate 325 (65 Fe) MG tablet TOME MARYA COLE Pineda FOR ANEMIA 022 2024 Discontinued(O ther) glucose [...] eorder (will not trigger notification to Pharmacy)) glipiZIDE XL (Glucotrol XL) 5 MG 24 hr tabletIndications :Type 2 diabetes mellitus with other specified complication, without long-term current use of insulin ([facility]) TAKE 1 TABLET BY MOUTH EVERY DAY WITH BREAKFAST 90 tablet 025 2024 Discontinued(A lternate therapy) famotidine (Pepcid) 20 MG tablet TAKE 1 [...] 90 tablet 1 025 2024 Discontinued(O ther) acetaminophen-cod eine (Tylenol w/ Codeine #4) 300-60 MG tabletIndications :Other chronic pain TAKE 1 TABLET BY MOUTH EVERY 8 HOURS NEEDED FOR MODERATE PAIN 56 tablet 025 2024 Discontinued lisinopril 2.5 MG tablet TAKE 1 TABLET BY MOUTH ONCE DAILY 30 tablet 025 2024 Discontinued(R eorder (will not trigger notification to Pharmacy)) lisinopril 2.5 MG tablet Take 1 tablet (2.5 mg) by mouth Once per day. 30 tablet 2 025 2024 Discontinued(O ther) amLODIPine (Norvasc) 5 MG tablet TAKE 1 TABLET BY MOUTH EVERY DAY 90 tablet 025 2024 Discontinued sodium polystyrene sulfonate (Kayexalate) powder Take 15 g by mouth 1 (one) time for 1 dose. 15 g 025 2024 amLODIPine (Norvasc) 2.5 MG tablet Take 2 tablets (5 mg) by mouth Once per day. 90 tablet 025 2024 Discontinued(R eorder (will not [...] Encounters Date Type Department Care Team Description 05/05/2025 Orders Only [facility] [address] [place] [address] Mary Jo Chau MD 05/05/2025 Orders Only [facility] [address] [facility] [place] [address] Mary Jo Chau MD 05/05/2025 Results Follow-Up [facility] [address] [place] [address] Mary Jo Chau MD Albumin, Random Urine W/Creatinine, Comprehensive Metabolic Panel, Hemoglobin A1c, Additional followed-up results: 2 05/05/2025 Orders Only [facility] [address] [facility] [place] [address] Mary Jo Chau MD Hyperkalemia (Primary Dx) 05/05/2025 Travel 04/30/2025 2:00 PM EDT Office Visit [address] [address] Mary Jo Chau MD Knee pain, unspecified chronicity, unspecified laterality (Primary Dx); Diabetic polyneuropathy associated with type 2 diabetes mellitus ([facility]); Hyperlipidemia, unspecified hyperlipidemia type; Primary hypertension; Type 2 diabetes mellitus with diabetic polyneuropathy, without long-term current use of insulin ([facility]/HCC) 04/30/2025 Travel 04/29/2025 Telephone [facility] [address] [facility] [place] [address] Mary Jo Chau MD CHART PREP 04/28/2025 Refill [facility] [address] [place], [place] [phone] Mary Jo Chau MD Depressive disorder 04/21/2025 Telephone [facility] [address] [place] [phone] Adore Iraheta PharmD Med Refill 04/21/2025 Refill [facility] [address] [place] [address] Mary Jo Chau MD Other chronic pain; Depression, unspecified depression type 04/09/2025 Travel 04/08/2025 Orders Only [facility] [address] [place] [phone] Mary Jo Chau MD Neuropathy (Primary Dx) 04/08/2025 Refill [facility] [address] [place] [phone] Mary Jo Chau MD Type 2 diabetes mellitus with diabetic polyneuropathy ([facility]) 03/31/2025 Refill [facility] [address] [place] [address] Azael Diallo MD Depression, unspecified depression type; Depressive disorder; Type 2 diabetes mellitus with other specified complication, without long-term current use of insulin ([facility]) 03/31/2025 Refill [facility] [address] [place] [address] Tressa Hoskins MD Depression, unspecified depression type 03/31/2025 Refill [facility] [address] [place] [phone] Mary Jo Chau MD 03/28/2025 3:00 PM EDT Clinical Support [facility] [address] [place] [phone] Carole Mccann, WAYLON Encounter for immunization 03/28/2025 Travel 03/20/2025 Refill [facility] [address] [place] [address] Karlie Dasilva MD Other chronic pain 03/19/2025 Travel 03/06/2025 Orders Only [facility] [address] [place] [phone] Mary Jo Chau MD Stage 3a chronic kidney disease (CMS/HCC) (Primary Dx) 03/06/2025 Results Follow-Up [facility] [place] [address] Mary Jo Chau MD Basic Metabolic Panel 02/25/2025 2:15 PM EDT Office Visit [facility] [place] [address] Mary Jo Chau MD Type 2 diabetes mellitus with diabetic polyneuropathy, without long-term current use of insulin (CMS/HCC) (Primary Dx); Encounter for immunization; Chronic alcoholism in remission (CMS/HCC); Stage 3a chronic kidney disease (CMS/HCC); Primary hypertension; Raised prostate specific antigen; Encounter for preventive health examination 02/25/2025 Telephone [facility] [place] [address] Mary Jo Chau MD Notes 02/25/2025 Travel 02/24/[address] [address] Mary Jo Chau MD [facility]. recall 02/21/2025 11:00 AM EDT Clinical Support [facility] [place] [address] Torie Mccormack RN Other chronic pain (Primary Dx); Long-term current use of opiate analgesic 02/21/2025 Telephone [facility] [address] [place] [address] Torie Mccormack RN 02/21/2025 Travel 02/21/[address] [address] Mary Jo Chau MD chartprep 02/17/2025 Travel 02/17/2025 Refill [facility] [address] [place] [address] Tressa Hoskins MD Other chronic pain 02/12/2025 Patient Outreach [facility] [address] [place] [address] Mary Jo Chau MD Pre-visit Planning ([facility] unable to reach [facility]) from Last 3 Months Immunizations Immunization [...] Sign Reading Time Taken Comments Blood Pressure 96/52 05/06/2025 11:35 PM EDT Pulse 79 05/06/2025 11:35 PM EDT Temperature 36.2 C (97.1 F) [...] Care Team (Late st Contact Info) Description 05/13/2025 3:30 PM EDT Clinical Support [address] [address] 05/23/2025 11:00 AM EDT Clinical Support [address] [address] Torie Mccormack, RN [address] [place] [address] 06/30/2025 2:00 PM EDT Medication Management [address] [address] Adore Iraheta, PharmD [address] [place] [phone] 08/28/2025 3:00 PM EST Immunization [address] [address] Health Maintenance Due Date Last Done Comments [...] 2025 , 12/27/2023, 08/20/2022, Additional history exists Diabetes: Hemoglobin A1C 08/05/2025 025, 02/17/2025, 10/09/2024, Additional history exists SDOH Screening 09/04/2025 09/04/2024 Alcohol/Substance Use Screening 09/11/2025 09/11/2024 Depression Screening 04/30/2026 04/30/2025, 04/30/20 Diabetes: Urine Protein Screening 05/05/2026 05/05/2025, 10/09/2024, 05/06/2020 Lipid Panel 05/05/2026 05/05/2025, 09/22, 06/12/2024, Additional history exists Tobacco Screening 05/06/2026 05/06/2025 Colorectal Cancer Screening 01/16/2027 FIT DNA/Cologuard 01/16/2027 [...] Procedure Name Priority Date/Time Associated Diagnosis Comments LIPID PANEL, STANDARD Routine 05/05/2025 9:02 AM EDT Diabetic polyneuropathy associated with type 2 diabetes mellitus (CMS/HCC) VITAMIN B12/FOLATE, SERUM PANEL Routine 05/05/2025 9:02 AM EDT Diabetic polyneuropathy associated with type 2 diabetes mellitus (CMS/HCC) HEMOGLOBIN A1C Routine 05/05/2025 9:02 AM EDT Diabetic polyneuropathy associated with type 2 diabetes mellitus (CMS/HCC) COMPREHENSIVE METABOLIC PANEL Routine 05/05/2025 9:02 AM EDT Diabetic polyneuropathy associated with type 2 diabetes mellitus (CMS/HCC) ALBUMIN, RANDOM URINE W/CREATININE Routine 05/05/2025 8:59 AM EDT Diabetic polyneuropathy associated with type 2 diabetes mellitus (CMS/HCC) BASIC METABOLIC PANEL Routine 04/22/2025 8:09 AM [...] Relevant to Health Maintenance Results * (ABNORMAL) Vitamin B12 (Cobalamin) and Folate Panel, Serum (05/05/2025 9:02 AM EDT) Vitamin B12 1,153(H) 200 - 900 pg/mL [facility] Comment:NORMAL 200-900 PG/ML INDETERMINATE 160-199 PG/ML DEFICIENT < 160 PG/ML Folate 13.9 > or = 4.0 ng/mL [facility] Comment:Reference Values:> o r = 4.0 ng/mL< 4.0 ng/mL suggests folate deficiency Methotrexate, aminopterin and folinic acid(leucovorin) are chemotherapeutic agents whose molecularstructures are similar to folate; therefore, the Architectfolate assay cannot be used for patients using these drugs. Blood 05/05/2025 9:02 AM EDT 05/05/2025 9:02 AM EDT us Mary Jo Richards MD LAB BLOOD ORDERAB LES Final Result [facility] [address] [place] [phone] * (ABNORMAL) Hemoglobin A1c (05/05/2025 9:02 AM EDT) Hemoglobin A1c 7.3(H) <6.0 % [facility] Comment:Hemoglobin A1C Refer ence Range Adults: 4.8 - 6.0 % Non diabetic: < 6.0 % Goal: < 7.0 %Additional Action Suggested: > 8.0 %Note: Hemoglobin A1c results are invalid for patients with abnormal amounts of HbF. Blood transfusions may impact the HbA1c concentration in the patient sample. Estimated Average Glucose 163 mg/dL [facility] Comment:eAG = Estimated ave rage glucose which is %A1C expressed asaverage glucose, using the formula of the N0K-BnoxknmTutygaw Glucose study (ADAG), Diabetes Care, Vol.31,#8,Aug. 2007 Blood Venous blood specimen / Unknown 05/05/2025 9:02 AM EDT 05/05/2025 9:02 AM EDT Mary Jo Richards MD LAB BLOOD ORDERAB LES Final Result Performing Organization Address [facility] Co de Phone Number [facility] [address] [place] [phone] * Lipid Panel, Standard (05/05/2025 9:02 AM EDT) Triglycerides 85 <150 mg/dL [facility] Comment:Desirable Triglyceri de: less than 150 mg/dLBorderline High Triglyceride 150-199 mg/dLHigh Triglyceride: 200-499 mg/dLVery High Triglyceride: greater than or equal to 5OO mg/dL Cholesterol 131 <200 mg/dL [facility] Comment:Desirable Cholestero l: less than 200 mg/dLBorderline High Cholesterol: 200-239 mg/dLHigh Cholesterol: greater than 239 mg/dL LDL Cholesterol Calculated 70 <100 mg/dL [facility] Comment:Desirable LDL: less than 100 mg/dLNear Optimal/Above Optimal LDL: 110- 129 mg/dLBorderline High LDL: 130-159 mg/dLHigh LDL: 160-189 mg/dLVery High LDL: greater than or equal to 190 mg/dL HDL Cholesterol 44 >40 mg/dL [facility] Comment:Desirable HDL: great er than 40 mg/dL Note: This HDL assay may give artificially low results in patients with liver disease. Blood Venous blood specimen / Unknown 05/05/2025 9:02 AM EDT 05/05/2025 9:02 AM EDT us Mary Jo Richards MD LAB BLOOD ORDERAB LES Final Result Performing Organization Address City/[facility]/ZIP Co de Phone Number [facility] [address] [place] [address] [phone] * (ABNORMAL) Comprehensive Metabolic Panel (05/05/2025 9:02 AM EDT) Sodium 142 135 - 145 mmol/L [facility] Potassium 5.5(H) 3.3 - 5.1 mmol/L [facility] Chloride 107 96 - 108 mmol/L [facility] Carbon Dioxide 27 22 - 29 mmol/L [facility] Anion Gap 14 12 - 20 [facility] Urea Nitrogen (BUN) 15 9 - 16 mg/dL [facility] Creatinine, Serum 1.41(H) 0.5 - 1.4 mg/dL [facility] Estimated Glomerular Filt Rate 49 [facility] Comment:Chronic Kidney Disea se: Estimated GFR < 60 mL/min/1.93v4Mxhrjq Kidney Disease: Estimated GFR < 15 mL/min/1.73m2 Glucose 120(H) 60 - 115 mg/dL [facility] Calcium 9.6 8.4 - 10.2 mg/dL [facility] Bilirubin, Total 0.4 0.0 - 1.0 mg/dL [facility] Aspartate Amino Transferase 39(H) 5 - 37 U/L [facility] Alanine Aminotransferase 32 0 - 40 U/L [facility] Total Protein 7.2 6.5 - 8.0 g/dL [facility] Albumin Level 4.3 3.5 - 5.0 g/dL [facility] Alkaline Phosphatase 81 39 - 117 U/L [facility] Blood Venous blood specimen / Unknown 05/05/2025 9:02 AM EDT 05/05/2025 9:02 AM EDT us Mary Jo Richards MD LAB BLOOD ORDERAB LES Final Result [facility] [address] [place] [phone] [phone] * (ABNORMAL) Albumin, Random Urine W/Creatinine (05/05/2025 8:59 AM EDT) Creatinine, Urine 50.65 mg/dL [facility] Microalbumin Urine 24.0 mg/L H [facility] Microalbum Creatinine Ratio Ur 47.3(H) <30 ug/mg cr [facility] Comment:Albumin/Creatinine R atio Reference Ranges: Normal: < 30 ug/mg creatinine Microalbuminuria: 30 - 300 ug/mg creatinineClinical Albuminuria: > 300 ug/mg creatinine Urine (Urine, Random) 05/05/2025 8:59 AM EDT 05/05/2025 10:02 AM EDT us Mary Jo Richards MD LAB URINE ORDERAB LES Final Result Performing Organization Address City/[facility]/ZIP Co de Phone Number [facility] [address] [place] [phone] * (ABNORMAL) Basic Metabolic Panel (04/22/2025 8:09 AM EDT) Only the most recent of2 resultswithin the time period is included. Sodium 140 135 - 145 mmol/L [facility] Potassium 4.8 3.3 - 5.1 mmol/L [facility] Chloride 103 96 - 108 mmol/L [facility] Carbon Dioxide 27 22 - 29 mmol/L [facility] Anion Gap 15 12 - 20 [facility] Urea Nitrogen (BUN) 21(H) 9 - 16 mg/dL [facility] Creatinine, Serum 1.26 0.5 - 1.4 mg/dL [facility] Estimated Glomerular Filt Rate 56 [facility] Comment:Chronic Kidney Disea se: Estimated GFR < 60 mL/min/1.83h7Ccovuf Kidney Disease: Estimated GFR < 15 mL/min/1.73m2 Glucose 109 60 - 115 mg/dL [facility] Calcium 9.8 8.4 - 10.2 mg/dL [facility] Blood Venous blood specimen / Unknown 04/22/2025 8:09 AM EDT 04/22/2025 11:38 AM EDT Mary Jo Richards MD LAB BLOOD ORDERAB LES Final Result [facility] [address] [place] [address] [phone] * POCT [id number]-14 Urine Drug Screen (02/21/2025 11:02 AM EDT) Opiate Screen, Urine Positive Urine Urine specimen obtained by clean catch procedure / Unknown 02/21/2025 11:02 AM EDT Narrative Torie Mccormack RN - 02/21/2025 11:02 AM EDT .UTOX cup Lot#[id number] Exp. 06/11/26 Internal Pass Control Mary Jo Richards MD POINT OF CARE JULI T ENTER/EDIT ORDERABLES Final Result * (ABNORMAL) POCT A1C (02/17/2025 3:06 PM EDT) Hemoglobin A1C 9.5(A) 4.0 - 6.0 % QC Media Lot # [id number] Lot# Expiration Date Blood 02/17/2025 3:06 PM EDT Blanquita Stewart MD POINT OF CARE TEST ENTER/ED IT ORDERABLES Final Result * Hepatitis C Antibody with Reflex to HCV, RNA, Quantitative, Real-Time PCR (10/09/2024 8:01 AM EST) Pathologist [facility] Hepatitis C Antibody Nonreactive Nonreactive [facility] Comment:Antibodies to HCV no t detected; does not exclude early acuteHCV infection. Blood Venous blood specimen / Unknown 10/09/2024 8:01 AM EST 10/09/2024 11:51 AM EST Mary Jo Richards MD LAB BLOOD ORDERAB LES Final Result Performing Organization Address City/[facility]/ZIP Co de Phone Number [facility] [address] [place] [address] [phone] * Cologuard?? colon cancer screening (01/17/2024 6:32 AM EDT) Cologuard Result Negative Negative 01/24/20 9:47 AM EDT [employer] (CLIA #:[id number]) Comment: NEGATIVE TEST RESULT. A negative Cologuard [...] Dumont et al, N Engl J Med 2014;370(14):8763-6978) The normal value (reference range) for this assay is negative. COLOGUARD RE-SCREENING RECOMMENDATION: Periodic colorectal cancer screening is an important part of preventive healthcare for asymptomatic individuals at average risk for colorectal cancer. Following a negative Cologuard result, the [place] [employer] and U.S. Multi-Society Task Force screening guidelines recommend a Cologuard re-screening interval of 3 years. References: [place] [employer] Guideline for Colorectal Cancer Screening: https://www.cancer.org/cancer/jlblj-hfrgxf-kjofiq/fimhdfyym-ynrmawfbw-pzeydce/ac s-rec ommendations.html.; Randy DK, Timothy SILVA, Stephon SadlerK, Colorectal Cancer Screening: Recommendations for Physicians and Patients from the U.S. Multi-Society Task Force on Colorectal Cancer Screening , Am J Gastroenterology 2017; 112:8001-7586. TEST DESCRIPTION: Composite algorithmic analysis of stool [...] Dumont et al, N Engl J Med 2014;370(14):2798-6341.) Cologuard may produce a false negative or false positive result (no colorectal cancer or precancerous polyp present at colonoscopy follow up). A negative Cologuard test result does not guarantee the absence of CRC or advanced adenoma (pre-cancer). The current Cologuard screening interval is every 3 years. ([place] [employer] and U.S. Multi-Society Task Force). Cologuard performance data in a 10,000 patient pivotal study using colonoscopy as the reference method can be accessed at the following location: www.[employer]/results. Additional description of the Cologuard test process, warnings and precautions can be found at [email or web address]. Stool specimen (specimen) 01/17/2024 6:32 AM EDT 01/19/2024 2:11 PM EDT Mary Jo Lim MD LAB MOLECULAR DIAGNOS TICS ORDERABLES Final Result [employer] (CLIA #:[id number]) [place] [address], from Last 3 Months or Most Recently Relevant to Health Maintenance Insurance [facility] [employer] (HMO D-SNP) [facility] Care Teams Buffet Runner Relationship Specialty Start Date End Date Mary Jo Chau MD [address] [place], [place] PCP - General Internal Medicine 08/01/23 Adore Iraheta PharmD [address] [place], [place] Pharmacist Internal Medicine 11/04/24
[2025-05-09 16:13] LABS: Anion Gap 14 (12-20); Blood Urea Nitrogen 22 mg/dL (9-16); Calcium 9.7 mg/dL (8.4-10.2); Carbon Dioxide 26 mmol/L (22-29); Chloride 107 mmol/L (96-108); Estimated Glomerular Filt Rate 37; Potassium 4.7 mmol/L (3.3-5.1); Sodium 142 mmol/L (135-145)
== END 2025-05-09 15:11 | disposition home or self-care (01) ==
LOC: HO.HHCL 15:10
PROVIDERS: PCP Student in an Organized Health Care Education/Training Program; Visit Provider Student in an Organized Health Care Education/Training Program
DX: E87.5 Hyperkalemia (principal)
CPT/HCPCS: 36415; 80048

== ENCOUNTER 2025-05-15 13:18 | Outpatient (AMB) | payer OTHER, SELFPAY ==
--- NOTE | 2025-05-15 13:28 | A.OFFVIS_ITS ---
Intake Visit Reasons: 4M follow up/ PSA/PVR Intake Note: Patient is present for 4M/PSA/PVR Urology Medication:FINASTERIDE,TAMSULOSIN Antibiotic Allergy:NONE Blood Thinner:ASPIRIN TODAY'S PVR:153ML'S Wheel Alignment Technician Required: No Allergies No Known Allergies Allergy (Verified 05/15/25 14:06) Medication List - Last Reconciled 05/15/25 by ALBERTO Naik acetaminophen-codeine 300-60 mg 1 tab PO Q8H PRN aspirin 1 tab PO DAILY atorvastatin 1 tab PO BEDTIME blood sugar diagnostic (FreeStyle Lite Strips) As directed cholecalciferol (vitamin D3) (Vitamin D3) 1 cap PO DAILY cyanocobalamin (vitamin B-12) 1 tab PO BEDTIME docusate sodium 100 mg PO BID duloxetine 1 cap PO DAILY empagliflozin (Jardiance) 10 mg PO DAILY famotidine 20 mg PO DAILY ferrous sulfate 325 mg PO DAILY finasteride 5 mg PO DAILY 90 days glipizide ER 5 mg PO DAILY hydroxyzine HCl mg PO BID lisinopril 2.5 mg PO QAM loratadine 1 tab PO DAILY memantine 1 tab PO BID pregabalin 150 mg PO BID repaglinide 0.5 mg PO TID sennosides (senna) 2 tabs PO DAILY PRN sertraline 1 tab PO DAILY sitagliptin phosphate (Januvia) 25 mg PO DAILY tamsulosin 0.4 mg PO DAILY 90 days tirzepatide (Mounjaro) mg subcut QWEEK triamcinolone acetonide 0.1% 0.1 appl topical BID HPI Comments Details: Rod is a pleasant 74-year-old [place] male patient of Dr. Luis Carlos Lim. He has a past medical history of hepatitis as a child, diabetic neuropathy, osteoarthritis, obstructive sleep apnea, depression, BPH, diabetes, hypercholesteremia, and normocytic anemia. He presents to the office today for follow-up of his elevated PSA, BPH, and prostatitis. In discussion with the patient today reports to be doing and feeling well. He denies having had any bothersome urinary issues or concerns. He reports compliance with Flomax and finasteride as prescribed. Recent PSA results reviewed with the patient today. As noted and trended below. 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 He denies urinary urgency, urinary frequency, incontinence, nocturia, hematuria, dysuria, foul smelling urine, changes to urinary stream, flank pain, fever, and or chills. He is happy with his current voiding parameters on Flomax and finasteride. In office urinalysis results reviewed with the patient today. PVR 153 mL. We discussed at length potential causes of elevated PSA. We discussed further treatment options and risks and benefits of these treatment options. All questions were answered. RALPH was offered however deferred. He otherwise offers no other issues or concerns at this time. 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 [facility] Medical History History of hepatitis as a child Diabetic nephropathy Osteoarthritis Obstructive sleep apnea BPH (benign prostatic hyperplasia) Depression Diabetes Hypercholesteremia HTN (hypertension) Normocytic anemia Surgical History History of prostate biopsy Family History Father Diabetes Social History Household Members: Spouse and Significant Other Housing: House Are you a primary patient care associate to a significant other at home: No Do you presently have visiting nurse or other home services: No Alcohol intake: former Patient Tobacco Use Status: Never used Tobacco service: Yes Current occupational status: retired Review of Systems Const All systems reviewed & are unremarkable except as noted in HPI and below Physical Exam Const General: cooperative, healthy appearing, comfortable, no acute distress, well developed, alert and awake Orientation/consciousness: patient oriented x3 Limitations: no limitations HEENT Head: Yes normal to inspection, Yes normocephalic and Yes atraumatic Ears: hearing grossly normal bilaterally Eyes General: appearance normal, both eyes and all related structures Neck Neck: Yes normal visual inspection and Yes trachea midline Chest Chest palpation & inspection: normal inspection of the chest Resp Effort & Inspection: normal respiratory effort and able to speak in complete sentences Cardio Rate: regular rate GI Inspection: Yes normal to inspection General: Yes no CVA tenderness Back/Spine/Pelvis Back: no CVA tenderness Skin General skin exam: no rashes or lesions noted Neuro General: patient oriented x3 Extrem General: Yes normal to inspection Psych Appearance: grossly normal and well kempt Mental Status: mental status grossly normal Speech and movement: Normal speech and movement present and Clear speech present Affect: normal affect Attitude: cooperative Thought process: Normal thought process present Thought content: Normal thought content present Insight: Fair insight present (Psych) Judgement: Fair judgement present (Psych) Office Procedures Post Void Residual Post Residual Void Post Void Residual (PVR): 153 [id number] Void Residual by ultrasound Results AMB Urinalysis, Automated UA Leukoctes 0 Jose A/uL Last Edit by JANINE Thacekr on 05/15/25 13:40 UA Nitrite Negative Last Edit by JANINE Thacker on 05/15/25 13:40 UA Urobilinogen 0.2 mg/dL Last Edit by JANINE Thacker on 05/15/25 13:4 0 UA Protein 0 mg/dL Last Edit by Seferino Hill CCM on 05/15/25 13:40 UA pH 6.0 Last Edit by Seferino Hill CCM on 05/15/25 13:40 UA Blood 0 Ace/uL Last Edit by JANINE Thacker on 05/15/25 13:40 UA Specific Walland 1.010 Last Edit by JANINE Thacker on 05/15/25 13: 40 UA Ketone Negative Last Edit by JANINE Thacker on 05/15/25 13:40 UA Bilirubin 0 mg/dL Last Edit by Seferino Hill CCM on 05/15/25 13:40 UA Glucose 1000 mg/dL Last Edit by JANINE Thacker on 05/15/25 13:40 Results Reviewed Results Reviewed: Laboratory Last Values Urine pH (Auto) 6.0 05/15/25 13:39 Specific [place] (Auto) 1.010 05/15/25 13:39 Urine Protein (Auto) 0 mg/dL 05/15/25 13:39 Glucose (UA)(Auto) 1000 mg/dL 05/15/25 13:39 Urine Ketones (Auto) Negative 05/15/25 13:39 Urine Blood (Auto) 0 Ace/uL 05/15/25 13:39 Urine Nitrite (Auto) Negative 05/15/25 13:39 Urine Bilirubin (Auto) 0 mg/dL 05/15/25 13:39 Urine Urobilinogen (Auto) 0.2 mg/dL 05/15/25 13:39 Leukocyte Esterase (Auto) 0 Jose A/uL 05/15/25 13:39 Assessment & Plan Assessment & Plan (1) Elevated PSA: Code(s): R97.20 - Elevated prostate specific antigen [PSA] Category: Medical (2) BPH (benign prostatic hyperplasia): Code(s): N40.0 - Benign prostatic hyperplasia without lower urinary tract symptoms Category: Medical (3) Prostatitis: Code(s): N41.9 - Inflammatory disease of prostate, unspecified Category: Medical Plan In office urinalysis results reviewed with the patient today; as noted above. PVR 153 mL Recent PSA results reviewed with the patient today; as noted above. Continue Flomax and finasteride; refill provided. Patient currently denies any bothersome urinary issues or concerns. He reports be happy with current voiding parameters. We discussed potential causes of labile PSA as well as elevation in PSA over the last 4 months; we discussed further treatment options and risks and benefits of these treatment options. Will obtain MRI for further assessment evaluation. Will obtain redraw of PSA. Follow-up in 1-3 months with imaging and labs to be completed prior; or sooner with any issues, concerns, and or questions. Orders: Orders AMB Urinalysis Automated Today Z13.9 - Encounter for screening, unspecified PSA,Total (Free>4and<10) 3 Months R97.20 - Elevated prostate specific antigen [PSA] MR Prostate wo/w con Today R97.20 - Elevated prostate specific antigen [PSA] Patient Instructions: The patient had an opportunity to ask questions regarding the treatment plan. All questions were answered. Physical exam, labs, and imaging were discussed and reviewed in detail. As well as risks, benefits, and discussion of treatment choices. No major barriers to understanding were identified. The patient express ed understanding and agreement with the above treatment plan. The patient was made aware they should contact our office by phone for worsening of their current condition, the appearance of new symptoms, or with any questions or concerns. Compliance is encouraged with any medications and follow up testing that is ordered. It is a privilege to be allowed the opportunity to participate in? your urological care.? Again, if you have any questions or concerns If you have any questions or concerns please do not hesitate to contact me. The office is [phone]. This note is constructed using voice recognition software. While every effort has been made to ensure accuracy hydro station supervisor errors may have been included. Yours sincerely, ALBERTO Naik Coding Level of Care Code Est Pt Level 3 (76795) Complex EM visit Add On G2211 Diagnoses Elevated PSA R97.20 BPH (benign prostatic hyperplasia) N40.0 Prostatitis N41.9 CPT Codes Post Residual Void - PVR CPT Code: 70161-Yipp Void Residual by ultrasound ([id number])
== END 2025-05-15 14:10 | disposition home or self-care (01) ==
LOC: HO.HUSH 13:19
PROVIDERS: PCP Student in an Organized Health Care Education/Training Program; Visit Provider Nurse Practitioner Family
DX: R97.20 Elevated prostate specific antigen [PSA] (principal); N40.0 Benign prostatic hyperplasia without lower urinary tract symptoms; N41.9 Inflammatory disease of prostate, unspecified; Z13.9 Encounter for screening, unspecified
CPT/HCPCS: 99213; G2211

== ENCOUNTER → 2025-05-15 13:18 | Outpatient (BNVA) | payer OTHER, SELFPAY | PROVIDERS: PCP Student in an Organized Health Care Education/Training Program; Visit Provider Nurse Practitioner Family | DX: R97.20 Elevated prostate specific antigen [PSA] (principal); N40.0 Benign prostatic hyperplasia without lower urinary tract symptoms; N41.9 Inflammatory disease of prostate, unspecified | CPT/HCPCS: 51798; 81003; 99212 ==

== ENCOUNTER 2025-05-16 08:12 | Outpatient (REF) | payer OTHER, SELFPAY ==
[2025-05-16 11:54] LABS: Anion Gap 15 (12-20); Blood Urea Nitrogen 18 mg/dL (9-16); Calcium 9.5 mg/dL (8.4-10.2); Carbon Dioxide 27 mmol/L (22-29); Chloride 102 mmol/L (96-108); Estimated Glomerular Filt Rate 56; Potassium 4.8 mmol/L (3.3-5.1); Sodium 139 mmol/L (135-145)
== END 2025-05-16 08:13 | disposition home or self-care (01) ==
LOC: HO.HHCL 08:12
PROVIDERS: PCP Student in an Organized Health Care Education/Training Program; Visit Provider Student in an Organized Health Care Education/Training Program
DX: N17.9 Acute kidney failure, unspecified (principal)
CPT/HCPCS: 36415; 80048

== ENCOUNTER 2025-05-22 14:48 | Outpatient (AMB) | payer OTHER, SELFPAY ==
--- NOTE | 2025-05-22 14:48 | HO.NEPHOV_ITS ---
Vital Signs 05/22/25 14:49 Height 5 ft 6 in Weight 143 lb BMI 23.1 BP 94/58 L Blood Pressure Location Lt brachial Position Sitting Pulse 78 Pulse Source Pulse Oximeter Pulse Oximetry (%) 97 Oxygen Delivery Method Room Air Intake Visit Reasons: F/U - Conf Network Communications Engineer Required: No Accompanied by: Self / Same As Patient Allergies No Known Allergies Allergy (Verified 05/22/25 14:53) Medication List - Last Reconciled 05/22/25 by Rinku Groves MD acetaminophen-codeine 300-60 mg 1 tab PO Q8H PRN aspirin 1 tab PO DAILY atorvastatin 1 tab PO BEDTIME blood sugar diagnostic (FreeStyle Lite Strips) As directed cholecalciferol (vitamin D3) (Vitamin D3) 1 cap PO DAILY cyanocobalamin (vitamin B-12) 1 tab PO BEDTIME docusate sodium 100 mg PO BID duloxetine 1 cap PO DAILY empagliflozin (Jardiance) 10 mg PO DAILY famotidine 20 mg PO DAILY ferrous sulfate 325 mg PO DAILY finasteride 5 mg PO DAILY 90 days glipizide ER 5 mg PO DAILY hydroxyzine HCl mg PO BID lisinopril 2.5 mg PO QAM loratadine 1 tab PO DAILY memantine 1 tab PO BID pregabalin 150 mg PO BID repaglinide 0.5 mg PO TID sennosides (senna) 2 tabs PO DAILY PRN sertraline 1 tab PO DAILY sitagliptin phosphate (Januvia) 25 mg PO DAILY tamsulosin 0.4 mg PO DAILY 90 days tirzepatide (Mounjaro) mg subcut QWEEK triamcinolone acetonide 0.1% 0.1 appl topical BID Do you need a note to return to daycare/school/sports/work: No HPI Comments Details: 73-year-old man with a history of longstanding diabetes mellitus for more than 30 years along with hypertension has been referred for chronic kidney disease. Recent serum creatinine was 1.4 mg/dL. He was accompanied by his family. Today he has no specific complaints today. Overall blood sugar has been suboptimal. Recent hemoglobin A1c was 10.4. Blood pressure has been well controlled. He is compliant with all his medications he is on RAAS inhibition as well as SGLT2 inhibitors. History of obstructive sleep apnea but he does not use CPAP 12/25/24 Overall doing ok No urinary complaints Post prandial glucose is high- was 311 yesterday. Admits to eating rice and Pasta 04/23/25 The patient is a 74-year-old male presenting with CKD , hypertension management and medication review. The patient has been on lisinopril 2.5 mg, which was recently added to his regimen. The blood pressure was noted to be low, prompting consideration to stop amlodipine. The patient is scheduled to see a urologist on the , and a follow-up with the primary care physician is planned for later in the month. The current medication regimen includes Jardiance and metformin, with recent changes involving the addition of Mounjaro. 05/22/25 BP remains low No lightheadedness [facility] Medical History History of hepatitis as a child Diabetic nephropathy Osteoarthritis Obstructive sleep apnea BPH (benign prostatic hyperplasia) Depression Diabetes Hypercholesteremia HTN (hypertension) Normocytic anemia Surgical History History of prostate biopsy Family History Father Diabetes Social History Household Members: Spouse and Significant Other Housing: House Are you a primary career guidance counselor to a significant other at home: No Do you presently have visiting nurse or other home services: No Alcohol intake: former Patient Tobacco Use Status: Never used Tobacco service: Yes Current occupational status: retired Physical Exam Vital Signs: Last Vital Signs Pulse 78 05/22/25 14:49 BP 94/58 L 05/22/25 14:49 Pulse Ox 97 05/22/25 14:49 Oxygen Delivery Method Room Air 05/22/25 14:49 BMI result Body Mass Index 23.1 Const General: comfortable; No acute distress Orientation/consciousness: patient oriented x3 Eyes General: appearance normal, both eyes and all related structures Visual Vicente: normal visual vicente by confrontation Neck Neck: Yes supple and Yes no JVD Resp Effort & Inspection: normal respiratory effort and respiratory effort not decreased Cardio Palpation: no palpable S3 and no palpable S4 Heart sounds: no rubs GI Inspection: Yes normal to inspection Palpation (GI): Soft to palpation Percussion: Yes normal to percussion Auscultation: normal bowel sounds General: Yes no CVA tenderness Back/Spine/Pelvis Back: no CVA tenderness Skin General skin exam: no petechiae and no purpura Neuro General: patient oriented x3 and no focal motor deficits Extrem General: No clubbing and No edema Results Reviewed Nephrology Results: Hgb, (14.0-18.0) 13.1 g/dl L 04/22/25 WBC, (4.8-10.8) 5.9 X10*3/uL 04/22/25 Plt Count, (160-400) 237 X10*3/uL 04/22/25 Sodium, (135-145) 139 mmol/L 05/16/25 Potassium, (3.3-5.1) 4.8 mmol/L 05/16/25 Chloride, (96-108) 102 mmol/L 05/16/25 Carbon Dioxide, (22-29) 27 mmol/L 05/16/25 BUN, (9-16) 18 mg/dL H 05/16/25 Creatinine, (0.5-1.4) 1.26 mg/dL 05/16/25 Calcium, (8.4-10.2) 9.5 mg/dL 05/16/25 Urine Creatinine 50.65 mg/dL 05/05/25 Renal US 07/17/24 Assessment & Plan Assessment & Plan (1) CKD (chronic kidney disease): Code(s): N18.9 - Chronic kidney disease, unspecified Category: Medical Plan 74-year-old man with stage 3 chronic kidney disease most likely due to underlying diabetic hypertensive kidney disease. No evidence of obstruction based on renal ultrasonogram No evidence of any active glomerular nephritis or interstitial disease at this time. All serologies has been essentially negative. Marginal improvement in EGFR At present creatinein is at 1.4 and this is his baseline Goal is to slow the progression of renal disease. maintain blood pressure less than 130/80. Maintain A1c less than 7%. Should cut back on carbs Continue to avoid nephrotoxic agents including NSAIDs. Agree with maximizing RAAS inhibition and SGLT2 inhibitors. Encouraged him to increase p.o. fluid intake. 04/23/25 BP is LOW stop Amlodipine Watch BP and if needed ,can increase Lisinopril 05/22/25 BP remainslow and asymptomatic Cr is back to baseline No changes today Continue follow up with urology Orders: Orders Basic Metabolic Panel 4 Months N18.9 - Chronic kidney disease, unspecified Coding Level of Care Code Est Pt Level 4 (53707) Diagnoses CKD (chronic kidney disease) N18.9
[2025-05-22 14:49] VITALS: BP 94/58; PULSE 78; O2SAT 97; BMI 23.1
--- OUTSIDE RECORDS SUMMARY | 2025-05-22 14:51 | XMS_ITS | Encounter Summary ---
Author Organization [employer] Address [address] [place] [address] [place] [address] Care Team Providers Care Airplane Coverer Name Role Phone Mary Jo Chau MD Primary Care Pro vider Adore Iraheta PharmD Unavailable [phone] Reason for Visit * Reason Onset Date Comments Results 05/09/2025 Encounter Details Date Type Department Care Team ([facility] st Contact Info) Description 05/09/2025 Results Follow-Up [facility] [address] [place] [address] Mary Jo Chau MD [address] [place] [address] Basic Metabolic Panel, Basic Metabolic Panel Social History Tobacco Use Types Packs/Day Years [...] encounter Miscellaneous Notes * Telephone Encounter - Anyi Villanueva RN - 05/19/2025 9:15 AM EDT Telephone call x2 to pt's 911 EMERGENCY DISPATCHER Mary Jo (HIPAA compliant). Advised renal function and potassium normal,to continue good hydration. Caregiver verbalized understanding, no further questions. * Telephone Encounter - Anyi Villanueva RN - 05/16/2025 1:39 PM EDT Telephone call x1 to pt to advise of below result. No answer, left voicemail to call back. * Result Encounter Note - Mary Jo Richards MD - 05/16/2025 1:34 PM EDT Please inform pt and 911 EMERGENCY DISPATCHER that potassium is normal and renal function is back to normal Advised to continue good hydration Thanks * Result Encounter Note - Mary Jo Richards MD - 05/09/2025 5:01 PM EDT From repeated labs after stopped lisinopril 3 days ago I called pt and spoke w 911 EMERGENCY DISPATCHER Cr 1.82<--1.41<--1.26 , GFR 37 BUN 22 , normal K+ now from 5.5 BP 123/53 yesterday and today 138/51 Seems w elevated BUN some possible prerenal component from dehydration , previous low Bps ? -advised to improve oral hydration , now off William inh ,Denies any NSAIDS use -repeat hem in 5-7 days ordered today --if worsening result will send result to his talent acquisition director and will need to adjust meds doses documented in this encounter Plan of Treatment Upcoming Encounters Date Type Department Care Team (Late st Contact Info) Description 05/23/2025 11:00 AM EDT Clinical Support [address] [address] Torie Mccormack, RN [address] [place] [address] 06/30/2025 2:00 PM EDT Medication Management [address] [address] Adore Iraheta, NegritaD [address] [place] [phone] 07/03/2025 1:30 PM EDT Office Visit [address] [address] Mary Jo Chau MD [address] [place] [phone] 08/28/2025 3:00 PM EST Immunization [address] [id number] documented as of this encounter Procedures Procedure Name Priority Date/Time Associated Diagnosis Comments BASIC METABOLIC PANEL Routine 05/16/2025 8:40 AM EDT JUAREZ (acute kidney injury) ([facility]) documented in this encounter Results * (ABNORMAL) Basic Metabolic Panel (05/16/2025 8:40 AM EDT) Sodium 139 135 - 145 mmol/L [facility] Potassium 4.8 3.3 - 5.1 mmol/L [facility] Chloride 102 96 - 108 mmol/L [facility] Carbon Dioxide 27 22 - 29 mmol/L [facility] Anion Gap 15 12 - 20 [facility] Urea Nitrogen (BUN) 18(H) 9 - 16 mg/dL [facility] Creatinine, Serum 1.26 0.5 - 1.4 mg/dL [facility] Estimated Glomerular Filt Rate 56 [facility] Comment:Chronic Kidney Disea se: Estimated GFR < 60 mL/min/1.89w6Lrucst Kidney Disease: Estimated GFR < 15 mL/min/1.73m2 Glucose 172(H) 60 - 115 mg/dL [facility] Calcium 9.5 8.4 - 10.2 mg/dL [facility] Blood Venous blood specimen / Unknown 05/16/2025 8:40 AM EDT 05/16/2025 11:17 AM EDT Mary Jo Richards MD LAB BLOOD ORDERAB LES Final Result [facility] [address] [place] [address] [phone] documented in this encounter Visit Diagnoses Diagnosis JUAREZ (acute kidney injury) ([facility])- Primary documented in this encounter Additional Health Concerns Assessment Noted Time PHQ-9 Depression Total Score: 0 04/30/20 25 2:08 PM EDT documented as of this encounter Care Teams Airplane Coverer Relationship Specialty Start Date End Date Mary Jo Chau MD [address] [place] [address] PCP - General Internal Medicine 08/01/23 Adore Iraheta, Lorenzo [address] [place] [phone] Pharmacist Internal Medicine 11/04/24 documented as of this encounter
== END 2025-05-22 15:02 | disposition home or self-care (01) ==
LOC: HO.HKA 14:48
PROVIDERS: PCP Student in an Organized Health Care Education/Training Program; Visit Provider Internal Medicine Hypertension Specialist
DX: N18.9 Chronic kidney disease, unspecified (principal)
CPT/HCPCS: 99214

== ENCOUNTER → 2025-05-22 14:48 | Outpatient (BNVA) | payer OTHER, SELFPAY | PROVIDERS: PCP Student in an Organized Health Care Education/Training Program; Visit Provider Internal Medicine Hypertension Specialist | DX: N18.9 Chronic kidney disease, unspecified (principal) | CPT/HCPCS: 99212 ==

== ENCOUNTER 2025-06-24 11:44 | Outpatient (AMB) | payer OTHER, SELFPAY ==
--- NOTE | 2025-06-24 12:37 | MHC.OFFVIS ---
Vital Signs 06/24/25 12:37 Height 5 ft 6 in Intake Visit Reasons: PN Accompanied by: CERTIFIED OPHTHALMIC TECHNOLOGIST Allergies No Known Allergies Allergy (Verified 06/24/25 12:43) Medication List - Last Reconciled 06/24/25 by Jelly Stuart CNP acetaminophen-codeine 300-60 mg 1 tab PO Q8H PRN aspirin 1 tab PO DAILY atorvastatin 1 tab PO BEDTIME blood sugar diagnostic (FreeStyle Lite Strips) As directed cholecalciferol (vitamin D3) (Vitamin D3) 1 cap PO DAILY cyanocobalamin (vitamin B-12) 1 tab PO BEDTIME docusate sodium 100 mg PO BID duloxetine 1 cap PO DAILY empagliflozin (Jardiance) 10 mg PO DAILY famotidine 20 mg PO DAILY ferrous sulfate 325 mg PO DAILY finasteride 5 mg PO DAILY 90 days glipizide ER 5 mg PO DAILY hydroxyzine HCl mg PO BID lisinopril 2.5 mg PO QAM loratadine 1 tab PO DAILY memantine 1 tab PO BID pregabalin 150 mg PO BID repaglinide 0.5 mg PO TID sennosides (senna) 2 tabs PO DAILY PRN sertraline 1 tab PO DAILY sitagliptin phosphate (Januvia) 25 mg PO DAILY tamsulosin 0.4 mg PO DAILY 90 days tirzepatide (Mounjaro) mg subcut QWEEK triamcinolone acetonide 0.1% 0.1 appl topical BID HPI Comments Details: He returns after about 14 months. He was getting sharp, shooting pains in legs. He was having some pain to right heel when stepping on it for the last week. No specific triggers. Walking with cane, no falls. Blood sugar has been okay. Sleep was so-so. Memory was not so good and was forgetful. He could get frustrated at times because he could not recall things. Anxious at times. His PCP wanted them to ask about donepezil. He was staying busy doing crafts with his grandchildren. DPN with cccasional sharp pains that are brief in his legs from the knees down as well as sharp shooting pains in his hands. DM x 40 + yrs. He walks without a cane now. He has erectile dysfunction. In 2019, he started having problems with his short term memory and would leave his food on the stove and allow it to burn and forget about it has been better since starting Namenda 10 mg twice a day but he felt that his memory was again getting a little worse in 2021. [facility] Medical History (Updated 06/24/25 @ 13:06 by Jelly Stuart CNP) MCI (mild cognitive impairment) Anxiety and depression History of hepatitis as a child Diabetic nephropathy Osteoarthritis Obstructive sleep apnea BPH (benign prostatic hyperplasia) Depression Diabetes Hypercholesteremia HTN (hypertension) Normocytic anemia Surgical History History of prostate biopsy Family History Father Diabetes Social History Household Members: Spouse and Significant Other Housing: House Are you a primary lead caregiver to a significant other at home: No Do you presently have visiting nurse or other home services: No Alcohol intake: former Patient Tobacco Use Status: Never used Tobacco service: Yes Current occupational status: retired Review of Systems Const Denies chills, Denies daytime sleepiness, Reports difficulty sleeping, Denies fatigue, Denies fever(s), Denies frequent falls, Denies headache(s), Denies increased appetite, Denies poor appetite, Denies snoring, Denies weakness, Denies weight gain and Denies weight loss Eyes Denies loss of vision ENT Denies vertigo, Reports dizziness, Denies headache(s) and Denies neck pain Card Denies chest pain at rest, Denies chest pain with activity, Denies syncope, Denies leg edema, Denies palpitations, Denies dyspnea and Denies dyspnea on exertion Resp Denies cough, Denies dyspnea, Denies dyspnea on exertion and Denies snoring GI Denies abdominal pain, Denies constipation, Denies heartburn, Denies diarrhea and Denies nausea Denies urinary frequency, Denies urinary incontinence and Denies urinary urgency Musc Reports abnormal gait (balance difficulty), Denies back pain, Reports myalgias, Reports arthralgias, Denies neck pain, Reports numbness and Reports tingling Neuro Reports abnormal gait (balance difficulty), Denies vertigo, Reports dizziness, Denies syncope, Denies frequent falls, Denies headache(s), Denies lack of coordination, Denies loss of vision, Reports memory loss, Reports numbness, Denies Other visual disturbances, Denies restless legs, Denies seizure-like activity, Reports tingling, Denies paresthesias, Denies tremor(s) and Denies weakness Psych Reports anxiety, Reports depression, Denies auditory hallucinations, Reports memory loss and Denies visual hallucinations Endo Denies fatigue and Denies palpitations Physical Exam Const Other: General Appearance:? normal, in no acute distress. Heart:? S1, S2 normal, no murmurs. Lungs:? clear anteriorly and posteriorly. Musculoskeletal:? normal. Extremities:? no edema. Psych:? alert, as below. Neuro Other: Abnormal Neurological Findings:?walking with cane. MMSE 19/30. Mental Status: alert, as below. Cranial Nerves: Pupils are equal, round, and reactive to light. External ocular muscles are intact. Visual connor are full, no ptosis. Face is symmetrical, no facial weakness or droop. Facial sensations are normal. Tongue protrudes in midline. Palate elevates symmetrically. Shoulder shrugging is normal Motor Examination: Normal muscle tone, bulk and strength. No atrophy or fasciculations. No drift of the extended upper extremities. DTR 2+. Plantars are flexor. Sensory Exam: Normal light touch, temperature, pinprick, vibration, and joint-position sensations. Rhomberg sign is absent. Coordination: No ataxia. No titubation. Gait Exam: With cane. Cerebellar Signs: [id number] is okay. Extrapyramidal System: No tremor, rigidity with normal facial expressions. No bradykinesia. No bradyphrenia. Normal arm swing and posture. No propulsion or retropulsion. Speech: Normal. MMSE Level of Consciousness: Alert. Orientation: Knows correct season. Does not know year, month, date, or day. Knows correct city, county and state. Knows correct location. Does not know floor. Registration: Able to register 3 objects. Attention: Unable to do serial 7s. Recall: Able to recall 2 out of 3 objects. Language: Normal spontaneous speech, fluency, repetition, naming, comprehension, reading, and writing. Total Score: 19/30. Results Reviewed Results Reviewed: Laboratory Tests 04/22/25 05/05/25 05/16/25 08:09 09:02 08:40 WBC 5.9 RBC 4.43 L Hgb 13.1 L Hct 37.9 L MCV 85.6 MCH 29.6 MCHC 34.6 RDW 16.2 H Plt Count 237 MPV 10.0 Sodium 139 Potassium 4.8 Chloride 102 Carbon Dioxide 27 Anion Gap 15 BUN 18 H Creatinine 1.26 Estimated GFR 56 Random Glucose 172 H Calcium 9.5 Vitamin B12 1153 H Folate 13.9 Assessment & Plan Assessment & Plan (1) Diabetic peripheral neuropathy: Code(s): E11.42 - Type 2 diabetes mellitus with diabetic polyneuropathy Category: Medical Plan: Continue pregabalin 150mg 1 capsule twice a day. Continue to use cane. (2) MCI (mild cognitive impairment): Code(s): G31.84 - Mild cognitive impairment of uncertain or unknown etiology Category: Medical Plan: Lab results reviewed. Start donepezil 5mg 1 tablet at bedtime, use/side effects. Stay physically and socially active, use cane. (3) Alzheimer dementia: Code(s): G30.9 - Alzheimer's disease, unspecified; F02.80 - Dementia in other diseases classified elsewhere, unspecified severity, without behavioral disturbance, psychotic disturbance, mood disturbance, and anxiety Category: Medical Qualifiers: Alzheimer's disease onset: unspecified onset Dementia severity: unspecified severity Dementia behavioral or psychological symptom: unspecified whether behavioral, psychotic, or mood disturbance or anxiety Qualified Code(s): G30.9 - Alzheimer's disease, unspecified; F02.80 - Dementia in other diseases classified elsewhere, unspecified severity, without behavioral disturbance, psychotic disturbance, mood disturbance, and anxiety Plan Meds tried: memantine Medications: New donepezil 5 mg PO BEDTIME 30 tabs 2RF 30 days Coding Level of Care Code Est Pt Level 4 (51988) Diagnoses Diabetic peripheral neuropathy E11.42 MCI (mild cognitive impairment) G31.84 Alzheimer's dementia, unspecified dementia severity, unspecified timing of dementia onset, unspecified whether behavioral, psychotic, or mood disturbance or anxiety G30.9; F02.80 Alzheimer's disease onset: unspecified onset Dementia severity: unspecified severity Dementia behavioral or psychological symptom: unspecified whether behavioral, psychotic, or mood disturbance or anxiety
--- OUTSIDE RECORDS SUMMARY | 2025-06-24 13:17 | XMS_ITS | Encounter Summary ---
Author Organization [employer] Address [address] [facility] 7t [place] [address] Care Team Providers Care Upper Leather Sorter Name Role Phone Mary Jo Chau MD Primary Care Pro vider Adore Iraheta PharmD Unavailable [phone] Reason for Visit * Reason Comments Med Refill Encounter Details Date Type Department Care Team ([facility] st Contact Info) Description 06/22/2025 Refill [facility] MED & PEDS [address] [place] [address] Azael Diallo MD [address] [place] [address] Type 2 diabetes mellitus with other specified complication, without long-term current use of insulin ([facility]) Social History Tobacco Use Types [...] Care Team (Late st Contact Info) Description 06/30/2025 2:00 PM EDT Medication Management [facility] MEDICINE [address] [place] [address] Adore Iraheta, NegritaD [address] [place] [address] 07/03/2025 1:30 PM EDT Office Visit [facility] MEDICINE [address] [place] [address] Mary Jo Chau MD 230 [place] [address] 08/25/2025 1:30 PM EST Telemedicine [facility] CHC MED & PEDS [address] [place] [address] Torie Mccormack, WAYLON [address] [place] [address] 08/28/2025 3:00 PM EST Immunization [facility] MEDICINE [address] [place] [address] documented as of this encounter Visit Diagnoses Diagnosis Type 2 diabetes mellitus with other specified complication, without long-term current use of insulin ([facility]) documented in this encounter Additional Health Concerns Assessment Noted Time PHQ-9 Depression Total Score: 0 04/30/20 25 2:08 PM EDT documented as of this encounter Care Teams Upper Leather Sorter Relationship Specialty Start Date End Date Mary Jo Chau MD [address] [place] [address] PCP - General Internal Medicine 08/01/23 Adore Iraheta PharmD [address] [place] [address] Pharmacist Internal Medicine 11/04/24 documented as of this encounter
--- OUTSIDE RECORDS SUMMARY | 2025-06-24 13:17 | XMS_ITS | Encounter Summary ---
Author Organization [employer] Address [address] [place] [address] [place] [address] Care Team Providers Care Automotive Painter Name Role Phone Mary Jo Chau MD Primary Care Pro vider Adore Iraheta PharmD Unavailable [phone] Reason for Visit * Reason Comments Med Refill Encounter Details Date Type Department Care Team ([facility] Contact Info) Description 11/14/2023 Refill [facility] CHC MED & PEDS [address] [place] [address] Mary Jo Chau MD [address] [place], [place] [phone] Other chronic pain Social History Tobacco Use [...] Encounters Date Type Department Care Team ([facility] Contact Info) Description 06/30/2025 2:00 PM EDT Medication Management [facility] MEDICINE 230 [place], [place] [phone] Adore Iraheta, PharmD 230 [place] [address] 07/03/2025 1:30 PM EDT Office Visit [facility] MEDICINE [address] [place] [address] Mary Jo Chau MD 230 [place] [address] 08/25/2025 1:30 PM EST Telemedicine [facility] CHC MED & PEDS [address] [place] [address] Torie Mccormack, RN 505 [place] [address] 08/28/2025 3:00 PM EST Immunization [facility] MEDICINE [address] [place] [address] documented as of this encounter Visit Diagnoses Diagnosis Other chronic pain documented in this encounter Additional Health Concerns Assessment Noted Time PHQ-9 Depression Total Score: 14 023 4:05 PM EST documented as of this encounter Care Teams Automotive Painter Relationship Specialty Start Date End Date Mary Jo Chau MD [address] [place] [address] PCP - General Internal Medicine 08/01/23 Adore Iraheta PharmD [address] [place] [address] Pharmacist Internal Medicine 11/04/24 documented as of this encounter
--- OUTSIDE RECORDS SUMMARY | 2025-06-24 13:17 | XMS_ITS | Encounter Summary ---
Author Organization [employer] Address [address] [facility] 7 [place] [address] Care Team Providers Care Gravel Hauler Name Role Phone Mary Jo Chau MD Primary Care Pro vider Adore Iraheta PharmD Unavailable [phone] Reason for Visit * Reason Comments Med Refill Encounter Details Date Type Department Care Team (Late st Contact Info) Description 12/04/2024 Refill [facility] CHC MED & PEDS [address] [place] [address] Mary Jo Chau MD 230 [place] [address] Type 2 diabetes mellitus with other specified complication, without long-term current use of insulin ([facility]) Social History Tobacco Use Types Packs/Day Years [...] Description 06/30/2025 2:00 PM EDT Medication Management [facility] [address] [place] [address] Adore Iraheta, NegritaD [address] [place] [address] 07/03/2025 1:30 PM EDT Office Visit [facility] [address] [place] [address] Mary Jo Chau MD [address] [place] [address] 08/25/2025 1:30 PM EST Telemedicine [facility] CHC MED & PEDS [address] [place] [address] Torie Mccormack, WAYLON [address] [place] [address] 08/28/2025 3:00 PM EST Immunization [facility] [address] [place] [address] documented as of this encounter Visit Diagnoses Diagnosis Type 2 diabetes mellitus with other specified complication, without long-term current use of insulin ([facility]) documented in this encounter Additional Health Concerns Assessment Noted Time PHQ-9 Depression Total Score: 10 024 2:12 PM EST documented as of this encounter Care Teams Gravel Hauler Relationship Specialty Start Date End Date Mary Jo Chau MD 230 [place] [address] PCP - General Internal Medicine 08/01/23 Adore Iraheta PharmD [address] [place] [address] Pharmacist Internal Medicine 11/04/24 documented as of this encounter
--- OUTSIDE RECORDS SUMMARY | 2025-06-24 13:17 | XMS_ITS | Encounter Summary ---
Author Organization [employer] Address [address] [place] [address] [address], [place] [address] Care Team Providers Care It Project Coordinator Name Role Phone Cristin Chaves MD Primary Care Provider Leah Macario FURNACE CHECKER Primary Care Provider Mary Jo Dougherty MD Primary Care Pro vider Adore Iraheta PharmD Unavailable [phone] Encounter Details Date Type Department Care Team (Latest Contact Info) Description 02/12/2019 Abstract [facility] CONVERSIONS Dental, Provider, DDS Social History [...] Description 06/30/2025 2:00 PM EDT Medication Management [facility] MEDICINE [address] [place] [address] Adore Iraheta, PharmD [address] [place] [address] 07/03/2025 1:30 PM EDT Office Visit [facility] MEDICINE [address] [place] [address] Mary Jo Chau MD [address] [place] [address] 08/25/2025 1:30 PM EST Telemedicine [facility] CHC MED & PEDS [address] [place] [address] Torie Mccormack, RN 505 [place] [address] 08/28/2025 3:00 PM EST Immunization [facility] MEDICINE 230 [place] [address] documented as of this encounter Visit Diagnoses Not on filedocumented in this encounter Care Teams It Project Coordinator Relationship Specialty Start Date End Date Cristin Chaves MD PCP - General Family Medicine 04/13/20 09/11/22 Leah Alvarenga FNP PCP - General Family Medicine 09/12/22 07/31/23 Mary Jo Chau MD 230 [place] [address] PCP - General Internal Medicine 08/01/23 Adore Iraheta, NegritaD [address] [place] [address] Pharmacist Internal Medicine 11/04/24 documented as of this encounter
--- OUTSIDE RECORDS SUMMARY | 2025-06-24 13:17 | XMS_ITS | Encounter Summary ---
Author Organization [employer] Address [address] [place] [address] 7 [place] [address] Care Team Providers Care Sales Administration Specialist Name Role Phone Mary Jo Chau MD Primary Care Pro vider Adore Iraheta PharmD Unavailable [phone] Reason for Visit * Reason Comments Med Refill Encounter Details Date Type Department Care Team (Late st Contact Info) Description 11/03/2024 Refill [facility] MEDICINE [address] [place] [address] Mary Jo Chau MD [address] [place] [address] Diabetic polyneuropathy associated with type 2 diabetes [...] Description 06/30/2025 2:00 PM EDT Medication Management [facility] MEDICINE [address] [place] [address] Adore Iraheta, NegritaD [address] [place] [address] 07/03/2025 1:30 PM EDT Office Visit [facility] MEDICINE [address] [place] [address] Mary Jo Chau MD [address] [place] [address] 08/25/2025 1:30 PM EST Telemedicine [facility] CHC MED & PEDS [address] [place] [address] Torie Mccormack, WAYLON 505 [place] [address] 08/28/2025 3:00 PM EST Immunization [facility] MEDICINE [address] [place] [address] documented as of this encounter Visit Diagnoses Diagnosis Diabetic polyneuropathy associated with type 2 diabetes mellitus (CMS/HCC) Other atopic dermatitis documented in this encounter Additional Health Concerns Assessment Noted Time PHQ-9 Depression Total Score: 10 024 2:12 PM EST documented as of this encounter Care Teams Sales Administration Specialist Relationship Specialty Start Date End Date Mary Jo Chau MD [address] [place] [address] PCP - General Internal Medicine 08/01/23 Adore Iraheat PharmD [address] [place] [address] Pharmacist Internal Medicine 11/04/24 documented as of this encounter
--- OUTSIDE RECORDS SUMMARY | 2025-06-24 13:17 | XMS_ITS | Encounter Summary ---
Author Organization [employer] Address [address] [place] [address] 7 [place] [address] Care Team Providers Care Laborer Hide House Name Role Phone Mary Jo Chau MD Primary Care Pro vider Adore Iraheta PharmD Unavailable [phone] Reason for Visit * Reason Comments Med Refill Encounter Details Date Type Department Care Team (Late st Contact Info) Description 09/07/2023 Refill [facility] MEDICINE [address] [place] [address] [facility] [address] [place] [address] Other atopic dermatitis Social History Tobacco Use [...] Description 06/30/2025 2:00 PM EDT Medication Management [facility] MEDICINE [address] [place] [address] Adore Iraheta, PharmD [address] [place] [address] 07/03/2025 1:30 PM EDT Office Visit [facility] MEDICINE [address] [place] [address] Mary Jo Chau MD 230 [place] [address] 08/25/2025 1:30 PM EST Telemedicine [facility] CHC MED & PEDS [address] [place] [address] Torie Mccormack, RN [address] [place] [address] 08/28/2025 3:00 PM EST Immunization [facility] MEDICINE [address] [place] [address] documented as of this encounter Visit Diagnoses Diagnosis Other atopic dermatitis documented in this encounter Additional Health Concerns Assessment Noted Time PHQ-9 Depression Total Score: 14 023 4:05 PM EST documented as of this encounter Care Teams Laborer Hide House Relationship Specialty Start Date End Date Mary Jo Chau MD [address] [place] [address] PCP - General Internal Medicine 08/01/23 Adore Iraheta PharmD [address] [place] [address] Pharmacist Internal Medicine 11/04/24 documented as of this encounter
--- OUTSIDE RECORDS SUMMARY | 2025-06-24 13:17 | XMS_ITS | Encounter Summary ---
Author Organization [employer] Address [address] [place] [address] Care Team Providers Care Steel Chipper Name Role Phone Mary Jo Chau MD Primary Care Pro vider Adore Iraheta PharmD Unavailable [phone] Reason for Visit * Reason Comments Med Refill Encounter Details Date Type Department Care Team (Late st Contact Info) Description 11/09/2023 Refill [facility] MEDICINE [address] [place] [address] Mary Jo Chau MD [address] [place] [address] Seasonal allergic rhinitis, unspecified trigger; Other chronic [...] Department Care Team (Late Contact Info) Description 06/30/2025 2:00 PM EDT Medication Management [facility] MEDICINE [address] [place] [address] IrahetaAdore PharmD [address] [place] [address] 07/03/2025 1:30 PM EDT Office Visit [facility] MEDICINE [address] [place] [address] Mary Jo Chau MD [address] [place] [address] 08/25/2025 1:30 PM EST Telemedicine [facility] CHC MED & PEDS [address] [place] [address] Torie Mccormack, RN [address] [place] [address] 08/28/2025 3:00 PM EST Immunization [facility] MEDICINE [address] [place] [address] documented as of this encounter Visit Diagnoses Diagnosis Seasonal allergic rhinitis, unspecified trigger Other chronic pain documented in this encounter Additional Health Concerns Assessment Noted Time PHQ-9 Depression Total Score: 14 023 4:05 PM EST documented as of this encounter Care Teams Steel Chipper Relationship Specialty Start Date End Date Mary Jo Chau MD [address] [place] [address] PCP - General Internal Medicine 08/01/23 Adore Iraheta PharmD [address] [place] [address] Pharmacist Internal Medicine 11/04/24 documented as of this encounter
--- OUTSIDE RECORDS SUMMARY | 2025-06-24 13:17 | XMS_ITS | Encounter Summary ---
Author Organization [employer] Address [address] [place] [address] [place] [address] Care Team Providers Care Mountain Services Manager Name Role Phone Leah Alvarenga BLACKJACK DEALER Primary Care Provider Mary Jo Dougherty MD Primary Care Pro vider Adore Iraheta PharmD Unavailable [phone] Reason for Visit * Reason Comments Med Refill Encounter Details Date Type Department Care Team (Late st Contact Info) Description 03/23/2023 Refill [facility] MEDICINE [address] [place] [address] Leah Alvarenga FNP Vitamin D deficiency; Peripheral neuropathic pain; Depression, [...] Description 06/30/2025 2:00 PM EDT Medication Management [facility] MEDICINE [address] [place], [place] [phone] Adore Iraheta, PharmD [address] [place] [address] 07/03/2025 1:30 PM EDT Office Visit [facility] MED[facility]INE [address] [place] [address] Mary Jo Chau MD [address] [place] [address] 08/25/2025 1:30 PM EST Telemedicine [facility] CHC MED & PEDS [address] [place], [place] [phone] Torie Mccormack, RN [address] [place] [address] 08/28/2025 3:00 PM EST Immunization [facility] [address] [place] [address] documented as of this encounter Visit Diagnoses Diagnosis Vitamin D deficiency Peripheral neuropathic pain Depression, unspecified depression type documented in this encounter Additional Health Concerns Assessment Noted Time PHQ-9 Depression Total Score: 14 023 4:05 PM EST documented as of this encounter Care Teams Mountain Services Manager Relationship Specialty Start Date End Date Leah Alvarenga FNP PCP - General Family Medicine 09/12/22 07/31/23 Mary Jo Chau MD [address] [place] [address] PCP - General Internal Medicine 08/01/23 Adore Iraheta PharmD [address] [place] [address] Pharmacist Internal Medicine 11/04/24 documented as of this encounter
--- OUTSIDE RECORDS SUMMARY | 2025-06-24 13:17 | XMS_ITS | Encounter Summary ---
Author Organization [employer] Address [address] [place] [address] Care Team Providers Care Premix Concrete Batcher Name Role Phone Mary Jo Chau MD Primary Care Pro vider Adore Iraheta PharmD Unavailable [phone] Encounter Details Date Type Department Care Team (Late Contact Info) Description 04/01/[address] [facility] [address] [place] [address] [phone] Mary Jo Chau MD [address] [place] [address] Social History Tobacco Use Types Packs/Day Years [...] Upcoming Encounters Date Type Department Care Team ([facility] Contact Info) Description 06/30/2025 2:00 PM EDT Medication Management [facility] [address] [place] [address] Adore Iraheta PharmD [address] [place] [address] 07/03/2025 1:30 PM EDT Office Visit [facility] [address] [place] [address] Mary Jo Chau MD 230 [place] [address] 08/25/2025 1:[address] [facility] 505 [place] [address] Torie Mccormack, WAYLON 505 [place] [address] 08/28/2025 3:[address] [facility] [address] [place] [address] documented as of this encounter Visit Diagnoses Not on filedocumented in this encounter Additional Health Concerns Assessment Noted Time PHQ-9 Depression Total Score: 9 01/08/20 24 3:15 PM EDT documented as of this encounter Care Teams Premix Concrete Batcher Relationship Specialty Start Date End Date Mary Jo Chau MD [address] [place] [address] PCP - General Internal Medicine 08/01/23 Adore Iraheta PharmD [address] [place] [address] [phone] Pharmacist Internal Medicine 11/04/24 documented as of this encounter
--- OUTSIDE RECORDS SUMMARY | 2025-06-24 13:17 | XMS_ITS | Encounter Summary ---
Author Organization [employer] Address [address] [place] [address] 7 [place] [address] Care Team Providers Care Lithographic Press Operator Name Role Phone Leah Alvarenga YOUTH PROGRAM DIRECTOR Primary Care Provider Mary Jo Dougherty MD Primary Care Pro vider Adore Iraheta PharmD Unavailable [phone] Reason for Visit * Reason Onset Date Comments BPI score changes 03/24/2023 Encounter Details Date Type Department Care Team (Late st Contact Info) Description 03/24/2023 Refill [facility] 230 [place] [address] Leah Alvarenga, YOUTH PROGRAM DIRECTOR Constipation, unspecified constipation type Social History Tobacco [...] 10:10 AM EDT FYI, pt had Tele LOADER MAGAZINE GRINDER 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 Pain severity score of 4.8, activity interference score of 8.6. Previous BPI completed 11/04/22 with pain severity score of 7.8, activity interference score of 5.3. documented in this encounter Plan of Treatment Upcoming Encounters Date Type Department Care Team (Late st Contact Info) Description 06/30/2025 2:00 PM EDT Medication Management [facility] [address] [place] [address] Adore Iraheta PharmD [address] [place] [address] 07/03/2025 1:30 PM EDT Office Visit [facility] [address] [place] [address] Mary Jo Chau MD [address] [place] [address] 08/25/2025 1:30 PM EST Telemedicine [facility] 505 [place] [address] Torie Mccormack, WAYLON 505 [place] [address] 08/28/2025 3:00 PM EST Immunization [facility] [address] [place] [address] documented as of this encounter Visit Diagnoses Diagnosis Constipation, unspecified constipation type documented in this encounter Additional Health Concerns Assessment Noted Time PHQ-9 Depression Total Score: 14 023 4:05 PM EST documented as of this encounter Care Teams Lithographic Press Operator Relationship Specialty Start Date End Date Leah Alvarenga FNP PCP - General Family Medicine 09/12/22 07/31/23 Mary Jo Chau MD [address] [place] [address] PCP - General Internal Medicine 08/01/23 Adore Iraheta PharmD [address] [place] [address] Pharmacist Internal Medicine 11/04/24 documented as of this encounter
--- OUTSIDE RECORDS SUMMARY | 2025-06-24 13:17 | XMS_ITS | Encounter Summary ---
Author Organization [employer] Address [address] [facility] 7t [place] [address] Care Team Providers Care Curator Name Role Phone Leah Alvarenga FILLING AND PACKING SUPERVISOR Primary Care Provider Mary Jo Dougherty MD Primary Care Pro vider Adore Iraheta PharmD Unavailable [phone] Reason for Visit * Reason Comments Med Refill Encounter Details Date Type Department Care Team (Late Contact Info) Description 05/12/2023 Refill [facility] 230 [place] [address] Leah Alvarenga, FILLING AND PACKING SUPERVISOR Depression, unspecified depression type Social History Tobacco [...] Description 06/30/2025 2:00 PM EDT Medication Management [facility] [address] [place] [address] Adore Iraheta PharmD 230 [place] [address] 07/03/2025 1:30 PM EDT Office Visit [address] [address] aMry Jo Chau MD 230 [place] [address] 08/25/2025 1:30 PM EST Telemedicine [facility] 505 [place] [address] Torie Mccormack, RN 505 [place] [address] 08/28/2025 3:00 PM EST Immunization [facility] [address] [place] [address] documented as of this encounter Visit Diagnoses Diagnosis Depression, unspecified depression type documented in this encounter Additional Health Concerns Assessment Noted Time PHQ-9 Depression Total Score: 14 023 4:05 PM EST documented as of this encounter Care Teams Curator Relationship Specialty Start Date End Date Leah Alvarenga FNP PCP - General Family Medicine 09/12/22 07/31/23 Mary Jo Chau MD [address] [place] [address] PCP - General Internal Medicine 08/01/23 Adore Iraheta PharmD [address] [place] [address] Pharmacist Internal Medicine 11/04/24 documented as of this encounter
--- OUTSIDE RECORDS SUMMARY | 2025-06-24 13:17 | XMS_ITS | Encounter Summary ---
Author Organization [employer] Address [address] [place] [address] Care Team Providers Care Meat Blender Name Role Phone Mary Jo Chau MD Primary Care Pro vider Adore Iraheta PharmD Unavailable [phone] Reason for Visit * Reason Comments Med Refill Encounter Details Date Type Department Care Team (Late st Contact Info) Description 11/21/2023 Refill [facility]INE [address] [place] [address] Mayr Jo Chau MD 230 [place] [address] Depression, unspecified depression type Social History Tobacco [...] Description 06/30/2025 2:00 PM EDT Medication Management [facility]INE 230 [place] [address] Adore Iraheta, PharmD 230 [place] [address] 07/03/2025 1:30 PM EDT Office Visit [facility] MED[facility]INE [address] [place] [address] Mary Jo Chau MD 230 [place] [address] 08/25/2025 1:30 PM EST Telemedicine [facility] 505 [place] [address] Torie Mccormack, RN 505 [place] [address] 08/28/2025 3:00 PM EST Immunization [facility] [address] [place] [address] documented as of this encounter Visit Diagnoses Diagnosis Depression, unspecified depression type documented in this encounter Additional Health Concerns Assessment Noted Time PHQ-9 Depression Total Score: 14 023 4:05 PM EST documented as of this encounter Care Teams Meat Blender Relationship Specialty Start Date End Date Mary Jo Chau MD [address] [place] [address] 80059 PCP - General Internal Medicine 08/01/23 Adore Iraheta PharmD [address] [place] [address] Pharmacist Internal Medicine 11/04/24 documented as of this encounter
--- OUTSIDE RECORDS SUMMARY | 2025-06-24 13:17 | XMS_ITS | Encounter Summary ---
Author Organization [employer] Address [address] [place] [address] 7 [place] [address] Care Team Providers Care Grease Monkey Name Role Phone Mary Jo Chau MD Primary Care Pro vider Adore Iraheta PharmD Unavailable [phone] Encounter Details Date Type Department Care Team (Latest Contact Info) Description 05/05/2025 Results Follow-Up [facility] 230 [place] [address] Mary Jo Chau MD 230 [place] [address] Albumin, Random Urine W/Creatinine, Comprehensive Metabolic Panel, Hemoglobin A1c, Additional followed-up results: 2 Social History Tobacco Use Types Packs/Day Years [...] as of this encounter Miscellaneous Notes * Result Encounter Note - Mary Jo Richards MD - 05/05/2025 3:06 PM EDT As in telephone encounter * Result Encounter Note - Mary Jo Richards MD - 05/05/2025 3:05 PM EDT please can you call pt and schedule an apt with me for f up labs ideally in next 4 to 6 weeks thanks documented in this encounter Plan of Treatment Upcoming Encounters Date Type Department Care Team (Late st Contact Info) Description 06/30/2025 2:00 PM EDT Medication Management [facility] [address] [place] [address] Adore Iraheta, PharmD 230 [place] [address] 07/03/2025 1:30 PM EDT Office Visit [facility] [address] [place] [address] Mary Jo Chau MD 230 [place] [address] 08/25/2025 1:30 PM EST Telemedicine [facility]S 505 [place] [address] Torie Mccormack, RN 505 [place] [address] 08/28/2025 3:00 PM EST Immunization [facility] 230 [place] [address] documented as of this encounter Visit Diagnoses Not on filedocumented in this encounter Additional Health Concerns Assessment Noted Time PHQ-9 Depression Total Score: 0 04/30/20 25 2:08 PM EDT documented as of this encounter Care Teams Grease Monkey Relationship Specialty Start Date End Date Mary Jo Chau MD [address] [place] [address] PCP - General Internal Medicine 08/01/23 Adore Iraheta, Lorenzo [address] [place] [address]70 Pharmacist Internal Medicine 11/04/24 documented as of this encounter
--- OUTSIDE RECORDS SUMMARY | 2025-06-24 13:17 | XMS_ITS | Encounter Summary ---
Author Organization [employer] Address [address] [facility] 7 [place] [address] Care Team Providers Care Name Plate Stamping Machine Operator Name Role Phone Mary Jo Chau MD Primary Care Pro vider Adore Iraheta PharmD Unavailable [phone] Reason for Visit * Reason Comments Med Refill Encounter Details Date Type Department Care Team (Late st Contact Info) Description 06/24/2025 Refill [facility] [address] [place] [address] Mary Jo Chau MD 230 [place] [address] Other chronic pain Social History Tobacco Use [...] Description 06/30/2025 2:00 PM EDT Medication Management [facility] [address] [place] [address] Adore Iraheta, NegritaD [address] [place] [address] 07/03/2025 1:30 PM EDT Office Visit [facility] [address] [place] [address] Mary Jo Chau MD 230 [place] [address] 08/25/2025 1:30 PM EST Telemedicine [facility] [address] [place] [address] Torie Mccormack, WAYLON 505 [place] [address] 08/28/2025 3:00 PM EST Immunization [facility] [address] [place] [address] documented as of this encounter Visit Diagnoses Diagnosis Other chronic pain documented in this encounter Additional Health Concerns Assessment Noted Time PHQ-9 Depression Total Score: 0 04/30/20 25 2:08 PM EDT documented as of this encounter Care Teams Name Plate Stamping Machine Operator Relationship Specialty Start Date End Date Mary Jo Chau MD [address] [place] [address] PCP - General Internal Medicine 08/01/23 Adore Iraheta PharmD [address] [place] [address]48 Pharmacist Internal Medicine 11/04/24 documented as of this encounter
--- OUTSIDE RECORDS SUMMARY | 2025-06-24 13:17 | XMS_ITS | Encounter Summary ---
Author Organization [employer] Address [address] [place] [address] 7 [place] [address] Care Team Providers Care House Registry Rn Name Role Phone Mary Jo Chau MD Primary Care Pro vider Adore Iraheta PharmD Unavailable [phone] Reason for Visit * Reason Onset Date Comments new appointment 09/25/2024 Encounter Details Date Type Department Care Team ([facility] st Contact Info) Description 09/25/[address] [facility] [address] [place] [address] Mary Jo Chau MD [address] [place] [address] new appointment Social History Tobacco Use Types [...] 06/30/2025 2:00 PM EDT Medication Management [facility] [address] [place] [address] Adore Iraheta, Lorenzo [address] [place] [address] 07/03/2025 1:30 PM EDT Office Visit [facility] [address] [place] [address] Mary Jo Chau MD [address] [place] [address] 08/25/2025 1:[address] [facility] 505 [place] [address] Torie Mccormack, WAYLON 505 [place] [address] 08/28/2025 3:[address] [facility] [address] [place] [address] documented as of this encounter Visit Diagnoses Not on filedocumented in this encounter Additional Health Concerns Assessment Noted Time PHQ-9 Depression Total Score: 10 024 2:12 PM EST documented as of this encounter Care Teams House Registry Rn Relationship Specialty Start Date End Date Mary Jo Chau MD [address] [place] [address] PCP - General Internal Medicine 08/01/23 Adore Iraheta PharmD [address] [place] [address]43 Pharmacist Internal Medicine 11/04/24 documented as of this encounter
--- OUTSIDE RECORDS SUMMARY | 2025-06-24 13:17 | XMS_ITS | Encounter Summary ---
Author Organization [employer] Address [address] [place] [address] Care Team Providers Care Vp Scientific Name Role Phone Mary Jo Chau MD Primary Care Pro vider Adore Iraheta PharmD Unavailable [phone] Reason for Visit * Reason Comments Med Change Request Encounter Details Date Type Department Care Team (Late Contact Info) Description 09/15/2023 Refill [facility] 230 [place] [address] Mary Jo Chau MD 230 [place] [address] Depression, unspecified depression type Social History Tobacco [...] Description 06/30/2025 2:00 PM EDT Medication Management [facility] 230 [place] [address] Adore Iraheta, PharmD 230 [place] [address] 07/03/2025 1:30 PM EDT Office Visit [facility] [address] [place] [address] Mary Jo Chau MD 230 [place] [address] 08/25/2025 1:30 PM EST Telemedicine [facility] 505 [place] [address] Torie Mccormack, RN 505 [place] [address] 08/28/2025 3:00 PM EST Immunization [facility] [address] [place] [address] documented as of this encounter Visit Diagnoses Diagnosis Depression, unspecified depression type documented in this encounter Additional Health Concerns Assessment Noted Time PHQ-9 Depression Total Score: 14 023 4:05 PM EST documented as of this encounter Care Teams Vp Scientific Relationship Specialty Start Date End Date Mary Jo Chau MD [address] [place] [address] PCP - General Internal Medicine 08/01/23 Adore Iraheta PharmD [address] [place] [address] Pharmacist Internal Medicine 11/04/24 documented as of this encounter
--- OUTSIDE RECORDS SUMMARY | 2025-06-24 13:17 | XMS_ITS | Clinical Summary ---
Author Organization [employer] Address [address] [place] [address] 7 [place] [address] Care Team Providers Care Physician Assistant Primary Care Name Role Phone Mary Jo Chau MD Primary Care Pro vider Adore Iraheta PharmD Unavailable [phone] Allergies Active Allergy Reactions Criticality Noted Date Comments Lisinopril 06/08/2020 Other reaction(s): Hyperkalemia Medications cholecalciferol VITAMIN D (Vitamin D-3) 50 MCG (1999) capsuleIndicati ons:Vitamin D deficiency TOME 1 CAPSULA POR VIA ORAL TODOS LOS [place] 90 capsule 09/23/20 24 Active aspirin (Aspirin Low Dose) 81 MG chewable tabletIndicatio ns:Type 2 diabetes mellitus with other specified complication, without long-term current use of insulin ([facility]) CHEW 1 TABLET BY MOUTH EVERY DAY 90 tablet 1 10/03/20 24 Active Reguloid 0.52 g capsuleIndicati ons:Constipatio n, unspecified constipation type TAKE 2-3 C PSULA POR V A ORAL TODOS LOS D CUANDO SEA NECESARIO 270 capsule 1 10/03/20 24 Active Blood Glucose Monitoring Suppl (FreeStyle Lite) w/Device kit 1 each Use as directed. 1 kit 11/04/19 25 Active TRUEplus Lancets 33G misc Use to test blood sugar 1 time(s) daily 100 each 3 11/04/19 25 Active triamcinolone (Kenalog) 0.1 % ointmentIndicat ions:Other atopic dermatitis APPLY A THIN LAYER TO THE AFFECTED AREA(S) TWICE A DAY 45 g 11/05/19 25 Active senna-docusate (SB Docusate Sodium/Senna) 8.6-50 MG tabletIndicatio ns:Constipation , unspecified constipation type Take 1 tablet by mouth Once per day. (FOR MED BOX); discontinue individual Colace and Senna Rx. 30 tablet 11/06/19 25 026 Active empagliflozin-m etFORMIN (Synjardy) 12.5-1000 MGIndications:T ype 2 diabetes mellitus with diabetic polyneuropathy, without long-term current use of insulin (CMS/[facility]) Take 1 tablet by mouth 2 times daily. 60 tablet 02/18/20 25 026 Active Tirzepatide (Mounjaro) 5 MG/0.5ML solution auto-injectorIn dications:Type 2 diabetes mellitus with diabetic polyneuropathy, without long-term current use of insulin (CMS/HCC) Inject 5 mg under the skin 1 (one) time per week. 2 mL 3 02/18/20 25 Active loratadine (Claritin) 10 MG tablet TAKE 1 TABLET BY MOUTH EVERY MORNING 90 tablet 04/01/20 25 Active memantine (Namenda) 10 MG tabletIndicatio ns:Depression, unspecified depression type TAKE 1 TABLET BY MOUTH TWICE A DAY 180 tablet 04/01/20 25 Active pregabalin (Lyrica) 150 MG capsuleIndicati ons:Neuropathy Take 1 capsule (150 mg) by mouth 2 times daily. 60 capsule 2 04/08/20 25 026 Active finasteride (Proscar) 5 MG tablet Take 1 tablet by mouth Once per day. 03/31/20 25 Active famotidine (Pepcid) 20 MG tablet TAKE 1 TABLET BY MOUTH EVERY DAY 90 tablet 04/21/20 25 Active DULoxetine (Cymbalta) [address] capsuleIndicati ons:Depression, unspecified depression type TAKE 1 CAPSULE BY MOUTH AT BEDTIME 90 capsule 04/21/20 25 Active sertraline (Zoloft) 100 MG tabletIndicatio ns:Depressive disorder TAKE 1 TABLET BY MOUTH EVERY DAY 90 tablet 04/28/20 25 Active lidocaine (Lidoderm) 5 % patchIndication s:Knee pain, unspecified chronicity, unspecified laterality APPLY 1 PATCH EVERY MORNING REMOVE AND DISARD PATCH WITHIN 12 HOURS OR as INSTRUCTED BY 30 patch 2 04/30/20 25 Active melatonin 5 MG tablet Take 1 tablet (5 mg) by mouth at bedtime. 90 tablet 1 04/30/20 25 Active tamsulosin (Flomax) 0.4 MG 24 hr capsule Take 0.4 mg by mouth in the morning. 04/24/20 25 Active amLODIPine (Norvasc) 2.5 MG tablet Take 1 tablet (2.5 mg) by mouth Once per day. 90 tablet 05/05/20 25 026 Active cyanocobalamin (Vitamin B-12) 500 MCG tablet TAKE 1 TABLET BY MOUTH AT BEDTIME 90 tablet 05/20/20 25 Active glucose blood (FREESTYLE LITE) test stripIndication s:Type 2 diabetes mellitus with diabetic polyneuropathy, without long-term current use of insulin ([facility]) USE DIRECTED TO TEST BLOOD SUGAR DAILY 50 strip 3 05/20/20 25 Active acetaminophen-c odeine (Tylenol w/ Codeine #4) 300-60 MG tabletIndicatio ns:Other chronic pain Take 1 tablet by mouth every 8 (eight) hours if needed for moderate pain. 56 tablet 05/23/20 25 Active naloxone (Narcan) 4 mg/0.1 mL nasal spray Administer 1 spray (4 mg) into affected nostril(s) if needed for opioid reversal. May repeat every 2-3 minutes if needed, alternating nostrils, until medical assistance becomes available. 2 each 2 05/23/20 25 026 Active atorvastatin (Lipitor) 80 MG tablet TAKE 1 TABLET BY MOUTH AT BEDTIME 90 tablet 06/18/20 25 Active atorvastatin (Lipitor) 80 MG tablet TAKE 1 TABLET BY MOUTH BY MOUTH AT BEDTIME 90 tablet 1 01/28/20 25 025 Discontinued Active Problems Problem Noted Date Diagnosed [...] Encounters Date Type Department Care Team Description 06/24/2025 Refill [facility] [address] [place] [address] Mary Jo Chau MD Other chronic pain 06/22/2025 Refill [facility] [address] [place] [address] Azael Diallo MD Type 2 diabetes mellitus with other specified complication, without long-term current use of insulin ([facility]) 06/18/2025 Refill [facility] [address] [place] [address] Azael Diallo MD 05/23/2025 11:00 AM EDT Clinical Support [facility] [address] [place] [address] Torie Mccormack RN Other chronic pain 05/23/2025 Refill [facility] [address] [place] [address] Torie Mccormack, WAYLON Other chronic pain 05/23/2025 Travel 05/19/2025 Refill [facility] [address] [place] [address] Mary Jo Chau MD Type 2 diabetes mellitus with diabetic polyneuropathy, without long-term current use of insulin ([facility]) 05/16/2025 Telephone [facility] [address] [place] [address] Mary Jo Chau MD sep recall 05/13/2025 3:30 PM EDT Clinical Support [facility] [address] [place] [address] Anyi Villanueva, WAYLON Primary hypertension 05/13/2025 Travel 05/09/2025 Results Follow-Up [facility] [address] [place] [address] Mary Jo Chau MD Basic Metabolic Panel, Basic Metabolic Panel 05/05/2025 Orders Only [facility] [address] [place] [address] Mary Jo Chau MD 05/05/2025 Orders Only [facility] [address] [place] [address] Mary Jo Chau MD 05/05/2025 Results Follow-Up [address] [place] [address] Mary Jo Chau MD Albumin, Random Urine W/Creatinine, Comprehensive Metabolic Panel, Hemoglobin A1c, Additional followed-up results: 2 05/05/2025 Orders Only [facility] [address] [place] [address] Mary Jo Chau MD Hyperkalemia (Primary Dx) 05/05/2025 Travel 04/30/2025 2:00 PM EDT Office Visit [address] [place] [address] Mary Jo Chau MD Knee pain, unspecified chronicity, unspecified laterality (Primary Dx); Diabetic polyneuropathy associated with type 2 diabetes mellitus ([facility]); Hyperlipidemia, unspecified hyperlipidemia type; Primary hypertension; Type 2 diabetes mellitus with diabetic polyneuropathy, without long-term current use of insulin ([facility]) 04/30/2025 Travel 04/29/[address] [address] Mary Jo Chau MD CHART PREP 04/28/2025 Refill [facility] [address] [place] [address] Mary Jo Chau MD Depressive disorder 04/21/[address] [address] Adore Iraheta, Lorenzo Med Refill 04/21/2025 Refill [facility] [address] [place] [address] Mary Jo Chau MD Other chronic pain; Depression, unspecified depression type 04/09/2025 Travel 04/08/2025 Orders Only [address] [address] Mary Jo Chau MD Neuropathy (Primary Dx) 04/08/2025 Refill [facility] [address] [place], [place] [phone] Mary Jo Chau MD Type 2 diabetes mellitus with diabetic polyneuropathy ([facility]) 03/31/2025 Refill [facility] [address], [place] [phone] Azael Diallo MD Depression, unspecified depression type; Depressive disorder; Type 2 diabetes mellitus with other specified complication, without long-term current use of insulin ([facility]) 03/31/2025 Refill [facility] [address], [place] [phone] Tressa Hoskins MD Depression, unspecified depression type 03/31/2025 Refill [facility] [address] [place], [place] [phone] Mary Jo Chau MD 03/28/2025 3:00 PM EDT Clinical Support [facility] [address] [place] [address] Carole Mccann RN Encounter for immunization 03/28/2025 Travel from Last 3 Months Immunizations Immunization [...] Sign Reading Time Taken Comments Blood Pressure 108/64 05/13/2025 3:35 PM EDT Pulse 80 05/13/2025 3:25 PM EDT Temperature 36.2 C (97.1 F) 04/30/2025 2:07 PM EDT Respiratory Rate 18 04/30/2025 2:07 PM EDT Oxygen Saturation 97% 05/13/2025 3:25 PM EDT room air Inhaled Oxygen Concentration - - Weight 66.5 kg (146 lb 9.6 oz) 04/30/2025 2:07 P M EDT Height 167.6 cm (5' 6 ) 04/30/2025 2:07 PM EDT Body Mass Index 23.66 04/30/2025 2:07 PM EDT Plan of Treatment Upcoming Encounters Date Type Department Care Team (Late st Contact Info) Description 06/30/2025 2:00 PM EDT Medication Management [facility] [address] [place] [phone] Adore Iraheta, PharmD [address] [place] [address] 07/03/2025 1:30 PM EDT Office Visit [facility] [address] [place] [phone] Mary Jo Chau MD [address] [place], [place] [phone] 08/25/2025 1:30 PM EST Telemedicine [facility] [address] [place] [address] Torie Mccormack, RN [address] [place] [address] 08/28/2025 3:00 PM EST Immunization [facility] [address] [place] [address] Health Maintenance Due Date Last Done Comments CT Colonography 1951 Colonoscopy 1951 FIT 1951 FOBT 1950 Sigmoidoscopy 1951 Diabetes: Foot Exam 1961 Eye Exam 1961 Dental Oral Exam 12/16/2021 06/14/2021, 03/2019, 02/19/2018, Additional history exists Dental Prophylaxis 12/16/2021 06/14/2021, 1 11/03/2018, 02/12/2019, Additional history exists Dental X-Ray: Bitewings 06/15/2022 06/14/2021, 11/25 Dental X-Ray: Full Mouth 06/15/2024 06/14/2021, 12/2016 Hepatitis B Vaccines (3 of 3 - 19+ 3-dose series) 05/23/2025 03/28/2025, 02/25/2025, 02/17/2025, Additional history exists COVID-19 Vaccine ( season) 2025 09/11/2024, 11/04/2022, 05/24/2022, Additional history exists Influenza Vaccine (#1) 2025 , 12/27/2023, 08/20/2022, Additional history exists Diabetes: Hemoglobin A1C 08/05/2025 025, 02/17/2025, 10/09/2024, Additional history exists SDOH Screening 09/04/2025 09/04/2024 Alcohol/Substance Use Screening 09/11/2025 09/11/2024 Depression Screening 04/30/2026 04/30/2025, 04/30/20 25 Diabetes: Urine Protein Screening 05/05/2026 05/05/2025, 10/09/2024, [...] Comments POCT JOHNNY-14 URINE DRUG SCREEN Routine 05/23/2025 11:01 AM EDT Other chronic pain BASIC METABOLIC PANEL Routine 05/16/2025 8:40 AM EDT JUAREZ (acute kidney injury) (CMS/HCC) BASIC METABOLIC PANEL Routine 05/09/2025 3:12 PM EDT Hyperkalemia LIPID PANEL, STANDARD Routine 05/05/2025 9:02 AM [...] EDT Stage 3a chronic kidney disease (CMS/HCC) HEPATITIS C AB W/REFL TO HCV [...] Relevant to Health Maintenance Results * (ABNORMAL) POCT JOHNNY-14 Urine Drug Screen (05/23/2025 11:01 AM EDT) THC Negative Negative Cocaine Screen, Urine Negative Negative Opiate Screen, Urine Positive Negative Methamphetamine Screen Urine Negative Negative Amphetamine Screen, Urine Negative Negative Benzodiazepines Screen, Urine Negative Negative Barbiturate Screen, Urine Negative Negative Methadone Screen, Urine Negative Negative Buprenophine Screen, Urine Negative Negative TCA, Urine Negative Negative MDMA Urine Negative Negative ng/mL Oxycodone Screen, Urine Negative Negative Phencyclidine (PCP), Urine Negative Negative Propoxyphene, Urine Negative Negative Fentanyl, Urine Negative Negative Urine Urine specimen obtained by clean catch procedure / Unknown 05/23/2025 11:01 AM EDT Narrative Torie Mccormack, WAYLON - 05/23/2025 11:01 AM EDT .UTOX cup Lot#[id number] Exp. 07/29/26 Internal Pass Control us Mary Jo Richards MD POINT OF CARE JULI T ENTER/EDIT ORDERABLES Final Result * (ABNORMAL) Basic Metabolic Panel (05/16/2025 8:40 AM EDT) Only the most recent of3 resultswithin the time period is included. Sodium 139 135 - 145 mmol/L [facility] Potassium 4.8 3.3 - 5.1 mmol/L [facility] Chloride 102 96 - 108 mmol/L [facility] Carbon Dioxide 27 22 - 29 mmol/L [facility] Anion Gap 15 12 - 20 [facility] Urea Nitrogen (BUN) 18(H) 9 - 16 mg/dL [facility] Creatinine, Serum 1.26 0.5 - 1.4 mg/dL [facility] Estimated Glomerular Filt Rate 56 [facility] Comment:Chronic Kidney Disea se: Estimated GFR < 60 mL/min/1.60p8Pcryxy Kidney Disease: Estimated GFR < 15 mL/min/1.73m2 Glucose 172(H) 60 - 115 mg/dL [facility] Calcium 9.5 8.4 - 10.2 mg/dL [facility] Blood Venous blood specimen / Unknown 05/16/2025 8:40 AM EDT 05/16/2025 11:17 AM EDT us Mary Jo Richards MD LAB BLOOD ORDERAB LES Final Result [facility] [address] [place] [address] [phone] * (ABNORMAL) Vitamin B12 (Cobalamin) and Folate Panel, Serum (05/05/2025 9:02 AM EDT) Vitamin B12 1,153(H) 200 - 900 pg/mL [facility] Comment:NORMAL 200-900 PG/ML INDETERMINATE 160-199 PG/ML DEFICIENT < 160 PG/ML Folate 13.9 > or = 4.0 ng/mL [facility] Comment:Reference Values:> o r = 4.0 ng/mL< 4.0 ng/mL suggests folate deficiency Methotrexate, aminopterin and folinic acid(leucovorin) are chemotherapeutic agents whose molecularstructures are similar to folate; therefore, the Architectfolate assay cannot be used for patients using these drugs. Blood 05/05/2025 9:02 AM EDT 05/05/2025 9:02 AM EDT us Mary Jo Richards MD LAB BLOOD ORDERAB LES Final Result Performing Organization Address [facility]/ZIP Co de Phone Number [facility] [address] [place] [phone] * (ABNORMAL) Hemoglobin A1c (05/05/2025 9:02 AM EDT) Hemoglobin A1c 7.3(H) <6.0 % [facility] Comment:Hemoglobin A1C Refer ence Range Adults: 4.8 - 6.0 % Non diabetic: < 6.0 % Goal: < 7.0 %Additional Action Suggested: > 8.0 %Note: Hemoglobin A1c results are invalid for patients with abnormal amounts of HbF. Blood transfusions may impact the HbA1c concentration in the patient sample. Estimated Average Glucose 163 mg/dL [facility] Comment:eAG = Estimated ave rage glucose which is %A1C expressed asaverage glucose, using the formula of the C8Q-WwzaccqBifljot Glucose study (ADAG), Diabetes Care, Vol.31,#8,May. 2007 Blood Venous blood specimen / Unknown 05/05/2025 9:02 AM EDT 05/05/2025 9:02 AM EDT us Mary Jo Richards MD LAB BLOOD ORDERAB LES Final Result Performing Organization Address [facility]/ZIP Co de Phone Number [facility] [address] [place] [phone] * Lipid Panel, Standard (05/05/2025 9:02 AM EDT) Triglycerides 85 <150 mg/dL [facility] Comment:Desirable Triglyceri de: less than 150 mg/dLBorderline High Triglyceride 150-199 mg/dLHigh Triglyceride: 200-499 mg/dLVery High Triglyceride: greater than or equal to 5OO mg/dL Cholesterol 131 <200 mg/dL [facility] Comment:Desirable Cholestero l: less than 200 mg/dLBorderline High Cholesterol: 200-239 mg/dLHigh Cholesterol: greater than 239 mg/dL LDL Cholesterol Calculated 70 <100 mg/dL [facility] Comment:Desirable LDL: less than 100 mg/dLNear Optimal/Above Optimal LDL: 110- 129 mg/dLBorderline High LDL: 130-159 mg/dLHigh LDL: 160-189 mg/dLVery High LDL: greater than or equal to 190 mg/dL HDL Cholesterol 44 >40 mg/dL [facility] Comment:Desirable HDL: great er than 40 mg/dL Note: This HDL assay may give artificially low results in patients with liver disease. Blood Venous blood specimen / Unknown 05/05/2025 9:02 AM EDT 05/05/2025 9:02 AM EDT us Mary Jo Richards MD LAB BLOOD ORDERAB LES Final Result [facility] [address] [place] [phone] * (ABNORMAL) Comprehensive Metabolic Panel (05/05/2025 9:02 AM EDT) Sodium 142 135 - 145 mmol/L [facility] Potassium 5.5(H) 3.3 - 5.1 mmol/L [facility] Chloride 107 96 - 108 mmol/L [facility] Carbon Dioxide 27 22 - 29 mmol/L [facility] Anion Gap 14 12 - 20 [facility] Urea Nitrogen (BUN) 15 9 - 16 mg/dL [facility] Creatinine, Serum 1.41(H) 0.5 - 1.4 mg/dL [facility] Estimated Glomerular Filt Rate 49 [facility] Comment:Chronic Kidney Disea se: Estimated GFR < 60 mL/min/1.67x5Vznndy Kidney Disease: Estimated GFR < 15 mL/min/1.73m2 Glucose 120(H) 60 - 115 mg/dL [facility] Calcium 9.6 8.4 - 10.2 mg/dL [facility] Bilirubin, Total 0.4 0.0 - 1.0 mg/dL [facility] Aspartate Amino Transferase 39(H) 5 - 37 U/L [facility] Alanine Aminotransferase 32 0 - 40 U/L [facility] Total Protein 7.2 6.5 - 8.0 g/dL [facility] Albumin Level 4.3 3.5 - 5.0 g/dL [facility] Alkaline Phosphatase 81 39 - 117 U/L [facility] Blood Venous blood specimen / Unknown 05/05/2025 9:02 AM EDT 05/05/2025 9:02 AM EDT us Mary Jo Richards MD LAB BLOOD ORDERAB LES Final Result [facility] [address] [place] [phone] * (ABNORMAL) Albumin, Random Urine W/Creatinine (05/05/2025 8:59 AM EDT) Creatinine, Urine 50.65 mg/dL [facility] Microalbumin Urine 24.0 mg/L [facility] Microalbum Creatinine Ratio Ur 47.3(H) <30 ug/mg cr [facility] Comment:Albumin/Creatinine R atio Reference Ranges: Normal: < 30 ug/mg creatinine Microalbuminuria: 30 - 300 ug/mg creatinineClinical Albuminuria: > 300 ug/mg creatinine Urine (Urine, Random) 05/05/2025 8:59 AM EDT 05/05/2025 10:02 AM EDT Mary Jo Richards MD LAB URINE ORDERAB LES Final Result Performing Organization Address [facility] Co de Phone Number [facility] [address] [place] [phone] * Hepatitis C Antibody with Reflex to HCV, RNA, Quantitative, Real-Time PCR (10/09/2024 8:01 AM EST) [facility] Hepatitis C Antibody Nonreactive Nonreactive [facility] Comment:Antibodies to HCV no t detected; does not exclude early acuteHCV infection. Blood Venous blood specimen / Unknown 10/09/2024 8:01 AM EST 10/09/2024 11:51 AM EST Mary Jo Richards MD LAB BLOOD ORDERAB LES Final Result Performing Organization Address [facility] de Phone Number [facility] [address] [place] [phone] * Cologuard?? colon cancer screening (01/17/2024 6:32 AM EDT) [facility] Cologuard Result Negative Negative 01/24/20 9:47 AM EDT [employer] (CLIA #:[id number]) Comment: NEGATIVE TEST RESULT. A negative Cologuard [...] (Angie Navarro al, N Engl J Med 2014;370(14):6823-6140) The normal value (reference range) for this assay is negative. COLOGUARD RE-SCREENING RECOMMENDATION: Periodic colorectal cancer screening is an important part of preventive healthcare for asymptomatic individuals at average risk for colorectal cancer. Following a negative Cologuard result, the [place] [employer] and U.S. Multi-Society Task Force screening guidelines recommend a Cologuard re-screening interval of 3 years. References: [place] [employer] Guideline for Colorectal Cancer Screening: https://www.cancer.org/cancer/uqsjh-oqpolt-gfphvc/zypgwahtg-egpnmlaxv-oqwelmf/ac s-rec ommendations.html.; Randy DK, Timothy SILVA, Stephon SadlerK, Colorectal Cancer Screening: Recommendations for Physicians and Patients from the U.S. Multi-Society Task Force on Colorectal Cancer Screening , Am J Gastroenterology 2017; 112:4611-7375. TEST DESCRIPTION: Composite algorithmic analysis of stool [...] Dumont et al, N Engl J Med 2014;370(14):8699-0756.) Cologuard may produce a false negative or false positive result (no colorectal cancer or precancerous polyp present at colonoscopy follow up). A negative Cologuard test result does not guarantee the absence of CRC or advanced adenoma (pre-cancer). The current Cologuard screening interval is every 3 years. ([place] [employer] and U.S. Multi-Society Task Force). Cologuard performance data in a 10,000 patient pivotal study using colonoscopy as the reference method can be accessed at the following location: www.[employer]/results. Additional description of the Cologuard test process, warnings and precautions can be found at www.cologuard.com. Stool specimen (specimen) 01/17/2024 6:32 AM EDT 01/19/2024 2:11 PM EDT us Mary Jo Lim MD LAB MOLECULAR DIAGNOS TICS ORDERABLES Final Result [employer] (CLIA #:[id number]) [address] [place] [address], from Last 3 Months or Most Recently Relevant to Health Maintenance Insurance [facility] [employer] (HMO D-SNP) [place] [id number] [facility] Care Teams Physician Assistant Primary Care Relationship Specialty Start Date End Date Mary Jo Chau MD [address] [place] [address] PCP - General Internal Medicine 08/01/23 Adore Iraheta PharmD [address] [place] [phone] Pharmacist Internal Medicine 11/04/24
--- OUTSIDE RECORDS SUMMARY | 2025-06-24 13:17 | XMS_ITS | Encounter Summary ---
Author Organization [employer] Address [address] [place] [address] 7 [place] [address] Care Team Providers Care Wharf Hand Name Role Phone Mary Jo Chau MD Primary Care Pro vider Adore Iraheta PharmD Unavailable [phone] Reason for Visit * Reason Comments Med Change Request Encounter Details Date Type Department Care Team (Late Contact Info) Description 08/15/2023 Refill [facility] MEDICINE [address] [place] [address] Leah Alvarenga, DON Depression, unspecified depression type Social History Tobacco [...] Description 06/30/2025 2:00 PM EDT Medication Management [facility] MEDICINE 230 [place], [place] [phone] Adore Iraheta, PharmD 230 [place], [place] [phone] 07/03/2025 1:30 PM EDT Office Visit [facility] MEDICINE [address] [place] [address] Mary Jo Chau MD 230 [place] [address] 08/25/2025 1:30 PM EST Telemedicine [facility] CHC MED & PEDS 505 [place] [address] Torie Mccormack, WAYLON 505 [place] [address] 08/28/2025 3:00 PM EST Immunization [facility] MEDICINE [address] [place] [address] documented as of this encounter Visit Diagnoses Diagnosis Depression, unspecified depression type documented in this encounter Additional Health Concerns Assessment Noted Time PHQ-9 Depression Total Score: 14 023 4:05 PM EST documented as of this encounter Care Teams Wharf Hand Relationship Specialty Start Date End Date Mary Jo Chau MD [address] [place] [address] PCP - General Internal Medicine 08/01/23 Adore Iraheta PharmD [address] [place] [address] Pharmacist Internal Medicine 11/04/24 documented as of this encounter
--- OUTSIDE RECORDS SUMMARY | 2025-06-24 13:17 | XMS_ITS | Encounter Summary ---
Author Organization [employer] Address [address] [place] [address] Care Team Providers Care Supervisor Cytogenetic Laboratory Name Role Phone Mary Jo Chau MD Primary Care Pro vider Adore Iraheta PharmD Unavailable [phone] Reason for Visit * Reason Comments Med Change Request Encounter Details Date Type Department Care Team (Late st Contact Info) Description 04/27/2024 Refill [facility] MEDICINE 230 [place] [address] Mary Jo Chau MD 230 [place] [address] Depression, unspecified depression type Social History Tobacco [...] Description 06/30/2025 2:00 PM EDT Medication Management [facility] MEDICINE [address] [place] [address] Adore Iraheta PharmD [address] [place] [address] 07/03/2025 1:30 PM EDT Office Visit [address] [address] Mary Jo Chau MD 230 [place] [address] 08/25/2025 1:30 PM EST Telemedicine [facility] CHC MED & PEDS 505 [place] [address] Torie Mccormack, WAYLON 505 [place] [address] 08/28/2025 3:00 PM EST Immunization [facility] MEDICINE [address] [place] [address] documented as of this encounter Visit Diagnoses Diagnosis Depression, unspecified depression type documented in this encounter Additional Health Concerns Assessment Noted Time PHQ-9 Depression Total Score: 9 01/08/20 24 3:15 PM EDT documented as of this encounter Care Teams Supervisor Cytogenetic Laboratory Relationship Specialty Start Date End Date Mary Jo Chau MD [address] [place] [address] PCP - General Internal Medicine 08/01/23 Adore Iraheta PharmD [address] [place] [address] Pharmacist Internal Medicine 11/04/24 documented as of this encounter
--- OUTSIDE RECORDS SUMMARY | 2025-06-24 13:17 | XMS_ITS | Encounter Summary ---
Author Organization [employer] Address [address] [place] [address] 7 [place] [address] Care Team Providers Care Pipe Layer Name Role Phone Mary Jo Chau MD Primary Care Pro vider Adore Iraheta PharmD Unavailable [phone] Reason for Visit * Reason Comments Med Refill Encounter Details Date Type Department Care Team ([facility] st Contact Info) Description 11/06/2024 Refill [facility] MEDICINE 230 [place] [address] Mary Jo Chau MD 230 [place] [address] Depressive disorder Social History Tobacco Use Types [...] Description 06/30/2025 2:00 PM EDT Medication Management [facility] MEDICINE [address] [place] [address] Adore Iraheta, NegritaD [address] [place] [address] 07/03/2025 1:30 PM EDT Office Visit [facility] MEDICINE [address] [place] [address] Mary Jo Chau MD 230 [place] [address] 08/25/2025 1:30 PM EST Telemedicine [facility] CHC MED & PEDS 505 [place], [place] [phone] Torie Mccormack, WAYLON 505 [place] [address] 08/28/2025 3:00 PM EST Immunization [facility] MEDICINE [address] [place] [address] documented as of this encounter Visit Diagnoses Diagnosis Depressive disorder Depressive disorder, not elsewhere classified documented in this encounter Additional Health Concerns Assessment Noted Time PHQ-9 Depression Total Score: 10 09/11/ 024 2:12 PM EST documented as of this encounter Care Teams Pipe Layer Relationship Specialty Start Date End Date Mary Jo Chau MD [address] [place] [address] PCP - General Internal Medicine 08/01/23 Adore Iraheta PharmD [address] [place] [address] Pharmacist Internal Medicine 11/04/24 documented as of this encounter
--- OUTSIDE RECORDS SUMMARY | 2025-06-24 13:17 | XMS_ITS | Encounter Summary ---
Author Organization [employer] Address [address] [facility] 7t [place] [address] Care Team Providers Care Pneumatic Tube Operator Name Role Phone Mary Jo Chau MD Primary Care Pro vider Adore Iraheta PharmD Unavailable [phone] Reason for Visit * Reason Comments Med Refill Encounter Details Date Type Department Care Team ([facility] st Contact Info) Description 01/28/2025 Refill [facility] CHC MED & PEDS [address] [place] [address] Azael Diallo MD 230 [place] [address] Social History Tobacco Use Types Packs/Day Years [...] 06/30/2025 2:00 PM EDT Medication Management [facility] MEDICINE [address] [place] [address] Adore Iraheta, NegritaD [address] [place] [address] 07/03/2025 1:30 PM EDT Office Visit [facility] MEDICINE [address] [place] [address] Mary Jo Chau MD [address] [place] [address] 08/25/2025 1:30 PM EST Telemedicine [facility] CHC MED & PEDS 505 [place], [place] [phone] Torie Mccormack, WAYLON 505 [place] [address] 08/28/2025 3:00 PM EST Immunization [facility] MEDICINE [address] [place] [address] documented as of this encounter Visit Diagnoses Not on filedocumented in this encounter Additional Health Concerns Assessment Noted Time PHQ-9 Depression Total Score: 10 024 2:12 PM EST documented as of this encounter Care Teams Pneumatic Tube Operator Relationship Specialty Start Date End Date Mary Jo Chau MD 230 [place] [address] PCP - General Internal Medicine 08/01/23 Adore Iraheta PharmD 230 [place] [address] Pharmacist Internal Medicine 11/04/24 documented as of this encounter
--- OUTSIDE RECORDS SUMMARY | 2025-06-24 13:17 | XMS_ITS | Encounter Summary ---
Author Organization [employer] Address [address] [facility] 7t [place] [address] Care Team Providers Care Medical Language Specialist Name Role Phone Mary Jo Chau MD Primary Care Pro vider Adore Iraheta PharmD Unavailable [phone] Encounter Details Date Type Department Care Team (Late st Contact Info) Description 06/12/2024 Orders Only [facility] [address] [place] [address] Mary Jo Warren MD 230 [place] [address] Social History Tobacco Use Types Packs/Day Years [...] 06/30/2025 2:00 PM EDT Medication Management [facility] MEDICINE 230 [place] [address] Adore Iraheta PharmD 230 [place] [address] 07/03/2025 1:30 PM EDT Office Visit [facility] MEDICINE 230 [place] [address] Mary Jo Chau MD 230 [place] [address] 08/25/2025 1:30 PM EST Telemedicine [facility] CHC MED & PEDS 505 [place] [address] Torie Mccormack, WAYLON 505 [place] [address] 08/28/2025 3:00 PM EST Immunization [facility] MEDICINE [address] [place] [address] documented as of this encounter Visit Diagnoses Not on filedocumented in this encounter Additional Health Concerns Assessment Noted Time PHQ-9 Depression Total Score: 9 01/08/20 24 3:15 PM EDT documented as of this encounter Care Teams Medical Language Specialist Relationship Specialty Start Date End Date Mary Jo Chau MD [address] [place] [address] PCP - General Internal Medicine 08/01/23 Adore Iraheta PharmD [address] [place] [address] Pharmacist Internal Medicine 11/04/24 documented as of this encounter
--- OUTSIDE RECORDS SUMMARY | 2025-06-24 13:17 | XMS_ITS | Encounter Summary ---
Author Organization [employer] Address [address] [place] [address] Care Team Providers Care Chemical Engineering Professor Name Role Phone Leah Alvarenga PRESCHOOL TEACHER Primary Care Provider Mary Jo Dougherty MD Primary Care Pro vider Adore Iraheta PharmD Unavailable [phone] Reason for Visit * Reason Comments Med Refill Encounter Details Date Type Department Care Team (Late Contact Info) Description 07/04/2023 Refill [facility] MEDICINE 230 [place] [address] Leah Alvarenga, PRESCHOOL TEACHER Depression, unspecified depression type Social History Tobacco [...] Description 06/30/2025 2:00 PM EDT Medication Management [facility] MEDICINE 230 [place], [place] [phone] Adore Iraheta, PharmD 230 [place] [address] 07/03/2025 1:30 PM EDT Office Visit [facility] MEDICINE [address] [place] [address] Mary Jo Chau MD 230 [place] [address] 08/25/2025 1:30 PM EST Telemedicine [facility] CHC MED & PEDS 505 [place] [address] Torie Mccormack, WAYLON 505 [place] [address] 08/28/2025 3:00 PM EST Immunization [facility] MEDICINE [address] [place] [address] documented as of this encounter Visit Diagnoses Diagnosis Depression, unspecified depression type documented in this encounter Additional Health Concerns Assessment Noted Time PHQ-9 Depression Total Score: 14 023 4:05 PM EST documented as of this encounter Care Teams Chemical Engineering Professor Relationship Specialty Start Date End Date eLah Alvarenga FNP PCP - General Family Medicine 09/12/22 07/31/23 Mary Jo Chau MD [address] [place] [address] PCP - General Internal Medicine 08/01/23 Adore Iraheta PharmD [address] [place] [address] Pharmacist Internal Medicine 11/04/24 documented as of this encounter
--- OUTSIDE RECORDS SUMMARY | 2025-06-24 13:17 | XMS_ITS | Encounter Summary ---
Author Organization [employer] Address [address] [place] [address] 7 [place] [address] Care Team Providers Care Parking Meter Servicer Name Role Phone Mary Jo Chau MD Primary Care Pro vider Adore Iraheta PharmD Unavailable [phone] Reason for Visit * Reason Comments Med Refill Encounter Details Date Type Department Care Team (Late st Contact Info) Description 04/08/2025 Refill [facility] MEDICINE 230 [place] [address] Mary Jo Chau MD 230 [place] [address] Type 2 diabetes mellitus with diabetic polyneuropathy (CMS/HCC) Social History Tobacco Use Types Packs/Day Years [...] encounter Miscellaneous Notes * Telephone Encounter - Mary Jo Richards MD - 04/08/2025 3:15 PM EDT Sent already documented in this encounter Plan of Treatment Upcoming Encounters Date Type Department Care Team ([facility] st Contact Info) Description 06/30/2025 2:00 PM EDT Medication Management [facility] MEDICINE [address] [place] [address] Adore Iraheta, PharmD [address] [place] [address] 07/03/2025 1:30 PM EDT Office Visit [facility] MEDICINE [address] [place] [address] Mary Jo Chau MD [address] [place] [address] 08/25/2025 1:30 PM EST Telemedicine [facility] CHC MED & PEDS [address] [place] [address] Torie Mccormack, WAYLON 505 [place] [address] 08/28/2025 3:00 PM EST Immunization [facility] MEDICINE 230 [place] [address] documented as of this encounter Visit Diagnoses Diagnosis Type 2 diabetes mellitus with diabetic polyneuropathy (CMS/HCC) documented in this encounter Additional Health Concerns Assessment Noted Time PHQ-9 Depression Total Score: 10 024 2:12 PM EST documented as of this encounter Care Teams Parking Meter Servicer Relationship Specialty Start Date End Date Mary Jo Chau MD [address] [place] [address] PCP - General Internal Medicine 08/01/23 Adore Iraheta PharmD [address] [place] [address] Pharmacist Internal Medicine 11/04/24 documented as of this encounter
--- OUTSIDE RECORDS SUMMARY | 2025-06-24 13:17 | XMS_ITS | Encounter Summary ---
Author Organization [employer] Address [address] [place] [address], [place] [address] Care Team Providers Care Field Adjuster Name Role Phone Cristin Chaves MD Primary Care Provider Leah Macario PAINTING DEPARTMENT SUPERVISOR Primary Care Provider Mary Jo Dougherty MD Primary Care Pro vider Adore Iraheta PharmD Unavailable [phone] Encounter Details Date Type Department Care Team (Latest Contact Info) Description 06/14/2021 Abstract [facility] CONVERSIONS Dental, Provider, DDS Social History [...] Description 06/30/2025 2:00 PM EDT Medication Management [facility] MEDICINE [address] [place] [address] Adore Iraheta, PharmD 230 [place] [address] 07/03/2025 1:30 PM EDT Office Visit [facility] MEDICINE [address] [place] [address] Mary Jo Chau MD [address] [place] [address] 08/25/2025 1:30 PM EST Telemedicine [facility] CHC MED & PEDS 505 [place] [address] Torie Mccormack, RN 505 [place] [address] 08/28/2025 3:00 PM EST Immunization [facility] MEDICINE 230 [place] [address] documented as of this encounter Visit Diagnoses Not on filedocumented in this encounter Care Teams Field Adjuster Relationship Specialty Start Date End Date Cristin Chaves MD PCP - General Family Medicine 04/13/20 09/11/22 Leah Alvarenga FNP PCP - General Family Medicine 09/12/22 07/31/23 Mary Jo Chau MD 230 [place] [address] PCP - General Internal Medicine 08/01/23 Adore Iraheta PharmD [address] [place] [address] Pharmacist Internal Medicine 11/04/24 documented as of this encounter
--- OUTSIDE RECORDS SUMMARY | 2025-06-24 13:18 | XMS_ITS | Encounter Summary ---
Author Organization [employer] Address [address] [facility] 7t [place] [address] Care Team Providers Care Crew Chief Name Role Phone Mary Jo Chau MD Primary Care Pro vider Adore Iraheta PharmD Unavailable [phone] Reason for Visit * Reason Comments Med Refill Encounter Details Date Type Department Care Team ([facility] st Contact Info) Description 03/31/2025 Refill [facility] CHC MED & PEDS [address] [place] [address] Azael Diallo MD 230 [place] [address] Depression, unspecified depression type; Depressive disorder; Type 2 diabetes mellitus with other specified complication, without long-term current use of insulin ([facility]) Social History Tobacco Use Types Packs/Day Years [...] Description 06/30/2025 2:00 PM EDT Medication Management [facility] MEDICINE [address] [place] [address] Adore Iraheta, NegritaD [address] [place] [address] 07/03/2025 1:30 PM EDT Office Visit [facility] MEDICINE [address] [place] [address] Mary Jo Chau MD 230 [place] [address] 08/25/2025 1:30 PM EST Telemedicine [facility] CHC MED & PEDS 505 [place] [address] Torie Mccormack, RN 505 [place] [address] 08/28/2025 3:00 PM EST Immunization [facility] MEDICINE [address] [place] [address] documented as of this encounter Visit Diagnoses Diagnosis Depression, unspecified depression type Type 2 diabetes mellitus with other specified complication, without long-term current use of insulin ([facility]) documented in this encounter Additional Health Concerns Assessment Noted Time PHQ-9 Depression Total Score: 10 024 2:12 PM EST documented as of this encounter Care Teams Crew Chief Relationship Specialty Start Date End Date Mary Jo Chau MD [address] [place] [address] PCP - General Internal Medicine 08/01/23 Adore Iraheta PharmD [address] [place] [address] Pharmacist Internal Medicine 11/04/24 documented as of this encounter
== END 2025-06-24 12:59 | disposition home or self-care (01) ==
LOC: HO.HSM 11:45
PROVIDERS: PCP Student in an Organized Health Care Education/Training Program; Visit Provider Registered Nurse
DX: E11.42 Type 2 diabetes mellitus with diabetic polyneuropathy (principal); G31.84 Mild cognitive impairment of uncertain or unknown etiology; G30.9 Alzheimer's disease, unspecified; F02.80 Dementia in other diseases classified elsewhere, unspecified severity, without behavioral disturbance, psychotic disturbance, mood disturbance, and anxiety
CPT/HCPCS: 99214

== ENCOUNTER → 2025-06-24 11:44 | Outpatient (BNVA) | payer OTHER, SELFPAY | PROVIDERS: PCP Student in an Organized Health Care Education/Training Program; Visit Provider Registered Nurse | DX: E11.42 Type 2 diabetes mellitus with diabetic polyneuropathy (principal); G30.9 Alzheimer's disease, unspecified; F02.80 Dementia in other diseases classified elsewhere, unspecified severity, without behavioral disturbance, psychotic disturbance, mood disturbance, and anxiety | CPT/HCPCS: 99212 ==

== ENCOUNTER 2025-07-03 14:07 | Outpatient (REF) | payer OTHER, SELFPAY ==
--- NOTE | ~2025-07-03 | XR_ITS ---
EXAMINATION: XR FOOT, RIGHT CLINICAL INFORMATION: right heel pain possible spur? COMPARISON: None available. TECHNIQUE: AP, lateral, and oblique views of the right foot. FINDINGS: The bones and soft tissues are normal. No fracture. Alignment is anatomic. Joint spaces are maintained. There is a minute plantar fascial calcaneal spur. Extensive arterial vascular calcifications are present. XR/XR foot RT min 3V IMPRESSION: Minute calcaneal spur of uncertain significance. Atherosclerotic disease Electronically signed by: Aashish Marcano MD 07/03/2025 03:16 PM EDT
--- OUTSIDE RECORDS SUMMARY | 2025-07-03 13:30 | XMS_ITS | Encounter Summary ---
Author Organization [employer] Address [address] [place] [address] Care Team Providers Care Supervisor Facepiece Line Name Role Phone Mary Jo Chau MD Primary Care Pro vider Adore Iraheta PharmD Unavailable [phone] Reason for Referral * Medications - Closed Specialty Diagnoses / Procedures Referred By Contrubén t Referred To Contact Diagnoses Knee pain, unspecified chronicity, unspecified laterality Mary Jo Chau MD 230 [place] [address] Phone: tel: fax: Referral ID Status Reason Start Date Expiration Date Visits Re quested Visits Authorized [id number] Closed 1 1 Reason for Visit * Reason Comments Follow-up Encounter Details Date Type Department Care Team (Late st Contact Info) Description 07/03/2025 1:30 PM EDT Office Visit [facility] MEDICINE 230 [place], [place] [phone] Mary Jo Chau MD 230 [place], [place] [phone] Right foot pain (Primary Dx); Knee pain, unspecified chronicity, unspecified laterality Social History Tobacco Use Types Packs/Day Years [...] AM EDT documented as of this encounter Last Filed Vital Signs Vital Sign Reading Time Taken Comments Blood Pressure 112/62 07/03/2025 1:33 PM EDT Pulse 77 07/03/2025 1:33 PM EDT Temperature 36.3 C (97.4 F) 07/03/2025 1:33 PM EDT Respiratory Rate 16 07/03/2025 1:33 PM EDT Oxygen Saturation 98% 07/03/2025 1:33 PM EDT Inhaled Oxygen Concentration - - Weight 64 kg (141 lb) 07/03/2025 1:33 PM EDT Height 167.6 cm (5' 6 ) 07/03/2025 1:33 PM EDT Body Mass Index 22.76 07/03/2025 1:33 PM EDT documented in this encounter Plan of Treatment Upcoming Encounters Date Type Department Care Team (Late st Contact Info) Description 08/18/2025 2:30 PM EDT Medication Management [facility] MEDICINE 230 [place] [address] Adore Iraheta, NegritaD 230 [place] [address] 08/25/2025 1:30 PM EST Telemedicine [facility] CHC MED & PEDS 505 [place], [place] [phone] Torie Mccormack, RN 505 [place], [place] [phone] 08/28/2025 3:00 PM EST Immunization [address] [address] documented as of this encounter Procedures Procedure Name Priority Date/Time Associated Diagnosis Comments XR FOOT 3+ VIEWS RIGHT Routine 07/03/2025 3:05 PM EDT Right foot pain documented in this encounter Results * XR Foot 3+ Views Right (07/03/2025 3:05 PM EDT) Anatomical Region Laterality Modality Lower Extremities, Foot Right [facility] Imaging 07/03/2025 3:05 PM EDT Narrative 07/03/2025 3:19 PM EDT [address] [address] XRay Report Signed Patient: Rod Marie MR#: [id number] : 1950 Acct:[id number] Age/Sex: 74 / M ADM Date: 07/03/25 [facility]: Mary Jo Richards MD Ordering Physician: Mary Jo Chau MD Date of Service: 07/03/25 Procedure(s): XR foot RT min 3V Accession Number(s): [id number] cc: Mary Jo Chau MD Reason for Exam: right heel pain possible spur? EXAMINATION: XR FOOT, RIGHT CLINICAL INFORMATION: right heel pain possible spur? COMPARISON: None available. TECHNIQUE: AP, lateral, and oblique views of the right foot. FINDINGS: The bones and soft tissues are normal. No fracture. Alignment is anatomic. Joint spaces are maintained. There is a minute plantar fascial calcaneal spur. Extensive arterial vascular calcifications are present. XR/XR foot RT min 3V IMPRESSION: Minute calcaneal spur of uncertain significance. Atherosclerotic disease Electronically signed by: Aashish Marcano MD 07/03/2025 03:16 PM EDT RP Dictated By: Aashish Marcano MD Signed By: <Electronically signed by Aashish Marcano MD in OV> 07/03/25 1516 DD/ 1505 TD/TT: 07/03/25 1506 Octave Board Assembler: Procedure Note Donotuseinterpreter, Image - 07/03/2025 [place] [address] XRay Report Signed Patient: Rod MarieMR#: [id number] : 1950cct:[id number] Age/Sex: 74 / MADM Date: 07/03/25 Loc: [facility] Attending Dr: Mary Jo Richards MD Ordering Physician: Mary Jo Chau MD Date of Service: 07/03/25 Procedure(s): XR foot RT min 3V Accession Number(s): [id number] cc: Mary Jo Chau MD Reason for Exam: right heel pain possible spur? EXAMINATION: XR FOOT, RIGHT CLINICAL INFORMATION: right heel pain possible spur? COMPARISON: None available. TECHNIQUE: AP, lateral, and oblique views of the right foot. FINDINGS: The bones and soft tissues are normal. No fracture. Alignment is anatomic. Joint spaces are maintained. There is a minute plantar fascial calcaneal spur. Extensive arterial vascular calcifications are present. XR/XR foot RT min 3V IMPRESSION: Minute calcaneal spur of uncertain significance. Atherosclerotic disease Electronically signed by: Aashish Marcano MD 07/03/2025 03:16 PM EDT RP Dictated By: Aashish Marcano MD Signed By: <Electronically signed by Aashish Marcano MD in OV> 07/03/25 1516 DD/ 1505 TD/TT: 07/03/25 1506 Octave Board Assembler: Mary Jo Richards MD IMG XR PROCEDURES Final Result documented in this encounter Visit Diagnoses Diagnosis Right foot pain- Primary Pain in soft tissues of limb Knee pain, unspecified chronicity, unspecified laterality documented in this encounter Additional Health Concerns Assessment Noted Time PHQ-9 Depression Total Score: 0 04/30/20 2:08 PM EDT documented as of this encounter Care Teams Supervisor Facepiece Line Relationship Specialty Start Date End Date Mary Jo Chau MD 230 [place] [address] PCP - General Internal Medicine 08/01/23 Adore Iraheta PharmD 230 [place] [address] Pharmacist Internal Medicine 11/04/24 documented as of this encounter
--- OUTSIDE RECORDS SUMMARY | 2025-07-03 17:56 | XMS_ITS | Encounter Summary ---
Author Organization [employer] Address [address] [place] [address] [place] [address] Care Team Providers Care Meringuer Name Role Phone Mary Jo Chau MD Primary Care Pro vider Adore Iraheta PharmD Unavailable [phone] Reason for Visit * Reason Comments Med Refill Encounter Details Date Type Department Care Team ([facility] Contact Info) Description 11/14/2023 Refill [facility] MED & PEDS [address] [place] [address] Mary Jo Chau MD 230 [place], [place] [phone] Other chronic pain Social History Tobacco Use [...] Upcoming Encounters Date Type Department Care Team ([facility] Contact Info) Description 08/18/2025 2:30 PM EDT Medication Management [facility] MEDICINE [address] [place], [place] [phone] Adore Iraheta, PharmD 230 [place] [address] 08/25/2025 1:30 PM EST Telemedicine [facility] CHC MED & PEDS [address] [place] [address] Torie Mccormack, RN 505 [place] [address] 08/28/2025 3:00 PM EST Immunization [facility] MEDICINE [address] [place] [address] documented as of this encounter Visit Diagnoses Diagnosis Other chronic pain documented in this encounter Additional Health Concerns Assessment Noted Time PHQ-9 Depression Total Score: 14 023 4:05 PM EST documented as of this encounter Care Teams Meringuer Relationship Specialty Start Date End Date Mary Jo Chau MD [address] [place] [address] PCP - General Internal Medicine 08/01/23 Adore Iraheta PharmD [address] [place] [address] Pharmacist Internal Medicine 11/04/24 documented as of this encounter
--- OUTSIDE RECORDS SUMMARY | 2025-07-03 17:56 | XMS_ITS | Encounter Summary ---
Author Organization [employer] Address [address] [place] [address] Care Team Providers Care Vat Washer Name Role Phone Mary Jo Chau MD Primary Care Pro vider Adore Iraheta PharmD Unavailable [phone] Reason for Visit * Reason Comments Med Change Request Encounter Details Date Type Department Care Team (Late st Contact Info) Description 04/27/2024 Refill [facility] MEDICINE [address] [place] [address] Mary Jo Chau MD 230 [place] [address] Depression, unspecified depression type Social History Tobacco [...] Description 08/18/2025 2:30 PM EDT Medication Management [facility] MEDICINE [address] [place] [address] Adore Iraheta PharmD 230 [place] [address] 08/25/2025 1:30 PM EST Telemedicine [facility] CHC MED & PEDS 505 [place] [address] Torie Mccormack, WAYLON 505 [place] [address] 08/28/2025 3:00 PM EST Immunization [facility] MEDICINE [address] [place] [address] documented as of this encounter Visit Diagnoses Diagnosis Depression, unspecified depression type documented in this encounter Additional Health Concerns Assessment Noted Time PHQ-9 Depression Total Score: 9 01/08/20 24 3:15 PM EDT documented as of this encounter Care Teams Vat Washer Relationship Specialty Start Date End Date Mary Jo Chau MD [address] [place] [address] PCP - General Internal Medicine 08/01/23 Adore Iraheta PharmD [address] [place] [address] Pharmacist Internal Medicine 11/04/24 documented as of this encounter
--- OUTSIDE RECORDS SUMMARY | 2025-07-03 17:56 | XMS_ITS | Encounter Summary ---
Author Organization [employer] Address [address] [facility] 7 [place] [address] Care Team Providers Care Machine Feed Operator Name Role Phone Mary Jo Chau MD Primary Care Pro vider Aodre Iraheta PharmD Unavailable [phone] Reason for Visit * Reason Comments Med Refill Encounter Details Date Type Department Care Team (Late st Contact Info) Description 12/04/2024 Refill [facility] CH[facility] MED & PEDS 505 [place] [address] Mary Jo Chau MD 230 [place] [address] Type 2 diabetes mellitus with other specified complication, without long-term current use of insulin ([facility]) Social History Tobacco Use Types [...] 2:30 PM EDT Medication Management [facility] MEDICINE [address] [place] [address] Adore Iraheta, PharmD [address] [place] [address] 08/25/2025 1:30 PM EST Telemedicine [facility] CH[facility] MED & PEDS 505 [place] [address] Torie Mccormack, RN 505 [place] [address] 08/28/2025 3:00 PM EST Immunization [facility] MEDICINE [address] [place] [address] documented as of this encounter Visit Diagnoses Diagnosis Type 2 diabetes mellitus with other specified complication, without long-term current use of insulin ([facility]) documented in this encounter Additional Health Concerns Assessment Noted Time PHQ-9 Depression Total Score: 10 024 2:12 PM EST documented as of this encounter Care Teams Machine Feed Operator Relationship Specialty Start Date End Date Mary Jo Chau MD 230 [place], [place] [phone] PCP - General Internal Medicine 08/01/23 Adore Iraheta PharmD 230 [place], [place] [phone] Pharmacist Internal Medicine 11/04/24 documented as of this encounter
--- OUTSIDE RECORDS SUMMARY | 2025-07-03 17:56 | XMS_ITS | Encounter Summary ---
Author Organization [employer] Address [address] [place] [address] Care Team Providers Care Early Head Start Teacher Name Role Phone Mary Jo Chau MD Primary Care Pro vider Adore Iraheta PharmD Unavailable [phone] Reason for Visit * Reason Comments Med Refill Encounter Details Date Type Department Care Team ([facility] st Contact Info) Description 11/09/2023 Refill [facility] MEDICINE 230 [place] [address] Mary Jo Chau MD 230 [place] [address] Seasonal allergic rhinitis, unspecified trigger; Other chronic [...] Department Care Team (Late Contact Info) Description 08/18/2025 2:30 PM EDT Medication Management [facility] MEDICINE 230 [place] [address] IrahetaAdore PharmD [address] [place] [address] 08/25/2025 1:30 PM EST Telemedicine [facility] CHC MED & PEDS 505 [place] [address] Torie Mccormack, RN 505 [place] [address] 08/28/2025 3:00 PM EST Immunization [facility] MEDICINE 230 [place] [address] documented as of this encounter Visit Diagnoses Diagnosis Seasonal allergic rhinitis, unspecified trigger Other chronic pain documented in this encounter Additional Health Concerns Assessment Noted Time PHQ-9 Depression Total Score: 14 023 4:05 PM EST documented as of this encounter Care Teams Early Head Start Teacher Relationship Specialty Start Date End Date Mary Jo Chau MD [address] [place] [address] PCP - General Internal Medicine 08/01/23 Adore Iraheta PharmD [address] [place] [address] Pharmacist Internal Medicine 11/04/24 documented as of this encounter
--- OUTSIDE RECORDS SUMMARY | 2025-07-03 17:56 | XMS_ITS | Encounter Summary ---
Author Organization [employer] Address 75 [facility] 7t [place] [address] Care Team Providers Care Radiology Transporter Name Role Phone Mary Jo Chau MD Primary Care Pro vider Adore Iraheta PharmD Unavailable [phone] Encounter Details Date Type Department Care Team (Late st Contact Info) Description 06/12/2024 Orders Only [facility] [address] [place] [address] Mary Jo Warren MD 230 [place] [address] Social History Tobacco Use Types Packs/Day Years [...] Description 08/18/2025 2:30 PM EDT Medication Management [facility] 230 [place] [address] Adore Iraheta, Lorenzo [address] [place] [address] 08/25/2025 1:30 PM EST Telemedicine [facility] CHC MED & PEDS 505 [place] [address] Torie Mccormack, RN 505 [place] [address] 08/28/2025 3:00 PM EST Immunization [facility] MED[facility] 230 [place] [address] documented as of this encounter Visit Diagnoses Not on filedocumented in this encounter Additional Health Concerns Assessment Noted Time PHQ-9 Depression Total Score: 9 01/08/20 24 3:15 PM EDT documented as of this encounter Care Teams Radiology Transporter Relationship Specialty Start Date End Date Mary Jo Chau MD [address] [place] [address] PCP - General Internal Medicine 08/01/23 Adore Iraheta, Lorenzo [address] [place] [address] Pharmacist Internal Medicine 11/04/24 documented as of this encounter
--- OUTSIDE RECORDS SUMMARY | 2025-07-03 17:56 | XMS_ITS | Encounter Summary ---
Author Organization [employer] Address 75 [facility] 7t [place] [address] Care Team Providers Care Lube Technician Name Role Phone Mary Jo hCau MD Primary Care Pro vider Adore Iraheta PharmD Unavailable [phone] Reason for Visit * Reason Comments Med Refill Encounter Details Date Type Department Care Team ([facility] st Contact Info) Description 01/28/2025 Refill [facility] CHC MED & PEDS [address] [place] [address] Azael Diallo MD 230 [place] [address] Social History Tobacco Use Types Packs/Day Years [...] Description 08/18/2025 2:30 PM EDT Medication Management [facility] MEDICINE [address] [place] [address] Adore Iraheta, PharmD [address] [place] [address] 08/25/2025 1:30 PM EST Telemedicine [facility] CHC MED & PEDS 505 [place] [address] Torie Mccormack, RN 505 [place] [address] 08/28/2025 3:00 PM EST Immunization [facility] MEDICINE [address] [place] [address] documented as of this encounter Visit Diagnoses Not on filedocumented in this encounter Additional Health Concerns Assessment Noted Time PHQ-9 Depression Total Score: 10 024 2:12 PM EST documented as of this encounter Care Teams Lube Technician Relationship Specialty Start Date End Date Mary Jo Chau MD [address] [place] [address] PCP - General Internal Medicine 08/01/23 Adore Iraheta, Lorenzo [address] [place] [address] Pharmacist Internal Medicine 11/04/24 documented as of this encounter
--- OUTSIDE RECORDS SUMMARY | 2025-07-03 17:56 | XMS_ITS | Encounter Summary ---
Author Organization [employer] Address 75 [facility] 7t [place] [address] Care Team Providers Care Research Analyst Name Role Phone Mary Jo Chau MD Primary Care Pro vider Adore Iraheta PharmD Unavailable [phone] Encounter Details Date Type Department Care Team (Latest Contact Info) Description 07/03/2025 Travel Social History Tobacco Use Types Packs/Day [...] is your housing situation today? I have rufusrodney gillis 09/04/[address] you [...] Description 08/18/2025 2:30 PM EDT Medication Management [facility] MEDICINE [address] [place] [address] Adore Iraheta PharmD [address] [place] [address] 08/25/2025 1:30 PM EST Telemedicine [facility] CHC MED & PEDS 505 [place] [address] Torie Mccormack, RN 505 [place], [place] [phone] 08/28/2025 3:00 PM EST Immunization [facility] MEDICINE [address] [place] [address] documented as of this encounter Visit Diagnoses Not on filedocumented in this encounter Additional Health Concerns Assessment Noted Time PHQ-9 Depression Total Score: 0 04/30/20 25 2:08 PM EDT documented as of this encounter Care Teams Research Analyst Relationship Specialty Start Date End Date Mary Jo Chau MD [address] [place] [address] [phone] PCP - General Internal Medicine 08/01/23 Adore Iraheta PharmD [address] [place] [address] [phone] Pharmacist Internal Medicine 11/04/24 documented as of this encounter
--- OUTSIDE RECORDS SUMMARY | 2025-07-03 17:56 | XMS_ITS | Encounter Summary ---
Author Organization [employer] Address [address] [place] [address] Care Team Providers Care Heel Seat Sander Name Role Phone Mary Jo Chau MD Primary Care Pro vider Adore Iraheta PharmD Unavailable [phone] Reason for Visit * Reason Comments Med Refill Encounter Details Date Type Department Care Team (Late st Contact Info) Description 11/21/2023 Refill [facility] MEDICINE 230 [place] [address] Mary Jo Chau MD 230 [place] [address] Depression, unspecified depression type Social History Tobacco [...] Description 08/18/2025 2:30 PM EDT Medication Management [facility] MEDICINE 230 [place] [address] Adore Iraheta, PharmD 230 [place] [address] 08/25/2025 1:30 PM EST Telemedicine [facility] CHC MED & PEDS 505 [place] [address] Torie Mccormack, RN 505 [place] [address] 08/28/2025 3:00 PM EST Immunization [facility] MEDICINE 230 [place] [address] documented as of this encounter Visit Diagnoses Diagnosis Depression, unspecified depression type documented in this encounter Additional Health Concerns Assessment Noted Time PHQ-9 Depression Total Score: 14 023 4:05 PM EST documented as of this encounter Care Teams Heel Seat Sander Relationship Specialty Start Date End Date Mary Jo Chau MD [address] [place] [address] PCP - General Internal Medicine 08/01/23 Adore Iraheta PharmD [address] [place] [address] Pharmacist Internal Medicine 11/04/24 documented as of this encounter
--- OUTSIDE RECORDS SUMMARY | 2025-07-03 17:56 | XMS_ITS | Encounter Summary ---
Author Organization [employer] Address 75 [facility] 7t [place] [address] Care Team Providers Care Maintenance Service Supervisor Name Role Phone Leah Alvarenga CDL DEDICATED TRUCK DRIVER Primary Care Provider Mary Jo Dougherty MD Primary Care Pro vider Adore Iraheta PharmD Unavailable [phone] Reason for Visit * Reason Comments Med Refill Encounter Details Date Type Department Care Team (Late Contact Info) Description 05/12/2023 Refill [facility] MEDICINE 230 [place] [address] Leah Alvarenga, CDL DEDICATED TRUCK DRIVER Depression, unspecified depression type Social History Tobacco [...] Description 08/18/2025 2:30 PM EDT Medication Management [facility] MEDICINE [address] [place] [address] Adoer Iraheta PharmD 230 [place] [address] 08/25/2025 1:30 PM EST Telemedicine [facility] CHC MED & PEDS 505 [place] [address] Torie Mccormack, WAYLON 505 [place] [address] 08/28/2025 3:00 PM EST Immunization [facility] MEDICINE [address] [place] [address] documented as of this encounter Visit Diagnoses Diagnosis Depression, unspecified depression type documented in this encounter Additional Health Concerns Assessment Noted Time PHQ-9 Depression Total Score: 14 023 4:05 PM EST documented as of this encounter Care Teams Maintenance Service Supervisor Relationship Specialty Start Date End Date Leah Alvarenga FNP PCP - General Family Medicine 09/12/22 07/31/23 Mary Jo Chau MD [address] [place] [address] PCP - General Internal Medicine 08/01/23 Adore Iraheta PharmD [address] [place] [address] Pharmacist Internal Medicine 11/04/24 documented as of this encounter
--- OUTSIDE RECORDS SUMMARY | 2025-07-03 17:56 | XMS_ITS | Encounter Summary ---
Author Organization [employer] Address [address] [place] [address] Care Team Providers Care Bull Rider Name Role Phone Leah Alvarenga FACILITIES AND GROUNDS DIRECTOR Primary Care Provider Mary Jo Dougherty MD Primary Care Pro vider Adore Iraheta PharmD Unavailable [phone] Reason for Visit * Reason Comments Med Refill Encounter Details Date Type Department Care Team (Late Contact Info) Description 07/04/2023 Refill [facility] MEDICINE [address] [place] [address] Leah Alvarenga, DON Depression, unspecified depression type [...] Description 08/18/2025 2:30 PM EDT Medication Management [facility] MEDICINE [address] [place], [place] [phone] Adore Iraheta, PharmD 230 [place] [address] 08/25/2025 1:30 PM EST Telemedicine [facility] CHC MED & PEDS [address] [place] [address] Torie Mccormack, RN [address] [place] [address] 08/28/2025 3:00 PM EST Immunization [facility] MEDICINE [address] [place] [address] documented as of this encounter Visit Diagnoses Diagnosis Depression, unspecified depression type documented in this encounter Additional Health Concerns Assessment Noted Time PHQ-9 Depression Total Score: 14 023 4:05 PM EST documented as of this encounter Care Teams Bull Rider Relationship Specialty Start Date End Date Leah Alvarenga FNP PCP - General Family Medicine 09/12/22 07/31/23 Mary Jo Chau MD 230 [place] [address] PCP - General Internal Medicine 08/01/23 Adore Iraheta PharmD [address] [place] [address] Pharmacist Internal Medicine 11/04/24 documented as of this encounter
--- OUTSIDE RECORDS SUMMARY | 2025-07-03 17:56 | XMS_ITS | Clinical Summary ---
Author Organization [employer] Address [address] [place] [address] [address] [place] [address] Care Team Providers Care [facility] Counselor Name Role Phone Mary Jo Chau MD Primary Care Pro vider Adore Iraheta PharmD Unavailable [phone] Allergies Active Allergy Reactions Criticality Noted Date Comments Lisinopril 06/08/2020 Other reaction(s): Hyperkalemia Medications cholecalciferol VITAMIN D (Vitamin D-3) 50 MCG (1999) capsuleIndicati ons:Vitamin D deficiency TOME 1 CAPS[place]A POR VIA ORAL [place] 90 capsule 09/23/20 24 Active Reguloid 0.52 g capsuleIndicati ons:Constipatio [...] Colace and Senna Rx. 30 tablet 11 11/06/19 25 2025 Active empagliflozin-m etFORMIN (Synjardy) 12.5-1000 MGIndications:T ype 2 diabetes mellitus with diabetic polyneuropathy, without long-term current use of insulin ([facility]) Take 1 tablet by mouth 2 times daily. 60 tablet 11 02/18/20 25 2025 Active Tirzepatide (Mounjaro) 5 MG/0.5ML solution auto-injectorIn dications:Type 2 diabetes mellitus with diabetic polyneuropathy, without long-term current use of insulin ([facility]) Inject 5 mg under the skin 1 (one) time per week. 2 mL 3 02/18/20 25 Active memantine (Namenda) 10 MG tabletIndicatio ns:Depression, unspecified depression type TAKE 1 TABLET BY MOUTH TWICE A DAY 180 tablet 04/01/20 25 Active pregabalin (Lyrica) 150 MG capsuleIndicati ons:Neuropathy Take 1 capsule (150 mg) by mouth 2 times daily. 60 capsule 2 04/08/20 25 2025 Active finasteride (Proscar) 5 MG tablet [...] EVERY DAY 90 tablet 04/28/20 25 Active melatonin 5 MG tablet Take 1 tablet (5 mg) by mouth at bedtime. 90 tablet 1 04/30/20 25 Active tamsulosin (Flomax) 0.4 MG 24 hr capsule Take 0.4 mg by mouth in the morning. 04/24/20 25 Active amLODIPine (Norvasc) 2.5 MG tablet Take 1 tablet (2.5 mg) by mouth Once per day. 90 tablet 05/05/20 25 2025 Active glucose blood (FREESTYLE LITE) test stripIndication s:Type 2 diabetes mellitus with diabetic polyneuropathy, without long-term current use of insulin ([facility]) USE DIRECTED TO TEST BLOOD SUGAR DAILY 50 strip 3 05/20/20 25 Active naloxone (Narcan) 4 mg/0.1 mL nasal spray Administer 1 spray (4 mg) into affected nostril(s) if needed for opioid reversal. May repeat every 2-3 minutes if needed, alternating nostrils, until medical assistance becomes available. 2 each 2 05/23/20 25 2025 Active atorvastatin (Lipitor) 80 MG tablet TAKE 1 TABLET BY MOUTH AT BEDTIME 90 tablet 06/18/20 25 Active Aspirin Low Dose 81 MG chewable tabletIndicatio ns:Type 2 diabetes mellitus with other specified complication, without long-term current use of insulin ([facility]) TAKE 1 TABLET BY MOUTH EVERY EVENING 90 tablet 1 06/24/20 25 Active acetaminophen-c odeine (Tylenol w/ Codeine #4) 300-60 MG tabletIndicatio ns:Other chronic pain TAKE 1 TABLET BY MOUTH EVERY 8 HOURS NEEDED FOR MODERATE PAIN 56 tablet 06/25/20 25 Active loratadine (Claritin) 10 MG tablet Take 1 tablet (10 mg) by mouth in the morning. 90 tablet 06/27/20 25 Active donepezil (Aricept) 5 MG tablet 06/24/20 25 Active lidocaine (Lidoderm) 5 % patchIndication s:Knee pain, unspecified chronicity, unspecified laterality APPLY 1 PATCH EVERY MORNING REMOVE AND DISARD PATCH WITHIN 12 HOURS OR as INSTRUCTED BY 30 patch 2 07/03/20 25 Active lidocaine-prilo nicolette (Emla) 2.5-2.5 % cream Apply topically if needed each day for mild pain. 5 g 07/03/20 25 Active cyanocobalamin (Vitamin B-12) 500 MCG tablet Take 1 tablet (500 mcg) by mouth 3 (three) times a week. 90 tablet 07/04/20 25 Active aspirin (Aspirin Low Dose) 81 MG chewable tabletIndicatio ns:Type 2 diabetes mellitus with other specified complication, without long-term current use of insulin (CMS/HCC) CHEW 1 TABLET BY MOUTH EVERY DAY 90 tablet 1 10/03/20 24 2024 Discontinued atorvastatin (Lipitor) 80 MG tablet TAKE 1 TABLET BY MOUTH BY MOUTH AT BEDTIME 90 tablet 1 01/28/20 25 2024 Discontinued loratadine (Claritin) 10 MG tablet TAKE 1 TABLET BY MOUTH EVERY MORNING 90 tablet 04/01/20 25 2024 Discontinued(R eorder (will not trigger notification to Pharmacy)) lidocaine (Lidoderm) 5 % patchIndication s:Knee pain, unspecified chronicity, unspecified laterality APPLY 1 PATCH EVERY MORNING REMOVE AND DISARD PATCH WITHIN 12 HOURS OR as INSTRUCTED BY 30 patch 2 04/30/20 25 2024 Discontinued(R eorder (will not trigger notification to Pharmacy)) cyanocobalamin (Vitamin B-12) 500 MCG tablet TAKE 1 TABLET BY MOUTH AT BEDTIME 90 tablet 05/20/20 25 2024 Discontinued(R eorder (will not trigger notification to Pharmacy)) acetaminophen-c odeine (Tylenol w/ Codeine #4) 300-60 MG tabletIndicatio ns:Other chronic pain Take 1 tablet by mouth every 8 (eight) hours if needed for moderate pain. 56 tablet 05/23/20 25 2024 Discontinued Active Problems Problem Noted Date [...] Encounters Date Type Department Care Team Description 07/03/2025 1:30 PM EDT Office Visit [facility] [address] [place] [phone] Mary Jo Chau MD Right foot pain (Primary Dx); Knee pain, unspecified chronicity, unspecified laterality 07/03/2025 Travel 07/02/2025 Telephone [facility] [address] [place] [address] Adrianna Aparicio MA 06/27/2025 Refill [facility] [address] [place] [address] Mary Jo Chau MD 06/24/2025 Refill [facility] [address] [place] [address] Mary Jo Chau MD Other chronic pain 06/22/2025 Refill [facility] [address] [place] [address] Azael Diallo MD Type 2 diabetes mellitus with other specified complication, without long-term current use of insulin ([facility]) 06/18/2025 Refill [facility] [address] [place] [address] Azael Diallo MD 05/23/2025 11:00 AM EDT Clinical Support [facility] [address] [place] [phone] Torie Mccormack, WAYLON Other chronic pain 05/23/2025 Refill [facility] [address] [place] [address] Torie Mccormack, WAYLON Other chronic pain 05/23/2025 Travel 05/19/2025 Refill [facility] [address] [place] [address] Mary Jo Chau MD Type 2 diabetes mellitus with diabetic polyneuropathy, without long-term current use of insulin ([facility]) 05/16/2025 Telephone [facility] [address] [place] [address] Mary Jo Chau MD sep recall 05/13/2025 3:30 PM EDT Clinical Support [facility] [address] [place] [phone] Anyi Villanueva, WAYLON Primary hypertension 05/13/2025 Travel 05/09/2025 Results Follow-Up [facility] [address] [place] [address] Mary Jo Chau MD Basic Metabolic Panel, Basic Metabolic Panel 05/05/2025 Orders Only [facility] [address] [place] [address] Mary Jo Chau MD 05/05/2025 Orders Only [facility] [address] [place] [address] Mary Jo Chau MD 05/05/2025 Results Follow-Up [address] [place] [address] Mary Jo Chau MD Albumin, Random Urine W/Creatinine, Comprehensive Metabolic Panel, Hemoglobin A1c, Additional followed-up results: 2 05/05/2025 Orders Only [address] [place] [address] Mary Jo Chau MD Hyperkalemia (Primary Dx) 05/05/2025 Travel 04/30/2025 2:00 PM EDT Office Visit [address] [place] [address] Mary Jo Chau MD Knee pain, unspecified chronicity, unspecified laterality (Primary Dx); Diabetic polyneuropathy associated with type 2 diabetes mellitus ([facility]); Hyperlipidemia, unspecified hyperlipidemia type; Primary hypertension; Type 2 diabetes mellitus with diabetic polyneuropathy, without long-term current use of insulin ([facility]) 04/30/2025 Travel 04/29/[address] [address] Mary Jo Chau MD CHART PREP 04/28/[address] [facility] [address] [place] [address] Mary Jo Chau MD Depressive disorder 04/21/[address] [address] Adore Iraheta, Lorenzo Med Refill 04/21/[address] [facility] [address] [place] [address] Mary Jo Chau MD Other chronic pain; Depression, unspecified depression type 04/09/2025 Travel 04/08/2025 Orders Only [address] [address] Mary Jo Chau MD Neuropathy (Primary Dx) 04/08/2025 Refill [facility] [address] [place] [address] Mary Jo Chau MD Type 2 diabetes mellitus with diabetic polyneuropathy (CMS/HCC) from Last 3 Months Immunizations Immunization Administration [...] Mass Index 22.76 07/03/2025 1:33 PM EDT Plan of Treatment Upcoming Encounters Date Type Department Care Team (Late st Contact Info) Description 08/18/2025 2:30 PM EDT Medication Management [facility] [address] [place] [phone] Adore Iraheta, PharmD [address] [place] [address] 08/25/2025 1:30 PM EST Telemedicine [facility] [address] [place] [address] Torie Mccormack, RN [address] [place] [address] 08/28/2025 3:00 PM EST Immunization [facility] [address] [place] [address] Health Maintenance Due Date Last Done Comments CT Colonography 1950 Colonoscopy 1950 FIT 1950 Sigmoidoscopy 1950 Diabetes: Foot Exam 1961 Eye Exam 1961 Dental Oral Exam 12/16/2021 06/14/2021, 03/2019, 02/19/2018, Additional history exists Dental Prophylaxis 12/16/2021 06/14/2021, 1 11/03/2018, 02/12/2019, Additional history exists Dental X-Ray: Bitewings 06/15/2022 06/14/2021, 11/25 Dental X-Ray: Full Mouth 06/15/2024 06/14/2021, 12/2016 FOBT 01/16/2025 01/17/2024 Hepatitis B Vaccines (3 of 3 - 19+ 3-dose series) 05/23/2025 03/28/2025, 02/25/2025, 02/17/2025, Additional history exists COVID-19 Vaccine (2023- season) 2025 09/11/2024, 11/04/2022, 05/24/2022, Additional history exists Influenza Vaccine (#1) 2025 , 12/27/2023, 08/20/2022, Additional history exists Diabetes: Hemoglobin A1C 08/05/2025 025, 02/17/2025, 10/09/2024, Additional history exists SDOH Screening 09/04/2025 09/04/2024 Alcohol/Substance Use Screening 09/11/2025 09/11/2024 Depression Screening 04/30/2026 04/30/2025, 04/30/20 Diabetes: Urine Protein Screening 05/05/2026 05/05/2025, 10/09/2024, 05/06/2020 Lipid Panel 05/05/2026 05/05/2025, 09/22, 06/12/2024, Additional history exists Tobacco Screening 07/03/2026 07/03/2025 Colorectal Cancer Screening 01/16/2027 FIT DNA/Cologuard 01/16/2027 [...] 07/03/2025 3:05 PM EDT Right foot pain POCT JOHNNY-14 URINE DRUG SCREEN Routine 05/23/2025 [...] Recently Relevant to Health Maintenance Results * XR Foot 3+ Views Right (07/03/2025 3:05 PM EDT) Anatomical Region Laterality Modality Lower Extremities, Foot Right [facility] 07/03/2025 3:0 5 PM EDT Narrative 07/03/2025 3:19 PM EDT [address] [address] XRay Report Signed Patient: Rod Marie MR#: [id number] : 1950 Acct:[id number] Age/Sex: 74 / M ADM Date: 07/03/25 Loc: .HHCX Attending Dr: Mary Jo Richards MD Ordering Physician: Mary Jo Chau MD Date of Service: 07/03/25 Procedure(s): XR foot RT min 3V Accession Number(s): [id number] cc: Mary Jo Chau MD Reason for [...] Aashish Marcano MD 07/03/2025 03:16 PM EDT Dictated By: Aashish Marcano MD Signed By: <Electronically signed by Aashish Marcano MD in OV> 07/03/25 1516 DD/ 1505 TD/TT: 07/03/25 1506 Respiratory Supervisor: Procedure Note Donotuseinterpreter, Image - 07/03/[address] [address] XRay Report Signed Patient: Rod MarieMR#: [id number] : 1950cct:[id number] Age/Sex: 74 / MADM Date: 07/03/25 Loc: HO.HHCX Attending Dr: Mary Jo Richards MD Ordering Physician: Mary Jo Chau MD Date of Service: 07/03/25 Procedure(s): XR foot RT min 3V Accession Number(s): [id number] cc: Mary Jo Chau MD Reason for [...] Aashish Marcano MD 07/03/2025 03:16 PM EDT Dictated By: Aashish Marcano MD Signed By: <Electronically signed by Aashish Marcano MD in OV> 07/03/25 1516 DD/ 1505 TD/TT: 07/03/25 1506 Respiratory Supervisor: Mary Jo Richards MD IMG XR PROCEDURES Final Result * (ABNORMAL) POCT JOHNNY-14 Urine Drug Screen [...] Unknown 05/23/2025 11:01 AM EDT Narrative Torie Mccormack RN - 05/23/2025 11:01 AM EDT .UTOX cup Lot#[id number] Exp. 07/29/26 Internal Pass Control us Mary Jo Richards MD POINT OF CARE JULI T ENTER/EDIT ORDERABLES Final Result * (ABNORMAL) Basic Metabolic Panel (05/16/2025 8:40 AM EDT) Only the most recent of3 resultswithin the time period is included. Sodium 139 135 - 145 mmol/L [facility] Potassium 4.8 3.3 - 5.1 mmol/L [facility] Chloride 102 96 - 108 mmol/L [facility] Carbon Dioxide 27 22 - 29 mmol/L [facility] Anion Gap 15 12 - 20 [facility] Urea Nitrogen (BUN) 18(H) 9 - 16 mg/dL [facility] Creatinine, Serum 1.26 0.5 - 1.4 mg/dL [facility] Estimated Glomerular Filt Rate 56 [facility] Comment:Chronic Kidney Disea se: Estimated GFR < 60 mL/min/1.38j0Rlupij Kidney Disease: Estimated GFR < 15 mL/min/1.73m2 Glucose 172(H) 60 - 115 mg/dL [facility] Calcium 9.5 8.4 - 10.2 mg/dL [facility] Blood Venous blood specimen / Unknown 05/16/2025 8:40 AM EDT 05/16/2025 11:17 AM EDT Mary Jo Richards MD LAB BLOOD ORDERAB LES Final Result Performing Organization Address City/[facility] Co de Phone Number [facility] [address] [place] [phone] * (ABNORMAL) Vitamin B12 (Cobalamin) and Folate Panel, Serum (05/05/2025 9:02 AM EDT) Vitamin B12 1,153(H) 200 - 900 pg/mL [facility] Comment:NORMAL 200-900 PG/ML INDETERMINATE 160-199 PG/ML DEFICIENT < 160 PG/ML Folate 13.9 > or = 4.0 ng/mL [facility] Comment:Reference Values:> o r = 4.0 ng/mL< 4.0 ng/mL suggests folate deficiency Methotrexate, aminopterin and folinic acid(leucovorin) are chemotherapeutic agents whose molecularstructures are similar to folate; therefore, the Architectfolate assay cannot be used for patients using these drugs. Blood 05/05/2025 9:02 AM EDT 05/05/2025 9:02 AM EDT us Mary Jo Richards MD LAB BLOOD ORDERAB LES Final Result Performing Organization Address [facility] de Phone Number [facility] [address] [place] [phone] * (ABNORMAL) Hemoglobin A1c (05/05/2025 9:02 AM EDT) Hemoglobin A1c 7.3(H) <6.0 % [facility] Comment:Hemoglobin A1C Refer ence Range Adults: 4.8 - 6.0 % Non diabetic: < 6.0 % Goal: < 7.0 %Additional Action Suggested: > 8.0 %Note: Hemoglobin A1c results are invalid for patients with abnormal amounts of HbF. Blood transfusions may impact the HbA1c concentration in the patient sample. Estimated Average Glucose 163 mg/dL [facility] Comment:eAG = Estimated ave rage glucose which is %A1C expressed asaverage glucose, using the formula of the N0B-JjgvnquGdywdvr Glucose study (ADAG), Diabetes Care, Vol.31,#8,2007 Blood Venous blood specimen / Unknown 05/05/2025 9:02 AM EDT 05/05/2025 9:02 AM EDT us Mary Jo Richards MD LAB BLOOD ORDERAB LES Final Result Performing Organization Address [facility]/ZIP Co de Phone Number [facility] [address] [place] [phone] * Lipid Panel, Standard (05/05/2025 9:02 AM EDT) Triglycerides 85 <150 mg/dL [facility] Comment:Desirable Triglyceri de: less than 150 mg/dLBorderline High Triglyceride 150-199 mg/dLHigh Triglyceride: 200-499 mg/dLVery High Triglyceride: greater than or equal to 5OO mg/dL Cholesterol 131 <200 mg/dL [facility] Comment:Desirable Cholestero l: less than 200 mg/dLBorderline High Cholesterol: 200-239 mg/dLHigh Cholesterol: greater than 239 mg/dL LDL Cholesterol Calculated 70 <100 mg/dL [facility] Comment:Desirable LDL: less than 100 mg/dLNear Optimal/Above Optimal LDL: 110- 129 mg/dLBorderline High LDL: 130-159 mg/dLHigh LDL: 160-189 mg/dLVery High LDL: greater than or equal to 190 mg/dL HDL Cholesterol 44 >40 mg/dL [facility] Comment:Desirable HDL: great er than 40 mg/dL Note: This HDL assay may give artificially low results in patients with liver disease. Blood Venous blood specimen / Unknown 05/05/2025 9:02 AM EDT 05/05/2025 9:02 AM EDT us Mary Jo Richards MD LAB BLOOD ORDERAB LES Final Result Performing Organization Address City/[facility]/ZIP Co de Phone Number [facility] [address] [place] [phone] * (ABNORMAL) Comprehensive Metabolic Panel (05/05/2025 9:02 AM EDT) Sodium 142 135 - 145 mmol/L [facility] Potassium 5.5(H) 3.3 - 5.1 mmol/L [facility] Chloride 107 96 - 108 mmol/L [facility] Carbon Dioxide 27 22 - 29 mmol/L [facility] Anion Gap 14 12 - 20 [facility] Urea Nitrogen (BUN) 15 9 - 16 mg/dL [facility] Creatinine, Serum 1.41(H) 0.5 - 1.4 mg/dL [facility] Estimated Glomerular Filt Rate 49 [facility] Comment:Chronic Kidney Disea se: Estimated GFR < 60 mL/min/1.10f3Wwferk Kidney Disease: Estimated GFR < 15 mL/min/1.73m2 Glucose 120(H) 60 - 115 mg/dL [facility] Calcium 9.6 8.4 - 10.2 mg/dL [facility] Bilirubin, Total 0.4 0.0 - 1.0 mg/dL [facility] Aspartate Amino Transferase 39(H) 5 - 37 U/L [facility] Alanine Aminotransferase 32 0 - 40 U/L [facility] Total Protein 7.2 6.5 - 8.0 g/dL [facility] Albumin Level 4.3 3.5 - 5.0 g/dL [facility] Alkaline Phosphatase 81 39 - 117 U/L [facility] Blood Venous blood specimen / Unknown 05/05/2025 9:02 AM EDT 05/05/2025 9:02 AM EDT us Mary Jo Richards MD LAB BLOOD ORDERAB LES Final Result [facility] [address] [place] [phone] * (ABNORMAL) Albumin, Random Urine W/Creatinine (05/05/2025 8:59 AM EDT) Creatinine, Urine 50.65 mg/dL [facility] Microalbumin Urine 24.0 mg/L [facility] Microalbum Creatinine Ratio Ur 47.3(H) <30 ug/mg cr [facility] Comment:Albumin/Creatinine R atio Reference Ranges: Normal: < 30 ug/mg creatinine Microalbuminuria: 30 - 300 ug/mg creatinineClinical Albuminuria: > 300 ug/mg creatinine Urine (Urine, Random) 05/05/2025 8:59 AM EDT 05/05/2025 10:02 AM EDT us Mary Jo Richards MD LAB URINE ORDERAB LES Final Result Performing Organization Address [facility] de Phone Number [facility] [address] [place] [phone] * Hepatitis C Antibody with Reflex to HCV, RNA, Quantitative, Real-Time PCR (10/09/2024 8:01 AM EST) Hepatitis C Antibody Nonreactive Nonreactive [facility] Comment:Antibodies to HCV no t detected; does not exclude early acuteHCV infection. Blood Venous blood specimen / Unknown 10/09/2024 8:01 AM EST 10/09/2024 11:51 AM EST us Mary Jo Richards MD LAB BLOOD ORDERAB LES Final Result Performing Organization Address [facility] Co de Phone Number [facility] [address] [place] [phone] * Cologuard?? colon cancer screening (01/17/2024 6:32 AM EDT) Cologuard Result Negative Negative 01/24/20 9:47 AM EDT [employer] (CLIA #:[id number]) Comment: NEGATIVE TEST RESULT. A negative Cologuard [...] (Angie Navarro al, N Engl J Med 2014;370(14):0196-3838) The normal value (reference range) for this assay is negative. COLOGUARD RE-SCREENING RECOMMENDATION: Periodic colorectal cancer screening is an important part of preventive healthcare for asymptomatic individuals at average risk for colorectal cancer. Following a negative Cologuard result, the [employer] and U.S. Multi-Society Task Force screening guidelines recommend a Cologuard re-screening interval of 3 years. References: [employer] Guideline for Colorectal Cancer Screening: https://www.cancer.org/cancer/nubmy-ylvghm-gcmznb/tiflrvcwa-wcwexgcvw-bzokqet/ac s-rec ommendations.html.; Randy DK, Timothy SILVA, Stephon SadlerK, Colorectal Cancer Screening: Recommendations for Physicians and Patients from the U.S. Multi-Society Task Force on Colorectal Cancer Screening , Am J Gastroenterology 2017; 112:6853-3996. TEST DESCRIPTION: Composite algorithmic analysis of stool [...] were screened with both Cologuard and colonoscopy. (Imperiale T. et al, N Engl J Med 2014;370(14):6615-7448.) Cologuard may produce a false negative or false positive result (no colorectal cancer or precancerous polyp present at colonoscopy follow up). A negative Cologuard test result does not guarantee the absence of CRC or advanced adenoma (pre-cancer). The current Cologuard screening interval is every 3 years. ([employer] [employer] and U.S. Multi-Society Task Force). Cologuard performance data in a 10,000 patient pivotal study using colonoscopy as the reference method can be accessed at the following location: www.[employer].com/results. Additional description of the Cologuard test process, warnings and precautions can be found at www.cologuard.SocialGO. Stool specimen (specimen) 01/17/2024 6:32 AM EDT 01/19/2024 2:11 PM EDT Mary Jo Lim MD LAB MOLECULAR DIAGNOS TICS ORDERABLES Final Result [employer] (CLIA #:[id number]) [place] [address], from Last 3 Months or Most Recently Relevant to Health Maintenance Insurance [id number] [employer] OPTIONS (O D-SNP) [place]CI[place] [id number] [facility] Care Teams Halfway House Counselor Relationship Specialty Start Date End Date Mary Jo Chau MD [address] [place] [address] PCP - General Internal Medicine 08/01/23 Adore Iraheta PharmD [address] [place], [place] Pharmacist Internal Medicine 11/04/24
--- OUTSIDE RECORDS SUMMARY | 2025-07-03 17:56 | XMS_ITS | Encounter Summary ---
Author Organization [employer] Address [address] [place] [address] [address] [place] [address] Care Team Providers Care Director Of Preclinical Research Name Role Phone Cristin Chaves MD Primary Care Provider Leah MacarioP Primary Care Provider Mary Jo Dougherty MD Primary Care Pro vider Adore Iraheta PharmD Unavailable [phone] Encounter Details Date Type Department Care Team (Latest Contact Info) Description 02/12/2019 Abstract [facility] CONVERSIONS Dental, Provider, DDS Social [...] Description 08/18/2025 2:30 PM EDT Medication Management [facility] [address] [place] [address] Adore Iraheta, PharmD [address] [place] [address] 08/25/2025 1:30 PM EST Telemedicine [facility] [address] [place] [address] Torie Mccormack, RN [address] [place] [address] 08/28/2025 3:00 PM EST Immunization [facility] [address] [place] [address] documented as of this encounter Visit Diagnoses Not on filedocumented in this encounter Care Teams Director Of Preclinical Research Relationship Specialty Start Date End Date Cristin Chaves MD PCP - General Family Medicine 04/13/20 09/11/22 Leah Alvarenga FNP PCP - General Family Medicine 09/12/22 07/31/23 Mary Jo Chau MD [address] [place] [phone] PCP - General Internal Medicine 08/01/23 Adore Iraheta PharmD [address] [place] [phone] Pharmacist Internal Medicine 11/04/24 documented as of this encounter
--- OUTSIDE RECORDS SUMMARY | 2025-07-03 17:56 | XMS_ITS | Encounter Summary ---
Author Organization [employer] Address [address] [facility] 7 [place] [address] Care Team Providers Care Web Content Developer Name Role Phone Mary Jo Chau MD Primary Care Pro vider Adore Iraheta PharmD Unavailable [phone] Encounter Details Date Type Department Care Team (Late st Contact Info) Description 06/27/2025 Refill [facility] 230 [place] [address] Mary Jo Chau MD 230 [place] [address] Social History Tobacco Use Types Packs/Day Years [...] encounter Miscellaneous Notes * Telephone Encounter - Pam Chanel - 06/27/2025 3:37 PM EDT Pharmacy [facility] attempted outreach call on 06/27/25 for CDTM - Diabetes appointment; however, unable to reach patient. LVM for patient to contact Pam Chanel at [phone]. documented in this encounter Plan of Treatment Upcoming Encounters Date Type Department Care Team ([facility] st Contact Info) Description 08/18/2025 2:30 PM EDT Medication Management [facility] [address] [place] [address] Adore Iraheta, PharmD 230 [place] [address] 08/25/2025 1:30 PM EST Telemedicine [facility] PEDS 505 [place] [address] Torie Mccormack, RN 505 [place] [address] 08/28/2025 3:00 PM EST Immunization [facility] [address] [place] [address] documented as of this encounter Visit Diagnoses Not on filedocumented in this encounter Additional Health Concerns Assessment Noted Time PHQ-9 Depression Total Score: 0 04/30/20 25 2:08 PM EDT documented as of this encounter Care Teams Web Content Developer Relationship Specialty Start Date End Date Mary Jo Chau MD 230 [place] [address] PCP - General Internal Medicine 08/01/23 Adore Iraheta PharmD 230 [place] [address] Pharmacist Internal Medicine 11/04/24 documented as of this encounter
--- OUTSIDE RECORDS SUMMARY | 2025-07-03 17:56 | XMS_ITS | Encounter Summary ---
Author Organization [employer] Address [address] [place] [address] 7 [place] [address] Care Team Providers Care Credit And Collections Representative Name Role Phone Leah Alvarenga TELEVISION CABLE INSTALLER Primary Care Provider Mary Jo Dougherty MD Primary Care Pro vider Adore Iraheta PharmD Unavailable [phone] Reason for Visit * Reason Onset Date Comments BPI score changes 03/24/2023 Encounter Details Date Type Department Care Team (Late st Contact Info) Description 03/24/2023 Refill [facility] 230 [place] [address] Leah Alvarenga, TELEVISION CABLE INSTALLER Constipation, unspecified constipation type Social History Tobacco [...] 10:10 AM EDT FYI, 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 Pain severity score of 4.8, activity interference score of 8.6. Previous BPI completed 11/04/22 with pain severity score of 7.8, activity interference score of 5.3. documented in this encounter Plan of Treatment Upcoming Encounters Date Type Department Care Team (Late st Contact Info) Description 08/18/2025 2:30 PM EDT Medication Management [address] [address] Adore Iraheta PharmD [address] [place] [address] 08/25/2025 1:30 PM EST Telemedicine [facility] MED [facility] PEDS 505 [place], [place] [phone] Torie Mccormack RN 505 [place] [address] 08/28/2025 3:00 PM EST Immunization [address] [address] documented as of this encounter Visit Diagnoses Diagnosis Constipation, unspecified constipation type documented in this encounter Additional Health Concerns Assessment Noted Time PHQ-9 Depression Total Score: 14 023 4:05 PM EST documented as of this encounter Care Teams Credit And Collections Representative Relationship Specialty Start Date End Date Leah Alvarenga FNP PCP - General Family Medicine 09/12/22 07/31/23 Mary Jo Chau MD [address] [place] [address] PCP - General Internal Medicine 08/01/23 Adore Iraheta PharmD [address] [place] [address] [phone] Pharmacist Internal Medicine 11/04/24 documented as of this encounter
--- OUTSIDE RECORDS SUMMARY | 2025-07-03 17:56 | XMS_ITS | Encounter Summary ---
Author Organization [employer] Address [address] [place] [address] [place] [address] Care Team Providers Care Body Recall Instructor Name Role Phone Mary Jo Chau MD Primary Care Pro vider Adore Iraheta PharmD Unavailable [phone] Encounter Details Date Type Department Care Team (Late Contact Info) Description 04/01/2024 Telephone [facility] MED[facility]INE [address] [place] [address] [phone] Mary Jo Chau MD [address] [place] [address] Social History Tobacco Use Types Packs/Day Years [...] EDT Medication Management [facility] [address] [place] [address] Adore Iraheta, Lorenzo [address] [place] [address] 08/25/2025 1:30 PM EST Telemedicine [facility] PEDS 505 [place] [address] Torie Mccormack, RN 505 [place] [address] 08/28/2025 3:00 PM EST Immunization [facility] 230 [place] [address] documented as of this encounter Visit Diagnoses Not on filedocumented in this encounter Additional Health Concerns Assessment Noted Time PHQ-9 Depression Total Score: 9 01/08/20 24 3:15 PM EDT documented as of this encounter Care Teams Body Recall Instructor Relationship Specialty Start Date End Date Mary Jo Chau MD [address] [place] [address] PCP - General Internal Medicine 08/01/23 Adore Iraheta PharmD [address] [place] [address] Pharmacist Internal Medicine 11/04/24 documented as of this encounter
--- OUTSIDE RECORDS SUMMARY | 2025-07-03 17:56 | XMS_ITS | Encounter Summary ---
Author Organization [employer] Address [address] [facility] 7t [place] [address] Care Team Providers Care Computed Tomography Technician Name Role Phone Mary Jo Chau MD Primary Care Pro vider Adore Iraheta PharmD Unavailable [phone] Encounter Details Date Type Department Care Team (Late st Contact Info) Description 07/02/2025 Telephone [facility] 230 [place], [place] [phone] Adrianna Aparicio MA Social History Tobacco Use Types Packs/Day Years [...] your housing situation today? I have rufus glilis 09/04/[address] you li [...] encounter Miscellaneous Notes * Telephone Encounter - Adrianna Aparicio MA - 07/02/2025 3:34 PM EDT Chart Prep Labs: done Images: not applicable Referrals: pharm Vaccines due: Covid and Hep B Screenings: eye exam and foot exam Overdue care gaps: Not applicable documented in this encounter Plan of Treatment Upcoming Encounters Date Type Department Care Team (Late st Contact Info) Description 08/18/2025 2:30 PM EDT Medication Management [facility] 230 [place] [address] Adore Iraheta, PharmD 230 [place] [address] 08/25/2025 1:30 PM EST Telemedicine [facility] 505 [place] [address] Torie Mccormack, RN 505 [place] [address] 08/28/2025 3:00 PM EST Immunization [facility] 230 [place] [address] documented as of this encounter Visit Diagnoses Not on filedocumented in this encounter Additional Health Concerns Assessment Noted Time PHQ-9 Depression Total Score: 0 04/30/20 2:08 PM EDT documented as of this encounter Care Teams Computed Tomography Technician Relationship Specialty Start Date End Date Mary Jo Chau MD [address] [place] [address] [phone] PCP - General Internal Medicine 08/01/23 Adore Iraheta PharmD [address] [place] [address] Pharmacist Internal Medicine 11/04/24 documented as of this encounter
--- OUTSIDE RECORDS SUMMARY | 2025-07-03 17:56 | XMS_ITS | Encounter Summary ---
Author Organization [employer] Address [address] [place] [address] 7 [place] [address] Care Team Providers Care Filler Machine Operator Name Role Phone Mary Jo Chau MD Primary Care Pro vider Adore Iraheta PharmD Unavailable [phone] Reason for Visit * Reason Comments Med Change Request Encounter Details Date Type Department Care Team (Late Contact Info) Description 08/15/2023 Refill [facility] [address] [place] [address] Leah Alvarenga, DON Depression, unspecified depression type [...] Description 08/18/2025 2:30 PM EDT Medication Management [facility] 230 [place], [place] [phone] Adore Iraheta, PharmD 230 [place], [place] [phone] 08/25/2025 1:30 PM EST Telemedicine [facility] 505 [place] [address] Torie Mccormack, RN 505 [place] [address] 08/28/2025 3:00 PM EST Immunization [facility] 230 [place] [address] documented as of this encounter Visit Diagnoses Diagnosis Depression, unspecified depression type documented in this encounter Additional Health Concerns Assessment Noted Time PHQ-9 Depression Total Score: 14 023 4:05 PM EST documented as of this encounter Care Teams Filler Machine Operator Relationship Specialty Start Date End Date Mary Jo Chau MD [address] [place] [address] PCP - General Internal Medicine 08/01/23 Adore Iraheta PharmD [address] [place] [address] Pharmacist Internal Medicine 11/04/24 documented as of this encounter
--- OUTSIDE RECORDS SUMMARY | 2025-07-03 17:56 | XMS_ITS | Encounter Summary ---
Author Organization [email or web address] Address [address] [place] [address] 7 [place] [address] Care Team Providers Care Port Warden Name Role Phone Mary Jo Chau MD Primary Care Pro vider Adore Iraheta PharmD Unavailable [phone] Reason for Visit * Reason Comments Med Refill Encounter Details Date Type Department Care Team (Late st Contact Info) Description 11/03/2024 Refill [facility] 230 [place] [address] Mary Jo Chau MD 230 [place] [address] Diabetic polyneuropathy associated with type 2 diabetes [...] Description 08/18/2025 2:30 PM EDT Medication Management [facility] [address] [place] [address] Adore Iraheta, NegritaD 230 [place] [address] 08/25/2025 1:30 PM EST Telemedicine [facility] 505 [place] [address] Torie Mccormack, RN 505 [place] [address] 08/28/2025 3:00 PM EST Immunization [facility] [address] [place] [address] documented as of this encounter Visit Diagnoses Diagnosis Diabetic polyneuropathy associated with type 2 diabetes mellitus (CMS/HCC) Other atopic dermatitis documented in this encounter Additional Health Concerns Assessment Noted Time PHQ-9 Depression Total Score: 10 024 2:12 PM EST documented as of this encounter Care Teams Port Warden Relationship Specialty Start Date End Date Mary Jo Chau MD 230 [place], [place] [phone] PCP - General Internal Medicine 08/01/23 Adore Iraheta, Lorenzo [address] [place] [address] [phone] Pharmacist Internal Medicine 11/04/24 documented as of this encounter
--- OUTSIDE RECORDS SUMMARY | 2025-07-03 17:56 | XMS_ITS | Encounter Summary ---
Author Organization [employer] Address [address] [place] [address] 7 [place] [address] Care Team Providers Care Seo Consultant Name Role Phone Mary Jo Chau MD Primary Care Pro vider Adore Iraheta PharmD Unavailable [phone] Reason for Visit * Reason Onset Date Comments new appointment 09/25/2024 Encounter Details Date Type Department Care Team ([facility] st Contact Info) Description 09/25/2024 Telephone [facility] 230 [place] [address] Mary Jo Chau MD 230 [place] [address] new appointment Social History Tobacco Use Types [...] Description 08/18/2025 2:30 PM EDT Medication Management [facility] 230 [place] [address] Adore Iraheta, PharmD 230 [place] [address] 08/25/2025 1:30 PM EST Telemedicine [facility] 505 [place] [address] Torie Mccormack, RN 505 [place] [address] 08/28/2025 3:00 PM EST Immunization [facility] 230 [place] [address] documented as of this encounter Visit Diagnoses Not on filedocumented in this encounter Additional Health Concerns Assessment Noted Time PHQ-9 Depression Total Score: 10 09/11/ 024 2:12 PM EST documented as of this encounter Care Teams Seo Consultant Relationship Specialty Start Date End Date Mary Jo Chau MD [address] [place] [address] PCP - General Internal Medicine 08/01/23 Adore Iraheta PharmD [address] [place] [address] Pharmacist Internal Medicine 11/04/24 documented as of this encounter
--- OUTSIDE RECORDS SUMMARY | 2025-07-03 17:56 | XMS_ITS | Encounter Summary ---
Author Organization [employer] Address [address] [place] [address] 7 [place] [address] Care Team Providers Care Administrative Assistant Data Entry Name Role Phone Mary Jo Chau MD Primary Care Pro vider Adore Iraheta PharmD Unavailable [phone] Encounter Details Date Type Department Care Team (Latest Contact Info) Description 05/05/2025 Results Follow-Up [facility] MED[facility]INE 230 [place] [address] Mary Jo Chau MD 230 [place] [address] Albumin, Random Urine W/Creatinine, Comprehensive Metabolic Panel, [...] Description 08/18/2025 2:30 PM EDT Medication Management [facility] 230 [place] [address] Adore Iraheta, PharmD 230 [place] [address] 08/25/2025 1:30 PM EST Telemedicine [facility] 505 [place] [address] Torie Mccormack, RN [address] [place] [address] 08/28/2025 3:00 PM EST Immunization [facility] 230 [place] [address] documented as of this encounter Visit Diagnoses Not on filedocumented in this encounter Additional Health Concerns Assessment Noted Time PHQ-9 Depression Total Score: 0 04/30/20 25 2:08 PM EDT documented as of this encounter Care Teams Administrative Assistant Data Entry Relationship Specialty Start Date End Date Mary Jo Chau MD 230 [place] [address] PCP - General Internal Medicine 08/01/23 Adore Iraheta PharmD 230 [place] [address] Pharmacist Internal Medicine 11/04/24 documented as of this encounter
--- OUTSIDE RECORDS SUMMARY | 2025-07-03 17:56 | XMS_ITS | Encounter Summary ---
Author Organization [employer] Address [address] [place] [address] 7 [place] [address] Care Team Providers Care Processing Mgr Name Role Phone Mary Jo Chau MD Primary Care Pro vider Adore Iraheta PharmD Unavailable [phone] Reason for Visit * Reason Comments Med Refill Encounter Details Date Type Department Care Team (Late st Contact Info) Description 04/08/[address] [facility] MEDICINE 230 [place] [address] Mary Jo Chau MD 230 [place] [address] Type 2 diabetes mellitus with diabetic polyneuropathy [...] 2:30 PM EDT Medication Management [facility] MEDICINE 230 [place] [address] Adore Iraheta, PharmD 230 [place] [address] 08/25/2025 1:30 PM EST Telemedicine [facility] MED [facility] PEDS 505 [place] [address] Torie Mccormack, RN 505 [place] [address] 08/28/2025 3:00 PM EST Immunization 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
--- OUTSIDE RECORDS SUMMARY | 2025-07-03 17:56 | XMS_ITS | Encounter Summary ---
Author Organization [employer] Address [address] [place] [address] 7 [place] [address] Care Team Providers Care Banking Representative Name Role Phone Mary Jo Chau MD Primary Care Pro vider Adore Iraheta PharmD Unavailable [phone] Reason for Visit * Reason Comments Med Refill Encounter Details Date Type Department Care Team (Late st Contact Info) Description 09/07/2023 Refill [facility] 230 [place] [address] [facility] 230 [place] [address] Other atopic dermatitis Social History Tobacco Use [...] Description 08/18/2025 2:30 PM EDT Medication Management [facility] 230 [place] [address] Adore Iraheta, PharmD 230 [place] [address] 08/25/2025 1:30 PM EST Telemedicine [facility]EDS [address] [place] [address] Torie Mccormack, RN [address] [place] [address] 08/28/2025 3:00 PM EST Immunization [facility] 230 [place] [address] documented as of this encounter Visit Diagnoses Diagnosis Other atopic dermatitis documented in this encounter Additional Health Concerns Assessment Noted Time PHQ-9 Depression Total Score: 14 023 4:05 PM EST documented as of this encounter Care Teams Banking Representative Relationship Specialty Start Date End Date Mary Jo Chau MD [address] [place] [address] PCP - General Internal Medicine 08/01/23 Adore Iraheta PharmD [address] [place] [address] Pharmacist Internal Medicine 11/04/24 documented as of this encounter
--- OUTSIDE RECORDS SUMMARY | 2025-07-03 17:56 | XMS_ITS | Encounter Summary ---
Author Organization [employer] Address [address] [place] [address] Care Team Providers Care Freight Broker Name Role Phone Mary Jo Chau MD Primary Care Pro vider Adore Iraheta PharmD Unavailable [phone] Reason for Visit * Reason Comments Med Change Request Encounter Details Date Type Department Care Team (Late Contact Info) Description 09/15/2023 Refill [facility] 230 [place] [address] Mary Jo Chau MD 230 [place] [address] Depression, unspecified depression type Social History Tobacco [...] Description 08/18/2025 2:30 PM EDT Medication Management [facility] 230 [place] [address] Adroe Iraheta, PharmD 230 [place] [address] 08/25/2025 1:30 PM EST Telemedicine [facility] 505 [place] [address] Torie Mccormack, RN 505 [place] [address] 08/28/2025 3:00 PM EST Immunization [facility] 230 [place] [address] documented as of this encounter Visit Diagnoses Diagnosis Depression, unspecified depression type documented in this encounter Additional Health Concerns Assessment Noted Time PHQ-9 Depression Total Score: 14 023 4:05 PM EST documented as of this encounter Care Teams Freight Broker Relationship Specialty Start Date End Date Mary Jo Chau MD [address] [place] [address] PCP - General Internal Medicine 08/01/23 Adore Iraheta PharmD [address] [place] [address] Pharmacist Internal Medicine 11/04/24 documented as of this encounter
--- OUTSIDE RECORDS SUMMARY | 2025-07-03 17:56 | XMS_ITS | Encounter Summary ---
Author Organization [employer] Address [address] [place] [address] 7 [place] [address] Care Team Providers Care Manager Pmo Name Role Phone Cristin Chaves MD Primary Care Provider Leah Macario [employer] Primary Care Provider Mary Jo Dougherty MD Primary Care Pro vider Adore Iraheta PharmD Unavailable [phone] Encounter Details Date Type Department Care Team (Latest Contact Info) Description 06/14/2021 Abstract [facility] Dental, Provider, DDS Social History [...] Medication Management [facility] 230 [place] [address] Adore Iraheta, PharmD 230 [place] [address] 08/25/2025 1:30 PM EST Telemedicine [facility] 505 [place] [address] Torie Mccormack, RN 505 [place] [address] 08/28/2025 3:00 PM EST Immunization [facility] [address] [place] [address] documented as of this encounter Visit Diagnoses Not on filedocumented in this encounter Care Teams Manager Pmo Relationship Specialty Start Date End Date Cristin Chaves MD PCP - General Family Medicine 04/13/20 09/11/22 Leah Alvarenga FNP PCP - General Family Medicine 09/12/22 07/31/23 Mary Jo Chau MD [address] [place] [address] PCP - General Internal Medicine 08/01/23 Adore Iraheta PharmD [address] [place] [address] Pharmacist Internal Medicine 11/04/24 documented as of this encounter
--- OUTSIDE RECORDS SUMMARY | 2025-07-03 17:56 | XMS_ITS | Encounter Summary ---
Author Organization [employer] Address [address] [place] [address] 7 [place] [address] Care Team Providers Care Bottled Beverage Inspector Name Role Phone Leah Alvarenga CLEAT FEEDER Primary Care Provider Mary Jo Dougherty MD Primary Care Pro vider Adore Iraheta PharmD Unavailable [phone] Reason for Visit * Reason Comments Med Refill Encounter Details Date Type Department Care Team (Late st Contact Info) Description 03/23/2023 Refill [facility] 230 [place] [address] Leah Alvarenga FNP Vitamin D deficiency; Peripheral [...] Description 08/18/2025 2:30 PM EDT Medication Management [facility] 230 [place], [place] [phone] Adore Iraheta, PharmD 230 [place] [address] 08/25/2025 1:30 PM EST Telemedicine [facility] 505 [place] [address] Torie Mccormack, RN 505 [place] [address] 08/28/2025 3:00 PM EST Immunization [facility] 230 [place] [address] documented as of this encounter Visit Diagnoses Diagnosis Vitamin D deficiency Peripheral neuropathic pain Depression, unspecified depression type documented in this encounter Additional Health Concerns Assessment Noted Time PHQ-9 Depression Total Score: 14 023 4:05 PM EST documented as of this encounter Care Teams Bottled Beverage Inspector Relationship Specialty Start Date End Date Leah Alvarenga FNP PCP - General Family Medicine 09/12/22 07/31/23 Mary Jo Chau MD [address] [place] [address] PCP - General Internal Medicine 08/01/23 Adore Iraheta PharmD [address] [place] [address] Pharmacist Internal Medicine 11/04/24 documented as of this encounter
--- OUTSIDE RECORDS SUMMARY | 2025-07-03 17:56 | XMS_ITS | Encounter Summary ---
Author Organization [employer] Address [address] [place] [address] 7 [place] [address] Care Team Providers Care Finish Mixer Name Role Phone Mary Jo Chau MD Primary Care Pro vider Adore Iraheta PharmD Unavailable [phone] Reason for Visit * Reason Comments Med Refill Encounter Details Date Type Department Care Team ([facility] st Contact Info) Description 11/06/2024 Refill [facility] MEDICINE [address] [place] [address] Mary Jo Chau MD [address] [place] [address] Depressive disorder Social History Tobacco Use Types [...] Description 08/18/2025 2:30 PM EDT Medication Management [facility] MED[facility]INE [address] [place] [address] Adore Iraheta, PharmD [address] [place] [address] 08/25/2025 1:30 PM EST Telemedicine [facility] MED & PEDS [address] [place] [address] Torie Mccormack, WAYLON [address] [place] [address] 08/28/2025 3:00 PM EST Immunization [facility] [address] [place] [id number] documented as of this encounter Visit Diagnoses Diagnosis Depressive disorder Depressive disorder, not elsewhere classified documented in this encounter Additional Health Concerns Assessment Noted Time PHQ-9 Depression Total Score: 10 024 2:12 PM EST documented as of this encounter Care Teams Finish Mixer Relationship Specialty Start Date End Date Mary Jo Chau MD [address] [place] [address] PCP - General Internal Medicine 08/01/23 Adore Iraheta PharmD [address] [place] [address] Pharmacist Internal Medicine 11/04/24 documented as of this encounter
--- OUTSIDE RECORDS SUMMARY | 2025-07-03 17:57 | XMS_ITS | Encounter Summary ---
Author Organization [employer] Address [address] [facility] 7t [place] [address] Care Team Providers Care Parish Worker Name Role Phone Mary Jo Chau MD Primary Care Pro vider Adore Iraheta PharmD Unavailable [phone] Reason for Visit * Reason Comments Med Refill Encounter Details Date Type Department Care Team ([facility] st Contact Info) Description 03/31/2025 Refill [facility] CH[facility] MED & PEDS [address] [place] [address] Azael Diallo MD [address] [place] [address] Depression, unspecified depression type; Depressive disorder; Type 2 diabetes mellitus with other specified complication, without long-term current use of insulin ([facility]) Social History [...] 2:30 PM EDT Medication Management [facility] MEDICINE [address] [place] [address] Adore Iraheta, PharmD [address] [place] [address] 08/25/2025 1:30 PM EST Telemedicine [facility] MED & PEDS [address] [place] [address] Torie Mccormack, WAYLON [address] [place] [address] 08/28/2025 3:00 PM EST Immunization [facility] MEDICINE [address] [place] [address] documented as of this encounter Visit Diagnoses Diagnosis Depression, unspecified depression type Type 2 diabetes mellitus with other specified complication, without long-term current use of insulin ([facility]) documented in this encounter Additional Health Concerns Assessment Noted Time PHQ-9 Depression Total Score: 10 024 2:12 PM EST documented as of this encounter Care Teams Parish Worker Relationship Specialty Start Date End Date Mary Jo Chau MD [address] [place], [place] [phone] PCP - General Internal Medicine 08/01/23 Adore Iraheta PharmD [address] [place] [address] Pharmacist Internal Medicine 11/04/24 documented as of this encounter
== END 2025-07-03 14:08 | disposition home or self-care (01) ==
LOC: HO.HHCX 14:07
PROVIDERS: PCP Student in an Organized Health Care Education/Training Program; Visit Provider Student in an Organized Health Care Education/Training Program
DX: M79.671 Pain in right foot (principal)
CPT/HCPCS: 73630

== ENCOUNTER → 2025-07-03 14:18 | Outpatient (BNV) | payer OTHER, SELFPAY | PROVIDERS: PCP Student in an Organized Health Care Education/Training Program; Visit Provider Radiology Diagnostic Radiology | DX: M77.31 Calcaneal spur, right foot (principal) | CPT/HCPCS: 73630 ==

== ENCOUNTER 2025-08-08 08:01 | Outpatient (REF) | payer OTHER, SELFPAY ==
--- NOTE | ~2025-08-08 | MR_ITS ---
EXAMINATION: MR PROSTATE WITHOUT THEN WITH IV CONTRAST HISTORY: R97.20 - Elevated prostate specific antigen [PSA] TECHNIQUE: 1.5T body coil survey of the pelvis was performed. Phase array coil imaging of the prostate was performed in multiplanar high resolution axial, coronal, sagittal fast spin echo T2 and axial T1 weighted imaging sequences. Axial diffusion imaging at intermediate and high field performed with ADC mapping. Next, 6.5 mL Gadavist was given by intravenous infusion, and dynamic axial imaging performed. 3-D reconstructions and post-processing were not performed as no discrete lesion was identified. COMPARISON: There are no prior studies available for comparison. CLINICAL DATA: Most recent PSA: 5.0 ng/mL on 04/22/2025. PSA Density: 0.56 ng/mL squared Prostate Biopsy: Negative biopsy on 10/11/2019. FINDINGS: Prostate size: 6.3 x 5.3 x 5.1 cm. Calculated prostate volume is 88.6 mL. Hemorrhage: None. Transitional Zone: There is marked heterogeneous nodular hypertrophy of the transitional zone. Peripheral Zone: There is diffuse thinning of the peripheral zone. No foci of abnormal signal intensity are identified. There is no restricted diffusion. Seminal Vesicles/Ejaculatory Ducts: Symmetric and normal in signal and caliber. Pelvic Lymph Nodes: No obturator or internal iliac lymph nodes meeting size criteria for adenopathy. Marrow Signal: Normal marrow signal and enhancement without focal lesion identified. MR/MR Prostate wo/w con IMPRESSION: No discrete focus of abnormal signal intensity is identified to suggest clinically significant prostate carcinoma. PI-RADS 1: Very low (clinically significant cancer is highly unlikely to be present) PI-RADS Assessment Categories PI-RADS 1: Very low (clinically significant cancer is highly unlikely to be present) PI-RADS 2: Low (clinically significant cancer is unlikely to be present) PI-RADS 3: Intermediate (the presence of clinically significant cancer is equivocal) PI-RADS 4: High (clinically significant cancer is likely to be present) PI-RADS 5: Very high (clinically significant cancer is highly likely to be present) [employer]. MR Prostate Imaging Reporting and Data System version 2.1. [email or web address]/Quality-[email or web address]/ Electronically signed by: Gaetano Good MD 08/08/2025 09:50 AM EDT
[2025-08-08 14:13] LABS: PSA,Total (Free>4and<10) 5.64 ng/mL (0.00-4.00)
[2025-08-11 13:39] LABS: Free Prostate Spec Ag 1.3 ng/mL; Percent Free Prostate Spec Ag 25 % (calc) (>25)
== END 2025-08-08 08:02 | disposition home or self-care (01) ==
LOC: HO.MRI 08:01
PROVIDERS: PCP Student in an Organized Health Care Education/Training Program; Visit Provider Nurse Practitioner Family
DX: Z12.5 Encounter for screening for malignant neoplasm of prostate (principal); R97.20 Elevated prostate specific antigen [PSA]
CPT/HCPCS: 36415; 72197; 76377; 84153; 84154; A9585

== ENCOUNTER → 2025-08-08 08:08 | Outpatient (BNV) | payer OTHER, SELFPAY | PROVIDERS: PCP Student in an Organized Health Care Education/Training Program; Visit Provider Radiology Diagnostic Radiology | DX: R97.20 Elevated prostate specific antigen [PSA] (principal) | CPT/HCPCS: 72197 ==

== ENCOUNTER 2025-08-27 10:37 | Outpatient (AMB) | payer OTHER, SELFPAY ==
--- OUTSIDE RECORDS SUMMARY | 2025-08-25 13:30 | XMS_ITS | Encounter Summary ---
Author Organization [employer] Address [address] [facility] 7t [place] [address] Care Team Providers Care Apartment Community Assistant Manager Name Role Phone Mary Jo Chau MD Primary Care Pro vider Katie Hernandez PharmD Unavailable [phone] Reason for Visit * Reason Comments [employer]PENTER'S HELPER Encounter Details Date Type Department Care Team ([facility] Contact Info) Description 08/25/2025 1:30 PM EST Telemedicine [facility] MED & PEDS [address] [place], [place] [phone] Torie Mccormack, RN [address] [place] [address] Other chronic pain Social History Tobacco Use [...] Progress Notes * Torie Mccormack RN - 08/25/2025 1:30 PM EST SUBJECTIVE: Rod Mckeon is a 75 y.o. year old male who presents for [employer]PENTER'S HELPER Preferred language for medical information: Colombian Interpreted needed: Yes Nib Assembler service utilized: pt's caregiver, Mary Jo Mckeon does report adherence to Tylenol # 4 (Acetaminophen/Codeine 300 mg/60 mg, take 1 tablet every 8 hours PRN, last refilled 08/10/25. The patient last took Tylenol #4 (Acetaminophen/Codeine 300 mg/60 mg on: 08/25/25 Medication is: 90% % effective at alleviating pain. OBJECTIVE: POST COMMANDER checked: 08/25/2025 Pill count completed for Tylenol #4 (Acetaminophen/Codeine 300 mg/60 mg, count today is 9 , anticipated count should be 0, this is as expected. Vital Signs Pain Score: 7 Pain Loc: Knee (bilateral) Additional pain site: shoulders Last PCP visit: 07/03/25 BPI completed on: 12/10/24 , pain severity score: 4, activity interference score: 7.5 BPI completed on: 05/23/25 , pain severity score: 5, activity interference score: 7 Controlled substance agreement signed: Controlled Substance Agreement 12/10/2024 CARPENTER'S HELPER Tier: 2 Current Medications[1] Smoking status: Denies ETOH use: Denies Illicit substances: Denies Marijuana use: No Lab Results Component Value Date POCTHC Negative 05/23/2025 POCCOCAINEUR Negative 05/23/2025 POCOPIATEUR Positive 05/23/2025 DOAUR Negative 05/23/2025 POCAMPHETAMI Negative 05/23/2025 POCBENZODIUR Negative 05/23/2025 POCBARBSCRN Negative 05/23/2025 POCMETHADOUR Negative 05/23/2025 POCBUPSCRN Negative 05/23/2025 POCTCAUR Negative 05/23/2025 POCMDMAUR Negative 05/23/2025 POCOXYCODONE Negative 05/23/2025 POCPHENCYCUR Negative 05/23/2025 PROPOXUR Negative 05/23/2025 FENTANYLURIN Negative 05/23/2025 ASSESSMENT: Other chronic pain PLAN: Information on pain group given: Previously discussed Information on acupuncture given: Previously discussed Narcan education provided: Previously discussed Narcan prescription: active Rod Mckeon will continue taking medication as prescribed and follow up at the next CARPENTER'S HELPER visit or sooner if needed. Rod Mckeon has verbalized understanding of care plan. Future Appointments Date Time Provider Department Center 10/06/2025 3:30 PM Negrita DonovanD MEDICINE [facility] 12/12/2025 11:00 AM Torie Mccormack, RN MEDICINE [facility] Torie Mccormack RN [1] Current Outpatient Medications: acetaminophen-codeine (Tylenol w/ Codeine #4) 300-60 MG tablet, TAKE 1 TABLET BY MOUTH EVERY 8 HOURS NEEDED FOR MODERATE PAIN, Disp: 56 tablet, Rfl: 0 amLODIPine (Norvasc) 2.5 MG tablet, Take 1 tablet (2.5 mg) by mouth Once per day., Disp: 90 tablet,Rfl: 0 Aspirin Low Dose 81 MG chewable tablet, TAKE 1 TABLET BY MOUTH EVERY EVENING, Disp: 90 tablet, Rfl:1 atorvastatin (Lipitor) 80 MG tablet, TAKE 1 TABLET BY MOUTH AT BEDTIME, Disp: 90 tablet, Rfl: 0 Blood Glucose Monitoring Suppl (FreeStyle Lite) w/Device kit, 1 each Use as directed., Disp: 1 kit,Rfl: 0 cholecalciferol VITAMIN D (Vitamin D-3) 50 MCG (2000 UT) capsule, TOME 1 CAPSULA POR VIA ORAL TODOSLOS HITCHCOCK, Disp: 90 capsule, Rfl: 0 cyanocobalamin (Vitamin B-12) 500 MCG tablet, Take 1 tablet (500 mcg) by mouth 3 (three) times a week., Disp: 90 tablet, Rfl: 0 donepezil (Aricept) 5 MG tablet, , Disp: , Rfl: DULoxetine (Cymbalta) [address] capsule, TAKE 1 CAPSULE BY MOUTH AT BEDTIME, Disp: 90 capsule, Rfl: 0 empagliflozin-metFORMIN (Synjardy) 12.5-1000 MG, Take 1 tablet by mouth 2 times daily., Disp: 60 tablet, Rfl: 11 famotidine (Pepcid) 20 MG tablet, TAKE 1 TABLET BY MOUTH EVERY DAY, Disp: 90 tablet, Rfl: 0 finasteride (Proscar) 5 MG tablet, Take 1 tablet by mouth Once per day., Disp: , Rfl: glucose blood (FREESTYLE LITE) test strip, USE DIRECTED TO TEST BLOOD SUGAR DAILY, Disp: 50 strip, Rfl: 3 lidocaine (Lidoderm) 5 % patch, APPLY 1 PATCH EVERY MORNING REMOVE AND DISARD PATCH WITHIN 12 HOURSOR as INSTRUCTED BY MD, Disp: 30 patch, Rfl: 2 lidocaine-prilocaine (Emla) 2.5-2.5 % cream, Apply topically if needed each day for mild pain., Disp: 5 g, Rfl: 0 loratadine (Claritin) 10 MG tablet, Take 1 tablet (10 mg) by mouth in the morning., Disp: 90 tablet, Rfl: 0 melatonin 5 MG tablet, Take 1 tablet (5 mg) by mouth at bedtime., Disp: 90 tablet, Rfl: 1 memantine (Namenda) 10 MG tablet, TAKE 1 TABLET BY MOUTH TWICE A DAY, Disp: 180 tablet, Rfl: 0 naloxone (Narcan) 4 mg/0.1 mL nasal spray, Administer 1 spray (4 mg) into affected nostril(s) if needed for opioid reversal. May repeat every 2-3 minutes if needed, alternating nostrils, until medical assistance becomes available., Disp: 2 each, Rfl: 2 pregabalin (Lyrica) 150 MG capsule, TAKE 1 CAPSULE BY MOUTH TWICE DAILY, Disp: 60 capsule, Rfl: 2 Reguloid 400 MG capsule, TAKE 2-3 CAPSULES BY MOUTH TWICE DAILY IN THE MORNING AND IN THE EVENING NEEDED, Disp: 270 capsule, Rfl: 1 senna-docusate (SB Docusate Sodium/Senna) 8.6-50 MG tablet, Take 1 tablet by mouth Once per day. (FOR MED BOX); discontinue individual Colace and Senna Rx., Disp: 30 tablet, Rfl: 11 sertraline (Zoloft) 100 MG tablet, TAKE 1 TABLET BY MOUTH EVERY DAY, Disp: 90 tablet, Rfl: 0 tamsulosin (Flomax) 0.4 MG 24 hr capsule, Take 0.4 mg by mouth in the morning., Disp: , Rfl: Tirzepatide (Mounjaro) 5 MG/0.5ML solution auto-injector, INJECT ONE PEN (=5MG) SUBCUTANEOUSLY ONCEA WEEK DIRECTED, Disp: 2 mL, Rfl: 11 triamcinolone (Kenalog) 0.1 % ointment, APPLY A THIN LAYER TO THE AFFECTED AREA(S) TWICE A DAY, Disp: 45 g, Rfl: 0 TRUEplus Lancets 33G misc, Use to test blood sugar 1 time(s) daily, Disp: 100 each, Rfl: 3 documented in this encounter Plan of Treatment Upcoming Encounters Date Type Department Care Team (Late st Contact Info) Description 10/06/2025 3:30 PM EST Medication Management [facility] MEDICINE [address] [place] [address] Katie Hernandez, PharmD [address] [place] [address] 12/12/2025 11:00 AM EST Clinical Support [facility] MEDICINE [address] [place] [address] Torie Mccormack RN [address] [place] [address] documented as of this encounter Visit Diagnoses Diagnosis Other chronic pain documented in this encounter Additional Health Concerns Assessment Noted Time PHQ-9 Depression Total Score: 0 04/30/20 25 2:08 PM EDT documented as of this encounter Care Teams Apartment Community Assistant Manager Relationship Specialty Start Date End Date Mary Jo Chau MD [address] [place] [address] PCP - General Internal Medicine 08/01/23 Katie Hernandez, NegritaD [address] [place] [address] Pharmacist Pharmacy 08/18/25 documented as of this encounter
--- NOTE | 2025-08-27 10:41 | A.OFFVIS_ITS ---
Intake Visit Reasons: 3M/PSA/MRI Intake Note: Patient is present for 3M/PSA/MRI Urology Medication:FINASTERIDE,TAMSULSOIN Antibiotic Allergy:NONE Blood Thinner:ASPIRIN Anatomy Teacher Required: No Allergies No Known Allergies Allergy (Verified 08/27/25 11:12) Medication List - Last Reconciled 08/27/25 by ALBERTO Naik acetaminophen-codeine 300-60 mg 1 tab PO Q8H PRN aspirin 1 tab PO DAILY atorvastatin 1 tab PO BEDTIME blood sugar diagnostic (FreeStyle Lite Strips) As directed cholecalciferol (vitamin D3) (Vitamin D3) 1 cap PO DAILY cyanocobalamin (vitamin B-12) 1 tab PO BEDTIME docusate sodium 100 mg PO BID donepezil 5 mg PO BEDTIME 30 days duloxetine 1 cap PO DAILY empagliflozin (Jardiance) 10 mg PO DAILY famotidine 20 mg PO DAILY ferrous sulfate 325 mg PO DAILY finasteride 5 mg PO DAILY 90 days glipizide ER 5 mg PO DAILY hydroxyzine HCl mg PO BID lisinopril 2.5 mg PO QAM loratadine 1 tab PO DAILY memantine 1 tab PO BID pregabalin 150 mg PO BID 30 days repaglinide 0.5 mg PO TID sennosides (senna) 2 tabs PO DAILY PRN sertraline 1 tab PO DAILY sitagliptin phosphate (Januvia) 25 mg PO DAILY tamsulosin 0.4 mg PO DAILY 90 days tirzepatide (Mounjaro) mg subcut QWEEK triamcinolone acetonide 0.1% 0.1 appl topical BID HPI Comments Details: Rod is a pleasant 75-year-old male patient of Dr. Luis Carlos Lim who was accompanied by his ROLLER REPAIRER at today's office visit. He has a past medical history of hepatitis as a child, diabetic neuropathy, osteoarthritis, obstructive sleep apnea, depression, BPH, diabetes, hypercholesteremia, and normocytic anemia. He presents to the office today for follow-up of his elevated PSA, BPH, and prostatitis. In discussion with the patient today reports to be doing and feeling well. He denies having had any bothersome urinary issues or concerns. He reports compliance with Flomax and finasteride as prescribed. Recent PSA results reviewed with the patient today. As noted and trended below. Was recent prostate MRI results reviewed with the patient and his ROLLER REPAIRER today 08/16 prostate measures approximately 85 mL. No discrete focus of abnormal signal intensity is identified to suggest clinically significant prostate carcinoma. PI-RADS 1 very low. 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 He denies urinary urgency, urinary frequency, incontinence, nocturia, hematuria, dysuria, foul smelling urine, changes to urinary stream, flank pain, fever, and or chills. He is happy with his current voiding parameters on Flomax and finasteride. In office urinalysis results reviewed with the patient today. We discussed at length potential causes of elevated PSA. We discussed further treatment options and risks and benefits of these treatment options. All questions were answered. RALPH was offered however deferred. He otherwise offers no other issues or concerns at this time. 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 [facility] Medical History MCI (mild cognitive impairment) Anxiety and depression History of hepatitis as a child Diabetic nephropathy Osteoarthritis Obstructive sleep apnea BPH (benign prostatic hyperplasia) Depression Diabetes Hypercholesteremia HTN (hypertension) Normocytic anemia Surgical History History of prostate biopsy Family History Father Diabetes Social History Household Members: Spouse and Significant Other Housing: House Are you a primary adult live in caregiver to a significant other at home: No Do you presently have visiting nurse or other home services: No Alcohol intake: former Patient Tobacco Use Status: Never used Tobacco service: Yes Current occupational status: retired Review of Systems Const All systems reviewed & are unremarkable except as noted in HPI and below Physical Exam Const General: cooperative, healthy appearing, comfortable, no acute distress, well developed, alert and awake Orientation/consciousness: patient oriented x3 Limitations: no limitations HEENT Head: Yes normal to inspection, Yes normocephalic and Yes atraumatic Ears: hearing grossly normal bilaterally Eyes General: appearance normal, both eyes and all related structures Neck Neck: Yes normal visual inspection and Yes trachea midline Chest Chest palpation & inspection: normal inspection of the chest Resp Effort & Inspection: normal respiratory effort and able to speak in complete sentences Cardio Rate: regular rate GI Inspection: Yes normal to inspection General: Yes no CVA tenderness Back/Spine/Pelvis Back: no CVA tenderness Skin General skin exam: no rashes or lesions noted Neuro General: patient oriented x3 Extrem General: Yes normal to inspection Psych Appearance: grossly normal and well kempt Mental Status: mental status grossly normal Speech and movement: Normal speech and movement present and Clear speech present Affect: normal affect Attitude: cooperative Thought process: Normal thought process present Thought content: Normal thought content present Insight: Fair insight present (Psych) Judgement: Fair judgement present (Psych) Results Reviewed Results Reviewed: Date of Service: 08/08/25 Procedure(s): MR Prostate wo/w con FINDINGS: Prostate size: 6.3 x 5.3 x 5.1 cm. Calculated prostate volume is 88.6 mL. Hemorrhage: None. Transitional Zone: There is marked heterogeneous nodular hypertrophy of the transitional zone. Peripheral Zone: There is diffuse thinning of the peripheral zone. No foci of abnormal signal intensity are identified. There is no restricted diffusion. Seminal Vesicles/Ejaculatory Ducts: Symmetric and normal in signal and caliber. Pelvic Lymph Nodes: No obturator or internal iliac lymph nodes meeting size criteria for adenopathy. Marrow Signal: Normal marrow signal and enhancement without focal lesion identified. IMPRESSION: No discrete focus of abnormal signal intensity is identified to suggest clinically significant prostate carcinoma. PI-RADS 1: Very low (clinically significant cancer is highly unlikely to be present) Assessment & Plan Assessment & Plan (1) Elevated PSA: Code(s): R97.20 - Elevated prostate specific antigen [PSA] Category: Medical (2) Prostatitis: Code(s): N41.9 - Inflammatory disease of prostate, unspecified Category: Medical (3) BPH (benign prostatic hyperplasia): Code(s): N40.0 - Benign prostatic hyperplasia without lower urinary tract symptoms Category: Medical (4) Enlarged prostate: Code(s): N40.0 - Benign prostatic hyperplasia without lower urinary tract symptoms Category: Medical Plan In office urinalysis results reviewed with the patient today; as noted above. Recent PSA results reviewed with the patient today; as noted above. Recent prostate MRI results reviewed with the patient today; as noted above. Continue Flomax and finasteride as discussed and prescribed. We did discussed potential causes of elevated PSA as well as further treatment options and risks and benefits of these treatment options. Will continue with surveillance monitoring at this time. Will obtain PSA in 6 months. Follow-up in 6 months with PSA and PVR; or sooner with any issues, concerns, and or questions. Orders: Orders PSA,Total (Free>4and<10) 6 Months N40.0 - Benign prostatic hyperplasia without lower urinary tract symptoms, N41.9 - Inflammatory disease of prostate, unspecified, R97.20 - Elevated prostate specific antigen [PSA] AMB Urinalysis Automated Today Z13.9 - Encounter for screening, unspecified Patient Instructions: The patient had an opportunity to ask questions regarding the treatment plan. All questions were answered. Physical exam, labs, and imaging were discussed and reviewed in detail. As well as risks, benefits, and discussion of treatment choices. No major barriers to understanding were identified. The patient expressed understanding and agreement with the above treatment plan. The patient was made aware they should contact our office by phone for worsening of their current condition, the appearance of new symptoms, or with any questions or concerns. Compliance is encouraged with any medications and follow up testing that is ordered. It is a privilege to be allowed the opportunity to participate in? your urological care.? Again, if you have any questions or concerns If you have any questions or concerns please do not hesitate to contact me. The office is [phone]. This note is constructed using voice recognition software. While every effort has been made to ensure accuracy web applications architect errors may have been included. Yours sincerely, ALBERTO Naik Coding Level of Care Code Est Pt Level 3 (06412) Complex EM visit Add On G2211 Diagnoses Elevated PSA R97.20 Prostatitis N41.9 BPH (benign prostatic hyperplasia) N40.0 Enlarged prostate N40.0
--- OUTSIDE RECORDS SUMMARY | 2025-08-27 12:23 | XMS_ITS | Encounter Summary ---
Author Organization [employer] Address [address] [facility] [address] [place] [address] Care Team Providers Care Rooter Operator Name Role Phone Mary Jo Chau MD Primary Care Pro vider Katie Hernandez PharmD Unavailable [phone] Encounter Details Date Type Department Care Team (Latest Contact Info) Description 08/25/2025 Travel Social History Tobacco Use Types Packs/Day [...] Description 10/06/2025 3:30 PM EST Medication Management [address] [id number] Katie Hernandez PharmD [address] [place] [id number] 12/12/2025 11:00 AM EST Clinical Support [address] [address] Torie Mccormack, WAYLON [address] [place] [address] documented as of this encounter Visit Diagnoses Not on filedocumented in this encounter Additional Health Concerns Assessment Noted Time PHQ-9 Depression Total Score: 0 04/30/20 25 2:08 PM EDT documented as of this encounter Care Teams Rooter Operator Relationship Specialty Start Date End Date Mary Jo Chau MD [address] [place] [id number] PCP - General Internal Medicine 08/01/23 Katie Hernandez, NegritaD [address] [place] [phone] Pharmacist Pharmacy 08/18/25 documented as of this encounter
--- OUTSIDE RECORDS SUMMARY | 2025-08-27 12:23 | XMS_ITS | Encounter Summary ---
Author Organization [employer] Address [address] [facility] [address] [place] [address] Care Team Providers Care Behavioral Health Consultant Name Role Phone Mary Jo Chau MD Primary Care Pro vider Katie Hernandez PharmD Unavailable [phone] Encounter Details Date Type Department Care Team (Late st Contact Info) Description 08/21/2025 Orders Only [facility] [address] [place] [address] Mary Jo Chau MD [address] [place] [address] Social History Tobacco Use Types Packs/Day Years [...] Description 10/06/2025 3:30 PM EST Medication Management [address] [phone] Katie Hernandez, PharmD [address] [place] [phone] 12/12/2025 11:00 AM EST Clinical Support [address] [address] Torie Mccormack, WAYLON [address] [place] [phone] documented as of this encounter Visit Diagnoses Not on filedocumented in this encounter Additional Health Concerns Assessment Noted Time PHQ-9 Depression Total Score: 0 04/30/20 25 2:08 PM EDT documented as of this encounter Care Teams Behavioral Health Consultant Relationship Specialty Start Date End Date Mary Jo Chau MD [address] [place] [id number] PCP - General Internal Medicine 08/01/23 Katie Hernandez, PharmD [address] [place] [address] Pharmacist Pharmacy 08/18/25 documented as of this encounter
--- OUTSIDE RECORDS SUMMARY | 2025-08-27 12:23 | XMS_ITS | Clinical Summary ---
Author Organization [employer] Address [address] [place] [address] 7 [place] [address] Care Team Providers Care Golf [employer] Assembler Name Role Phone Mary Jo Chau MD Primary Care Pro vider Katie Hernandez PharmD Unavailable [phone] Allergies Active Allergy Reactions Criticality Noted Date Comments Lisinopril 06/08/2020 Other reaction(s): Hyperkalemia Medications cholecalciferol VITAMIN D (Vitamin D-3) 50 MCG (1999) capsuleIndicati ons:Vitamin D deficiency TOME 1 CAPSULA POR VIA ORAL TODOS LOS [place] 90 capsule 024 Active Blood Glucose Monitoring Suppl (FreeStyle Lite) w/Device kit 1 each Use as directed. 1 kit 025 Active TRUEplus Lancets 33G misc Use to test blood sugar 1 time(s) daily 100 each 3 025 Active triamcinolone (Kenalog) 0.1 % ointmentIndicat ions:Other atopic dermatitis APPLY A THIN LAYER TO THE AFFECTED AREA(S) TWICE A DAY 45 g 025 Active senna-docusate (SB Docusate Sodium/Senna) 8.6-50 MG tabletIndicatio ns:Constipation , unspecified constipation type Take 1 tablet by mouth Once per day. (FOR MED BOX); discontinue individual Colace and Senna Rx. 30 tablet 11 025 2025 Active empagliflozin-m etFORMIN (Synjardy) 12.5-1000 MGIndications:T ype 2 diabetes mellitus with diabetic polyneuropathy, without long-term current use of insulin ([facility]) Take 1 tablet by mouth 2 times daily. 60 tablet 11 025 2025 Active finasteride (Proscar) 5 MG tablet Take 1 tablet by mouth Once per day. Active famotidine (Pepcid) 20 MG tablet TAKE 1 TABLET BY MOUTH EVERY DAY 90 tablet Active DULoxetine (Cymbalta) [address] capsuleIndicati ons:Depression, unspecified depression type TAKE 1 CAPSULE BY MOUTH AT BEDTIME 90 capsule Active melatonin 5 MG tablet Take 1 tablet (5 mg) by mouth at bedtime. 90 tablet 1 Active tamsulosin (Flomax) 0.4 MG 24 hr capsule Take 0.4 mg by mouth in the morning. Active glucose blood (FREESTYLE LITE) test stripIndication s:Type 2 diabetes mellitus with diabetic polyneuropathy, without long-term current use of insulin ([facility]) USE DIRECTED TO TEST BLOOD SUGAR DAILY 50 strip 3 Active naloxone (Narcan) 4 mg/0.1 mL nasal spray Administer 1 spray (4 mg) into affected nostril(s) if needed for opioid reversal. May repeat every 2-3 minutes if needed, alternating nostrils, until medical assistance becomes available. 2 each 2 025 2025 Active atorvastatin (Lipitor) 80 MG tablet TAKE 1 TABLET BY MOUTH AT BEDTIME 90 tablet Active Aspirin Low Dose 81 MG chewable tabletIndicatio ns:Type 2 diabetes mellitus with other specified complication, without long-term current use of insulin ([facility]) TAKE 1 TABLET BY MOUTH EVERY EVENING 90 tablet 1 Active loratadine (Claritin) 10 MG tablet Take 1 tablet (10 mg) by mouth in the morning. 90 tablet 025 Active donepezil (Aricept) 5 MG tablet Active lidocaine (Lidoderm) 5 % patchIndication s:Knee pain, unspecified chronicity, unspecified laterality APPLY 1 PATCH EVERY MORNING REMOVE AND DISARD PATCH WITHIN 12 HOURS OR as INSTRUCTED BY MD 30 patch 2 Active lidocaine-prilo nicolette (Emla) 2.5-2.5 % cream Apply topically if needed each day for mild pain. 5 g 025 Active cyanocobalamin (Vitamin B-12) 500 MCG tablet Take 1 tablet (500 mcg) by mouth 3 (three) times a week. 90 tablet 025 Active pregabalin (Lyrica) 150 MG capsuleIndicati ons:Neuropathy TAKE 1 CAPSULE BY MOUTH TWICE DAILY 60 capsule 2 025 Active Tirzepatide (Mounjaro) 5 MG/0.5ML solution auto-injectorIn dications:Type 2 diabetes mellitus with diabetic polyneuropathy, without long-term current use of insulin ([facility]) INJECT ONE PEN (=5MG) SUBCUTANEOUSLY ONCE A WEEK DIRECTED 2 mL 11 Active amLODIPine (Norvasc) 2.5 MG tablet Take 1 tablet (2.5 mg) by mouth Once per day. 90 tablet 025 2025 Active sertraline (Zoloft) 100 MG tabletIndicatio ns:Depressive disorder TAKE 1 TABLET BY MOUTH EVERY DAY 90 tablet Active memantine (Namenda) 10 MG tabletIndicatio ns:Depression, unspecified depression type TAKE 1 TABLET BY MOUTH TWICE A DAY 180 tablet 025 Active acetaminophen-c odeine (Tylenol w/ Codeine #4) 300-60 MG tabletIndicatio ns:Other chronic pain TAKE 1 TABLET BY MOUTH EVERY 8 HOURS NEEDED FOR MODERATE PAIN 56 tablet 025 Active Reguloid 400 MG capsuleIndicati ons:Constipatio n, unspecified constipation type TAKE 2-3 CAPSULES BY MOUTH TWICE DAILY IN THE MORNING AND IN THE EVENING NEEDED 270 capsule 1 025 Active Reguloid 0.52 g capsuleIndicati ons:Constipatio n, unspecified constipation type TAKE 2-3 C PSULA POR V A ORAL TODOS LOS D CUANDO SEA NECESARIO 270 capsule 1 024 2024 Discontinued Active Problems Problem Noted Date Diagnosed Date Right foot pain 07/06/2025 Long-term current use of opiate analgesic 2024 Urinary incontinence 09/11/2024 Stage 3 chronic kidney disease (CMS/HCC) 08/21/2 024 Encounter for preventive health examination 12/21 Assessment [...] prostatic hyperplasia 05/01/2012 Chronic alcoholism in remission ([facility]) 2011 Depressive disorder 05/01/2012 Hyperlipidemia 05/01/2012 Raised prostate specific antigen 05/01/2012 Verruca plantaris 05/01/2012 Resolved Problems Problem Noted Date Diagnosed Date Resolved Date 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 ([facility]) 12/02/2022 12/02/2022 Obstructive sleep apnea syndrome 07/26/2017 12/02/2022 Diabetes mellitus type 2, uncomplicated 05/01/2012 12/02/2022 Encounters Date Type Department Care Team Description 08/25/2025 1:30 PM EST Telemedicine [facility] MED & PEDS [address] [place] [address] Torie Mccormack, WAYLON Other chronic pain 08/25/2025 Travel 08/21/2025 Telephone [facility] MEDICINE [address] [place] [address] Lorie Vega, WAYLON Appt Cancellation 08/21/2025 Orders Only [facility] MEDICINE [address] [place] [address] Mary Jo Chau MD 08/20/2025 Refill [facility] MED & PEDS [address] [place] [address] Azael Diallo MD Constipation, unspecified constipation type 08/18/2025 Travel 08/08/2025 Orders Only [facility] External Provider, [facility] 07/28/2025 Refill [facility] MED & PEDS [address] [place] [address] Mary Jo Chau MD Other chronic pain 07/25/2025 Refill [facility] MEDICINE [address] [place] [address] Mary Jo Chau MD Depressive disorder; Depression, unspecified depression type 07/07/2025 Refill [facility] MEDICINE [address] [place] [address] Adore Iraheta, NegritaD Type 2 diabetes mellitus with diabetic polyneuropathy, without long-term current use of insulin ([facility]) 07/06/2025 Refill [facility] MEDICINE [address] [place] [address] Mary Jo Chau MD Neuropathy 07/03/2025 1:30 PM EDT Office Visit [facility] MEDICINE [address] [place] [address] Mary Jo Chau MD Right foot pain (Primary Dx); Knee pain, unspecified chronicity, unspecified laterality; Primary hypertension; Hyperlipidemia, unspecified hyperlipidemia type; Type 2 diabetes mellitus with diabetic polyneuropathy, without long-term current use of insulin ([facility]) 07/03/2025 Results Follow-Up [facility] MEDICINE [address] [place] [address] Mary Jo Chau MD XR Foot 3+ Views Right 07/03/2025 Travel 07/02/2025 Telephone [facility] WALK-IN CENTER [address] [place] [phone] Adrianna Aparicio [place] 06/27/2025 Refill [facility] MEDICINE [address] [place] [address] Mary Jo Chau MD 06/24/2025 Refill [facility] MED [facility] PEDS [address] [place] [address] Mary Jo Chau MD Other chronic pain 06/22/2025 Refill [facility] MED & PEDS [address] [place] [address] Azael Diallo MD Type 2 diabetes mellitus with other specified complication, without long-term current use of insulin ([facility]) 06/18/2025 Refill [facility] PEDS [address] [place] [address] Azael Diallo MD from Last 3 Months Immunizations Immunization Administration Dates Next Due Hep B, adult 03/28/2025,,02/17/2025,11/04 Influenza High-dose Quadriva lent Preservative Free 12/27/2023,08/20/2022,07/30/2021 Influenza Quadrivalent Adjuvanted 07/11/2020 Influenza injectable quadriv alent IIV4 with preservative 08/14/2015 Influenza injectable quadriv alent preservative free 12/11/2018,07/26/2017 Influenza, High Dose Seasona l, Preservative Free 08/18/2025,09/11/2024,09/06/2016 Influenza, IIV3, injectable 07/23/2014,1 ,09/03/2010,07/19 Influenza, Split (incl. johnna fied surface antigen) 07/22/2013 Influenza, trivalent, adjuvanted 07/17/2019 Moderna Covid-19 Vaccine 6+ Bivalent 11/04/2022 Pfizer Covid-19 Vaccine 12+ 08/18/2025, Pneumococcal Conjugate PCV 13 05/07/2018 Pneumococcal Conjugate [...] Sign Reading Time Taken Comments Blood Pressure 102/52 08/18/2025 3:09 PM EDT Pulse 78 08/18/2025 3:09 PM EDT Temperature 36.3 C (97.4 F) [...] Description 10/06/2025 3:30 PM EST Medication Management [facility] MEDICINE [address] [place] [address] Katie Hernandez, PharmD [address] [place], [place] [phone] 12/12/2025 11:00 AM EST Clinical Support [facility] MEDICINE [address] [place] [address] Torie Mccormack, WAYLON [address] [place] [address] Health Maintenance Due Date Last Done Comments [...] 05/23/2025 03/28/2025, 02/25/2025, 02/17/2025, Additional history exists SDOH Screening 09/04/2025 09/04/2024 Alcohol/Substance Use Screening 09/11/2025 09/11/2024 Diabetes: Hemoglobin A1C 02/16/202608/18/ 025, 05/05/2025, 02/17/2025, Additional history exists Depression Screening 04/30/2026 04/30/2025, 04/30/20 25 Diabetes: [...] 10/09/2024 Zoster Vaccines Completed 02/17/2025, 10/23, 05/17/2018 COVID-19 Vaccine Completed 08/18/2025, , 11/04/2022, Additional history exists Influenza Vaccine Completed 08/18/2025, , 12/27/2023, Additional history exists HIB Vaccines Aged Out No longer eligi [...] Name Priority Date/Time Associated Diagnosis Comments POCT GLYCATED HEMOGLOBIN, TOTAL Routine 08/18/2025 3:28 PM EDT Type 2 diabetes mellitus with diabetic polyneuropathy, without long-term current use of insulin (HCC) PSA, FREE AND TOTAL Routine 08/08/2025 2 :13 PM EDT PSA, TOTAL WITH REFLEX TO PSA, FREE Routine 08/08/2025 9:51 AM EDT MR PROSTATE W AND WO CONTRAST Routine 08/08/2025 8:42 AM EDT XR FOOT 3+ VIEWS RIGHT Routine 07/03/2025 3:05 PM EDT Right foot pain LIPID PANEL, STANDARD Routine 05/05/2025 9:02 AM EDT Diabetic polyneuropathy associated with type 2 diabetes mellitus (CMS/HCC) ALBUMIN, RANDOM URINE W/CREATININE Routine 05/05/2025 8:59 AM EDT Diabetic polyneuropathy associated with type 2 diabetes mellitus (CMS/HCC) HEPATITIS C AB W/REFL TO HCV [...] to Health Maintenance Results * (ABNORMAL) POCT A1c (08/18/2025 3:28 PM EDT) Hemoglobin A1C 6.9(A) 4.0 - 5.7 % QC Media Lot # [id number] Lot# Expiration Date [id number] Blood 08/18/2025 3:28 PM EDT Mary Jo Richards MD POINT OF CARE JULI T ENTER/EDIT ORDERABLES Final Result * (ABNORMAL) PSA, Free and Total (08/08/2025 2:13 PM EDT) PSA, Total 5.3(A) < OR = 4.0 ng/mL [facility] PSA % Free 25(A) >25 % (calc) [facility] Comment: PSA(ng/mL) Free PSA(%) Estimated(x) Probability of Cancer(as%)0-2.5 (*) Approx. 12.6-4.0(1) 0-27(2) 24(3)4.1-10(4) 0-10 56 11-15 28 16-20 20 21-25 16 >or =26 8>10(+) N/A >50References:(1)Danica et al.:Urology 60: 469-474 (2001) (2)Danica et al.:J.Urol 168: 922-925 (2001) Free PSA(%) Sensitivity(%) Specificity(%) < or = 25 85 19 < or = 30 93 9 (3)Cyndiona et al.:YARELI 277: 6379-8652 (1996) (4)Catalona et al.:YARELI 279: 4527-9937 (1997)(x)These estimates vary with age, ethnicity, family history and RALPH results.(*)The diagnostic usefulness of % Free PSA has not been established in patients with total PSA below 2.6 ng/mL(+)In men with PSA above 10 ng/mL, prostate cancer risk is determined by total PSA alone.The Total PSA [...] presence or absence ofdisease.THIS TEST WAS PERFORMED AT:[facility] [address] [phone] PERRY MD PSA, Free 1.3 ng/mL [facility] 08/08/2025 2:13 PM EDT 08/08/2025 2:13 PM EDT us Generic External Data Provider LAB BLOOD ORDERAB LES Final Result [facility] [address] [place] [phone] * (ABNORMAL) PSA, Total With Reflex to PSA, Free (08/08/2025 9:51 AM EDT) PSA,Total (Free>4and<10) 5.64(H) 0.00 - 4.00 ng/mL [facility] Comment:PSA methodology: Yani Owens i ChemiluminescentMicroparticle Immunoassay (CMIA) 08/08/2025 9:51 AM EDT 08/08/2025 9:51 AM EDT us Generic External Data Provider LAB BLOOD ORDERAB LES Final Result Performing Organization Address City/State/[facility] Co de Phone Number [facility] [address] [place] [phone] * MR Prostate w and w/o Contrast (08/08/2025 8:42 AM EDT) Anatomical Region Laterality Modality Magnetic Resonan ce 08/08/2025 8:42 AM EDT Narrative 08/08/2025 9:53 AM EDT [address] [address] Magnetic Resonance Report Signed Patient: Rod Marie MR#: [id number] : 1950 Acct:[id number] Age/Sex: 75 / M ADM Date: 08/08/25 Loc: HO.MRI Attending Dr: Ya DOMINGUEZ Ordering Physician: Ya Medina Date of Service: 08/08/25 Procedure(s): MR Prostate wo/w con Accession Number(s): [id number] cc: Ya Medina; Mary Jo Chau MD Reason for Exam: R97.20 - Elevated prostate specific antigen [PSA] EXAMINATION: MR PROSTATE WITHOUT THEN WITH IV CONTRAST HISTORY: R97.20 - Elevated prostate specific antigen [PSA] TECHNIQUE: 1.5T body coil survey of the pelvis was performed. Phase array coil imaging of the prostate was performed in multiplanar high resolution axial, coronal, sagittal fast spin echo T2 and axial T1 weighted imaging sequences. Axial diffusion imaging at intermediate and high field performed with ADC mapping. Next, 6.5 mL Gadavist was given by intravenous infusion, and dynamic axial imaging performed. 3-D reconstructions and post-processing were not performed as no discrete lesion was identified. COMPARISON: There are no prior studies available for comparison. CLINICAL DATA: Most recent PSA: 5.0 ng/mL on 04/22/2025. PSA Density: 0.56 ng/mL squared Prostate Biopsy: Negative biopsy on 10/11/2019. FINDINGS: Prostate size: 6.3 x 5.3 x 5.1 cm. Calculated prostate volume is 88.6 mL. Hemorrhage: None. Transitional Zone: There is marked heterogeneous nodular hypertrophy of the transitional zone. Peripheral Zone: There is diffuse thinning of the peripheral zone. No foci of abnormal signal intensity are identified. There is no restricted diffusion. Seminal Vesicles/Ejaculatory Ducts: Symmetric and normal in signal and caliber. Pelvic Lymph Nodes: No obturator or internal iliac lymph nodes meeting size criteria for adenopathy. Marrow Signal: Normal marrow signal and enhancement without focal lesion identified. MR/MR Prostate wo/w con IMPRESSION: No discrete focus of abnormal signal intensity is identified to suggest clinically significant prostate carcinoma. PI-RADS 1: Very low (clinically significant cancer is highly unlikely to be present) PI-RADS Assessment Categories PI-RADS 1: Very low (clinically significant cancer is highly unlikely to be present) PI-RADS 2: Low (clinically significant cancer is unlikely to be present) PI-RADS 3: Intermediate (the presence of clinically significant cancer is equivocal) PI-RADS 4: High (clinically significant cancer is likely to be present) PI-RADS 5: Very high (clinically significant cancer is highly likely to be present) [employer]. MR Prostate Imaging Reporting and Data System version 2.1. http://www.acr.org/Quality-Safety/Resources/PIRADS/ Electronically signed by: Gaetano Good MD 08/08/2025 09:50 AM EDT Dictated By: Gaetano Good MD Signed By: <Electronically signed by Gaetano Good MD in OV> 08/08/25 0950 DD/ 0842 TD/TT: 08/08/2514 Injury/Safety Hazard Assessment: Procedure Note Donotuseinterpreter, Image - 08/08/[address] [address] Magnetic Resonance Report Signed Patient: Rod MarieMR#: [id number] : 1Acct:[id number] Age/Sex: 75 / MADM Date: 08/08/25 Loc: HO.MRI Attending Dr: Ya DOMINGUEZ Ordering Physician: Ya Medina Date of Service: 08/08/25 Procedure(s): MR Prostate wo/w con Accession Number(s): [id number] cc: Ya Medina; Mary Jo Chau MD Reason for Exam: R97.20 - Elevated prostate specific antigen [PSA] EXAMINATION: MR PROSTATE WITHOUT THEN WITH IV CONTRAST HISTORY: R97.20 - Elevated prostate specific antigen [PSA] TECHNIQUE: 1.5T body coil survey of the pelvis was performed. Phase array coil imaging of the prostate was performed in multiplanar high resolution axial, coronal, sagittal fast spin echo T2 and axial T1 weighted imaging sequences. Axial diffusion imaging at intermediate and high field performed with ADC mapping. Next, 6.5 mL Gadavist was given by intravenous infusion, and dynamic axial imaging performed. 3-D reconstructions and post-processing were not performed as no discrete lesion was identified. COMPARISON: There are no prior studies available for comparison. CLINICAL DATA: Most recent PSA: 5.0 ng/mL on 04/22/2025. PSA Density: 0.56 ng/mL squared Prostate Biopsy: Negative biopsy on 10/11/2019. FINDINGS: Prostate size: 6.3 x 5.3 x 5.1 cm. Calculated prostate volume is 88.6 mL. Hemorrhage: None. Transitional Zone: There is marked heterogeneous nodular hypertrophy of the transitional zone. Peripheral Zone: There is diffuse thinning of the peripheral zone. No foci of abnormal signal intensity are identified. There is no restricted diffusion. Seminal Vesicles/Ejaculatory Ducts: Symmetric and normal in signal and caliber. Pelvic Lymph Nodes: No obturator or internal iliac lymph nodes meeting size criteria for adenopathy. Marrow Signal: Normal marrow signal and enhancement without focal lesion identified. MR/MR Prostate wo/w con IMPRESSION: No discrete focus of abnormal signal intensity is identified to suggest clinically significant prostate carcinoma. PI-RADS 1: Very low (clinically significant cancer is highly unlikely to be present) PI-RADS Assessment Categories PI-RADS 1: Very low (clinically significant cancer is highly unlikely to be present) PI-RADS 2: Low (clinically significant cancer is unlikely to be present) PI-RADS 3: Intermediate (the presence of clinically significant cancer is equivocal) PI-RADS 4: High (clinically significant cancer is likely to be present) PI-RADS 5: Very high (clinically significant cancer is highly likely to be present) [employer]. MR Prostate Imaging Reporting and Data System version 2.1. http://www.acr.org/Quality-Safety/Resources/PIRADS/ Electronically signed by: Gaetano Good MD 08/08/2025 09:50 AM EDT Dictated By: Gaetano Good MD Signed By: <Electronically signed by Gaetano Good MD in OV> 08/08/2550 DD/ 1 TD/TT: 08/08/2514 Injury/Safety Hazard Assessment: [facility] External Provider IMG MRI PROCEDURES Final Result * XR Foot 3+ Views Right (07/03/2025 3:05 PM EDT) Anatomical Region Laterality Modality Lower Extremities, Foot Right Radiogra phic Imaging 07/03/2025 3:05 PM EDT Narrative 07/03/2025 3:19 PM EDT [address] [address] XRay Report Signed Patient: Rod Marie MR#: [id number] : 1950 Acct:[id number] Age/Sex: 74 / M ADM Date: 07/03/25 Loc: .HHCX Attending Dr: Mary Jo Richards MD Ordering Physician: Mary Jo Chau MD Date of Service: 07/03/25 Procedure(s): XR foot RT min 3V Accession Number(s): [id number] cc: Mary Jo Chau MD Reason for [...] 07/03/25 1516 DD/ 1505 TD/TT: 07/03/25 1506 Injury/Safety Hazard Assessment: Procedure Note Donotuseinterpreter, Image - 07/03/[address] [address] XRay Report Signed Patient: Rod MareiMR#: [id number] : 1950cct:[id number] Age/Sex: 74 / MADM Date: 07/03/25 Loc: HO.HHCX Attending Dr: Mary Jo Richards MD Ordering Physician: Mary Jo Chau MD Date of Service: 07/03/25 Procedure(s): XR foot RT min 3V Accession Number(s): [id number] cc: Mary Jo Chau MD Reason for [...] 07/03/25 1516 DD/ 1505 TD/TT: 07/03/25 1506 Injury/Safety Hazard Assessment: us Mary Jo Richards MD IMG XR PROCEDURES Final Result * Lipid Panel, Standard (05/05/2025 9:02 AM EDT) Triglycerides 85 <150 mg/dL [facility] Comment:Desirable Triglyceri de: less than 150 mg/dLBorderline High Triglyceride 150-199 mg/dLHigh Triglyceride: 200-499 mg/dLVery High Triglyceride: greater than or equal to 5OO mg/dL Cholesterol 131 <200 mg/dL [facility] Comment:Desirable Cholestero l: less than 200 mg/dLBorderline High Cholesterol: 200-239 mg/dLHigh Cholesterol: greater than 239 mg/dL LDL Cholesterol Calculated 70 <100 mg/dL [facility] Comment:Desirable LDL: less than 100 mg/dLNear Optimal/Above Optimal LDL: 110- 129 mg/dLBorderline High LDL: 130-159 mg/dLHigh LDL: 160-189 mg/dLVery High LDL: greater than or equal to 190 mg/dL HDL Cholesterol 44 >40 mg/dL [facility] Comment:Desirable HDL: great er than 40 mg/dL Note: This HDL assay may give artificially low results in patients with liver disease. Blood Venous blood specimen / Unknown 05/05/2025 9:02 AM EDT 05/05/2025 9:02 AM EDT us Mary Jo Richards MD LAB BLOOD ORDERAB LES Final Result [facility] [address] [place] [phone] * (ABNORMAL) Albumin, Random Urine W/Creatinine (05/05/2025 8:59 AM EDT) Pathologist [facility] Creatinine, Urine 50.65 mg/dL [facility] Microalbumin Urine 24.0 mg/L H [facility] Microalbum Creatinine Ratio Ur 47.3(H) <30 ug/mg cr [facility] Comment:Albumin/Creatinine R at Reference Ranges: Normal: < 30 ug/mg creatinine Microalbuminuria: 30 - 300 ug/mg creatinineClinical Albuminuria: > 300 ug/mg creatinine Urine (Urine, Random) 05/05/2025 8:59 AM EDT 05/05/2025 10:02 AM EDT Mary Jo Richards MD LAB URINE ORDERAB LES Final Result Performing Organization Address [facility] Co de Phone Number [facility] [address] [place] [phone] * Hepatitis C Antibody with Reflex to HCV, RNA, Quantitative, Real-Time PCR (10/09/2024 8:01 AM EST) Pathologist [facility] Hepatitis C Antibody Nonreactive Nonreactive [facility] Comment:Antibodies to HCV no t detected; does not exclude early acuteHCV infection. Blood Venous blood specimen / Unknown 10/09/2024 8:01 AM EST 10/09/2024 11:51 AM EST Mary Jo Richards MD LAB BLOOD ORDERAB LES Final Result Performing Organization Address [facility] Co de Phone Number [facility] [address] [place] [phone] * Cologuard?? colon cancer screening (01/17/2024 6:32 AM EDT) Pathologist [facility] Cologuard Result Negative Negative 01/24/20 24 9:47 AM EDT [facility] (CLIA #:[id number]) Comment: NEGATIVE TEST RESULT. A negative Cologuard [...] Dumont et al, N Engl J Med 2014;370(14):4597-8160) The normal value (reference range) for this assay is negative. COLOGUARD RE-SCREENING RECOMMENDATION: Periodic colorectal cancer screening is an important part of preventive healthcare for asymptomatic individuals at average risk for colorectal cancer. Following a negative Cologuard result, the [employer] and U.S. Multi-Society Task Force screening guidelines recommend a Cologuard re-screening interval of 3 years. References: [employer] Guideline for Colorectal Cancer Screening: https://www.cancer.org/cancer/drmmf-qtilya-xrcjsg/blghqfjrw-esjnufenw-jcvzkya/ac s-rec ommendations.html.; Randy DK, Timothy SILVA, Stephon SadlerK, Colorectal Cancer Screening: Recommendations for Physicians and Patients from the [place]. Multi-Society Task Force on Colorectal Cancer Screening , Am J Gastroenterology 2017; 112:7643-1831. TEST DESCRIPTION: Composite algorithmic analysis of stool [...] (Angie Navarro al, N Engl J Med 2014;370(14):0234-7262.) Cologuard may produce a false negative or false positive result (no colorectal cancer or precancerous polyp present at colonoscopy follow up). A negative Cologuard test result does not guarantee the absence of CRC or advanced adenoma (pre-cancer). The current Cologuard screening interval is every 3 years. ([employer] and U.S. Multi-Society Task Force). Cologuard performance data in a 10,000 patient pivotal study using colonoscopy as the reference method can be accessed at the following location: [email or web address]. Additional description of the Cologuard test process, warnings and precautions can be found at [email or web address].[email or web address]. Stool specimen (specimen) 01/17/2024 6:32 AM EDT 01/19/2024 2:11 PM EDT Mary Jo Lim MD LAB MOLECULAR DIAGNOS TICS ORDERABLES Final Result [facility] (CLIA #:[id number]) [address] 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
--- OUTSIDE RECORDS SUMMARY | 2025-08-27 12:23 | XMS_ITS | Encounter Summary ---
Author Organization [employer] Address [address] [place] [address] 7 [place] [address] Care Team Providers Care Tearoom Host/Hostess Name Role Phone Leah Alvarenga Primary Care Provider Mary Jo Dougherty MD Primary Care Pro vider Adore Iraheta PharmD Unavailable [phone] Katie Hernandez PharmD Unavailable [phone] Reason for Visit * Reason Comments Med Refill Encounter Details Date Type Department Care Team (Late st Contact Info) Description 03/23/2023 Refill [facility] MEDICINE 230 [place], [place] [phone] Leah Alvarenga FNP Vitamin D deficiency; Peripheral [...] Description 10/06/2025 3:30 PM EST Medication Management [facility] MEDICINE 230 [place], [place] [phone] Katie Hernandez, PharmD [address] [place] [address] 12/12/2025 11:00 AM EST Clinical Support [facility] MEDICINE [address] [place] [address] Torie Mccormack, RN 505 [place] [address] documented as of this encounter Visit Diagnoses Diagnosis Vitamin D deficiency Peripheral neuropathic pain Depression, unspecified depression type documented in this encounter Additional Health Concerns Assessment Noted Time PHQ-9 Depression Total Score: 14 023 4:05 PM EST documented as of this encounter Care Teams Tearoom Host/Hostess Relationship Specialty Start Date End Date Leah Alvarenga FNP PCP - General Family Medicine 09/12/22 07/31/23 Mary Jo Chau MD [address] [place] [address] PCP - General Internal Medicine 08/01/23 Adore Iraheta PharmD [address] [place] [address] Pharmacist Internal Medicine 11/04/24 08/18/25 Katie Hernandez, PharmD [address] [place] [address] Pharmacist Pharmacy 08/18/25 documented as of this encounter
--- OUTSIDE RECORDS SUMMARY | 2025-08-27 12:23 | XMS_ITS | Encounter Summary ---
Author Organization [employer] Address [address] [place] [address] 7 [place] [address] Care Team Providers Care Ambulance Operations Supervisor Name Role Phone Mary Jo Chau MD Primary Care Pro vider Adore Iraheta PharmD Unavailable [phone] Katie Hernandez PharmD Unavailable [phone] Reason for Visit * Reason Onset Date Comments new appointment 09/25/2024 Encounter Details Date Type Department Care Team (Late st Contact Info) Description 09/25/2024 Telephone [facility] MEDICINE 230 [place] [address] Mary Jo Chau MD 230 [place] [address] new appointment Social History Tobacco Use Types [...] Description 10/06/2025 3:30 PM EST Medication Management [address] [address] Katie Hernandez, PharmD [address] [place] [address] 12/12/2025 11:00 AM EST Clinical Support [address] [address] Torie Mccormack, WAYLON 505 [place] [address] documented as of this encounter Visit Diagnoses Not on filedocumented in this encounter Additional Health Concerns Assessment Noted Time PHQ-9 Depression Total Score: 10 024 2:12 PM EST documented as of this encounter Care Teams Ambulance Operations Supervisor Relationship Specialty Start Date End Date Mary Jo Chau MD [address] [place] [address] PCP - General Internal Medicine 08/01/23 Adore Iraheta, NegritaD [address] [place] [address] Pharmacist Internal Medicine 11/04/24 08/18/25 Katie Hernandez, Lorenzo [address] [place] [address] Pharmacist Pharmacy 08/18/25 documented as of this encounter
--- OUTSIDE RECORDS SUMMARY | 2025-08-27 12:23 | XMS_ITS | Encounter Summary ---
Author Organization [employer] Address [address] [place] [address] [place] [address] Care Team Providers Care Diathermy Equipment Repairer Name Role Phone Leah Alvarenga METALS ANALYST Primary Care Provider Mary Jo Dougherty MD Primary Care Pro vider Adore Iraheta PharmD Unavailable [phone] Katie Hernandez PharmD Unavailable [phone] Reason for Visit * Reason Comments Med Refill Encounter Details Date Type Department Care Team (Late st Contact Info) Description 07/04/2023 Refill [facility] MEDICINE 230 [place], [place] [phone] Leah Alvarenga FNP Depression, unspecified depression type Social History Tobacco [...] Description 10/06/2025 3:30 PM EST Medication Management [facility] MEDICINE 230 [place], [place] [phone] Katie Hernandez, PharmD [address] [place] [address] 12/12/2025 11:00 AM EST Clinical Support [facility] [address] [place] [address] Torie Mccormack, RN 505 [place] [address] documented as of this encounter Visit Diagnoses Diagnosis Depression, unspecified depression type documented in this encounter Additional Health Concerns Assessment Noted Time PHQ-9 Depression Total Score: 14 023 4:05 PM EST documented as of this encounter Care Teams Diathermy Equipment Repairer Relationship Specialty Start Date End Date Leah Alvarenga FNP PCP - General Family Medicine 09/12/22 07/31/23 Mary Jo Chau MD [address] [place] [address] PCP - General Internal Medicine 08/01/23 Adore Iraheta, NegritaD [address] [place] [address] Pharmacist Internal Medicine 11/04/24 08/18/25 Katie Hernandez, PharmD [address] [place] [address] Pharmacist Pharmacy 08/18/25 documented as of this encounter
--- OUTSIDE RECORDS SUMMARY | 2025-08-27 12:23 | XMS_ITS | Encounter Summary ---
Author Organization [employer] Address [address] [place] [address] 7 [place] [address] Care Team Providers Care Quality Control Assistant Name Role Phone Leah Alvarenga BOAT DOCK OPERATOR Primary Care Provider Mary Jo Dougherty MD Primary Care Pro vider Adore Iraheta PharmD Unavailable [phone] Katie Hernandez PharmD Unavailable [phone] Reason for Visit * Reason Onset Date Comments BPI score changes 03/24/2023 Encounter Details Date Type Department Care Team (Late st Contact Info) Description 03/24/2023 Refill [facility] MEDICINE 230 [place] [address] Leah Alvarenga FNP Constipation, unspecified constipation type Social History Tobacco [...] 10:10 AM EDT FYI, pt had Tele PAYMENT MANAGER 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 Pain severity score of 4.8, activity interference score of 8.6. Previous BPI completed 11/04/22 with pain severity score of 7.8, activity interference score of 5.3. documented in this encounter Plan of Treatment Upcoming Encounters Date Type Department Care Team (Late st Contact Info) Description 10/06/2025 3:30 PM EST Medication Management [address] [address] Katie Hernandez PharmMiriam [address] [place] [address] 12/12/2025 11:00 AM EST Clinical Support [address] [phone] Torie Mccormack RN 505 [place], [place] [phone] documented as of this encounter Visit Diagnoses Diagnosis Constipation, unspecified constipation type documented in this encounter Additional Health Concerns Assessment Noted Time PHQ-9 Depression Total Score: 14 023 4:05 PM EST documented as of this encounter Care Teams Quality Control Assistant Relationship Specialty Start Date End Date Leah Alvarenga FNP PCP - General Family Medicine 09/12/22 07/31/23 Mary Jo Chau MD [address] [place] [address] PCP - General Internal Medicine 08/01/23 Adore Iraheta PharmD [address] [place] [address] [phone] Pharmacist Internal Medicine 11/04/24 08/18/25 Katie Hernandez PharmD [address] [place] [address] Pharmacist Pharmacy 08/18/25 documented as of this encounter
--- OUTSIDE RECORDS SUMMARY | 2025-08-27 12:23 | XMS_ITS | Encounter Summary ---
Author Organization [employer] Address [address] [place] [address] 7t [place] [address] Care Team Providers Care Tear Down Man Name Role Phone Leah Alvarenga LOAD OUT PERSON Primary Care Provider Mary Jo Dougherty MD Primary Care Pro vider Adore Iraheta PharmD Unavailable [phone] Katie Hernandez PharmD Unavailable [phone] Reason for Visit * Reason Comments Med Refill Encounter Details Date Type Department Care Team (Late st Contact Info) Description 05/12/2023 Refill [facility] MEDICINE 230 [place] [address] Leah Alvarenga FNP Depression, unspecified depression type [...] Description 10/06/2025 3:30 PM EST Medication Management [address] [address] Katie Hernandez, Lorenzo [address] [place] [address] 12/12/2025 11:00 AM EST Clinical Support [address] [address] Torie Mccormack, WAYLON 505 [place] [address] documented as of this encounter Visit Diagnoses Diagnosis Depression, unspecified depression type documented in this encounter Additional Health Concerns Assessment Noted Time PHQ-9 Depression Total Score: 14 023 4:05 PM EST documented as of this encounter Care Teams Tear Down Man Relationship Specialty Start Date End Date Leah Alvarenga FNP PCP - General Family Medicine 09/12/22 07/31/23 Mary Jo Chau MD [address] [place] [address] PCP - General Internal Medicine 08/01/23 Adore Iraheta PharmD [address] [place] [phone] Pharmacist Internal Medicine 11/04/24 08/18/25 Katie Hernandez, NegritaD [address] [place] [address] Pharmacist Pharmacy 08/18/25 documented as of this encounter
--- OUTSIDE RECORDS SUMMARY | 2025-08-27 12:24 | XMS_ITS | Encounter Summary ---
Author Organization [employer] Address [address] [place] [address] 7 [place] [address] Care Team Providers Care District Administrative Assistant Name Role Phone Mary Jo Chau MD Primary Care Pro vider Adore Iraheta PharmD Unavailable [phone] Katie Hernandez PharmD Unavailable [phone] Reason for Visit * Reason Comments Med Refill Encounter Details Date Type Department Care Team (Late st Contact Info) Description 11/03/2024 Refill [facility] MEDICINE 230 [place] [address] Mary Jo Chau MD 230 [place], [place] [phone] Diabetic polyneuropathy associated with type 2 diabetes [...] Description 10/06/2025 3:30 PM EST Medication Management [address] [address] Katie Hernandez PharmD [address] [place] [address] 12/12/2025 11:00 AM EST Clinical Support [facility] MEDICINE [address] [place] [address] Torie Mccormack, WAYLON 505 [place] [address] documented as of this encounter Visit Diagnoses Diagnosis Diabetic polyneuropathy associated with type 2 diabetes mellitus (HCC) Other atopic dermatitis documented in this encounter Additional Health Concerns Assessment Noted Time PHQ-9 Depression Total Score: 10 024 2:12 PM EST documented as of this encounter Care Teams District Administrative Assistant Relationship Specialty Start Date End Date Mary Jo Chau MD [address] [place] [address] PCP - General Internal Medicine 08/01/23 Adore Iraheta, PharmD [address] [place] [address] Pharmacist Internal Medicine 11/04/24 08/18/25 Katie Hernandez, NegritaD [address] [place] [address] Pharmacist Pharmacy 08/18/25 documented as of this encounter
--- OUTSIDE RECORDS SUMMARY | 2025-08-27 12:24 | XMS_ITS | Encounter Summary ---
Author Organization [employer] Address [address] [facility] 7t [place] [address] Care Team Providers Care Upstairs Maid Name Role Phone Mary Jo Chau MD Primary Care Pro vider Adore Iraheta PharmD Unavailable [phone] Katie Hernandez PharmD Unavailable [phone] Reason for Visit * Reason Comments Med Refill Encounter Details Date Type Department Care Team (Late st Contact Info) Description 01/28/2025 Refill [facility] MED [facility] PEDS [address] [place] [address] Azael Diallo MD 230 [place] [address] Social History Tobacco Use Types Packs/Day Years [...] Description 10/06/2025 3:30 PM EST Medication Management [address] [address] Katie Hernandez, PharmD [address] [place] [address] 12/12/2025 11:00 AM EST Clinical Support [facility] MEDICINE [address] [place] [address] Torie Mccormack, WAYLON 505 [place] [address] documented as of this encounter Visit Diagnoses Not on filedocumented in this encounter Additional Health Concerns Assessment Noted Time PHQ-9 Depression Total Score: 10 024 2:12 PM EST documented as of this encounter Care Teams Upstairs Maid Relationship Specialty Start Date End Date Mary Jo Chau MD [address] [place] [address] PCP - General Internal Medicine 08/01/23 Adore Iraheta, NegritaD 230 [place] [address] Pharmacist Internal Medicine 11/04/24 08/18/25 Katie Hernandez, NegritaD 230 [place] [address] Pharmacist Pharmacy 08/18/25 documented as of this encounter
--- OUTSIDE RECORDS SUMMARY | 2025-08-27 12:24 | XMS_ITS | Encounter Summary ---
Author Organization [employer] Address [address] [place] [address] Care Team Providers Care Diamond Saw Operator Name Role Phone Mary Jo Chau MD Primary Care Pro vider Adore Iraheta PharmD Unavailable [phone] Katie Hernandez PharmD Unavailable [phone] Reason for Visit * Reason Comments Med Change Request Encounter Details Date Type Department Care Team ([facility] Contact Info) Description 04/27/2024 Refill [facility] MEDICINE 230 [place] [address] Mary Jo Chau MD 230 [place], [place] [phone] Depression, unspecified depression type Social History Tobacco [...] Upcoming Encounters Date Type Department Care Team ([facility] st Contact Info) Description 10/06/2025 3:30 PM EST Medication Management [address] [address] Katie Hernandez, Lorenzo 230 [place] [address] 12/12/2025 11:00 AM EST Clinical Support [address] [address] Torie Mccormack, WAYLON 505 [place] [address] documented as of this encounter Visit Diagnoses Diagnosis Depression, unspecified depression type documented in this encounter Additional Health Concerns Assessment Noted Time PHQ-9 Depression Total Score: 9 01/08/20 24 3:15 PM EDT documented as of this encounter Care Teams Diamond Saw Operator Relationship Specialty Start Date End Date Mary Jo Chau MD [address] [place] [address] PCP - General Internal Medicine 08/01/23 Adore Iraheta, NegritaD [address] [place] [address] Pharmacist Internal Medicine 11/04/24 08/18/25 Katie Hernandez, NegritaD [address] [place] [address] Pharmacist Pharmacy 08/18/25 documented as of this encounter
--- OUTSIDE RECORDS SUMMARY | 2025-08-27 12:24 | XMS_ITS | Encounter Summary ---
Author Organization [employer] Address [address] [place] [address] Care Team Providers Care Coater Operator Name Role Phone Mary Jo Chau MD Primary Care Pro vider Adore Iraheta PharmD Unavailable [phone] Katie Hernandez PharmD Unavailable [phone] Reason for Visit * Reason Comments Med Refill Encounter Details Date Type Department Care Team (Late Contact Info) Description 11/21/2023 Refill [facility] MEDICINE [address] [place] [address] [phone] Mary Jo Chau MD [address] [place] [address] [phone] Depression, unspecified depression type Social History Tobacco [...] Department Care Team (Late Contact Info) Description 10/06/2025 3:30 PM EST Medication Management [facility] MEDICINE [address] [place] [address] Katie Hernandez, PharmD [address] [place] [address] 12/12/2025 11:00 AM EST Clinical Support [facility] MEDICINE [address] [place] [address] Torie Mccormack, WAYLON 505 [place] [address] documented as of this encounter Visit Diagnoses Diagnosis Depression, unspecified depression type documented in this encounter Additional Health Concerns Assessment Noted Time PHQ-9 Depression Total Score: 14 023 4:05 PM EST documented as of this encounter Care Teams Coater Operator Relationship Specialty Start Date End Date Mary Jo Chau MD [address] [place] [address] PCP - General Internal Medicine 08/01/23 Adore Iraheta, NegritaD [address] [place] [address] Pharmacist Internal Medicine 11/04/24 08/18/25 Katie Hernandez, NegritaD [address] [place] [address] Pharmacist Pharmacy 08/18/25 documented as of this encounter
--- OUTSIDE RECORDS SUMMARY | 2025-08-27 12:24 | XMS_ITS | Encounter Summary ---
Author Organization [employer] Address [address] [place] [address] Care Team Providers Care Garbage Collector Name Role Phone Mary Jo Chau MD Primary Care Pro vider Adore Iraheta PharmD Unavailable [phone] Katie Hernandez PharmD Unavailable [phone] Reason for Visit * Reason Comments Med Change Request Encounter Details Date Type Department Care Team (Late Contact Info) Description 09/15/2023 Refill [facility] MEDICINE [address] [place] [address] [phone] Mary Jo Chau MD [address] [place] [address] [phone] Depression, unspecified depression type Social History Tobacco [...] Description 10/06/2025 3:30 PM EST Medication Management [facility] MEDICINE [address] [place] [address] Katie Hernandez, PharmD [address] [place] [address] 12/12/2025 11:00 AM EST Clinical Support [facility] MEDICINE [address] [place] [address] Torie Mccormack, WAYLON 505 [place] [address] documented as of this encounter Visit Diagnoses Diagnosis Depression, unspecified depression type documented in this encounter Additional Health Concerns Assessment Noted Time PHQ-9 Depression Total Score: 14 023 4:05 PM EST documented as of this encounter Care Teams Garbage Collector Relationship Specialty Start Date End Date Mary Jo Chau MD [address] [place] [address] PCP - General Internal Medicine 08/01/23 Adore Iraheta, NegritaD [address] [place] [address] Pharmacist Internal Medicine 11/04/24 08/18/25 Katie Hernandez, NegritaD [address] [place] [address] Pharmacist Pharmacy 08/18/25 documented as of this encounter
--- OUTSIDE RECORDS SUMMARY | 2025-08-27 12:24 | XMS_ITS | Encounter Summary ---
Author Organization [employer] Address [address] [facility] 7 [place] [address] Care Team Providers Care Land Surveyor Name Role Phone Mary Jo Chau MD Primary Care Pro vider Adore Iraheta PharmD Unavailable [phone] Katie Hernandez PharmD Unavailable [phone] Reason for Visit * Reason Comments Med Refill Encounter Details Date Type Department Care Team (Late st Contact Info) Description 12/04/2024 Refill [facility] MED & PEDS 505 [place] [address] Mary Jo Chau MD 230 [place] [address] Type 2 diabetes mellitus with other specified complication, without long-term current use of insulin ([facility]) Social History Tobacco Use [...] 10/06/2025 3:30 PM EST Medication Management [address] [address] Katie Hernandez PharmD [address] [place] [address] 12/12/2025 11:00 AM EST Clinical Support [address] [address] Torie Mccormack RN 505 [place] [address] documented as of this encounter Visit Diagnoses Diagnosis Type 2 diabetes mellitus with other specified complication, without long-term current use of insulin (HCC) documented in this encounter Additional Health Concerns Assessment Noted Time PHQ-9 Depression Total Score: 10 024 2:12 PM EST documented as of this encounter Care Teams Land Surveyor Relationship Specialty Start Date End Date Mary Jo Chau MD [address] [place] [address] PCP - General Internal Medicine 08/01/23 Adore Iraheta, NegritaD [address] [place] [address] Pharmacist Internal Medicine 11/04/24 08/18/25 Katie Hernandez, NegritaD [address] [place] [address] Pharmacist Pharmacy 08/18/25 documented as of this encounter
--- OUTSIDE RECORDS SUMMARY | 2025-08-27 12:24 | XMS_ITS | Encounter Summary ---
Author Organization [employer] Address [address] [facility] 7t [place] [address] Care Team Providers Care Vp Hr Diversity Name Role Phone Mary Jo Chau MD Primary Care Pro vider Adore Iraheta PharmD Unavailable [phone] Katie Hernandez PharmD Unavailable [phone] Reason for Visit * Reason Comments Med Refill Encounter Details Date Type Department Care Team (Late st Contact Info) Description 03/31/2025 Refill [facility] MED & PEDS [address] [place], [place] [phone] Azael Diallo MD 230 [place] [address] Depression, unspecified depression type; Depressive disorder; Type 2 diabetes mellitus with other specified complication, without long-term current use of insulin ([facility]) Social History Tobacco Use Types Packs/Day Years [...] Description 10/06/2025 3:30 PM EST Medication Management [address] [address] Katie Hernandez PharmD [address] [place] [address] 12/12/2025 11:00 AM EST Clinical Support [facility] MEDICINE [address] [place] [address] Torie Mccormack RN 505 [place] [address] documented as of this encounter Visit Diagnoses Diagnosis Depression, unspecified depression type Type 2 diabetes mellitus with other specified complication, without long-term current use of insulin (HCC) documented in this encounter Additional Health Concerns Assessment Noted Time PHQ-9 Depression Total Score: 10 024 2:12 PM EST documented as of this encounter Care Teams Vp Hr Diversity Relationship Specialty Start Date End Date Mary Jo Chau MD [address] [place] [address] PCP - General Internal Medicine 08/01/23 Adore Iraheta, PharmD [address] [place] [address] Pharmacist Internal Medicine 11/04/24 08/18/25 Katie Hernandez, NegritaD [address] [place] [address] Pharmacist Pharmacy 08/18/25 documented as of this encounter
--- OUTSIDE RECORDS SUMMARY | 2025-08-27 12:24 | XMS_ITS | Encounter Summary ---
Author Organization [employer] Address [address] [place] [address] 7 [place] [address] Care Team Providers Care Application Consultant Name Role Phone Mary Jo Chau MD Primary Care Pro vider Adore Iraheta PharmD Unavailable [phone] Katie Hernandez PharmD Unavailable [phone] Reason for Visit * Reason Comments Med Change Request Encounter Details Date Type Department Care Team (Late Contact Info) Description 08/15/2023 Refill [facility] 230 [place], [place] [phone] Leah Alvarenga, OFFICE REP Depression, unspecified depression type Social History Tobacco [...] Description 10/06/2025 3:30 PM EST Medication Management [facility] 230 [place], [place] [phone] Katie Hernandez, PharmD 230 [place], [place] [phone] 12/12/2025 11:00 AM EST Clinical Support [facility] 230 [place] [address] Torie Mccormack, RN 505 [place] [address] documented as of this encounter Visit Diagnoses Diagnosis Depression, unspecified depression type documented in this encounter Additional Health Concerns Assessment Noted Time PHQ-9 Depression Total Score: 14 023 4:05 PM EST documented as of this encounter Care Teams Application Consultant Relationship Specialty Start Date End Date Mary Jo Chau MD [address] [place] [address] PCP - General Internal Medicine 08/01/23 Adore Iraheta, PharmD [address] [place] [address]329 Pharmacist Internal Medicine 11/04/24 08/18/25 Katie Hernandez, NegritaD [address] [place] [address] Pharmacist Pharmacy 08/18/25 documented as of this encounter
--- OUTSIDE RECORDS SUMMARY | 2025-08-27 12:24 | XMS_ITS | Encounter Summary ---
Author Organization [employer] Address [address] [place] [address] 7 [place] [address] Care Team Providers Care Telephone Engineer Name Role Phone Mary Jo Chau MD Primary Care Pro vider Adore Iraheta PharmD Unavailable [phone] Katie Hernandez PharmD Unavailable [phone] Reason for Visit * Reason Comments Med Refill Encounter Details Date Type Department Care Team (Late Contact Info) Description 09/07/2023 Refill [facility] 230 [place] [address] [facility] 230 [place], [place] [phone] Other atopic dermatitis Social History Tobacco Use [...] 10/06/2025 3:30 PM EST Medication Management [facility] 230 [place] [address] Katie Hernandez, PharmD [address] [place] [address] 12/12/2025 11:00 AM EST Clinical Support [facility] [address] [place] [address] Torie Mccormack, WAYLON 505 [place] [address] documented as of this encounter Visit Diagnoses Diagnosis Other atopic dermatitis documented in this encounter Additional Health Concerns Assessment Noted Time PHQ-9 Depression Total Score: 14 023 4:05 PM EST documented as of this encounter Care Teams Telephone Engineer Relationship Specialty Start Date End Date Mary Jo Chau MD [address] [place] [address] PCP - General Internal Medicine 08/01/23 Adore Iraheta, NegritaD [address] [place] [address] Pharmacist Internal Medicine 11/04/24 08/18/25 Katie Hernandez, PharmD [address] [place] [address] Pharmacist Pharmacy 08/18/25 documented as of this encounter
--- OUTSIDE RECORDS SUMMARY | 2025-08-27 12:24 | XMS_ITS | Encounter Summary ---
Author Organization [employer] Address [address] [place] [address] [place] [address] Care Team Providers Care Analyst Microbiology Lab Name Role Phone Mary Jo Chau MD Primary Care Pro vider Adore Iraheta PharmD Unavailable [phone] Katie Hernandez PharmD Unavailable [phone] Encounter Details Date Type Department Care Team (Late st Contact Info) Description 04/01/2024 Telephone [facility] 230 [place] [address] Mary Jo Chau MD 230 [place] [address] Social History Tobacco Use Types Packs/Day Years [...] 10/06/2025 3:30 PM EST Medication Management [address] [address] Katie Hernandez, PharmD [address] [place] [address] 12/12/2025 11:00 AM EST Clinical Support [address] [address] Torie Mccormack, WAYLON 505 [place] [address] documented as of this encounter Visit Diagnoses Not on filedocumented in this encounter Additional Health Concerns Assessment Noted Time PHQ-9 Depression Total Score: 9 01/08/20 24 3:15 PM EDT documented as of this encounter Care Teams Analyst Microbiology Lab Relationship Specialty Start Date End Date Mary Jo Chau MD [address] [place] [address] PCP - General Internal Medicine 08/01/23 Adore Iraheta, PharmD [address] [place] [address] Pharmacist Internal Medicine 11/04/24 08/18/25 Katie Hernandez, NegritaD [address] [place] [address] Pharmacist Pharmacy 08/18/25 documented as of this encounter
--- OUTSIDE RECORDS SUMMARY | 2025-08-27 12:24 | XMS_ITS | Encounter Summary ---
Author Organization [employer] Address 75 [facility] 7t [place] [address] Care Team Providers Care Technical Support Coordinator Name Role Phone Mary Jo Chau MD Primary Care Pro vider Adore Iraheta PharmD Unavailable [phone] Katie Hernandez PharmD Unavailable [phone] Encounter Details Date Type Department Care Team (Late st Contact Info) Description 06/12/2024 Orders Only [facility] 230 [place] [address] Mary Jo Warren MD 230 [place] [address] Social History Tobacco Use Types Packs/Day Years [...] Description 10/06/2025 3:30 PM EST Medication Management [facility] [address] [place] [address] Katie Hernandez, PharmD [address] [place] [address] 12/12/2025 11:00 AM EST Clinical Support [facility] [address] [place] [address] Torie Mccormack, WAYLON 505 [place] [address] documented as of this encounter Visit Diagnoses Not on filedocumented in this encounter Additional Health Concerns Assessment Noted Time PHQ-9 Depression Total Score: 9 01/08/20 24 3:15 PM EDT documented as of this encounter Care Teams Technical Support Coordinator Relationship Specialty Start Date End Date Mary Jo Chau MD [address] [place] [address] PCP - General Internal Medicine 08/01/23 Adore Iraheta, NegritaD [address] [place] [address] Pharmacist Internal Medicine 11/04/24 08/18/25 Katie Hernandez, NegritaD [address] [place] [address] Pharmacist Pharmacy 08/18/25 documented as of this encounter
--- OUTSIDE RECORDS SUMMARY | 2025-08-27 12:24 | XMS_ITS | Encounter Summary ---
Author Organization [employer] Address 75 [facility] 7 [place] [address] Care Team Providers Care Batt Packer Name Role Phone Cristin Chaves MD Primary Care Provider Leah Macario HARBOR ENGINEER Primary Care Provider Mary Jo Dougherty MD Primary Care Pro vider Adore Iraheta PharmD Unavailable Katie Hernandez PharmD Unavailable [phone] Encounter Details Date Type Department Care Team (Latest Contact Info) Description 02/12/2019 Abstract [facility] Dental, Provider, DDS Social History [...] PM EST Medication Management [facility] [address] [place] [address] Katie Hernandez, PharmD 230 [place] [address] 12/12/2025 11:00 AM EST Clinical Support [facility] 230 [place], [place] [phone] Torie Mccormack RN 505 [place] [address] documented as of this encounter Visit Diagnoses Not on filedocumented in this encounter Care Teams Batt Packer Relationship Specialty Start Date End Date Cristin Chaves MD PCP - General Family Medicine 04/13/20 09/11/22 Leah Alvarenga FNP PCP - General Family Medicine 09/12/22 07/31/23 Mary Jo Chau MD [address] [place] [address] PCP - General Internal Medicine 08/01/23 Adore Iraheta, NegritaD [address] [place] [address] Pharmacist Internal Medicine 11/04/24 08/18/25 Katie Hernandez, NegritaD [address] [place] [address] Pharmacist Pharmacy 08/18/25 documented as of this encounter
--- OUTSIDE RECORDS SUMMARY | 2025-08-27 12:24 | XMS_ITS | Encounter Summary ---
Author Organization [employer] Address [address] [place] [address] 7 [place] [address] Care Team Providers Care Cash Posting Representative Name Role Phone Mary Jo Chau MD Primary Care Pro vider Adore Iraheta PharmD Unavailable [phone] Katie Hernandez PharmD Unavailable [phone] Reason for Visit * Reason Comments Med Refill Encounter Details Date Type Department Care Team (Late st Contact Info) Description 04/08/2025 Refill [facility] 230 [place] [address] Mary Jo Chau MD 230 [place], [place] [phone] Type 2 diabetes mellitus with diabetic polyneuropathy [...] the past 12 months, has t he [employer] gas[employer] oil or water company threatened to [...] Description 10/06/2025 3:30 PM EST Medication Management [address] [address] Katie Hernandez, NegritaD 230 [place] [address] 12/12/2025 11:00 AM EST Clinical Support [address] [address] Torie Mccormack, WAYLON 505 [place] [address] documented as of this encounter Visit Diagnoses Diagnosis Type 2 diabetes mellitus with diabetic polyneuropathy (HCC) documented in this encounter Additional Health Concerns Assessment Noted Time PHQ-9 Depression Total Score: 10 024 2:12 PM EST documented as of this encounter Care Teams Cash Posting Representative Relationship Specialty Start Date End Date Mary Jo Chau MD [address] [place] [address] PCP - General Internal Medicine 08/01/23 Adore Iraheta, NegritaD [address] [place] [address] Pharmacist Internal Medicine 11/04/24 08/18/25 Katie Hernandez, NegritaD [address] [place] [address] Pharmacist Pharmacy 08/18/25 documented as of this encounter
--- OUTSIDE RECORDS SUMMARY | 2025-08-27 12:24 | XMS_ITS | Encounter Summary ---
Author Organization [employer] Address 75 [facility] 7t [place] [address] Care Team Providers Care Nitroglycerin Nitrator Operator Batch Name Role Phone Mary Jo Chau MD Primary Care Pro vider Katie Hernandez PharmD Unavailable [phone] Reason for Visit * Reason Comments Med Refill Encounter Details Date Type Department Care Team (Late st Contact Info) Description 08/20/2025 Refill [facility] [address] [place], [place] [phone] Azael Diallo MD 230 [place] [address] Constipation, unspecified constipation type Social History Tobacco [...] Description 10/06/2025 3:30 PM EST Medication Management [address] [address] Katie Hernandez, Lorenzo [address] [place] [address] 12/12/2025 11:00 AM EST Clinical Support [address] [address] Torie Mccormack RN 505 [place] [address] documented as of this encounter Visit Diagnoses Diagnosis Constipation, unspecified constipation type documented in this encounter Additional Health Concerns Assessment Noted Time PHQ-9 Depression Total Score: 0 04/30/20 25 2:08 PM EDT documented as of this encounter Care Teams Nitroglycerin Nitrator Operator Batch Relationship Specialty Start Date End Date Mary Jo Chau MD [address] [place] [address] PCP - General Internal Medicine 08/01/23 Katie Hernandez, PharmD [address] [place] [address] Pharmacist Pharmacy 08/18/25 documented as of this encounter
--- OUTSIDE RECORDS SUMMARY | 2025-08-27 12:24 | XMS_ITS | Encounter Summary ---
Author Organization [employer] Address [address] [place] [address] 7 [place] [address] Care Team Providers Care Vascular Technologist Sonographer Name Role Phone Mary Jo Chau MD Primary Care Pro vider Adore Iraheta PharmD Unavailable [phone] Katie Hernandez PharmD Unavailable [phone] Reason for Visit * Reason Comments Med Refill Encounter Details Date Type Department Care Team (Late Contact Info) Description 11/14/2023 Refill [facility] 505 [place], [place] [phone] Mary Jo Chau MD 230 [place], [place] [phone] Other chronic pain Social History Tobacco Use [...] Description 10/06/2025 3:30 PM EST Medication Management [facility] [address] [place] [address] Katie Hernandez, PharmD [address] [place] [address] 12/12/2025 11:00 AM EST Clinical Support [facility] [address] [place] [address] Torie Mccormack, RN 505 [place] [address] documented as of this encounter Visit Diagnoses Diagnosis Other chronic pain documented in this encounter Additional Health Concerns Assessment Noted Time PHQ-9 Depression Total Score: 14 023 4:05 PM EST documented as of this encounter Care Teams Vascular Technologist Sonographer Relationship Specialty Start Date End Date Mary Jo Chau MD [address] [place] [address] PCP - General Internal Medicine 08/01/23 Adore Iraheta, PharmD [address] [place] [address] Pharmacist Internal Medicine 11/04/24 08/18/25 Katie Hernandez, PharmD [address] [place] [address] Pharmacist Pharmacy 08/18/25 documented as of this encounter
--- OUTSIDE RECORDS SUMMARY | 2025-08-27 12:24 | XMS_ITS | Encounter Summary ---
Author Organization [employer] Address [address] [place] [address] 7 [place] [address] Care Team Providers Care Production Leader Name Role Phone Mary Jo Chau MD Primary Care Pro vider Adore Iraheta PharmD Unavailable [phone] Katie Hernandez PharmD Unavailable [phone] Reason for Visit * Reason Comments Med Refill Encounter Details Date Type Department Care Team (Late st Contact Info) Description 11/06/2024 Refill [facility] 230 [place] [address] Mary Jo Chau MD 230 [place], [place] [phone] Depressive disorder Social History Tobacco Use Types [...] Description 10/06/2025 3:30 PM EST Medication Management [address] [address] Katie Hernandez, PharmD [address] [place] [address] 12/12/2025 11:00 AM EST Clinical Support [facility] [address] [place] [address] Torie Mccormack, WAYLON 505 [place] [address] documented as of this encounter Visit Diagnoses Diagnosis Depressive disorder Depressive disorder, not elsewhere classified documented in this encounter Additional Health Concerns Assessment Noted Time PHQ-9 Depression Total Score: 10 024 2:12 PM EST documented as of this encounter Care Teams Production Leader Relationship Specialty Start Date End Date Mary Jo Chau MD [address] [place] [address] PCP - General Internal Medicine 08/01/23 Adore Iraheta, NegritaD 230 [place] [address] Pharmacist Internal Medicine 11/04/24 08/18/25 Katie Hernandez, Lorenzo 230 [place] [address] Pharmacist Pharmacy 08/18/25 documented as of this encounter
--- OUTSIDE RECORDS SUMMARY | 2025-08-27 12:24 | XMS_ITS | Encounter Summary ---
Author Organization [employer] Address 75 [facility] 7 [place] [address] Care Team Providers Care Pulp And Paper Tester Name Role Phone Cristin Chaves MD Primary Care Provider Leah Macario INDUSTRIAL CLEANER Primary Care Provider Mary Jo Dougherty MD Primary Care Pro vider Adore Iraheta PharmD Unavailable [phone] Katie Hernandez PharmD Unavailable [phone] Encounter Details Date Type Department Care Team (Latest Contact Info) Description 06/14/2021 Abstract [facility] CONVERSION[facility] Dental, Provider, DDS Social History [...] Description 10/06/2025 3:30 PM EST Medication Management [facility] [address] [place] [address] [phone] Katie Hernandez, PharmD 230 [place], [place] [phone] 12/12/2025 11:00 AM EST Clinical Support [facility] 230 [place], [place] [phone] Torie Mccormack RN 505 [place] [address] documented as of this encounter Visit Diagnoses Not on filedocumented in this encounter Care Teams Pulp And Paper Tester Relationship Specialty Start Date End Date Cristin Chaves MD PCP - General Family Medicine 04/13/20 09/11/22 Leah Alvarenga FNP PCP - General Family Medicine 09/12/22 07/31/23 Mary Jo Chau MD [address] [place] [address] PCP - General Internal Medicine 08/01/23 Adore Iraheta, NegritaD [address] [place] [address] Pharmacist Internal Medicine 11/04/24 08/18/25 Katie Hernandez, NegritaD [address] [place] [address] Pharmacist Pharmacy 08/18/25 documented as of this encounter
--- OUTSIDE RECORDS SUMMARY | 2025-08-27 12:24 | XMS_ITS | Encounter Summary ---
Author Organization [employer] Address [address] [place] [address] Care Team Providers Care Garment Worker Name Role Phone Mary Jo Chau MD Primary Care Pro vider Adore Iraheta PharmD Unavailable [phone] Katie Hernandez PharmD Unavailable [phone] Reason for Visit * Reason Comments Med Refill Encounter Details Date Type Department Care Team (Late Contact Info) Description 11/09/2023 Refill [facility] [address] [place] [phone] Mary Jo Chau MD [address] [place] [address] [phone] Seasonal allergic rhinitis, unspecified trigger; Other chronic [...] Description 10/06/2025 3:30 PM EST Medication Management [facility] [address] [place] [phone] Katie Hernandez, PharmD 230 [place] [address] 12/12/2025 11:00 AM EST Clinical Support [facility] [address] [place] [address] Torie Mccormack, RN 505 [place] [address] documented as of this encounter Visit Diagnoses Diagnosis Seasonal allergic rhinitis, unspecified trigger Other chronic pain documented in this encounter Additional Health Concerns Assessment Noted Time PHQ-9 Depression Total Score: 14 023 4:05 PM EST documented as of this encounter Care Teams Garment Worker Relationship Specialty Start Date End Date Mary Jo Chau MD [address] [place] [address] PCP - General Internal Medicine 08/01/23 Adore Iraheta, PharmD [address] [place] [address] Pharmacist Internal Medicine 11/04/24 08/18/25 Katie Hernandez, NegritaD [address] [place] [address] Pharmacist Pharmacy 08/18/25 documented as of this encounter
== END 2025-08-27 11:09 | disposition home or self-care (01) ==
LOC: HO.HUSH 10:38
PROVIDERS: PCP Student in an Organized Health Care Education/Training Program; Visit Provider Nurse Practitioner Family
DX: R97.20 Elevated prostate specific antigen [PSA] (principal); N41.9 Inflammatory disease of prostate, unspecified; N40.0 Benign prostatic hyperplasia without lower urinary tract symptoms; Z13.9 Encounter for screening, unspecified
CPT/HCPCS: 99213; G2211

== ENCOUNTER → 2025-08-27 10:37 | Outpatient (BNVA) | payer OTHER, SELFPAY | PROVIDERS: PCP Student in an Organized Health Care Education/Training Program; Visit Provider Nurse Practitioner Family | DX: N40.0 Benign prostatic hyperplasia without lower urinary tract symptoms (principal); N41.9 Inflammatory disease of prostate, unspecified; R97.20 Elevated prostate specific antigen [PSA] | CPT/HCPCS: 81003; 99212 ==

== ENCOUNTER 2025-09-08 11:03 | Outpatient (REF) | payer OTHER, SELFPAY ==
[2025-09-08 12:12] LABS: Hematocrit 38.1 % (42.0-52.0); Hemoglobin 12.8 g/dl (14.0-18.0); Mean Corpuscular HGB Conc 33.6 g/dl (31.0-36.0); Mean Corpuscular Hemoglobin 29.5 pg (27.0-33.0); Mean Corpuscular Volume 87.8 fL (80.0-98.0); NRBC Abs Auto 0.000 X10*3/uL (0.0-0.012); NRBC Pct Auto 0.0 /100WBC (0.0-0.2); Platelet Count 235 X10*3/uL (160-400); Red Blood Count 4.34 X10*6/uL (4.60-5.80); White Blood Count 5.8 X10*3/uL (4.8-10.8)
[2025-09-08 13:00] LABS: Anion Gap 14 (12-20); Blood Urea Nitrogen 24 mg/dL (9-16); Calcium 9.9 mg/dL (8.4-10.2); Carbon Dioxide 26 mmol/L (22-29); Chloride 105 mmol/L (96-108); Estimated Glomerular Filt Rate 51; Potassium 4.5 mmol/L (3.3-5.1); Sodium 140 mmol/L (135-145)
[2025-09-08 13:15] LABS: Appearance Urine Clear; Glucose Urine UA >=1000 mg/dL (Negative); PH 5.5 (5.0-9.0); Specific Gravity - Urine 1.020 (1.005-1.025); UMIC TRIGGER UA YES
[2025-09-08 13:25] LABS: Total Protein Urine Random 15 mg/dL (<12)
== END 2025-09-08 11:04 | disposition home or self-care (01) ==
LOC: HO.LAB 11:03
PROVIDERS: PCP Student in an Organized Health Care Education/Training Program; Visit Provider Internal Medicine Hypertension Specialist
DX: I12.9 Hypertensive chronic kidney disease with stage 1 through stage 4 chronic kidney disease, or unspecified chronic kidney disease (principal); N18.30 Chronic kidney disease, stage 3 unspecified
CPT/HCPCS: 36415; 80048; 81001; 81003; 82570; 84156; 85027; 99212

== ENCOUNTER 2025-09-08 11:03 | Outpatient (AMB) | payer OTHER, SELFPAY ==
--- NOTE | 2025-09-08 11:05 | HO.NEPHOV ---
Vital Signs 09/08/25 11:06 Height 5 ft 6 in Weight 135 lb BMI 21.8 BP 104/52 L Blood Pressure Location Lt brachial Position Sitting Pulse 89 Pulse Source Pulse Oximeter Pulse Oximetry (%) 97 Oxygen Delivery Method Room Air Intake Visit Reasons: 4 MO FU Event Specialist Product Demonstrator Required: No Event Specialist Product Demonstrator Services: Event Specialist Product Demonstrator Offered & Declined (HEELER MACHINE will translate) Accompanied by: HEELER MACHINE Allergies No Known Allergies Allergy (Verified 08/27/25 11:12) Medication List - Last Reconciled 09/08/25 by Rinku Groves MD acetaminophen-codeine 300-60 mg 1 tab PO Q8H PRN aspirin 1 tab PO DAILY atorvastatin 1 tab PO BEDTIME blood sugar diagnostic (FreeStyle Lite Strips) As directed cholecalciferol (vitamin D3) (Vitamin D3) 1 cap PO DAILY cyanocobalamin (vitamin B-12) 1 tab PO BEDTIME docusate sodium 100 mg PO BID donepezil 5 mg PO BEDTIME 30 days duloxetine 1 cap PO DAILY empagliflozin (Jardiance) 10 mg PO DAILY famotidine 20 mg PO DAILY ferrous sulfate 325 mg PO DAILY finasteride 5 mg PO DAILY 90 days glipizide ER 5 mg PO DAILY hydroxyzine HCl mg PO BID lisinopril 2.5 mg PO QAM loratadine 1 tab PO DAILY memantine 1 tab PO BID pregabalin 150 mg PO BID 30 days repaglinide 0.5 mg PO TID sennosides (senna) 2 tabs PO DAILY PRN sertraline 1 tab PO DAILY sitagliptin phosphate (Januvia) 25 mg PO DAILY tamsulosin 0.4 mg PO DAILY 90 days tirzepatide (Mounjaro) mg subcut QWEEK triamcinolone acetonide 0.1% 0.1 appl topical BID HPI Comments Details: 73-year-old man with a history of longstanding diabetes mellitus for more than 30 years along with hypertension has been referred for chronic kidney disease. Recent serum creatinine was 1.4 mg/dL. He was accompanied by his family. Today he has no specific complaints today. Overall blood sugar has been suboptimal. Recent hemoglobin A1c was 10.4. Blood pressure has been well controlled. He is compliant with all his medications he is on RAAS inhibition as well as SGLT2 inhibitors. History of obstructive sleep apnea but he does not use CPAP 12/25/24 Overall doing ok No urinary complaints Post prandial glucose is high- was 311 yesterday. Admits to eating rice and Pasta 04/23/25 The patient is a 74-year-old male presenting with CKD , hypertension management and medication review. The patient has been on lisinopril 2.5 mg, which was recently added to his regimen. The blood pressure was noted to be low, prompting consideration to stop amlodipine. The patient is scheduled to see a urologist on the , and a follow-up with the primary care physician is planned for later in the month. The current medication regimen includes Jardiance and metformin, with recent changes involving the addition of Mounjaro. 05/22/25 BP remains low No lightheadedness 09/08/25 The patient is a 75-year-old male presenting for routine follow-up and monitoring of chronic conditions. He reports no issues with urination and maintains a good appetite. His blood glucose levels have been stable, with recent readings around 132 mg/dL. The patient is currently on Jardiance and lisinopril, with no recent changes in medication. He has been advised to maintain adequate hydration to support kidney function. A blood test has been ordered to monitor kidney function, as part of ongoing management for chronic kidney disease. [facility] Medical History MCI (mild cognitive impairment) Anxiety and depression History of hepatitis as a child Diabetic nephropathy Osteoarthritis Obstructive sleep apnea BPH (benign prostatic hyperplasia) Depression Diabetes Hypercholesteremia HTN (hypertension) Normocytic anemia Surgical History History of prostate biopsy Family History Father Diabetes Social History Household Members: Spouse and Significant Other Housing: House Are you a primary auto care center manager to a significant other at home: No Do you presently have visiting nurse or other home services: No Alcohol intake: former Patient Tobacco Use Status: Never used Tobacco service: Yes Current occupational status: retired Physical Exam Vital Signs: Last Vital Signs Pulse 89 09/08/25 11:06 BP 104/52 L 09/08/25 11:06 Pulse Ox 97 09/08/25 11:06 Oxygen Delivery Method Room Air 09/08/25 11:06 BMI result Body Mass Index 21.8 Comfortable Neck supple no JVD. Lungs entry equal no rales. Heart S1-S2 heard no gallop or rub. Abdomen soft nontender. Neuro alert awake oriented. No asterixis. Extremities no edema. Const General: comfortable; No acute distress Orientation/consciousness: patient oriented x3 Eyes General: appearance normal, both eyes and all related structures Visual Vicente: normal visual vicente by confrontation Neck Neck: Yes supple and Yes no JVD Resp Effort & Inspection: normal respiratory effort and respiratory effort not decreased Cardio Palpation: no palpable S3 and no palpable S4 Heart sounds: no rubs GI Inspection: Yes normal to inspection Palpation (GI): Soft to palpation Percussion: Yes normal to percussion Auscultation: normal bowel sounds General: Yes no CVA tenderness Back/Spine/Pelvis Back: no CVA tenderness Skin General skin exam: no petechiae and no purpura Neuro General: patient oriented x3 and no focal motor deficits Extrem General: No clubbing and No edema Results Reviewed Nephrology Results: Hgb, (14.0-18.0) 12.8 g/dl L Today WBC, (4.8-10.8) 5.8 X10*3/uL Today Plt Count, (160-400) 235 X10*3/uL Today Sodium, (135-145) 139 mmol/L 05/16/25 Potassium, (3.3-5.1) 4.8 mmol/L 05/16/25 Chloride, (96-108) 102 mmol/L 05/16/25 Carbon Dioxide, (22-29) 27 mmol/L 05/16/25 BUN, (9-16) 18 mg/dL H 05/16/25 Creatinine, (0.5-1.4) 1.26 mg/dL 05/16/25 Calcium, (8.4-10.2) 9.5 mg/dL 05/16/25 Renal US 07/17/24 Assessment & Plan Assessment & Plan (1) CKD (chronic kidney disease): Code(s): N18.9 - Chronic kidney disease, unspecified Category: Medical Plan 74-year-old man with stage 3 chronic kidney disease most likely due to underlying diabetic hypertensive kidney disease. No evidence of obstruction based on renal ultrasonogram No evidence of any active glomerular nephritis or interstitial disease at this time. All serologies has been essentially negative. Marginal improvement in EGFR At present creatinine is at 1.4 and this is his baseline Goal is to slow the progression of renal disease. maintain blood pressure less than 130/80. Maintain A1c less than 7%. Should cut back on carbs Continue to avoid nephrotoxic agents including NSAIDs. Agree with maximizing RAAS inhibition and SGLT2 inhibitors. Encouraged him to increase p.o. fluid intake. 04/23/25 BP is LOW stop Amlodipine Watch BP and if needed ,can increase Lisinopril 09/08/25 BP acceptable. Cr is close to baseline Repeat ordered today Maintain adequate fluid intake Avoid nephrotoxins including NSAIDs Orders: Orders Creatinine Urine Today N18.9 - Chronic kidney disease, unspecified Total Protein Urine Random Today N18.9 - Chronic kidney disease, unspecified UA and rflx microscopic Today N18.9 - Chronic kidney disease, unspecified Basic Metabolic Panel Today N18.9 - Chronic kidney disease, unspecified Complete Blood Count no Diff Today N18.9 - Chronic kidney disease, unspecified Coding Level of Care Code Est Pt Level 4 (18202) Diagnoses CKD (chronic kidney disease) N18.9
[2025-09-08 11:06] VITALS: BP 104/52; PULSE 89; O2SAT 97; BMI 21.8
== END 2025-09-08 11:16 | disposition home or self-care (01) ==
LOC: HO.HKA 11:03
PROVIDERS: PCP Student in an Organized Health Care Education/Training Program; Visit Provider Internal Medicine Hypertension Specialist
DX: N18.9 Chronic kidney disease, unspecified (principal)
CPT/HCPCS: 99214

== ENCOUNTER 2025-09-25 15:10 | Outpatient (REF) | payer OTHER, SELFPAY ==
[2025-09-25 16:48] LABS: Magnesium 1.9 mg/dL (1.6-2.6)
== END 2025-09-25 15:11 | disposition home or self-care (01) ==
LOC: HO.LAB 15:10
PROVIDERS: PCP Student in an Organized Health Care Education/Training Program; Visit Provider Registered Nurse
DX: E11.42 Type 2 diabetes mellitus with diabetic polyneuropathy (principal); G30.9 Alzheimer's disease, unspecified; F02.80 Dementia in other diseases classified elsewhere, unspecified severity, without behavioral disturbance, psychotic disturbance, mood disturbance, and anxiety; R25.2 Cramp and spasm; Z79.899 Other long term (current) drug therapy
CPT/HCPCS: 36415; 82550; 83735; 84100; 99212

== ENCOUNTER 2025-09-25 15:10 | Outpatient (AMB) | payer OTHER, SELFPAY ==
--- NOTE | 2025-09-25 15:34 | A.OFFVIS_ITS ---
Intake Visit Reasons: 3 Months Accompanied by: BATTERY CHECKER Allergies No Known Allergies Allergy (Verified 09/25/25 15:40) Medication List - Last Reconciled 09/25/25 by Jelly Stuart CNP acetaminophen-codeine 300-60 mg 1 tab PO Q8H PRN aspirin 1 tab PO DAILY atorvastatin 1 tab PO BEDTIME blood sugar diagnostic (FreeStyle Lite Strips) As directed cholecalciferol (vitamin D3) (Vitamin D3) 1 cap PO DAILY cyanocobalamin (vitamin B-12) 1 tab PO BEDTIME docusate sodium 100 mg PO BID donepezil 5 mg PO BEDTIME 30 days duloxetine 1 cap PO DAILY empagliflozin (Jardiance) 10 mg PO DAILY famotidine 20 mg PO DAILY ferrous sulfate 325 mg PO DAILY finasteride 5 mg PO DAILY 90 days glipizide ER 5 mg PO DAILY hydroxyzine HCl mg PO BID lisinopril 2.5 mg PO QAM loratadine 1 tab PO DAILY memantine 1 tab PO BID pregabalin 150 mg PO BID 30 days repaglinide 0.5 mg PO TID sennosides (senna) 2 tabs PO DAILY PRN sertraline 1 tab PO DAILY sitagliptin phosphate (Januvia) 25 mg PO DAILY tamsulosin 0.4 mg PO DAILY 90 days tirzepatide (Mounjaro) mg subcut QWEEK triamcinolone acetonide 0.1% 0.1 appl topical BID HPI Comments Details: He was doing okay. DPN pain generally well-controlled with pregabalin, occasionally gets some sharp, shooting pains in legs. Some muscle cramps in legs and feet recently. Blood sugar was okay. He had cane but did not like to use it, no recent falls. No side effects with donepezil. Memory may be a bit better. Mood was okay, can be anxious at times. He enjoyed doing some crafts with his grandchildren. Previously felt memory was not so good, frustrated at times because he could not recall things. DPN with cccasional sharp pains that are brief in his legs from the knees down as well as sharp shooting pains in his hands. DM x 40 + yrs. He walks without a cane now. He has erectile dysfunction. In 2019, he started having problems with his short term memory and would leave his food on the stove and allow it to burn and forget about it has been better since starting Namenda 10 mg twice a day but he felt that his memory was again getting a little worse in 2021. [facility] Medical History MCI (mild cognitive impairment) Anxiety and depression History of hepatitis as a child Diabetic nephropathy Osteoarthritis Obstructive sleep apnea BPH (benign prostatic hyperplasia) Depression Diabetes Hypercholesteremia HTN (hypertension) Normocytic anemia Surgical History History of prostate biopsy Family History Father Diabetes Social History Household Members: Spouse and Significant Other Housing: House Are you a primary direct care staffer to a significant other at home: No Do you presently have visiting nurse or other home services: No Alcohol intake: former Patient Tobacco Use Status: Never used Tobacco service: Yes Current occupational status: retired Review of Systems Const Denies chills, Denies daytime sleepiness, Reports difficulty sleeping, Denies fatigue, Denies fever(s), Denies frequent falls, Denies headache(s), Denies increased appetite, Denies poor appetite, Denies snoring, Denies weakness, Denies weight gain and Denies weight loss Eyes Denies loss of vision ENT Denies vertigo, Reports dizziness, Denies headache(s) and Denies neck pain Card Denies chest pain at rest, Denies chest pain with activity, Denies syncope, Denies leg edema, Denies palpitations, Denies dyspnea and Denies dyspnea on exertion Resp Denies cough, Denies dyspnea, Denies dyspnea on exertion and Denies snoring GI Denies abdominal pain, Denies constipation, Denies heartburn, Denies diarrhea and Denies nausea Denies urinary frequency, Denies urinary incontinence and Denies urinary urgency Musc Reports abnormal gait (balance difficulty), Denies back pain, Reports myalgias, Reports arthralgias, Denies neck pain, Reports numbness and Reports tingling Neuro Reports abnormal gait (balance difficulty), Denies vertigo, Reports dizziness, Denies syncope, Denies frequent falls, Denies headache(s), Denies lack of coordination, Denies loss of vision, Reports memory loss, Reports numbness, Denies Other visual disturbances, Denies restless legs, Denies seizure-like activity, Reports tingling, Denies paresthesias, Denies tremor(s) and Denies weakness Psych Reports anxiety, Reports depression, Denies auditory hallucinations, Reports memory loss and Denies visual hallucinations Endo Denies fatigue and Denies palpitations Physical Exam Const Other: General Appearance:? normal, in no acute distress. Heart:? S1, S2 normal, no murmurs. Lungs:? clear anteriorly and posteriorly. Musculoskeletal:? normal. Extremities:? no edema. Psych:? alert, as below. Neuro Other: Abnormal Neurological Findings:?MMSE 19/30. Mental Status: alert, as below. Cranial Nerves: Pupils are equal, round, and reactive to light. External ocular muscles are intact. Visual connor are full, no ptosis. Face is symmetrical, no facial weakness or droop. Facial sensations are normal. Tongue protrudes in midline. Palate elevates symmetrically. Shoulder shrugging is normal Motor Examination: Normal muscle tone, bulk and strength. No atrophy or fasciculations. No drift of the extended upper extremities. DTR 2+. Plantars are flexor. Sensory Exam: Normal light touch, temperature, pinprick, vibration, and joint- position sensations. Rhomberg sign is absent. Coordination: No ataxia. No titubation. Gait Exam: Within normal limits. Cerebellar Signs: [id number] is okay. Extrapyramidal System: No tremor, rigidity with normal facial expressions. No bradykinesia. No bradyphrenia. Normal arm swing and posture. No propulsion or retropulsion. Speech: Normal. MMSE Level of Consciousness: Alert. Orientation: Knows correct season. Does not know year, month, date, or day. Knows correct city, county and state. Knows correct location. Does not know floor. Registration: Able to register 3 objects. Attention: Unable to do serial 7s. Recall: Able to recall 2 out of 3 objects. Language: Normal spontaneous speech, fluency, repetition, naming, comprehension, reading, and writing. Total Score: 19/30. Results Reviewed Results Reviewed: Laboratory Tests 05/05/25 09:02 Vitamin B12 1153 H Folate 13.9 02/28/22 NCV/EMG ALL Early Carpal tunnel syndrome bilaterally in the upper extremities. 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 Normal EMG in the left C5-T1 and left L4-S1 innervated muscles. Assessment & Plan Assessment & Plan (1) Diabetic peripheral neuropathy: Code(s): E11.42 - Type 2 diabetes mellitus with diabetic polyneuropathy Category: Medical Plan: Continue pregabalin 150mg 1 capsule twice a day. Consider using cane for additional support. (2) MCI (mild cognitive impairment): Code(s): G31.84 - Mild cognitive impairment of uncertain or unknown etiology Category: Medical Plan: Increase donepezil 10mg 1 tablet at bedtime. Continue memantine 10mg 1 tablet twice a day. Stay physically and socially active, consider using cane for additional support. Follow up in 6 months or sooner as needed. (3) Alzheimer dementia: Code(s): G30.9 - Alzheimer's disease, unspecified; F02.80 - Dementia in other diseases classified elsewhere, unspecified severity, without behavioral disturbance, psychotic disturbance, mood disturbance, and anxiety Category: Medical Qualifiers: Alzheimer's disease onset: unspecified onset Dementia severity: unspecified severity Dementia behavioral or psychological symptom: unspecified whether behavioral, psychotic, or mood disturbance or anxiety Qualified Code(s): G30.9 - Alzheimer's disease, unspecified; F02.80 - Dementia in other diseases classified elsewhere, unspecified severity, without behavioral disturbance, psychotic disturbance, mood disturbance, and anxiety (4) Muscle cramps: Code(s): R25.2 - Cramp and spasm Category: Medical Plan: Reviewed labs ordered. May try OTC magnesium and tonic water. Plan Meds tried: memantine Orders: Orders Magnesium Today R25.2 - Cramp and spasm Phosphorus Today R25.2 - Cramp and spasm Creatine Kinase Total Today R25.2 - Cramp and spasm Medications: New donepezil 10 mg PO BEDTIME 90 tabs 1RF 90 days Discontinued donepezil Discontinued Reason: Doctor's Order 5 mg PO BEDTIME 30 days 30 tabs 2RF Coding Level of Care Code Est Pt Level 4 (81123) Diagnoses Diabetic peripheral neuropathy E11.42 MCI (mild cognitive impairment) G31.84 Alzheimer's dementia, unspecified dementia severity, unspecified timing of dementia onset, unspecified whether behavioral, psychotic, or mood disturbance or anxiety G30.9; F02.80 Alzheimer's disease onset: unspecified onset Dementia severity: unspecified severity Dementia behavioral or psychological symptom: unspecified whether behavio ral, psychotic, or mood disturbance or anxiety Muscle cramps R25.2
--- OUTSIDE RECORDS SUMMARY | 2025-09-25 21:23 | XMS_ITS | Encounter Summary ---
Author Organization [employer] Address [address] [facility] 7 [place] [address] Care Team Providers Care Insurance Account Representative Name Role Phone Mary Jo Chau MD Primary Care Pro vider Katie Hernandez PharmD Unavailable [phone] Encounter Details Date Type Department Care Team (Late st Contact Info) Description 08/21/2025 Orders Only [facility] MEDICINE [address] [place] [address] Mary Jo Chau MD [address] [place] [address] Social History Tobacco Use Types Packs/Day Years [...] Description 10/06/2025 3:30 PM EST Medication Management [address] [address] Katie Hernandez, PharmD [address] [place] [phone] 12/12/2025 11:00 AM EST Clinical Support [address] [address] Torie Mccormack, WAYLON [address] [place] [phone] documented as of this encounter Visit Diagnoses Not on filedocumented in this encounter Additional Health Concerns Assessment Noted Time PHQ-9 Depression Total Score: 0 04/30/20 25 2:08 PM EDT documented as of this encounter Care Teams Insurance Account Representative Relationship Specialty Start Date End Date Mary Jo Chau MD [address] [place] [id number] PCP - General Internal Medicine 08/01/23 Katie Hernandez, PharmD [address] [place] [address] Pharmacist Pharmacy 08/18/25 documented as of this encounter
--- OUTSIDE RECORDS SUMMARY | 2025-09-25 21:23 | XMS_ITS | Encounter Summary ---
Author Organization [employer] Address [address] [place] [address] 7 [place] [address] Care Team Providers Care Envelope Folding Machine Operator Name Role Phone Mary Jo Chau MD Primary Care Pro vider Adore Iraheta PharmD Unavailable [phone] Katie Hernandez PharmD Unavailable [phone] Reason for Visit * Reason Comments Med Change Request Encounter Details Date Type Department Care Team (Late Contact Info) Description 08/15/2023 Refill [facility] MEDICINE [address] [place], [place] [phone] Leah Alvarenga, BAG MACHINE ADJUSTER Depression, unspecified depression type Social History Tobacco [...] Description 10/06/2025 3:30 PM EST Medication Management [facility] MEDICINE [address] [place], [place] [phone] Katie Hernandez, PharmD [address] [place], [place] [phone] 12/12/2025 11:00 AM EST Clinical Support [facility] MEDICINE [address] [place] [address] Torie Mccormack, RN [address] [place] [address] documented as of this encounter Visit Diagnoses Diagnosis Depression, unspecified depression type documented in this encounter Additional Health Concerns Assessment Noted Time PHQ-9 Depression Total Score: 14 023 4:05 PM EST documented as of this encounter Care Teams Envelope Folding Machine Operator Relationship Specialty Start Date End Date Mary Jo Chau MD [address] [place] [id number] PCP - General Internal Medicine 08/01/23 Adore Iraheta, PharmD [address] [place] [phone] Pharmacist Internal Medicine 11/04/24 08/18/25 Katie Hernandez, NegritaD [address] [place] [phone] Pharmacist Pharmacy 08/18/25 documented as of this encounter
--- OUTSIDE RECORDS SUMMARY | 2025-09-25 21:23 | XMS_ITS | Encounter Summary ---
Author Organization [employer] Address [address] [facility] [address] [place] [address] Care Team Providers Care Turkish Line Attendant Name Role Phone Cristin Chaves MD Primary Care Provider Leah Macario BOW MAKER CUSTOM Primary Care Provider Mary Jo Dougherty MD Primary Care Pro vider Adore Iraheta PharmD Unavailable Katie Hernandez PharmD Unavailable Encounter Details Date Type Department Care Team (Latest Contact Info) Description 02/12/2019 Abstract [facility] CONVERSIONS Dental, Provider, DDS Social History [...] Description 10/06/2025 3:30 PM EST Medication Management [facility] MEDICINE [address] [place] [phone] Katie Hernandez, PharmD [address] [place] [address] 12/12/2025 11:00 AM EST Clinical Support [facility] MEDICINE [address] [place], [place] [phone] Torie Mccormack RN [address] [place] [address] documented as of this encounter Visit Diagnoses Not on filedocumented in this encounter Care Teams Turkish Line Attendant Relationship Specialty Start Date End Date Cristin Chaves MD PCP - General Family Medicine 04/13/20 09/11/22 Leah Alvarenga FNP PCP - General Family Medicine 09/12/22 07/31/23 Mary Jo Chau MD [address] [place] [phone] PCP - General Internal Medicine 08/01/23 Adore Iraheta, NegritaD [address] [place] [phone] Pharmacist Internal Medicine 11/04/24 08/18/25 Katie Hernandez, NegritaD [address] [place] [phone] Pharmacist Pharmacy 08/18/25 documented as of this encounter
--- OUTSIDE RECORDS SUMMARY | 2025-09-25 21:23 | XMS_ITS | Encounter Summary ---
Author Organization [employer] Address [address] [facility] 7t [place] [address] Care Team Providers Care Project Engineering Manager Name Role Phone Mary Jo Chau MD Primary Care Pro vider Adore Iraheta PharmD Unavailable [phone] Katie Hernandez PharmD Unavailable [phone] Encounter Details Date Type Department Care Team (Late st Contact Info) Description 06/12/2024 Orders Only [facility] WALK-[facility] CENTER [address] [place] [address] Mary Jo Warren MD [address] [place] [address] Social History Tobacco Use Types Packs/Day Years [...] 3:30 PM EST Medication Management [facility] MEDICINE [address] [place] [phone] Katie Hernandez, PharmD [address] [place] [phone] 12/12/2025 11:00 AM EST Clinical Support [facility] MEDICINE [address] [place] [phone] Torie Mccormack, WAYLON [address] [place] [address] documented as of this encounter Visit Diagnoses Not on filedocumented in this encounter Additional Health Concerns Assessment Noted Time PHQ-9 Depression Total Score: 9 01/08/20 24 3:15 PM EDT documented as of this encounter Care Teams Project Engineering Manager Relationship Specialty Start Date End Date Mary Jo Chau MD [address] [place] [phone] PCP - General Internal Medicine 08/01/23 Adore Iraheta, NegritaD [address] [place] [phone] Pharmacist Internal Medicine 11/04/24 08/18/25 Katie Hernandez, NegritaD [address] [place] [phone] Pharmacist Pharmacy 08/18/25 documented as of this encounter
--- OUTSIDE RECORDS SUMMARY | 2025-09-25 21:23 | XMS_ITS | Encounter Summary ---
Author Organization [employer] Address [address] [place] [address] [address] [place] [address] Care Team Providers Care Provider Network Analyst Name Role Phone Leah Alvarenga Primary Care Provider Mary Jo Dougherty MD Primary Care Pro vider Adore Iraheta PharmD Unavailable [phone] Katie Hernandez PharmD Unavailable [phone] Reason for Visit * Reason Comments Med Refill Encounter Details Date Type Department Care Team (Late st Contact Info) Description 03/23/2023 Refill [facility] [address] [place], [place] [phone] Leah Alvarenga FNP Vitamin D deficiency; Peripheral [...] Description 10/06/2025 3:30 PM EST Medication Management [facility] [address] [place], [place] [phone] Katie Hernandez, PharmD [address] [place] [phone] 12/12/2025 11:00 AM EST Clinical Support [facility] [address] [place] [phone] Torie Mccormack, RN [address] [place] [address] documented as of this encounter Visit Diagnoses Diagnosis Vitamin D deficiency Peripheral neuropathic pain Depression, unspecified depression type documented in this encounter Additional Health Concerns Assessment Noted Time PHQ-9 Depression Total Score: 14 023 4:05 PM EST documented as of this encounter Care Teams Provider Network Analyst Relationship Specialty Start Date End Date Leah Alvarenga FNP PCP - General Family Medicine 09/12/22 07/31/23 Mary Jo Chau MD [address] [place] [phone] PCP - General Internal Medicine 08/01/23 Adore Iraheta PharmD [address] [place] [phone] Pharmacist Internal Medicine 11/04/24 08/18/25 Katie Hernandez, PharmD [address] [place] [phone] Pharmacist Pharmacy 08/18/25 documented as of this encounter
--- OUTSIDE RECORDS SUMMARY | 2025-09-25 21:23 | XMS_ITS | Encounter Summary ---
Author Organization [employer] Address [address] [place] [address] [address] [place] [address] Care Team Providers Care Industrial Controller Name Role Phone Mary Jo Chau MD Primary Care Pro vider Adore Iraheta PharmD Unavailable [phone] Katie Hernandez PharmD Unavailable [phone] Reason for Visit * Reason Comments Med Refill Encounter Details Date Type Department Care Team (Late Contact Info) Description 09/07/2023 Refill [facility] [address] [place] [address] [facility] [address] [place], [place] [phone] Other atopic dermatitis Social History Tobacco Use [...] [facility] [address] [place] [address] Katie Hernandez, PharmD [address] [place] [phone] 12/12/2025 11:00 AM EST Clinical Support [facility] [address] [place] [phone] Torie Mccormack, WAYLON [address] [place] [address] documented as of this encounter Visit Diagnoses Diagnosis Other atopic dermatitis documented in this encounter Additional Health Concerns Assessment Noted Time PHQ-9 Depression Total Score: 14 023 4:05 PM EST documented as of this encounter Care Teams Industrial Controller Relationship Specialty Start Date End Date Mary Jo Chau MD [address] [place] [phone] PCP - General Internal Medicine 08/01/23 Adore Iraheta, NegritaD [address] [place] [phone] Pharmacist Internal Medicine 11/04/24 08/18/25 Katie Hernandez, PharmD [address] [place] [phone] Pharmacist Pharmacy 08/18/25 documented as of this encounter
--- OUTSIDE RECORDS SUMMARY | 2025-09-25 21:23 | XMS_ITS | Encounter Summary ---
Author Organization [employer] Address [address] [place] [phone] Care Team Providers Care Muck Boss Name Role Phone Mary Jo Chau MD Primary Care Pro vider Adore Iraheta PharmD Unavailable [phone] Katie Hernandez PharmD Unavailable [phone] Reason for Visit * Reason Comments Med Refill Encounter Details Date Type Department Care Team (Late Contact Info) Description 11/21/2023 Refill [facility] [address] [place] [address] [phone] Mary Jo Chau MD [address] [place] [address] [phone] Depression, unspecified depression type Social History Tobacco [...] Description 10/06/2025 3:30 PM EST Medication Management [facility] [address] [place] [phone] Katie Hernandez, PharmD [address] [place] [phone] 12/12/2025 11:00 AM EST Clinical Support [facility] [address] [place] [phone] Torie Mccormack, WAYLON [address] [place] [address] documented as of this encounter Visit Diagnoses Diagnosis Depression, unspecified depression type documented in this encounter Additional Health Concerns Assessment Noted Time PHQ-9 Depression Total Score: 14 023 4:05 PM EST documented as of this encounter Care Teams Muck Boss Relationship Specialty Start Date End Date Mary Jo Chau MD [address] [place] [phone] PCP - General Internal Medicine 08/01/23 Adore Iraheta, NegritaD [address] [place] [phone] Pharmacist Internal Medicine 11/04/24 08/18/25 Katie Hernandez, NegritaD [address] [place] [phone] Pharmacist Pharmacy 08/18/25 documented as of this encounter
--- OUTSIDE RECORDS SUMMARY | 2025-09-25 21:23 | XMS_ITS | Clinical Summary ---
Author Organization [employer] Address [address] [place] [address] [address] [place] [address] Care Team Providers Care Health Science Specialist Name Role Phone Mary Jo Chau MD Primary Care Pro vider Katie Hernandez PharmD Unavailable [phone] Allergies Active Allergy Reactions Criticality Noted Date [...] polyneuropathy, without long-term current use of insulin ([facility]) Take 1 tablet by mouth 2 times daily. 60 tablet 11 025 2025 Active finasteride (Proscar) 5 MG tablet Take 1 tablet by mouth Once per day. Active famotidine (Pepcid) 20 MG tablet TAKE 1 TABLET BY MOUTH EVERY DAY 90 tablet Active melatonin 5 MG tablet Take 1 tablet (5 mg) by mouth at bedtime. 90 tablet 1 Active tamsulosin (Flomax) 0.4 MG 24 hr capsule Take 0.4 mg by mouth in the morning. Active naloxone (Narcan) 4 mg/0.1 mL nasal spray Administer 1 spray (4 mg) into affected nostril(s) if needed for opioid reversal. May repeat every 2-3 minutes if needed, alternating nostrils, until medical assistance becomes available. 2 each 2 025 2025 Active Aspirin Low Dose 81 MG chewable tabletIndicatio ns:Type 2 diabetes mellitus with other specified complication, without long-term current use of insulin ([facility]) TAKE 1 TABLET BY MOUTH EVERY EVENING 90 tablet 1 Active donepezil (Aricept) 5 MG tablet Active lidocaine (Lidoderm) 5 % patchIndication s:Knee pain, unspecified chronicity, unspecified laterality APPLY 1 PATCH EVERY MORNING REMOVE AND DISARD PATCH WITHIN 12 HOURS OR as INSTRUCTED BY MD 30 patch 2 Active lidocaine-prilo nicolette (Emla) 2.5-2.5 % cream Apply topically if needed each day for mild pain. 5 g Active cyanocobalamin (Vitamin B-12) 500 MCG tablet Take 1 tablet (500 mcg) by mouth 3 (three) times a week. 90 tablet Active pregabalin (Lyrica) 150 MG capsuleIndicati ons:Neuropathy TAKE 1 CAPSULE BY MOUTH TWICE DAILY 60 capsule 2 Active Tirzepatide (Mounjaro) 5 MG/0.5ML solution auto-injectorIn dications:Type 2 diabetes mellitus with diabetic polyneuropathy, without long-term current use of insulin (HCC) INJECT ONE PEN (=5MG) SUBCUTANEOUSLY ONCE A WEEK DIRECTED 2 mL 11 09/16/20 25 4:32 PM EST Active amLODIPine (Norvasc) 2.5 MG tablet Take 1 tablet (2.5 mg) by mouth Once per day. 90 tablet 025 2025 Active sertraline (Zoloft) 100 MG tabletIndicatio ns:Depressive disorder TAKE 1 TABLET BY MOUTH EVERY DAY 90 tablet Active memantine (Namenda) 10 MG tabletIndicatio ns:Depression, unspecified depression type TAKE 1 TABLET BY MOUTH TWICE A DAY 180 tablet 025 Active Reguloid 400 MG capsuleIndicati ons:Constipatio n, unspecified constipation type TAKE 2-3 CAPSULES BY MOUTH TWICE DAILY IN THE MORNING AND IN THE EVENING NEEDED 270 capsule 1 Active DULoxetine (Cymbalta) [address] capsuleIndicati ons:Depression, unspecified depression type TAKE 1 CAPSULE BY MOUTH AT BEDTIME 90 capsule Active acetaminophen-c odeine (Tylenol w/ Codeine #4) 300-60 MG tabletIndicatio ns:Other chronic pain TAKE 1 TABLET BY MOUTH EVERY 8 HOURS NEEDED FOR MODERATE PAIN 56 tablet 09/05/20 25 4:15 PM EST Active glucose blood (FREESTYLE LITE) test stripIndication s:Type 2 diabetes mellitus with diabetic polyneuropathy, without long-term current use of insulin (HCC) TEST BLOOD SUGAR TWICE DAILY 50 strip 11 Active loratadine (Claritin) 10 MG tablet TAKE 1 TABLET BY MOUTH EVERY MORNING 90 tablet Active atorvastatin (Lipitor) 80 MG tablet TAKE 1 TABLET BY MOUTH AT BEDTIME 90 tablet Active DULoxetine (Cymbalta) [address] capsuleIndicati ons:Depression, unspecified depression type TAKE 1 CAPSULE BY MOUTH AT BEDTIME 90 capsule 025 2024 Discontinued glucose blood (FREESTYLE LITE) test stripIndication s:Type 2 diabetes mellitus with diabetic polyneuropathy, without long-term current use of insulin (HCC) USE DIRECTED TO TEST BLOOD SUGAR DAILY 50 strip 3 025 2024 Discontinued atorvastatin (Lipitor) 80 MG tablet TAKE 1 TABLET BY MOUTH AT BEDTIME 90 tablet 025 2024 Discontinued loratadine (Claritin) 10 MG tablet Take 1 tablet (10 mg) by mouth in the morning. 90 tablet 025 2024 Discontinued acetaminophen-c odeine (Tylenol w/ Codeine #4) 300-60 MG tabletIndicatio ns:Other chronic pain TAKE 1 TABLET BY MOUTH EVERY 8 HOURS NEEDED FOR MODERATE PAIN 56 tablet 025 2024 Discontinued Active Problems Problem Noted Date Diagnosed Date Right foot pain 07/06/2025 Long-term current use of opiate analgesic 2024 Urinary incontinence 09/11/2024 Stage 3 chronic kidney disease (CMS/HCC) 024 Encounter for preventive health examination 12/21 [...] prostatic hyperplasia 05/01/2012 Chronic alcoholism in remission ([facility]) 2011 Depressive disorder 05/01/2012 Hyperlipidemia 05/01/2012 Raised prostate specific antigen 05/01/2012 Verruca plantaris 05/01/2012 Resolved Problems Problem Noted Date Diagnosed Date Resolved Date 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 [address] [place] [address] Mary Jo Chau MD 09/09/[address] [facility] [address] [place] [address] Mary Jo Chau MD Type 2 diabetes mellitus with diabetic polyneuropathy, without long-term current use of insulin ([facility]) 09/08/2025 Orders Only GENERIC EXTERNAL DATA DEPARTMENT Provider, Generic External Data 09/01/[address] [facility] PEDS [address] [place] [address] Mary Jo Chau MD Other chronic pain 08/29/[address] [facility] [address] [place] [address] Mary Jo Chau MD Depression, unspecified depression type 08/29/2025 Refill [facility] MEDICINE [address] [place] [address] Mary Jo Chau MD Depression, unspecified depression type 08/28/2025 Refill [facility] MEDICINE [address] [place] [address] Mary Jo Chau MD Depression, unspecified depression type 08/25/2025 1:30 PM EST Telemedicine [facility] [address] [place] [address] Torie Mccormack RN Other chronic pain 08/25/2025 Travel 08/21/2025 Telephone C MEDICINE [address] [place] [phone] Lorie Vega, WAYLON Appt Cancellation 08/21/2025 Orders Only [facility] [address] [place] [address] Mary Jo Chau MD 08/20/[address] [facility] [address] [place] [address] Azael Diallo MD Constipation, unspecified constipation type 08/18/2025 Travel 08/08/2025 Orders Only [facility] External Provider, [facility] 07/28/[address] [facility] [address] [place] [address] Mary Jo Chau MD Other chronic pain 07/25/[address] [facility] [address] [place] [address] Mary Jo Chau MD Depressive disorder; Depression, unspecified depression type 07/07/[address] [facility] [address] [place] [address] Adore Iraheta, Lorenzo Type 2 diabetes mellitus with diabetic polyneuropathy, without long-term current use of insulin ([facility]) 07/06/[address] [facility] [address] [place] [address] Mary Jo Chau MD Neuropathy 07/03/2025 1:30 PM EDT Office Visit [facility] [address] [place] [address] Mary Jo Chau MD Right foot pain (Primary Dx); Knee pain, unspecified chronicity, unspecified laterality; Primary hypertension; Hyperlipidemia, unspecified hyperlipidemia type; Type 2 diabetes mellitus with diabetic polyneuropathy, without long-term current use of insulin ([facility]) 07/03/2025 Results Follow-Up [facility] [address] [place] [address] Mary Jo Chau MD XR Foot 3+ Views Right 07/03/2025 Travel 07/02/[address] [facility] [address] [place] [address] Adrianna Aparicio MA 06/27/[address] [facility] [address] [place] [address] Mary Jo Chau MD from Last 3 Months Immunizations Immunization [...] 10/06/2025 3:30 PM EST Medication Management [address] [address] Katie Hernandez, PharmD [address] [place] [phone] 12/12/2025 11:00 AM EST Clinical Support [facility] [address] [place] [phone] Torie Mccormack, WAYLON [address] [place] [address] Health Maintenance Due Date Last Done Comments CT Colonography 1950 Colonoscopy 1950 FIT 1950 Sigmoidoscopy 1950 Diabetes: Foot Exam 1961 Eye Exam 1961 Alcohol/Substance Use Screening 1963 Dental Oral Exam 12/16/2021 06/14/2021, 03/2019, 02/19/2018, Additional history exists Dental Prophylaxis 12/16/2021 06/14/2021, 1 11/03/2018, 02/12/2019, Additional history exists Dental X-Ray: Bitewings 06/15/2022 06/14/2021, 11/25 Dental X-Ray: Full Mouth 06/15/2024 06/14/2021, 12/2016 FOBT 01/16/2025 01/17/2024 Hepatitis B Vaccines (3 of 3 - 19+ 3-dose series) 05/23/2025 03/28/2025, 02/25/2025, 02/17/2025, Additional history exists SDOH Screening 09/04/2025 09/04/2024 COVID-19 Vaccine (2024- season) 2026 08/18/2025, 09/11/2024, 11/04/2022, Additional history exists Diabetes: Hemoglobin A1C 02/16/2026 025, 05/05/2025, 02/17/2025, Additional history exists Depression Screening 04/30/2026 04/30/2025, 04/30/20 25 Lipid Panel 05/05/2026 05/05/2025, 09/22, 06/12/2024, Additional history exists Tobacco Screening 07/03/2026 07/03/2025 Diabetes: Urine Protein Screening 09/08/2026 09/08/2025, 05/05/2025, 10/09/2024, Additional history exists Colorectal Cancer Screening 01/16/2027 FIT DNA/Cologuard 01/16/2027 01/17/2024 DTaP/Tdap/Td Vaccines (4 - Td or Tdap) 10/02/2034 10/02/2024, 03/26/2014, 11/25/2010, Additional history exists Pneumococcal Vaccine: 50+ Years Completed 09/11/2024, 07/30/2021, 05/07/2018, Additional history exists RSV Patients and Patients Aged 60 years or older Completed 09/20/2024 Hepatitis C Screening Completed 10/09/2024 Zoster Vaccines Completed 02/17/2025, 10/23, 05/17/2018 Influenza Vaccine Completed 08/18/2025, , 12/27/2023, Additional [...] Procedure Name Priority Date/Time Associated Diagnosis Comments CREATINE KINASE, TOTAL Routine 09/25/2025 4:10 PM EST MAGNESIUM Routine 09/25/2025 4:10 PM EST PHOSPHATE ( PHOSPHORUS) Routine 09/25/2025 4:10 PM EST BASIC METABOLIC PANEL Routine 09/08/2025 11:34 AM EST CBC Routine 09/08/2025 11:34 AM EST URINE PROTEIN, TOTAL, RANDOM (W/O CREATININE) Routine 09/08/2025 11:30 AM EST CREATININE, RANDOM URINE Routine 09/08/2025 11:30 AM EST URINALYSIS, COMPLETE (INCLUDES MACRO AND MICRO) Routine 09/08/2025 11:30 AM EST POCT GLYCATED HEMOGLOBIN, TOTAL Routine 08/18/2025 3:28 [...] Recently Relevant to Health Maintenance Results * Phosphate (As Phosphorus) (09/25/2025 4:10 PM EST) Phosphorus 4.5 2.7 - 4.5 mg/dL [facility] 09/25/2025 4:10 PM EST 09/25/2025 4:10 PM EST us Generic External Data Provider LAB BLOOD ORDERAB LES Final Result [facility] [address] [place] [phone] * Magnesium (09/25/2025 4:10 PM EST) Magnesium 1.9 1.6 - 2.6 mg/dL [facility] 09/25/2025 4:10 PM EST 09/25/2025 4:10 PM EST us Generic External Data Provider LAB BLOOD ORDERAB LES Final Result Performing Organization Address [facility]/ZIP Co de Phone Number [facility] [address] [place] [phone] * (ABNORMAL) Creatine Kinase, Total (09/25/2025 4:10 PM EST) Pathologist [facility] Creatine Kinase Total 228(H) 38 - 174 U/L [facility] 09/25/2025 4:10 PM EST 09/25/2025 4:10 PM EST us Generic External Data Provider LAB BLOOD ORDERAB LES Final Result Performing Organization Address [facility] Co de Phone Number [facility] [address] [place] [phone] * (ABNORMAL) CBC (09/08/2025 11:34 AM EST) [facility] White Blood Count 5.8 4.8 - 10.8 X10*3/uL [facility] Red Blood Count 4.34(L) 4.60 - 5.80 X10*6/uL [facility] Hemoglobin 12.8(L) 14.0 - 18.0 g/dl [facility] Hematocrit 38.1(L) 42.0 - 52.0 % [facility] Mean Corpuscular Volume 87.8 80.0 - 98.0 fL [facility] Mean Corpuscular Hemoglobin 29.5 27.0 - 33.0 pg [facility] Mean Corpuscular HGB Conc 33.6 31.0 - 36.0 g/dl [facility] Red Cell Distribution Width 15.2 11.0 - 16.0 % [facility] Platelet Count 235 160 - 400 X10*3/uL [facility] Mean Platelet Volume 10.0 9.4 - 12.4 fL [facility] NRBC Pct Auto 0.0 0.0 - 0.2 /100WBC [facility] NRBC Abs Auto 0.000 0.0 - 0.012 X10*3/uL [facility] 09/08/2025 11:3 4 AM EST 09/08/2025 11:34 AM EST us Generic External Data Provider LAB BLOOD ORDERAB LES Final Result Performing Organization Address [facility] Co de Phone Number [facility] [address] [place] [phone] * (ABNORMAL) Basic Metabolic Panel (09/08/2025 11:34 AM EST) Sodium 140 135 - 145 mmol/L [facility] Potassium 4.5 3.3 - 5.1 mmol/L [facility] Chloride 105 96 - 108 mmol/L [facility] Carbon Dioxide 26 22 - 29 mmol/L [facility] Anion Gap 14 12 - 20 [facility] Urea Nitrogen (BUN) 24(H) 9 - 16 mg/dL [facility] Creatinine, Serum 1.37 0.5 - 1.4 mg/dL [facility] Estimated Glomerular Filt Rate 51 [facility] Comment:Chronic Kidney Disea se: Estimated GFR < 60 mL/min/1.73n4Xrvjon Kidney Disease: Estimated GFR < 15 mL/min/1.73m2 Glucose 129(H) 60 - 115 mg/dL [facility] Calcium 9.9 8.4 - 10.2 mg/dL [facility] 09/08/2025 11:3 4 AM EST 09/08/2025 11:34 AM EST us Generic External Data Provider LAB BLOOD ORDERAB LES Final Result Performing Organization Address [facility] Co de Phone Number [facility] [address] [place] [phone] * (ABNORMAL) Urine Protein, Total, Random without Creatinine (09/08/2025 11:30 AM EST) Protein, Total, Random Urine 15(H) <12 mg/dL [facility] 09/08/2025 11:3 0 AM EST 09/08/2025 12:31 PM EST us Generic External Data Provider LAB URINE ORDERAB LES Final Result Performing Organization Address [facility]/ZIP Co de Phone Number [facility] [address] [place] [phone] * Creatinine, Random Urine (09/08/2025 11:30 AM EST) Creatinine, Urine 58.79 mg/dL [facility] 09/08/2025 11:3 0 AM EST 09/08/2025 12:31 PM EST Generic External Data Provider LAB URINE ORDERAB LES Final Result Performing Organization Address [facility] Co de Phone Number [facility] [address] [place] [phone] * (ABNORMAL) Urinalysis Complete (09/08/2025 11:30 AM EST) Color Urine Yellow [facility] Appearance Urine Clear [facility] PH 5.5 5.0 - 9.0 [facility] Glucose Urine UA >=1000(A) Negative mg/dL [facility] Urine Blood Negative Negative [facility] Specific Guinda - Urine 1.020 1.005 - 1.025 [facility] Urine Protein Negative Neg-Trace mg/dL [facility] Urine Ketones Negative Negative mg/dL [facility] Nitrite Urine Negative Negative [facility] Leukocyte Esterase Urine Negative Negative [facility] RBC Urine 0-2 0 - 2 /HPF [facility] Urine WBC 0-5 0 - 5 /HPF [facility] Urine Squamous Epithelial Cell 0-2 0 - 2 /HPF [facility] Urine Bacteria None Seen None Seen [facility] Hyaline Casts, Urine 0-2 0 - 2 /LPF [facility] 09/08/2025 11:3 0 AM EST 09/08/2025 12:31 PM EST us Generic External Data Provider LAB URINE ORDERAB LES Final Result Performing Organization Address City/State/[facility] Co de Phone Number [facility] [address] [place] [address] [phone] * (ABNORMAL) POCT A1c (08/18/2025 3:28 PM EDT) Hemoglobin A1C 6.9(A) 4.0 - 5.7 % QC Media Lot # [id number] Lot# Expiration Date [id number] Blood 08/18/2025 3:28 PM EDT us Mary Jo Richards MD POINT OF CARE JULI T ENTER/EDIT ORDERABLES Final Result * (ABNORMAL) PSA, Free and Total (08/08/2025 2:13 PM EDT) PSA, Total 5.3(A) < OR = 4.0 ng/mL [facility] PSA % Free 25(A) >25 % (calc) [facility] Comment: PSA(ng/mL) Free PSA(%) Estimated(x) Probability of Cancer(as%)0-2.5 (*) Approx. 12.6-4.0(1) 0-27(2) 24(3)4.1-10(4) 0-10 56 11-15 28 16-20 20 21-25 16 >or =26 8>10(+) N/A >50References:(1)Danica et al.:Urology 60: 469-474 (2002) (2)Danica et al.:J.Urol 168: 922-925 (2002) Free PSA(%) Sensitivity(%) Specificity(%) < or = 25 85 19 < or = 30 93 9 (3)Catalona et al.:YARELI 277: 0656-8507 (1996) (4)Catalona et al.:YARELI 279: 0303-7333 (1997)(x)These estimates vary with age, ethnicity, family [...] presence or absence ofdisease.THIS TEST WAS PERFORMED AT:[employer] [place] [phone] PERRY MD PSA, Free 1.3 ng/mL [facility] 08/08/2025 2:13 PM EDT 08/08/2025 2:13 PM EDT Generic External Data Provider LAB BLOOD ORDERAB LES Final Result [facility] [address] [place] [address] [phone] * (ABNORMAL) PSA, Total With Reflex to PSA, Free (08/08/2025 9:51 AM EDT) PSA,Total (Free>4and<10) 5.64(H) 0.00 - 4.00 ng/mL [facility] Comment:PSA methodology: Yani Owens i ChemiluminescentMicroparticle Immunoassay (CMIA) 08/08/2025 9:51 AM EDT 08/08/2025 9:51 AM EDT us Generic External Data Provider LAB BLOOD ORDERAB LES Final Result [facility] [address] [place] [address] [phone] * MR Prostate w and w/o Contrast (08/08/2025 8:42 AM EDT) Anatomical Region Laterality Modality Magnetic Resonan ce 08/08/2025 8:42 AM EDT Narrative 08/08/2025 9:53 AM EDT [address] [address] Magnetic Resonance Report Signed Patient: Rod Marie MR#: [id number] : 1950 Acct:[id number] Age/Sex: 75 / M ADM Date: 08/08/25 Loc: .MRI Attending Dr: Ya DOMINGUEZ Ordering Physician: Ya Medina Date of Service: 08/08/25 Procedure(s): MR Prostate wo/w con Accession Number(s): [id number] cc: Ya Medina; Mary Jo Chau MD [...] cancer is highly likely to be present) [employer]. MR Prostate Imaging Reporting and Data System version 2.1. http://www.acr.org/Quality-Safety/Resources/PIRADS/ Electronically signed by: Gaetano Good MD 08/08/2025 09:50 AM EDT Dictated By: Gaetano Good MD Signed By: <Electronically signed by Gaetano Good MD in OV> 08/08/25 0950 DD/ 0842 TD/TT: 08/08/25 0914 Appian Bpm Developer: Procedure Note Donotuseinterpreter, Image - 08/08/[address] [address] Magnetic Resonance Report Signed Patient: Rod Marie#: [id number] : 1950cct:[id number] Age/Sex: 75 / MADM Date: 08/08/25 Loc: HO.MRI Attending Dr: Ya DOMINGUEZ Ordering Physician: Ya Medina Date of Service: 08/08/25 Procedure(s): MR Prostate wo/w con Accession Number(s): [id number] cc: Ya Medina-; Mary Jo Chau MD Reason for Exam: [...] cancer is highly likely to be present) [employer]. MR Prostate Imaging Reporting and Data System version 2.1. http://www.acr.org/Quality-Safety/Resources/PIRADS/ Electronically signed by: Gaetano Good MD 08/08/2025 09:50 AM EDT RP Dictated By: Gaetano Good MD Signed By: <Electronically signed by Gaetano Good MD in OV> 08/08/2550 DD/ 0842 TD/TT: 08/08/25 0914 Appian Bpm Developer: [facility] External Provider IMG MRI PROCEDURES Final Result * XR Foot 3+ Views Right (07/03/2025 3:05 PM EDT) Anatomical Region Laterality Modality Lower Extremities, Foot Right Radiogra phic Imaging 07/03/2025 3:05 PM EDT Narrative 07/03/2025 3:19 PM EDT [address] [address] XRay Report Signed Patient: Rod Marie MR#: [id number] : 1950 Acct:[id number] Age/Sex: 74 / M ADM Date: 07/03/25 Loc: HO.HHCX Attending Dr: Mary Jo Richards MD Ordering Physician: Mary Jo Chau MD Date of Service: 07/03/25 Procedure(s): XR foot RT min 3V Accession Number(s): [id number] cc: Mary Jo Chau MD Reason for [...] OV> 07/03/25 1516 DD/ 1505 TD/TT: 07/03/25 150 Appian Bpm Developer: Procedure Note Donotuseinterpreter, Image - 07/03/[address] [address] XRay Report Signed Patient: Rod MarieMR#: [id number] : 1950cct:[id number] Age/Sex: 74 / MADM Date: 07/03/25 Loc: HO.HHCX Attending Dr: Mary Jo Richards MD Ordering Physician: Mary Jo Chau MD Date of Service: 07/03/25 Procedure(s): XR foot RT min 3V Accession Number(s): [id number] cc: Mary Jo Chau MD Reason for [...] OV> 07/03/25 1516 DD/ 1505 TD/TT: 07/03/25 150 Appian Bpm Developer: us Mary Jo Richards MD IMG XR PROCEDURES Final Result * Lipid Panel, Standard (05/05/2025 9:02 AM EDT) Triglycerides 85 <150 mg/dL [facility] Comment:Desirable Triglyceri de: less than 150 mg/dLBorderline High Triglyceride 150-199 mg/dLHigh Triglyceride: 200-499 mg/dLVery High Triglyceride: greater than or equal to 5OO mg/dL Cholesterol 131 <200 mg/dL [facility] Comment:Desirable Cholestero l: less than 200 mg/dLBorderline High Cholesterol: 200-239 mg/dLHigh Cholesterol: greater than 239 mg/dL LDL Cholesterol Calculated 70 <100 mg/dL [facility] Comment:Desirable LDL: less than 100 mg/dLNear Optimal/Above Optimal LDL: 110- 129 mg/dLBorderline High LDL: 130-159 mg/dLHigh LDL: 160-189 mg/dLVery High LDL: greater than or equal to 190 mg/dL HDL Cholesterol 44 >40 mg/dL [facility] Comment:Desirable HDL: great er than 40 mg/dL Note: This HDL assay may give artificially low results in patients with liver disease. Blood Venous blood specimen / Unknown 05/05/2025 9:02 AM EDT 05/05/2025 9:02 AM EDT us Mary Jo Richards MD LAB BLOOD ORDERAB LES Final Result Performing Organization Address City/[facility]/ZIP Co de Phone Number [facility] [address] [place] [phone] * Hepatitis C Antibody with Reflex to HCV, RNA, Quantitative, Real-Time PCR (10/09/2024 8:01 AM EST) Hepatitis C Antibody Nonreactive Nonreactive [facility] Comment:Antibodies to HCV no t detected; does not exclude early acuteHCV infection. Blood Venous blood specimen / Unknown 10/09/2024 8:01 AM EST 10/09/2024 11:51 AM EST us Mary Jo Richards MD LAB BLOOD ORDERAB LES Final Result [facility] [address] [place] [phone] * Cologuard?? colon cancer screening (01/17/2024 6:32 AM EDT) Cologuard Result Negative Negative 01/24/20 9:47 AM EDT [facility] (CLIA #:[id number]) Comment: NEGATIVE TEST RESULT. A negative Cologuard [...] (Angie Navarro al, N Engl J Med 2014;370(14):8356-6081) The normal value (reference range) for this assay is negative. COLOGUARD RE-SCREENING RECOMMENDATION: Periodic colorectal cancer screening is an important part of preventive healthcare for asymptomatic individuals at average risk for colorectal cancer. Following a negative Cologuard result, the [place] [employer] and U.S. Multi-Society Task Force screening guidelines recommend a Cologuard re-screening interval of 3 years. References: [place] [employer] Guideline for Colorectal Cancer Screening: https://www.cancer.org/cancer/uwwbt-caaclh-awzqex/biuulcnza-duazlztvw-udqudiy/ac s-rec ommendations.html.; Randy DK, Timothy CR, Stephon SadlerK, Colorectal Cancer Screening: Recommendations for Physicians and Patients from the U.S. Multi-Society Task Force on Colorectal Cancer Screening , Am J Gastroenterology 2017; 112:6226-3109. TEST DESCRIPTION: Composite algorithmic analysis of stool [...] (Angie Navarro al, N Engl J Med 2014;370(14):7166-0828.) Cologuard may produce a false negative or false positive result (no colorectal cancer or precancerous polyp present at colonoscopy follow up). A negative Cologuard test result does not guarantee the absence of CRC or advanced adenoma (pre-cancer). The current Cologuard screening interval is every 3 years. ([place] [employer] and U.S. Multi-Society Task Force). Cologuard performance data in a 10,000 patient pivotal study using colonoscopy as the reference method can be accessed at the following location: www.Fibroblast.EventBug/results. Additional description of the Cologuard test process, warnings and precautions can be found at www.KlipfolioogSfletter.comrd.com. Stool specimen (specimen) 01/17/2024 6:32 AM EDT 01/19/2024 2:11 PM EDT us Mary Jo Lim MD LAB MOLECULAR DIAGNOS TICS ORDERABLES Final Result [facility] (CLIA #:[id number]) Devika [place] [address], [place] [phone] from Last 3 Months or Most Recently Relevant to Health Maintenance Insurance [facility] HALF-WAY OPTIONS (HMO D-SNP) [facility] Care Teams Health Science Specialist Relationship Specialty Start Date End Date Mary Jo Chau MD [address] [place], [place] PCP - General Internal Medicine 08/01/23 Katie Hernandez, PharmD [address] [place] [address] Pharmacist Pharmacy 08/18/25
--- OUTSIDE RECORDS SUMMARY | 2025-09-25 21:23 | XMS_ITS | Encounter Summary ---
Author Organization [employer] Address [address] [place] [address] 7 [place] [address] Care Team Providers Care Marine Engineering Professor Name Role Phone Leah Alvarenga ADMIN DIR Primary Care Provider Mary Jo Dougherty MD Primary Care Pro vider Adore Iraheta PharmD Unavailable [phone] Katie Hernandez PharmD Unavailable [phone] Reason for Visit * Reason Onset Date Comments BPI score changes 03/24/2023 Encounter Details Date Type Department Care Team (Late st Contact Info) Description 03/24/2023 Refill [facility] 230 [place] [address] Leah Alvarenga FNP Constipation, unspecified constipation type [...] 10:10 AM EDT FYI, 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 Pain severity score of 4.8, activity interference score of 8.6. Previous BPI completed 11/04/22 with pain severity score of 7.8, activity interference score of 5.3. documented in this encounter Plan of Treatment Upcoming Encounters Date Type Department Care Team (Late st Contact Info) Description 10/06/2025 3:30 PM EST Medication Management [address] [address] Katie Hernandez PharmMiiram [address] [place] [address] 12/12/2025 11:00 AM EST Clinical Support [address] [phone] Torie Mccormack RN 505 [place], [place] [phone] documented as of this encounter Visit Diagnoses Diagnosis Constipation, unspecified constipation type documented in this encounter Additional Health Concerns Assessment Noted Time PHQ-9 Depression Total Score: 14 023 4:05 PM EST documented as of this encounter Care Teams Marine Engineering Professor Relationship Specialty Start Date End Date Leah Alvarenga FNP PCP - General Family Medicine 09/12/22 07/31/23 Mary Jo Chau MD [address] [place] [address] PCP - General Internal Medicine 08/01/23 Adore Iraheta PharmD [address] [place] [address] [phone] Pharmacist Internal Medicine 11/04/24 08/18/25 Katie Hernandez PharmD [address] [place] [address] Pharmacist Pharmacy 08/18/25 documented as of this encounter
--- OUTSIDE RECORDS SUMMARY | 2025-09-25 21:23 | XMS_ITS | Encounter Summary ---
Author Organization [employer] Address [address] [place] [address] 7 [place] [address] Care Team Providers Care Director Automotive Name Role Phone Leah Alvarenga BULB ASSEMBLER Primary Care Provider Mary Jo Dougherty MD Primary Care Pro vider Adore Iraheta PharmD Unavailable [phone] Katie Hernandez PharmD Unavailable [phone] Reason for Visit * Reason Comments Med Refill Encounter Details Date Type Department Care Team (Late st Contact Info) Description 07/04/2023 Refill [facility] MED[facility]INE 230 [place], [place] [phone] Leah Alvraenga FNP Depression, unspecified depression type Social History [...] 3:30 PM EST Medication Management [facility] MEDICINE [address] [place], [place] [phone] Katie Hernandez, PharmD [address] [place] [address] 12/12/2025 11:00 AM EST Clinical Support [facility] MEDICINE [address] [place] [address] Torie Mccormack, RN 505 [place] [address] documented as of this encounter Visit Diagnoses Diagnosis Depression, unspecified depression type documented in this encounter Additional Health Concerns Assessment Noted Time PHQ-9 Depression Total Score: 14 023 4:05 PM EST documented as of this encounter Care Teams Director Automotive Relationship Specialty Start Date End Date Leah Alvarenga FNP PCP - General Family Medicine 09/12/22 07/31/23 Mary Jo Chau MD [address] [place] [address] PCP - General Internal Medicine 08/01/23 Adore Iraheta, NegritaD [address] [place] [address] Pharmacist Internal Medicine 11/04/24 08/18/25 Katie Hernandez, PharmD [address] [place] [address] Pharmacist Pharmacy 08/18/25 documented as of this encounter
--- OUTSIDE RECORDS SUMMARY | 2025-09-25 21:23 | XMS_ITS | Encounter Summary ---
Author Organization [employer] Address [address] [place] [address] Care Team Providers Care Morning Show Newscast Producer Name Role Phone Mary Jo Chau MD Primary Care Pro vider Adore Iraheta PharmD Unavailable [phone] Katie Hernandez PharmD Unavailable [phone] Reason for Visit * Reason Comments Med Change Request Encounter Details Date Type Department Care Team (Late Contact Info) Description 09/15/2023 Refill [facility] MEDICINE [address] [place] [address] [phone] Mary Jo Chau MD [address] [place] [address] [phone] Depression, unspecified depression type Social History Tobacco [...] 10/06/2025 3:30 PM EST Medication Management [facility] MEDICINE [address] [place] [address] Katie Hernandez, PharmD [address] [place] [address] 12/12/2025 11:00 AM EST Clinical Support [facility] MEDICINE [address] [place] [address] Torie Mccormack, WAYLON 505 [place] [address] documented as of this encounter Visit Diagnoses Diagnosis Depression, unspecified depression type documented in this encounter Additional Health Concerns Assessment Noted Time PHQ-9 Depression Total Score: 14 023 4:05 PM EST documented as of this encounter Care Teams Morning Show Newscast Producer Relationship Specialty Start Date End Date Mary Jo Chau MD [address] [place] [address] PCP - General Internal Medicine 08/01/23 Adore Iraheta, NegritaD [address] [place] [address] Pharmacist Internal Medicine 11/04/24 08/18/25 Katie Hernandez, NegritaD [address] [place] [address] Pharmacist Pharmacy 08/18/25 documented as of this encounter
--- OUTSIDE RECORDS SUMMARY | 2025-09-25 21:23 | XMS_ITS | Encounter Summary ---
Author Organization [employer] Address [address] [facility] 7 [place] [address] Care Team Providers Care Director Merit System Name Role Phone Mary Jo Chau MD Primary Care Pro vider Katie Hernandez PharmD Unavailable [phone]- [phone] Encounter Details Date Type Department Care Team (Late st Contact Info) Description 08/28/2025 Refill [facility] 230 [place] [address] Mary Jo Chau MD 230 [place] [address] Depression, unspecified depression type Social History Tobacco [...] Encounter - Mary Jo Richards MD - 09/14/2025 8:48 PM EST Med sent already documented in this encounter Plan of Treatment Upcoming Encounters Date Type Department Care Team (Late st Contact Info) Description 10/06/2025 3:30 PM EST Medication Management [address] [address] Katie Hernandez, NegritaD 230 [place] [address] 12/12/2025 11:00 AM EST Clinical Support [facility] [address] [place] [address] Torie Mccormack RN 505 [place] [address] documented as of this encounter Visit Diagnoses Diagnosis Depression, unspecified depression type documented in this encounter Additional Health Concerns Assessment Noted Time PHQ-9 Depression Total Score: 0 04/30/20 25 2:08 PM EDT documented as of this encounter Care Teams Director Merit System Relationship Specialty Start Date End Date Nickerson Maurice, Kaila, MD 230 [place], [place] [phone] PCP - General Internal Medicine 08/01/23 Katie Hernandez, NegritaD [address] [place] [address] [phone] Pharmacist Pharmacy 08/18/25 documented as of this encounter
--- OUTSIDE RECORDS SUMMARY | 2025-09-25 21:23 | XMS_ITS | Encounter Summary ---
Author Organization [employer] Address 75 [facility] 7 [place] [address] Care Team Providers Care Senior Vice President Name Role Phone Mary Jo Chau MD Primary Care Pro vider Katie Hernandez PharmD Unavailable [phone]- [phone] Encounter Details Date Type Department Care Team (Late st Contact Info) Description 08/29/2025 Refill [facility] MEDICINE 230 [place] [address] Mary Jo Chau MD 230 [place] [address] Depression, unspecified depression type Social History Tobacco [...] Description 10/06/2025 3:30 PM EST Medication Management [address] [address] Katie Hernandez, NegritaD 230 [place] [address] 12/12/2025 11:00 AM EST Clinical Support [facility] MEDICINE [address] [place] [address] Torie Mccormack RN 505 [place] [address] documented as of this encounter Visit Diagnoses Diagnosis Depression, unspecified depression type documented in this encounter Additional Health Concerns Assessment Noted Time PHQ-9 Depression Total Score: 0 04/30/20 25 2:08 PM EDT documented as of this encounter Care Teams Senior Vice President Relationship Specialty Start Date End Date Nickerson Maurice, Kaila, MD 230 [place], [place] [phone] PCP - General Internal Medicine 08/01/23 Katie Hernandez, NegritaD [address] [place] [address] [phone] Pharmacist Pharmacy 08/18/25 documented as of this encounter
--- OUTSIDE RECORDS SUMMARY | 2025-09-25 21:23 | XMS_ITS | Encounter Summary ---
Author Organization [employer] Address 75 [facility] 7 [place] [address] Care Team Providers Care Infection Preventionist Name Role Phone Mary Jo Chau MD Primary Care Pro vider Adore Iraheta PharmD Unavailable [phone] Katie Hernandez PharmD Unavailable [phone] Reason for Visit * Reason Comments Med Refill Encounter Details Date Type Department Care Team (Late st Contact Info) Description 12/04/2024 Refill [facility] 505 [place] [address] Mary Jo Chau MD 230 [place] [address] Type 2 diabetes mellitus with other specified complication, without long-term current use of insulin ([facility]) Social History Tobacco Use Types [...] 10/06/2025 3:30 PM EST Medication Management [address] [address] Katie Hernandez PharmD [address] [place] [address] 12/12/2025 11:00 AM EST Clinical Support [address] [address] Torie Mccormack RN 505 [place] [address] documented as of this encounter Visit Diagnoses Diagnosis Type 2 diabetes mellitus with other specified complication, without long-term current use of insulin (HCC) documented in this encounter Additional Health Concerns Assessment Noted Time PHQ-9 Depression Total Score: 10 024 2:12 PM EST documented as of this encounter Care Teams Infection Preventionist Relationship Specialty Start Date End Date Mary Jo Chau MD [address] [place] [address] PCP - General Internal Medicine 08/01/23 Adore Iraheta, NegritaD [address] [place] [address] Pharmacist Internal Medicine 11/04/24 08/18/25 Katie Hernandez, NegritaD [address] [place] [address] Pharmacist Pharmacy 08/18/25 documented as of this encounter
--- OUTSIDE RECORDS SUMMARY | 2025-09-25 21:23 | XMS_ITS | Encounter Summary ---
Author Organization [employer] Address [address] [place] [address] 7 [place] [address] Care Team Providers Care Creasing And Cutting Press Feeder Name Role Phone Mary Jo Chau MD Primary Care Pro vider Adore Iraheta PharmD Unavailable [phone] Katie Hernandez PharmD Unavailable [phone] Reason for Visit * Reason Comments Med Refill Encounter Details Date Type Department Care Team (Late st Contact Info) Description 11/03/2024 Refill [facility] MEDICINE 230 [place] [address] Mary Jo Chau MD 230 [place], [place] [phone] Diabetic polyneuropathy associated with type 2 diabetes [...] Description 10/06/2025 3:30 PM EST Medication Management [address] [address] Katie Hernandez PharmD [address] [place] [address] 12/12/2025 11:00 AM EST Clinical Support [facility] [address] [place] [address] Torie Mccormack, WAYLON 505 [place] [address] documented as of this encounter Visit Diagnoses Diagnosis Diabetic polyneuropathy associated with type 2 diabetes mellitus (HCC) Other atopic dermatitis documented in this encounter Additional Health Concerns Assessment Noted Time PHQ-9 Depression Total Score: 10 024 2:12 PM EST documented as of this encounter Care Teams Creasing And Cutting Press Feeder Relationship Specialty Start Date End Date Mary Jo Chau MD [address] [place] [address] PCP - General Internal Medicine 08/01/23 Adore Iraheta, PharmD [address] [place] [address] Pharmacist Internal Medicine 11/04/24 08/18/25 Katie Hernandez, NegritaD [address] [place] [address] Pharmacist Pharmacy 08/18/25 documented as of this encounter
--- OUTSIDE RECORDS SUMMARY | 2025-09-25 21:23 | XMS_ITS | Encounter Summary ---
Author Organization [employer] Address [address] [place] [address] 7 [place] [address] Care Team Providers Care Casino Attendant Name Role Phone Mary Jo Chau MD Primary Care Pro vider Adore Iraheta PharmD Unavailable [phone] Katie Hernandez PharmD Unavailable [phone] Reason for Visit * Reason Comments Med Refill Encounter Details Date Type Department Care Team (Late st Contact Info) Description 11/06/2024 Refill [facility] MEDICINE 230 [place] [address] Mary Jo Chau MD 230 [place], [place] [phone] Depressive disorder Social History Tobacco Use Types [...] Description 10/06/2025 3:30 PM EST Medication Management [address] [address] Katie Hernandez, PharmD [address] [place] [address] 12/12/2025 11:00 AM EST Clinical Support [facility] MEDICINE [address] [place] [address] Torie Mccormack, WAYLON 505 [place] [address] documented as of this encounter Visit Diagnoses Diagnosis Depressive disorder Depressive disorder, not elsewhere classified documented in this encounter Additional Health Concerns Assessment Noted Time PHQ-9 Depression Total Score: 10 024 2:12 PM EST documented as of this encounter Care Teams Casino Attendant Relationship Specialty Start Date End Date Mary Jo Chau MD [address] [place] [address] PCP - General Internal Medicine 08/01/23 Adore Iraheta, NegritaD 230 [place] [address] Pharmacist Internal Medicine 11/04/24 08/18/25 Katie Hernandez, Lorenzo 230 [place] [address] Pharmacist Pharmacy 08/18/25 documented as of this encounter
--- OUTSIDE RECORDS SUMMARY | 2025-09-25 21:23 | XMS_ITS | Encounter Summary ---
Author Organization [employer] Address [address] [place] [address] 7 [place] [address] Care Team Providers Care Developer Designer Name Role Phone Mary Jo Chau MD Primary Care Pro vider Katie Hernandez PharmD Unavailable [phone] Reason for Visit * Reason Comments Med Refill Encounter Details Date Type Department Care Team (Late st Contact Info) Description 09/22/2025 Refill [facility] MEDICINE 230 [place] [address] Mary Jo Chau MD 230 [place] [address] Social History Tobacco Use Types Packs/Day Years [...] Description 10/06/2025 3:30 PM EST Medication Management [address] [address] Katie Hernandez PharmD [address] [place] [address] 12/12/2025 11:00 AM EST Clinical Support [address] [address] Torie Mccormack RN 505 [place] [address] documented as of this encounter Visit Diagnoses Not on filedocumented in this encounter Additional Health Concerns Assessment Noted Time PHQ-9 Depression Total Score: 0 04/30/20 25 2:08 PM EDT documented as of this encounter Care Teams Developer Designer Relationship Specialty Start Date End Date Mary Jo Chau MD [address] [place] [address] PCP - General Internal Medicine 08/01/23 Katie Hernandez, PharmD 230 [place] [address] Pharmacist Pharmacy 08/18/25 documented as of this encounter
--- OUTSIDE RECORDS SUMMARY | 2025-09-25 21:23 | XMS_ITS | Encounter Summary ---
Author Organization [employer] Address [address] [place] [address] 7 [place] [address] Care Team Providers Care Tobacco Grader Name Role Phone Mary Jo Chau MD Primary Care Pro vider Adore Iraheta PharmD Unavailable [phone] Katie Hernandez PharmD Unavailable [phone] Encounter Details Date Type Department Care Team (Late st Contact Info) Description 04/01/2024 Telephone [facility] MEDICINE 230 [place] [address] Mary Jo Chau MD 230 [place] [address] Social History Tobacco Use Types Packs/Day Years [...] Description 10/06/2025 3:30 PM EST Medication Management [address] [address] Katie Hernandez, PharmD [address] [place] [address] 12/12/2025 11:00 AM EST Clinical Support [address] [address] Torie Mccormack, WAYLON 505 [place] [address] documented as of this encounter Visit Diagnoses Not on filedocumented in this encounter Additional Health Concerns Assessment Noted Time PHQ-9 Depression Total Score: 9 01/08/20 24 3:15 PM EDT documented as of this encounter Care Teams Tobacco Grader Relationship Specialty Start Date End Date Mary Jo Chau MD [address] [place] [address] PCP - General Internal Medicine 08/01/23 Adore Iraheta, PharmD [address] [place] [address] Pharmacist Internal Medicine 11/04/24 08/18/25 Katie Hernandez, NegritaD [address] [place] [address] Pharmacist Pharmacy 08/18/25 documented as of this encounter
--- OUTSIDE RECORDS SUMMARY | 2025-09-25 21:23 | XMS_ITS | Encounter Summary ---
Author Organization [employer] Address [address] [place] [address] Care Team Providers Care Manager Management Name Role Phone Mary Jo Chau MD Primary Care Pro vider Adore Iraheta PharmD Unavailable [phone] Katie Hernandez PharmD Unavailable [phone] Reason for Visit * Reason Comments Med Change Request Encounter Details Date Type Department Care Team ([facility] Contact Info) Description 04/27/2024 Refill [facility] MEDICINE 230 [place] [address] Mary Jo Chau MD 230 [place], [place] [phone] Depression, unspecified depression type Social History Tobacco [...] Upcoming Encounters Date Type Department Care Team ([facility] st Contact Info) Description 10/06/2025 3:30 PM EST Medication Management [address] [address] Katie Hernandez, Lorenzo 230 [place] [address] 12/12/2025 11:00 AM EST Clinical Support [address] [address] Torie Mccormack, WAYLON 505 [place] [address] documented as of this encounter Visit Diagnoses Diagnosis Depression, unspecified depression type documented in this encounter Additional Health Concerns Assessment Noted Time PHQ-9 Depression Total Score: 9 01/08/20 24 3:15 PM EDT documented as of this encounter Care Teams Manager Management Relationship Specialty Start Date End Date Mary Jo Chau MD [address] [place] [address] PCP - General Internal Medicine 08/01/23 Adore Iraheta, NegritaD [address] [place] [address] Pharmacist Internal Medicine 11/04/24 08/18/25 Katie Hernandez, NegritaD [address] [place] [address] Pharmacist Pharmacy 08/18/25 documented as of this encounter
--- OUTSIDE RECORDS SUMMARY | 2025-09-25 21:23 | XMS_ITS | Encounter Summary ---
Author Organization [employer] Address 75 [facility] 7t [place] [address] Care Team Providers Care Scuba Instructor Name Role Phone Mary Jo Chau MD Primary Care Pro vider Katie Hernandez PharmD Unavailable [phone] Encounter Details Date Type Department Care Team (Late st Contact Info) Description 09/25/2025 Orders Only GENERIC EXTERNAL DATA [...] Description 10/06/2025 3:30 PM EST Medication Management [facility] MEDICINE [address] [place] [address] Katie Hernandez PharmD [address] [place] [address] 12/12/2025 11:00 AM EST Clinical Support [address] [address] Torie Mccormack RN 505 [place] [address] documented as of this encounter Procedures Procedure Name Priority Date/Time Associated Diagnosis Comments PHOSPHATE ( PHOSPHORUS) Routine 09/25/2025 4:10 PM EST MAGNESIUM Routine 09/25/2025 4:10 PM EST CREATINE KINASE, TOTAL Routine 09/25/2025 4:10 PM EST documented in this encounter Results * (ABNORMAL) Creatine Kinase, Total (09/25/2025 4:10 PM EST) Creatine Kinase Total 228(H) 38 - 174 U/L [facility] 09/25/2025 4:10 PM EST 09/25/2025 4:10 PM EST us Generic External Data Provider LAB BLOOD ORDERAB LES Final Result Performing Organization Address [facility] de Phone Number [facility] [address] [place] [phone] * Magnesium (09/25/2025 4:10 PM EST) Magnesium 1.9 1.6 - 2.6 mg/dL [facility] 09/25/2025 4:10 PM EST 09/25/2025 4:10 PM EST Generic External Data Provider LAB BLOOD ORDERAB LES Final Result Performing Organization Address [facility] Phone Number [facility] [address] [place] [phone] * Phosphate (As Phosphorus) (09/25/2025 4:10 PM EST) Phosphorus 4.5 2.7 - 4.5 mg/dL [facility] 09/25/2025 4:10 PM EST 09/25/2025 4:10 PM EST Generic External Data Provider LAB BLOOD ORDERAB LES Final Result Performing Organization Address [facility] de Phone Number [facility] [address] [place] [phone] documented in this encounter Visit Diagnoses Not on filedocumented in this encounter Additional Health Concerns Assessment Noted Time PHQ-9 Depression Total Score: 0 04/30/20 25 2:08 PM EDT documented as of this encounter Care Teams Scuba Instructor Relationship Specialty Start Date End Date Mary Jo Chau MD 230 [place] [address] PCP - General Internal Medicine 08/01/23 Katie Hernandez PharmD 230 [place] [address] Pharmacist Pharmacy 08/18/25 documented as of this encounter
--- OUTSIDE RECORDS SUMMARY | 2025-09-25 21:23 | XMS_ITS | Encounter Summary ---
Author Organization [employer] Address [address] [place] [address] 7t [place] [address] Care Team Providers Care Sheriff Officer Name Role Phone Leah Alvarenga BRUSH CUTTER Primary Care Provider Mary Jo Dougherty MD Primary Care Pro vider Adore Iraheta PharmD Unavailable [phone] Katie Hernandez PharmD Unavailable [phone] Reason for Visit * Reason Comments Med Refill Encounter Details Date Type Department Care Team (Late st Contact Info) Description 05/12/2023 Refill [facility] MEDICINE [address] [place] [address] Leah Alvarenga FNP Depression, unspecified depression type [...] Description 10/06/2025 3:30 PM EST Medication Management [address] [address] Katie Hernandez, Lorenzo [address] [place] [address] 12/12/2025 11:00 AM EST Clinical Support [address] [address] Torie Mccormack, WAYLON 505 [place] [address] documented as of this encounter Visit Diagnoses Diagnosis Depression, unspecified depression type documented in this encounter Additional Health Concerns Assessment Noted Time PHQ-9 Depression Total Score: 14 023 4:05 PM EST documented as of this encounter Care Teams Sheriff Officer Relationship Specialty Start Date End Date Leah Alvarenga FNP PCP - General Family Medicine 09/12/22 07/31/23 Mary Jo Chau MD [address] [place] [phone] PCP - General Internal Medicine 08/01/23 Adore Iraheta PharmD [address] [place] [phone] Pharmacist Internal Medicine 11/04/24 08/18/25 Katie Hernandez, NegritaD [address] [place] [phone] Pharmacist Pharmacy 08/18/25 documented as of this encounter
--- OUTSIDE RECORDS SUMMARY | 2025-09-25 21:23 | XMS_ITS | Encounter Summary ---
Author Organization [employer] Address [address] [place] [address] [place] [address] Care Team Providers Care Supervisor Electronics Processing Name Role Phone Mary Jo Chau MD Primary Care Pro vider Adore Iraheta PharmD Unavailable [phone] Katie Hernandez PharmD Unavailable [phone] Reason for Visit * Reason Comments Med Refill Encounter Details Date Type Department Care Team (Late Contact Info) Description 11/09/2023 Refill [facility] MEDICINE [address] [place] [phone] Mary Jo Chau MD [address] [place] [address] [phone] Seasonal allergic rhinitis, unspecified trigger; Other chronic [...] Description 10/06/2025 3:30 PM EST Medication Management [facility] [address] [place] [phone] Katie Hernandez, PharmD 230 [place] [address] 12/12/2025 11:00 AM EST Clinical Support [facility] [address] [place] [phone] Torie Mccormack, RN 505 [place] [address] documented as of this encounter Visit Diagnoses Diagnosis Seasonal allergic rhinitis, unspecified trigger Other chronic pain documented in this encounter Additional Health Concerns Assessment Noted Time PHQ-9 Depression Total Score: 14 023 4:05 PM EST documented as of this encounter Care Teams Supervisor Electronics Processing Relationship Specialty Start Date End Date Mary Jo Chau MD [address] [place] [address] PCP - General Internal Medicine 08/01/23 Adore Iraheta, PharmD [address] [place] [phone] Pharmacist Internal Medicine 11/04/24 08/18/25 Katie Hernandez, NegritaD [address] [place] [phone] Pharmacist Pharmacy 08/18/25 documented as of this encounter
--- OUTSIDE RECORDS SUMMARY | 2025-09-25 21:23 | XMS_ITS | Encounter Summary ---
Author Organization [employer] Address [address] [place] [address] 7 [place] [address] Care Team Providers Care Radio Personality Name Role Phone Mary Jo Chau MD Primary Care Pro vider Adore Iraheta PharmD Unavailable [phone] Katie Hernandez PharmD Unavailable [phone] Reason for Visit * Reason Comments Med Refill Encounter Details Date Type Department Care Team (Late Contact Info) Description 11/14/2023 Refill [facility] MED & PEDS 505 [place], [place] [phone] Mary Jo Chau MD [address] [place], [place] [phone] Other chronic pain Social History Tobacco Use [...] Description 10/06/2025 3:30 PM EST Medication Management [facility] MEDICINE [address] [place] [phone] Katie Hernandez, PharmD [address] [place] [address] 12/12/2025 11:00 AM EST Clinical Support [facility] MEDICINE [address] [place] [address] Torie Mccormack, RN 505 [place] [address] documented as of this encounter Visit Diagnoses Diagnosis Other chronic pain documented in this encounter Additional Health Concerns Assessment Noted Time PHQ-9 Depression Total Score: 14 023 4:05 PM EST documented as of this encounter Care Teams Radio Personality Relationship Specialty Start Date End Date Mary Jo Chau MD [address] [place] [address] PCP - General Internal Medicine 08/01/23 Adore Iraheta, PharmD [address] [place] [address] Pharmacist Internal Medicine 11/04/24 08/18/25 Katie Hernandez, PharmD [address] [place] [address] Pharmacist Pharmacy 08/18/25 documented as of this encounter
--- OUTSIDE RECORDS SUMMARY | 2025-09-25 21:23 | XMS_ITS | Encounter Summary ---
Author Organization [employer] Address [address] [facility] 7 [place] [address] Care Team Providers Care Lab Analyst Name Role Phone Cristin Chaves MD Primary Care Provider Leah Macario BOILER HOUSE MECHANIC Primary Care Provider Mary Jo Dougherty MD Primary Care Pro vider Adore Iraheta PharmD Unavailable [phone] Katie Hernandez PharmD Unavailable Encounter Details Date Type Department Care Team (Latest Contact Info) Description 06/14/2021 Abstract [facility] CONVERSIONS Dental, Provider, DDS Social [...] Description 10/06/2025 3:30 PM EST Medication Management [facility] MEDICINE [address] [place] [address] [phone] Katie Hernandez, PharmD 230 [place], [place] [phone] 12/12/2025 11:00 AM EST Clinical Support [facility] MEDICINE 230 [place], [place] [phone] Torie Mccormack RN 505 [place] [address] documented as of this encounter Visit Diagnoses Not on filedocumented in this encounter Care Teams Lab Analyst Relationship Specialty Start Date End Date Cristin Chaves MD PCP - General Family Medicine 04/13/20 09/11/22 Leah Alvarenga FNP PCP - General Family Medicine 09/12/22 07/31/23 Mary Jo Chau MD [address] [place] [phone] PCP - General Internal Medicine 08/01/23 Adore Iraheta, NegritaD [address] [place] [phone] Pharmacist Internal Medicine 11/04/24 08/18/25 Katie Hernandez, NegritaD [address] [place] [phone] Pharmacist Pharmacy 08/18/25 documented as of this encounter
--- OUTSIDE RECORDS SUMMARY | 2025-09-25 21:23 | XMS_ITS | Encounter Summary ---
Author Organization [employer] Address [address] [place] [address] 7 [place] [address] Care Team Providers Care Aids Nurse Name Role Phone Mary Jo Chau MD Primary Care Pro vider Adore Iraheta PharmD Unavailable [phone] Katie Hernandez PharmD Unavailable [phone] Reason for Visit * Reason Onset Date Comments new appointment 09/25/2024 Encounter Details Date Type Department Care Team (Late st Contact Info) Description 09/25/2024 Telephone [facility] MEDICINE 230 [place] [address] Mary Jo Chau MD 230 [place] [address] new appointment Social History Tobacco Use Types [...] Description 10/06/2025 3:30 PM EST Medication Management [address] [address] Katie Hernandez, PharmD 230 [place] [address] 12/12/2025 11:00 AM EST Clinical Support [address] [address] Torie Mccormack, WAYLON 505 [place] [address] documented as of this encounter Visit Diagnoses Not on filedocumented in this encounter Additional Health Concerns Assessment Noted Time PHQ-9 Depression Total Score: 10 024 2:12 PM EST documented as of this encounter Care Teams Aids Nurse Relationship Specialty Start Date End Date Mary Jo Chau MD [address] [place] [address] PCP - General Internal Medicine 08/01/23 Adore Iraheta, NegritaD [address] [place] [phone] Pharmacist Internal Medicine 11/04/24 08/18/25 Katie Hernandez, Lorenzo [address] [place] [phone] Pharmacist Pharmacy 08/18/25 documented as of this encounter
--- OUTSIDE RECORDS SUMMARY | 2025-09-25 21:26 | XMS_ITS | Encounter Summary ---
Author Organization [employer] Address [address] [facility] 7t [place] [address] Care Team Providers Care Burglar Alarm Superintendent Name Role Phone Mary Jo Cahu MD Primary Care Pro vider dAore Iraheta PharmD Unavailable [phone] Katie Hernandez PharmD Unavailable [phone] Reason for Visit * Reason Comments Med Refill Encounter Details Date Type Department Care Team (Late st Contact Info) Description 03/31/2025 Refill [facility] CHC MED & PEDS [address] [place], [place] [phone] Azael Diallo MD 230 [place] [address] Depression, unspecified depression type; Depressive disorder; Type 2 diabetes mellitus with other specified complication, without long-term current use of insulin ([facility]) Social History Tobacco Use [...] Description 10/06/2025 3:30 PM EST Medication Management [address] [address] Katie Hernandez PharmD [address] [place] [address] 12/12/2025 11:00 AM EST Clinical Support [facility] MEDICINE [address] [place] [phone] Torie Mccormack RN 505 [place] [address] documented as of this encounter Visit Diagnoses Diagnosis Depression, unspecified depression type Type 2 diabetes mellitus with other specified complication, without long-term current use of insulin (HCC) documented in this encounter Additional Health Concerns Assessment Noted Time PHQ-9 Depression Total Score: 10 024 2:12 PM EST documented as of this encounter Care Teams Burglar Alarm Superintendent Relationship Specialty Start Date End Date Mary Jo Chau MD [address] [place] [phone] PCP - General Internal Medicine 08/01/23 Adore Iraheta, PharmD [address] [place] [phone] Pharmacist Internal Medicine 11/04/24 08/18/25 Katie Hernandez, NegritaD [address] [place] [phone] Pharmacist Pharmacy 08/18/25 documented as of this encounter
--- OUTSIDE RECORDS SUMMARY | 2025-09-25 21:26 | XMS_ITS | Encounter Summary ---
Author Organization [employer] Address [address] [place] [address] 7 [place] [address] Care Team Providers Care Cyber Systems Engineer Name Role Phone Mary Jo Chau MD Primary Care Pro vider Adore Iraheta PharmD Unavailable [phone] Katie Hernandez PharmD Unavailable [phone] Reason for Visit * Reason Comments Med Refill Encounter Details Date Type Department Care Team (Late st Contact Info) Description 04/08/2025 Refill [facility] MEDICINE 230 [place] [address] aMry Jo Chau MD 230 [place], [place] [phone] Type 2 diabetes mellitus with diabetic polyneuropathy [...] the past 12 months, has t he [employer] gas, oil or water company threatened to [...] 10/06/2025 3:30 PM EST Medication Management [address] [address] Katie Hernandez, NegritaD 230 [place] [address] 12/12/2025 11:00 AM EST Clinical Support [address] [address] Torie Mccormack, WAYLON 505 [place] [address] documented as of this encounter Visit Diagnoses Diagnosis Type 2 diabetes mellitus with diabetic polyneuropathy (HCC) documented in this encounter Additional Health Concerns Assessment Noted Time PHQ-9 Depression Total Score: 10 024 2:12 PM EST documented as of this encounter Care Teams Cyber Systems Engineer Relationship Specialty Start Date End Date Mary Jo Chau MD [address] [place] [address] PCP - General Internal Medicine 08/01/23 Adore Iraheta, NegritaD [address] [place] [phone] Pharmacist Internal Medicine 11/04/24 08/18/25 Katie Hernandez, NegritaD [address] [place] [phone] Pharmacist Pharmacy 08/18/25 documented as of this encounter
== END 2025-09-25 15:51 | disposition home or self-care (01) ==
LOC: HO.HSM 15:10
PROVIDERS: PCP Student in an Organized Health Care Education/Training Program; Visit Provider Registered Nurse
DX: E11.42 Type 2 diabetes mellitus with diabetic polyneuropathy (principal); G31.84 Mild cognitive impairment of uncertain or unknown etiology; G30.9 Alzheimer's disease, unspecified; F02.80 Dementia in other diseases classified elsewhere, unspecified severity, without behavioral disturbance, psychotic disturbance, mood disturbance, and anxiety; R25.2 Cramp and spasm
CPT/HCPCS: 99214